=== PATIENT | female | born 1940 | race Caucasian/White ===

== ENCOUNTER 2022-10-24 06:42 | Outpatient (OUT) | payer MEDICARE, SELFPAY ==
[2022-10-24 07:12] LABS: Basophils Absolute Auto 0.1 10^3/uL (0.0-0.1); Basophils Percent Auto 0.8 % (0.2-2.0); Eosinophils Absolute Auto 0.5 10^3/uL (0.0-0.7); Eosinophils Percent Auto 7.6 % (0.9-7.0); Hematocrit 36.3 % (36.0-48.0); Hemoglobin 11.7 g/dL (12.0-16.0); Immature Granulocytes Abs Auto 0.04 10^3/uL (0.00-0.03); Immature Granulocytes Pct Auto 0.6 % (0.0-0.5); Lymphocytes Absolute Auto 1.6 10^3/uL (1.2-3.8); Lymphocytes Percent Auto 23.6 % (20.5-60.0); Mean Corpuscular HGB Conc 32.2 g/dL (29.9-35.2); Mean Corpuscular Hemoglobin 27.3 pg (26.7-34.0); Mean Corpuscular Volume 84.8 fL (81.0-99.0); Mean Platelet Volume 8.9 fL (9.5-13.5); Monocytes Absolute Auto 0.7 10^3/uL (0.3-0.8); Monocytes Percent Auto 10.1 % (1.7-12.0); Neutrophils Absolute Auto 3.8 10^3/uL (1.4-6.5); Neutrophils Percent Auto 57.3 % (43.0-75.0); Platelet Count 268 10^3/uL (150-450); Red Blood Count 4.28 10^6/uL (4.20-5.40); Red Cell Distribution Width 14.6 % (11.0-15.0); White Blood Count 6.6 10^3/uL (4.0-11.0)
[2022-10-24 07:34] LABS: Estimated Average Glucose 154 mg/dL
[2022-10-24 07:44] LABS: Alanine Aminotransferase 19 U/L (14-59); Anion Gap 10.7; BUN Creatinine Ratio 19.8; Calcium 8.9 mg/dL (8.5-10.1); Carbon Dioxide 28.4 mmol/L (21.0-32.0); Chloride 99 mmol/L (98-107); Chol HDL Ratio 2.2; Cholesterol 152 mg/dL (<=200); Estimated GFR (African America >60 (>=60); Estimated GFR (Non-African Ame >60 (>=60); Glucose 151 mg/dL (74-106); HDL Cholesterol 68 mg/dL (40-60); Potassium 4.1 mmol/L (3.5-5.1); Sodium 134 mmol/L (136-145); Triglycerides 84 mg/dL (<=150); VLDL CHOLESTEROL 16.8 mg/dL
[2022-10-24 10:21] LABS: Microalbumin Urine Random 1.8 mg/dL (<=30.0)
== END 2022-10-24 06:43 | disposition home or self-care (01) ==
PROVIDERS: PCP Internal Medicine; Visit Provider Internal Medicine
DX: E11.65 Type 2 diabetes mellitus with hyperglycemia (principal); I10 Essential (primary) hypertension; E78.00 Pure hypercholesterolemia, unspecified; Z79.899 Other long term (current) drug therapy
CPT/HCPCS: 36415; 80048; 80061; 82043; 83036; 84460; 85025

== ENCOUNTER 2023-02-11 06:57 | Outpatient (OUT) | payer MEDICARE, SELFPAY ==
[2023-02-11 08:19] LABS: Estimated Average Glucose 160 mg/dL; Glycohemoglobin A1C 7.2 % (4.5-6.2)
== END 2023-02-11 06:58 | disposition home or self-care (01) ==
LOC: LAB 06:59
PROVIDERS: PCP Internal Medicine; Visit Provider Internal Medicine
DX: E11.65 Type 2 diabetes mellitus with hyperglycemia (principal)
CPT/HCPCS: 36415; 83036

== ENCOUNTER 2023-03-09 15:40 | Outpatient (OUT) | payer MEDICARE, SELFPAY ==
--- NOTE | 2023-03-09 15:43 | XR_ITS ---
The [address] [address] Patient Name: DARLENE MCLAUGHLIN MRN: [id number] date: 1940 Sex: F Assigned Patient Location: [facility] Current Patient Location: Accession/Order Number: [id number] Exam Date: 03/09/2023 15:55 Report Date: 03/10/2023 01:48 At the request of: FIDEL PEREZ Procedure: XR cervical spine w flex/ext EXAMINATION: XR cervical spine w flex/ext HISTORY: Cervicalgia M54.0, Cervical Spondylosis M47.812 COMPARISON: CT C-spine 05/06/2018 FINDINGS: BONES: No fracture, spondylolisthesis, or bone lesion; no change in alignment during flexion and extension. Multilevel moderate degenerative facet arthropathy left greater than right. DISC SPACES: Mild narrowing C5-C6. PARASPINOUS: Negative. No paraspinous abnormality is seen. OTHER: Negative. XR/XR cervical spine w flex/ext IMPRESSION: 1. No appreciable acute abnormality. 2. Altered level moderate degenerative facet arthropathy and C5-C6 mild degenerative disc disease; grossly stable. Electronically authenticated by: AVSU FERNANDEZ Date: 03/10/2023 01:48
== END 2023-03-09 15:41 | disposition home or self-care (01) ==
PROVIDERS: PCP Internal Medicine; Visit Provider Internal Medicine
DX: M54.2 Cervicalgia (principal); M47.812 Spondylosis without myelopathy or radiculopathy, cervical region
CPT/HCPCS: 72052

== ENCOUNTER 2023-07-28 11:08 | Outpatient (OUT) | payer MEDICARE, SELFPAY ==
--- NOTE | 2023-07-28 11:19 | XR_ITS ---
The [address] [address] Patient Name: DARLENE MCLAUGHLIN MRN: [id number] date: 1940 Sex: F Assigned Patient Location: [facility] Current Patient Location: [facility] Accession/Order Number: [id number] Exam Date: 07/28/2023 11:27 Report Date: 07/28/2023 12:09 At the request of: FIDEL PEREZ Procedure: XR cervical spine 2-3V EXAMINATION: XR cervical spine 2-3V HISTORY: cervicalgia M54.2 COMPARISON: 03/09/2023 FINDINGS: BONES: Normal alignment with no acute fracture or spondylolisthesis. Mild degenerative spondylosis most significant C5-C6. Moderate to severe facet osteoarthropathy DISC SPACES: Multilevel disc space narrowing most significant C5-C6 PARASPINOUS: Negative. No paraspinous abnormality is seen. OTHER: Negative. XR/XR cervical spine 2-3V IMPRESSION: Moderate degenerative changes Electronically authenticated by: SARAH CLINTON Date: 07/28/2023 12:09
== END 2023-07-28 11:09 | disposition home or self-care (01) ==
LOC: RAD 11:13
PROVIDERS: PCP Internal Medicine; Visit Provider Internal Medicine
DX: M54.2 Cervicalgia (principal); M50.30 Other cervical disc degeneration, unspecified cervical region
CPT/HCPCS: 72040

== ENCOUNTER 2023-08-03 14:15 | Outpatient (RCR) | payer MEDICARE, SELFPAY | END 2023-09-10 16:07 | disposition home or self-care (01) | LOC: PT 14:15 | PROVIDERS: PCP Internal Medicine; Visit Provider Internal Medicine | DX: M54.2 Cervicalgia (principal) | CPT/HCPCS: 97012; 97110; 97140; 97162 ==

== ENCOUNTER 2023-09-28 13:07 | Outpatient (OUT) | payer MEDICARE, SELFPAY ==
--- NOTE | 2023-09-28 14:43 | P.CN_ITS ---
Consult Note: HPI Data of Consult Patient: new to practice Consult date: 09/28/23 Requesting Physician: Shane Hawkins MD Primary Care Provider: Glen Ya DO Consult Narrative Reason for consult: neck pain Narrative: 82yof who presents for evaluation. longstanding neck pain L>R. imaging reviewed, which is significant for multilevel moderate to severe facet arthropathy. has completed a course of provider directed home exercises and physical therapy exercises for >6 weeks. uses voltaren qday. denies adverse med side effects. cc:: CC: Shane Hawkins MD Review of Systems ROS Status of ROS 10 or more systems reviewed and unremark able except as noted in history and below Exam Narrative Exam Narrative: Psych-alert and oriented x 3.? Attentive and appropriate, constitutionally normal, displays normal mood and affect per situation.? There are no obvious deficits in memory, reasoning, or intellect.? Skin-no obvious rashes, bruising, or erythema noted to the patient's area of pain. Extremities-upper extremities are warm with minimal edema and palpable pulses. Cervical- tenderness to palpation noted in the cervical spine and paraspinal musculature.? Pain is elicited with extension, and lateral rotation of the cervical spine.? Range of motion is slightly diminished due to pain. Facet loading maneuvers are positive bilaterally.? Coordination remains intact.? Gait remains non-antalgic. Assessment and Plan Assessment and Plan (1) Cervical spondylosis: Plan 82yof who presents for evaluation. failed conservative measures, as noted. imaging reviewed, as noted. given symptoms and imaging, discussed that it would be prudent to attempt bilateral c4-5, 5-6 mbb under fluoroscopic guidance with intention of proceeding to rfa when she is ready. she is in agreement and will call when ready. meds reviewed, recommended applying voltaren gel 1% to area tid prn. follow up after procedure.
== END 2023-09-28 13:08 | disposition home or self-care (01) ==
LOC: PM 13:07
PROVIDERS: PCP Internal Medicine; Visit Provider Anesthesiology
DX: M47.812 Spondylosis without myelopathy or radiculopathy, cervical region (principal)
CPT/HCPCS: G0463

== ENCOUNTER 2024-10-20 06:51 | Outpatient (OUT) | payer MEDICARE, SELFPAY ==
--- OUTSIDE RECORDS SUMMARY | 2024-10-20 06:55 | XMS_ITS | Patient Health Record ---
Author Organization [facility] Address [address] [place] [address] Care Team Providers Care Account Manager Employee Benefits Name Role Phone Dr. Scooter Rosas Primary Care Provider Nuria Krueger Unavailable [phone] Reason For Referral No Information Encounters Encounter Location Date Provider Diagnosis [facility] [address] [place] [address] 04/11/2024 Scooter Rosas [facility] [address] [address] 04/11/2024 Scooter Rosas [facility] [place] [address] 05/09/2024 Scooter Rosas [facility] [address] [address] 03/02/2024 Nuria Krueger Encounter for dental examination and cleaning with abnormal findings Z01.21 ; Other dental procedure status Z98.818 and Dental caries on pit and fissure surface penetrating into dentin K02.52 [facility] [address] [place] [address] 06/07/2024 Scooter Rosas Other dental procedure status Z98.818 [facility] [place] [address] [place] [address] 09/07/2024 Scooter Rosas Dental caries on pit and fissure surface penetrating into dentin K02.52 [facility] [address] [place] [address] 04/11/2024 Scooter Rosas Dental caries on pit and fissure surface penetrating into dentin K02.52 Assessments Encounter Date Diagnosis (ICD Code) Assessment Notes Treatment Notes Treatment Clinical Notes Section Notes 06/07/2024 Other dental procedure status (ICD-10 - Z98.818) 03/02/2024 Encounter for dental examination and cleaning with abnormal findings (ICD-10 - Z01.21) 09/07/2024 Dental caries on pit and fissure surface penetrating into dentin (ICD-10 - K02.52) 04/11/2024 Dental caries on pit and fissure surface penetrating into dentin (ICD-10 - K02.52) 03/02/2024 Other dental procedure status (ICD-10 - Z98.818) 03/02/2024 Dental caries on pit and fissure surface penetrating into dentin (ICD-10 - K02.52) Plan Of Treatment No Information Insurance Providers Payer Name Payer Address Payer Phone Subscriber Number Group Number Insured Name Patient Relationship to Insured Coverage Start Date Coverage End Date [facility] [address] [place] [address] [id number] DARLENE MCLAUGHLIN Self - patient is the insured 5 [facility] [address] [place] [address] [id number] DARLENE MCLAUGHLIN Self - patient is the insured 2
--- OUTSIDE RECORDS SUMMARY | 2024-10-20 06:55 | XMS_ITS | Encounter Summary ---
Author Organization [facility] Address [address] [place] [address] Care Team Providers Care Rotary Operator Name Role Phone Glen Ya DO Primary Care Provider [phone] Source Comments In the event this information is protected by the Federal Confidentiality of Alcohol and Drug AbusePatient Records regulations: The Federal rules restrict any use of the information to criminally investigate or prosecute any alcohol or drug abuse patient.[facility] Encounter Details Date Type Department Care Team (Latest Contact Info) Description 12/25/2020 H&P External-NonCCF Provider, External, PA-C Do not enter address information under generic External Provider. Social History Tobacco Use Types Packs/Day Years Used Date Smoking Tobacco: Never Assessed Area Deprivation Index Answer Date Lenny rded National Score (1-100), lower number is lower ri sk Not on file 12/28/2020 State Score (1-10), lower number is lower risk N ot on file 12/28/2020 Data from: https://www.neighborhoodatlas.medicine.[facility].edu/. Last address used for calculation Not on file 12/28/2020 Comments Unknown Sex and Gender Information Value Date Recorded Sex Assigned at Not on file Legal Sex Female 10:46 AM EDT Gender Identity Not on file Sexual Orientation Not on file COVID-19 Exposure Response Date Recorded In the last month, have you been in contact with someone who was confirmed or suspected to have Coronavirus / COVID-19? No / Unsure 12/28/2020 12:32 PM EDT documented as of this encounter Plan of Treatment Not on file documented as of this encounter Visit Diagnoses Not on filedocumented in this encounter Care Teams Rotary Operator Relationship Specialty Start Date End Date Glen Ya DO [address] [place] [address] PCP - General Internal Medicine 12/24/20 documented as of this encounter
--- OUTSIDE RECORDS SUMMARY | 2024-10-20 06:55 | XMS_ITS | Encounter Summary ---
Author Organization [facility] Address [address] [place] [address] Care Team Providers Care Foundation Assistant Name Role Phone Glen Ya DO Primary Care Provider [phone] Reason for Visit * Reason Comments Med Refill Encounter Details Date Type Department Care Team ([facility] Contact Info) Description 01/01/2023 Refill [facility] [address] [facility] [address] [place] [address] Shantell Tatum MD [address] [facility] [address] [place] [address] Dermatographic urticaria Social History Tobacco Use Types Packs/Day Years Used Date Smoking Tobacco: Never Smokeless Tobacco: Never Alcohol Use Standard Drinks/Week Comments Never 0 (1 standard drink = 0.6 oz pur e alcohol) Comments Unknown Sex and Gender Information Value Date Recorded Sex Assigned at Not on file Legal Sex Female 11:10 PM EDT Gender Identity Not on file Sexual Orientation Not on file documented as of this encounter Plan of Treatment Upcoming Encounters Date Type Department Care Team ([facility] Contact Info) Description 01/04/2025 8:45 AM EDT Clinical Support [facility] [address] [place] [id number] Charlotte Cintron, [facility] [address] [place] [address] documented as of this encounter Visit Diagnoses Diagnosis Dermatographic urticaria documented in this encounter Care Teams Foundation Assistant Relationship Specialty Start Date End Date Glen Ya DO PCP - General Internal Medicine 09/01/22 documented as of this encounter
--- OUTSIDE RECORDS SUMMARY | 2024-10-20 06:55 | XMS_ITS | Patient Health Record ---
Author Organization [facility] [place] Address [address] [place] [address] Care Team Providers Care Pin Inserter Name Role Phone Glen Ya DO Primary Care Provider Unavaila ble Allergies No Known Allergies Reason For Referral No Information Medications Medication SIG (Take, Route, Frequency, Duration) Notes Start Date End Date Status Diclofenac Active metFORMIN HCl 1000 MG 1 tablet with a me al Orally BID Active Metoprolol Succinate ER 100 MG 1 tablet Orally BID Active Tylenol Extra Strength 500 MG 1 tablet as needed Orally every 6 hrs Active Valsartan 160 MG 1 tablet Orally Once a day for 30 day(s) Active predniSONE 5 MG TAKE 2 TABS DAILY FO R 2 WKS,1 & 1/2 TABS DAILY X2 WKS,1 TAB DAILY X2 WKS, 1/2 TAB DAILY X2 WKS for 90 Not-Taking Multivitamin - 1 tablet Orally Once a day for 30 day(s) Active amLODIPine Besylate 5 MG 1 tablet Orally Once a day for 30 day(s) Active Aspirin 81 MG 1 tablet Orally Once a day for 30 day(s) Active Atorvastatin Calcium 10 MG 1 tablet Orally Once a day for 30 day(s) Active Calcium 600 MG 1 tablet with meals Orally Once a day Active Immunizations Vaccine Route Administration Date Status Comme nts SARS-COV-2 (COVID 19 Pfizer 30mcg/0.3mL) Unknown 05/15/2020 Administered SARS-COV-2 (COVID 19 Pfizer Booster 0.3mL) Unknown 12/31/2020 Administered Social History Tobacco Use: Social History Observation Description Date Details (start date - stop date) Never Smoker NA - NA Tobacco Use/Smoking Question Answer Notes Patient is a nonsmoker Living Will Question Answer Notes Living Will Yes, patient has a living will, but it is not on file Section Notes: nondrinker nonsmoker (Garret, >61years; 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[employer]), 5 children (Zoe GILES prior at [employer]; 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[employer] John; 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; Johnie works for [employer]; Jose is child support agent for [employer]); Victorina ([employer]) grandchild desires to be DO 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 nondrinker nonsmoker (Garret, >61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; 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[employer]), 5 children (Zoe GILES prior at [employer]; 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[employer]; 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; Pardeep works for [employer]; Jose is child support agent for [employer]); Victorina ([facility]) grandchild desires to be DO 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 nondrinker nonsmoker (Garret, >61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; 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[employer]), 5 children (Zoe GILES prior at [employer]; 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[employer] John; 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; Johnie works for [employer]; Jose is child support agent for [employer]; ); Victorina ([facility]) grandchild desires to be DO 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 Problems Problem Type SNOMED Code ICD Code Onset Dates Problem Status W/U Status Risk Notes Problem Generalized osteoarthritis (870876027) 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) Active confirmed Problem Polymyalgia rheumatica (50538683) Polymyalgia rheumatica syndrome (M35.3) Active confirmed Problem Diabetes mellitus (37734586) Diabetes mellitus (E11.9) Active confirmed Plan Of Treatment No Information Insurance Providers Payer Name Payer Address Payer Phone Subscriber Number Group Number Insured Name Patient Relationship to Insured Coverage Start Date Coverage End Date [employer] [address] [place], [place] [id number] John Rain Self - patient is the insured 2 Medical (General) History Medical History History ICD Code cataracts hypertension anemia Surgical History Surgery Date(Month/Year) gallbladder
--- OUTSIDE RECORDS SUMMARY | 2024-10-20 06:55 | XMS_ITS | Clinical Summary ---
Author Organization [facility] Address [address] [place] [address] Care Team Providers Care Tube Fitter Name Role Phone Glen aY DO Primary Care Provider [phone] Allergies Active Allergy Reactions Criticality Noted Date Comments Sulfamethoxazole-Trimethoprim Unknown 2020 Medications amLODIPine (NORVASC) 5 mg tablet 11/09/2020 Active atorvastatin (LIPITOR) 10 mg tablet 11/09/2020 Active diclofenac, EC, (VOLTAREN) 75 mg EC tablet Take 75 mg by mouth once daily. Takes it every other day. 11/21/2020 Active metFORMIN (GLUCOPHAGE) 1,000 mg tablet 11/05/2020 Act mandi metoprolol succinate ER (TOPROL XL) 100 mg 11/09/2020 Active Valsartan-hydroC HLOROthiazide 160-25 mg per tablet 11/19/2020 Active CHRIS ASPIRIN ORAL Take 81 mg by mouth once daily. Active oxyCODONE IR (ROXICODONE) 5 mg immediate release tablet 12/27/2021 Acti ve escitalopram oxalate (LEXAPRO) 5 mg tablet Take 1 tablet by mouth once daily. 07/28/2024 Active Active Problems Problem Noted Date Diagnosed Date Type 2 diabetes mellitus wit h hyperglycemia, without long-term current use of insulin 08/03/2023 Anemia in other chronic diseases classified else where 07/16/2022 Microcytic anemia 07/16/2022 Juvenile polyarthritis Encounters Date Type Department Care Team Description 08/15/2024 Telephone Hematology/Oncology [address] [place] [address] [place] [address] Dipti Cuba, PAJeyC Results 08/12/2024 11:00 AM EDT Visit (SP) Office Hematology/Oncology [address] [place] [address] Dipti Cuba, ARIELA Anemia in other chronic diseases classified elsewhere (Primary Dx); White coat syndrome with diagnosis of hypertension 08/12/2024 Travel from Last 3 Months Immunizations Immunization Administration Dates Next Due COVID-19 original vaccine, a ge 12+ yr, monovalent (PFIZER-BIONTECH - PURPLE TOP) 12/27/2020,05/16/2020,04/23/2020 influenza (HD-IIV3) vaccine, age 65+ yr, high dose, trivalent, PF (FLUZONE HIGH-DOSE) 01/20/2017 influenza (IIV3) vaccine, tr ivalent (AFLURIA, FLULAVAL, FLUVIRIN, FLUZONE) 01/28/2013 influenza (ccIIV4) vaccine, age 6+ mo, quadrivalent (FLUCELVAX) 12/16/2017 Family History Medical History Relation Comments Heart disease Father CVA Mother Stroke Mother Relation Status Comments Father Mother Social History Tobacco Use Types Packs/Day Years Used Date Smoking Tobacco: Never Smokeless Tobacco: Never Alcohol Use Standard Drinks/Week Comments Never 0 (1 standard drink = 0.6 oz pur e alcohol) PHQ-2 Answer Date Recorded PHQ-2 score 0 08/03/2023 Area Deprivation Index Answer Date Lenny rded National Score (1-100), lower number is lower ri sk 63 02/02/2023 State Score (1-10), lower number is lower risk 4 02/02/2023 Data from: https://www.neighborhoodatlas.medicine.[facility].edu/. Last address used for calculation [address] [place] [address] 02/02/2023 Comments No Sex and Gender Information Value Date Recorded Sex Assigned at Not on file Legal Sex Female 10:46 AM EDT Gender Identity Not on file Sexual Orientation Not on file Last Filed Vital Signs Vital Sign Reading Time Taken Comments Blood Pressure 191/76 08/12/2024 11:05 AM EDT recheck Pulse 60 08/12/2024 11:01 AM EDT Temperature 36.3 C (97.4 F) 08/12/2024 11:01 AM EDT Respiratory Rate 16 08/12/2024 11:0 1 AM EDT Oxygen Saturation 99% 08/12/2024 11: 01 AM EDT Inhaled Oxygen Concentration - - Weight 57.9 kg (127 lb 10.3 oz) 025 11:01 AM EDT Height 157.5 cm (5' 2.01 ) 08/12/2024 1 1:01 AM EDT Body Mass Index 23.34 08/12/2024 11:01 AM EDT Plan of Treatment Health Maintenance Due Date Last Done Comments HbA1C 12/18/1947 Diabetic Foot Exam 1952 Dilated Retinal Exam 1952 Urine Albumin:Creatinine Ratio 1952 Anxiety Screening 1960 Depression Screening 1960 LDL Cholesterol 1960 Bone Density Screening 12/18/2007 RSV Vaccine (1 - 1-dose 75+ series) 2017 Advance Directive Discussion 03/30/2024 Medicare Advantage Annual We llness Visit 03/30/2024 Influenza Vaccine (#1) 2024 , 01/05/2023, 12/09/2021, Additional history exists DTaP,Tdap,Td Vaccine (4 - Tdap) 05/06/2028 05/06/2018, 12/22/2013, 02/03/2013 Pneumococcal Vaccine: 50+ Completed 02/14/2016, Shingrix Vaccine Completed 03/06/2024, , 02/14/2016 Procedures Procedure Name Priority Date/Time Associated Diagnosis Comments VITAMIN B12 BLOOD Routine 08/12/2024 10: 55 AM EDT Anemia in other chronic diseases classified elsewhere FOLATE SERUM Routine 08/12/2024 10:55 AM EDT Anemia in other chronic diseases classified elsewhere FERRITIN BLD Routine 08/12/2024 10:55 AM EDT Anemia in other chronic diseases classified elsewhere CBC + DIFF Routine 08/12/2024 10:55 AM EDT Anemia in other chronic diseases classified elsewhere COMPREHENSIVE METABOLIC PANEL Routine 08/12/2024 10:55 AM EDT Anemia in other chronic diseases classified elsewhere IRON + TIBC Routine 08/12/2024 10:55 AM EDT Anemia in other chronic diseases classified elsewhere from Last 3 Months Results * VITAMIN B12 (08/12/2024 10:55 AM EDT) Vitamin B12 842 232 - 1,245 pg/mL 08/12/2024 8:21 PM EDT [facility] Blood BLOOD SPECIMEN / Unknown Venipuncture / Unknown 08/12/2024 10:55 AM EDT 08/12/2024 10:55 AM EDT Dipti Cuba PA-C LABORATORY Final Result Performing Organization Address City/[facility]/ZIP Co de Phone Number [facility] [address] [place] [address], * (ABNORMAL) IRON AND TIBC (08/12/2024 10:55 AM EDT) Iron 40(L) 41 - 186 ug/dL 08/12/2024 7:50 PM EDT [facility] TIBC 261 232 - 386 ug/dL 08/12/2024 7:50 PM EDT [facility] Transferrin Saturation 15.3 15.0 - 57.0 % 08/12/2024 7:50 PM EDT [facility] Blood BLOOD SPECIMEN / Unknown Venipuncture / Unknown 08/12/2024 10:55 AM EDT 08/12/2024 10:55 AM EDT us Dipti Cuba PA-C LABORATORY Final Result [facility] [address] [place] [address], * FOLATE, SERUM (08/12/2024 10:55 AM EDT) Folate 15.2 >4.7 ng/mL 08/12/2024 8:21 PM EDT [facility] Blood BLOOD SPECIMEN / Unknown Venipuncture / Unknown 08/12/2024 10:55 AM EDT 08/12/2024 10:55 AM EDT Dipti Cuba PA-C LABORATORY Final Result Performing Organization Address [facility]/ZIP Co de Phone Number [facility] [address] [place] [address], [place] * FERRITIN (08/12/2024 10:55 AM EDT) [facility] Ferritin 30.6 14.7 - 205.1 ng/mL 08/12/2024 8:21 PM EDT [facility] Blood BLOOD SPECIMEN / Unknown Venipuncture / Unknown 08/12/2024 10:55 AM EDT 08/12/2024 10:55 AM EDT us iDpti Cuba PA-C LABORATORY Final Result Performing Organization Address [facility] Co de Phone Number [facility] [address] [place] [address], [place] * (ABNORMAL) COMPREHENSIVE METABOLIC PANEL (08/12/2024 10:55 AM EDT) [facility] Protein, Total 6.8 6.3 - 8.0 g/dL 08/12/2024 11:28 AM EDT [facility] Albumin 4.6 3.9 - 4.9 g/dL 08/12/2024 11:28 AM EDT [facility] Calcium, Total 9.5 8.5 - 10.2 mg/dL 08/12/2024 11:28 AM EDT [facility] Bilirubin, Total 0.4 0.2 - 1.3 mg/dL 08/12/2024 11:28 AM EDT [facility] Alkaline Phosphatase 109 34 - 123 U/L 08/12/2024 11:28 AM EDT [facility] AST 22 13 - 35 U/L 08/12/2024 11:28 AM EDT [facility] ALT 18 7 - 38 U/L 08/12/2024 11:28 AM [facility] Glucose 129(H) 74 - 99 mg/dL 08/12/2024 11:28 AM [facility] Comment: The [place] Diabetes Association (ADA) provides guidance for cutoff values for fasting glucose and random glucose. The ADA defines fasting as no caloric intake for at least 8 hours. Fasting plasma glucose results between 100 to 125 mg/dL indicate increased risk for diabetes (prediabetes). Fasting plasma glucose results greater than or equal to 126 mg/dL meet the criteria for diagnosis of diabetes. In the absence of unequivocal hyperglycemia, results should be confirmed by repeat testing. In a patient with classic symptoms of hyperglycemia or hyperglycemic crisis, random plasma glucose results greater than or equal to 200 mg/dL meet the criteria for diagnosis of diabetes. Reference: Standards of Medical Care in Diabetes 2016, [place] Diabetes Association. Diabetes Care. 2016.39(Suppl 1). BUN 17 7 - 21 mg/dL 08/12/2024 11:28 AM [facility] Creatinine 0.85 0.58 - 0.96 mg/dL 08/12/2024 11:28 AM [facility] Sodium 132(L) 136 - 144 mmol/L 08/12/2024 11:28 AM [facility] Potassium 5.0 3.7 - 5.1 mmol/L 08/12/2024 11:28 AM [facility] Chloride 95(L) 98 - 107 mmol/L 08/12/2024 11:28 AM [facility] CO2 25 22 - 30 mmol/L 08/12/2024 11:28 AM [facility] Anion Gap 12 8 - 15 mmol/L 08/12/2024 11:28 AM [facility] Estimated Glomerular Filtration Rate 69 >=60 mL/min/1. 73m 08/12/2024 11:28 AM [facility] Comment:Estimated Glomerular Filtration Rate (eGFR) is calculated using the 2020 CKD-EPI creatinine equation. This equation utilizes serum creatinine, sex, and age as parameters. The creatinine assay has traceable calibration to isotope dilution- mass spectrometry. Refer to KDIGO guidelines for clinical interpretation. In patients with unstable renal function, e.g. those with acute kidney injury, the eGFR may not accurately reflect actual GFR. Blood BLOOD SPECIMEN / Unknown Venipuncture / Unknown 08/12/2024 10:55 AM EDT 08/12/2024 10:55 AM EDT Dipti Cuba PA-C LABORATORY Final Result [facility] [address] [place] [address] * (ABNORMAL) COMPLETE BLOOD COUNT AND DIFFERENTIAL (08/12/2024 10:55 AM EDT) WBC 6.93 3.70 - 11.00 k/uL 08/12/2024 11:05 AM EDT [facility] RBC 3.95 3.90 - 5.20 m/uL 08/12/2024 11:05 AM EDT [facility] Hemoglobin 11.0(L) 11.5 - 15.5 g/dL 08/12/2024 11:05 AM EDT [facility] Hematocrit 33.4(L) 36.0 - 46.0 % 08/12/2024 11:05 AM EDT [facility] MCV 84.6 80.0 - 100.0 fL 08/12/2024 11:05 AM EDT [facility] MCH 27.8 26.0 - 34.0 pg 08/12/2024 11:05 AM EDT [facility] MCHC 32.9 30.5 - 36.0 g/dL 08/12/2024 11:05 AM EDT [facility] RDW-CV 14.4 11.5 - 15.0 % 08/12/2024 11:05 AM EDT [facility] Platelet Count 245 150 - 400 k/uL 08/12/2024 11:05 AM EDT [facility] MPV 8.7(L) 9.0 - 12.7 fL 08/12/2024 11:05 AM EDT [facility] Neutrophils % 63.6 % 08/[facility]24 [facility] Abs Neut 4.40 1.45 - 7.50 k/uL 08/12/2024 11:[facility] Lymphocytes % 20.2 % 08/12/2024 11:05 AM EDT [facility] Abs Lymph 1.40 1.00 - 4.00 k/uL 08/12/2024 11:05 AM [facility] Monocytes % 9.8 % 08/12/2024 11:05 AM [facility] Abs Mccormick 0.68 <0.87 k/uL 08/12/2024 11:05 AM [facility] Eosinophils % 5.3 % 08/12/2024 11:05 AM [facility] Abs Eosin 0.37 <0.46 k/uL 08/12/2024 11:05 AM [facility] Basophils % 0.7 % 08/12/2024 11:05 AM [facility] Abs Baso 0.05 <0.11 k/uL 08/12/2024 11:05 AM [facility] Immature Granulocytes % 0.4 % 08/12/2024 11:05 AM [facility] Abs Immature Gran 0.03 <0.10 k/uL 08/12/2024 11:[facility] NRBC 0.0 /100 WBC 08/12/2024 11:05 AM [facility] Absolute nRBC <0.01 <0.01 k/uL 08/12/2024 11:05 AM [facility] Diff Type Auto 08/12/2024 11:05 AM [facility] Blood BLOOD SPECIMEN / Unknown Venipuncture / Unknown 08/12/2024 10:55 AM EDT 08/12/2024 10:55 AM EDT Dipti Cuba PA-C LABORATORY Final Result [facility] [address] [place] [address] from Last 3 Months Insurance [facility] MEDICARE ADVANTAGE PPO Care Teams Tube Fitter Relationship Specialty Start Date End Date Glen Ya DO [address] [facility] [facility] [address] PCP - General Internal Medicine 12/24/20
--- OUTSIDE RECORDS SUMMARY | 2024-10-20 06:55 | XMS_ITS | Clinical Summary ---
Author Organization [facility] Address [address] [facility] [place] [address] Care Team Providers Care Human Services Instructor Name Role Phone Glen Ya DO Primary Care Provider [phone] Active Problems Problem Noted Date Diagnosed Date Right anterior shoulder pain 09/11/2022 History of right shoulder fracture 09/11/2022 Family History Medical History Relation Name Comments Heart disease Father Stroke Mother Relation Name Status Comments Father Mother Social History Tobacco [...] Sign Reading Time Taken Comments Blood Pressure - - Pulse - - Temperature - - Respiratory Rate - - Oxygen Saturation - - Inhaled Oxygen Concentration - - Weight 62.1 kg (137 lb) 06/20/2020 12:00 PM EDT Height 162.6 cm (5' 4 ) 01/13/2022 12:00 PM EDT Body Mass Index 23.52 06/20/2020 12:00 PM EDT Plan of Treatment Upcoming Encounters Date Type Department Care Team (Late st Contact Info) Description 01/04/2025 8:45 AM EDT Clinical Support [facility] [address] [place] [address] Charlotte Cintron, [facility] [address] [place] [address] Health Maintenance Due Date Last Done Comments Pneumococcal Vaccine: 65+ Ye ars (1 of 1 - PCV) 1992 Influenza Vaccine (#1) 2024 , 12/09/2021, 12/16/2017, Additional history exists Insurance [employer] MEDICARE Care Teams Human Services Instructor Relationship Specialty Start Date End Date Glen Ya DO PCP - General Internal Medicine 09/01/22
--- OUTSIDE RECORDS SUMMARY | 2024-10-20 06:55 | XMS_ITS | Encounter Summary ---
Author Organization [facility] Address [address] [facility] [place] [address] Care Team Providers Care Linter Tender Name Role Phone Glen Ya DO Primary Care Provider [phone] Encounter Details Date Type Department Care Team (Late Contact Info) Description 09/05/2022 Abstract [facility] [address] [place] [address] Oliver Morales, PT [address] [facility] [place] [address] Social History Tobacco Use Types Packs/Day Years [...] Encounters Date Type Department Care Team (Late Contact Info) Description 01/04/2025 8:45 AM EDT Clinical Support [facility] [address] [place] [address] Charlotte Cintron, [facility] [address] [facility] [address] [place] [address] documented as of this encounter Visit Diagnoses Not on filedocumented in this encounter Care Teams Linter Tender Relationship Specialty Start Date End Date Glen Ya DO PCP - General Internal Medicine 09/01/22 documented as of this encounter
--- OUTSIDE RECORDS SUMMARY | 2024-10-20 06:55 | XMS_ITS | Clinical Summary ---
Author Organization [facility] Address [address] [place] [address] Care Team Providers Care Dermatologist Name Role Phone Unavailable Primary Care Provider Unavailabl e Social History Tobacco Use Types Packs/Day Years Used Date Smoking Tobacco: Never Assessed CO Safety & Environment Answer Date Rec orded Fear of Current or Ex-Partner Not on file Emotionally Abused Not on file 05/21/2023 Physically Abused Not on file 05/21/2023 Sexually Abused Not on file 05/21/2023 Physically or Sexually Abused Not on file Comments Unknown Sex and Gender Information Value Date Recorded Sex Assigned at Not on file Legal Sex Female 12:41 AM EDT Gender Identity Not on file Sexual Orientation Not on file Plan of Treatment Not on file
--- OUTSIDE RECORDS SUMMARY | 2024-10-20 06:57 | XMS_ITS | CCD ---
Author Organization [facility] Care Team Providers Care Network Security Administrator Name Role Phone Glen Perez DO Primary Care Provider DO Glen Perez Primary Care Provider MD Jesus Brewer Admit Provider MD Jesus Brewer Attending Provider DO Lul Webster Other Provider Glen Perez DO Primary Care Provider Lul Webster Unavailable DO Lul Webster Attending Provider [phone] DO Glen Perez Primary Care Provider MD Jesus Brewer Admit Provider MD Jesus Brewer Attending Provider DO Lul Webster Other Provider DO Lul Webster Attending Provider Glen Perez Unavailable ANA, DR CARROLL Admitting Unavailable ANA, DR CARROLL Attending Unavailable ANA, DR CARROLL Primary Care Unavailable ANA, DR CARROLL Consulting Unavailable ANA, DR CARROLL Admitting Unavailable ANA, DR CARROLL Attending Unavailable BALL, DR CARROLL Primary Care Unavailable ANA, DR CARROLL Consulting Unavailable ANA, DR CARROLL Admitting Unavailable BALL, DR CARROLL Attending Unavailable BALL, DR CARROLL Primary Care Unavailable BALL, DR CARROLL Consulting Unavailable ZIEBER, DR VASU Herbert Consulting Unavailable BALL, DR CARROLL Primary Care Unavailable HAY ., DR FRAGOSO Admitting Unavailable HAY ., DR FRAGOSO Attending Unavailable HAY ., DR FRAGOSO Consulting Unavailable AHDOOT, NERISSA Consulting Unavailable BRISA, PAM Consulting Unavailable BALL, DR CARROLL Primary Care Unavailable TIKI ., GLADYS Admitting Unavailable TIKI ., GLADYS Attending Unavailable JV .SANDY Consulting Unavailmatt e TIKI ., GLADYS Consulting Unavailable SARAH RAINEY Consulting Unavailable ANA, DR CARROLL Primary Care Unavailable ISRAEL ., COLBY Admitting Unavailable ISRAEL ., COLBY Attending Unavailable WEST, DR SMITH V Consulting Unavailable ISRAEL ., COLBY Consulting Unavailable Ball, DO Carroll Primary Care Provider [phone] DO Lul Webster Attending Provider [phone] Glen Perez Primary Care Unavailable Cora, Lul A Admitting Unavailable Cora, Lul A Attending Unavailable Ball, Glen Primary Care Unavailable Cora, Lul A Admitting Unavailable Cora, Lul A Attending Unavailable Ball, Glen Primary Care Unavailable Cora, Lul A Admitting Unavailable Cora, Lul A Attending Unavailable Cora, Lul A Admitting Unavailable Cora, Lul A Attending Unavailable Ball, Glen Primary Care Unavailable Ball, Glen Primary Care Unavailable Cora, Lul A Admitting Unavailable Cora, Lul A Attending Unavailable Ball, Glen Primary Care Unavailable Cora, Lul A Attending Unavailable Cora, Lul A Admitting Unavailable Ball, Glen Primary Care Unavailable Doamekpor, Jesus E Attending Unavailab le Doamekpor, Jesus E Admitting Unavailab le Cora, Lul A Consulting Unavailable Ball, Glen Primary Care Unavailable Cora, Lul A Attending Unavailable Cora, Lul A Admitting Unavailable Ball Glen DEL RIO Primary Care Provider Glen Perez DO Primary Care Provider Ross BELLE, Shane Weston Attending Unavailable DIPTI MITCHELL Referring Unavailable BALL, GLEN E Primary Care Unavailable BALL, GLEN E Primary Care Unavailable DIPTI MITCHELL M Attending Unavailable BALL, GLEN E Primary Care Unavailable ABHYANKAR, YASH Referring Unavailable PAULA, DIPTI M Referring Unavailable BALL, GLEN E Primary Care Unavailable DIPTI MITCHELL M Attending Unavailable Ball Glen DEL RIO Primary Care Provider [phone] Glen Perez DO Attending Provider [phone] Dipti Mitchell PA-C Attending Provider [phone] Allergies Allergy Classification Reported Allergen(s) Allergy Type Date of Onset Reaction(s) Facility (20 sources) Sulfamethoxazole / Trimethoprim; Translations: [SULFAMETHOXAZOLE-T RIMETHOPRIM] Drug Allergy 12-12-19 17 Unknown [facility] (2 sources) Sulfamethoxazole / Trimethoprim Drug Allergy Unknown Albiorex Other (2 sources) patient allergy list reviewed by nurse or physicia Propensity to adverse reactions 05-17-19 Comment:Done Albiorex Other Medications Current Medications Medication Drug Class(es) Dates Sig (Normalized) Sig (Original) amLODIPine 5 mg oral tablet (20 sources) Dihydropyridine Calcium Channel Prisca Start: 07-17-2024 take 1 tablet by mouth once daily Amlodipine 5 mg tablet Active 0 .ROUTE .COMPLEX 90 July 17, 2024 12:33pm TAKE 1 TABLET BY MOUTH DAILY Complies with drug therapy Start: 09-07-2023 End: 09-21-2023 take 1 tablet by mouth once daily Amlodipine 5 mg tablet Discontinued 0 .ROUTE .COMPLEX 90 September 07, 2023 6:01pm September 21, 2023 9:24am TAKE 1 TABLET BY MOUTH DAILY Start: 11-09-2020 End: 07-17-2024 take 1 tablet by mouth once daily Amlodipine 5 mg tablet Discontinued 5 MG PO Daily September 21, 2023 9:24am July 17, 2024 12:33pm aspirin 81 mg oral tablet (20 sources) Platelet Aggregation Inhibitor, Nonsteroidal Anti-inflammatory Drug Start: 07-21-2022 take 1 capsule by mouth once daily in the morning Aspirin 81 mg capsule Active 81 MG PO Every morning July 21, 2022 4:24pm Complies with drug therapy Start: 12-27-2021 End: 07-21-2022 take 1 capsule by mouth twice daily Aspirin 81 mg Capsule Discontinued 81 MG PO Twice daily December 27, 2021 2:17pm July 21, 2022 4:24pm Start: 12-26-2021 End: 12-27-2021 take 1 capsule by mouth once daily Aspirin 81 mg Capsule Discontinued 81 MG PO Daily December 26, 2021 12:00am December 27, 2021 2:37pm take 1 tablet by barrera th every twenty-four hours Aspirin 81 MG 1 tablet Orally Once a day Active Comment on above: Take 81 mg by mouth once daily. atorvastatin 10 mg oral tablet (20 sources) HMG-CoA Reductase Inhibitor Start: take 1 tablet by mouth once daily in the evening Atorvastatin 10 mg tablet Active 0 .ROUTE .COMPLEX 90 July 17, 2024 12:33pm TAKE 1 TABLET BY MOUTH DAILY IN THE EVENING Complies with drug therapy Start: 09-07-2023 End: 09-21-2023 take 1 tablet by mouth once daily in the evening Atorvastatin 10 mg tablet Discontinued 0 .ROUTE .COMPLEX 90 September 07, 2023 6:01pm September 21, 2023 9:24am TAKE 1 TABLET BY MOUTH DAILY IN THE EVENING Start: 11-09-2020 End: 07-17-2024 take 1 tablet by mouth once daily Atorvastatin 10 mg tablet Discontinued 10 MG PO Daily September 21, 2023 9:24am July 17, 2024 12:33pm azithromycin 250 mg oral tablet (15 sources) Macrolide Antimicrobial Start: 06-09-2022 Azithromycin 250 MG as directed Orally daily for 5 days May, Active Calcium (20 sources) Phosphate Binder, Calcium Start: 07-21-2022 take 2 capsules by mouth once daily in the morning Calcium 600 mg Capsule Active 1200 MG PO Every morning July 21, 2022 12:00am Complies with drug therapy Start: 07-21-2022 take 2 capsules by m outh once daily in the morning Calcium 600 mg Capsule Active 1200 MG PO Every morning July 21, 2022 12:00am Start: 07-21-2022 take 2 capsules by m outh once daily in the morning Calcium 600 mg Capsule Active 1200 MG PO Every morning July 20, 2022 11:00pm Start: 07-21-2022 take 1200 mg by mout h once daily in the morning Calcium Active 1200 MG PO Every morning July 21, 2022 12:00am Calcium + D Acti ve cephalexin 500 mg oral tablet (5 sources) Cephalosporin Antibacterial Start: 09-17-2022 take 1 tablet by mouth three times daily Cephalexin 500 MG 1 tablet Orally three times daily for 5 days Aug, Active cetirizine hydrochloride 10 mg oral tablet (20 sources) Histamine-1 Receptor Antagonist take 1 tablet by mouth once daily ZyrTEC 10 MG 1 tablet Orally Once a day Active diclofenac sodium 75 mg delayed release oral tablet (20 sources) Nonsteroidal Anti-inflammatory Drug Start: 06-06-2024 End: 06-28-2024 take 1 tablet by mouth twice daily as needed for pain Diclofenac Sodium 75 mg tablet,delayed release (DR/EC) Active 75 MG PO Twice daily as needed for pain 60 June 06, 2024 12:00am Complies with drug therapy Start: 01-09-2024 End: 05-09-2024 take 1 tablet by mouth twice daily at mealtime Diclofenac Sodium 75 mg tablet,delayed release (DR/EC) Discontinued 0 .ROUTE .COMPLEX 60 January 09, 2024 8:32am May 09, 2024 5:14pm TAKE 1 TABLET BY MOUTH TWICE A DAY WITH FOOD Start: 09-21-2023 End: 01-09-2024 take 1 tablet by mouth twice daily Diclofenac Sodium 75 mg tablet,delayed release (DR/EC) Discontinued 75 MG PO Twice daily September 21, 2023 9:24am January 09, 2024 8:32am Start: 07-22-2023 End: 09-21-2023 take 1 tablet by mouth twice daily at mealtime Diclofenac Sodium 75 mg tablet,delayed release (DR/EC) Discontinued 0 .ROUTE .COMPLEX 60 July 22, 2023 2:35pm September 21, 2023 9:25am TAKE 1 TABLET BY MOUTH TWICE A DAY WITH FOOD Start: 07-21-2022 End: 07-22-2023 take 1 tablet by mouth twice daily as needed for pain Diclofenac Sodium 75 mg Tablet,Delayed Release (Dr/Ec) Discontinued 75 MG PO Twice daily as needed for Pain July 21, 2022 12:00am July 22, 2023 2:35pm Start: 11-21-2020 take 1 tablet by barrera th once daily, then take 1 tablet by mouth every other day diclofenac, EC, (VOLTAREN) 75 mg EC tablet Take 75 mg by mouth once daily. Takes it every other day. 11/21/2020 Active Comment on above: Take 75 mg by mouth once daily. Takes it every other day. escitalopram 5 mg oral tablet (20 sources) Serotonin Reuptake Inhibitor Start: take 1 tablet by mouth once daily Escitalopram Oxalate 5 mg tablet Active 5 MG PO Daily July 28, 2024 12:00am Complies with drug therapy Start: 01-21-2024 End: 03-25-2024 take 1 tablet by mouth once daily Escitalopram Oxalate 10 mg tablet Discontinued 10 MG PO Daily January 21, 2024 12:34pm March 25, 2024 9:50am Start: 12-24-2023 End: 01-21-2024 take 1 tablet by mouth once daily Escitalopram Oxalate (Lexapro) 5 mg tablet Discontinued 5 MG PO Daily December 24, 2023 12:00am January 21, 2024 12:35pm famotidine 20 mg oral tablet (20 sources) Histamine-2 Receptor Antagonist Start: 07-27-2024 End: 09-06-2024 take 1 tablet by mouth once daily Famotidine 20 mg tablet Active 20 MG PO Daily 90 90 September 06, 2024 8:57am Complies with drug therapy Start: 03-11-2024 End: 05-09-2024 take 1 tablet by mouth once daily Famotidine 20 mg tablet Discontinued 0 .ROUTE .COMPLEX March 11, 2024 7:47am May 09, 2024 5:14pm TAKE 1 TABLET BY MOUTH ONCE A DAY WITH DICLOFENAC FOR 30 DAYS Start: 06-05-2023 End: 03-11-2024 take 1 tablet by mouth once daily Famotidine 20 mg tablet Discontinued 20 MG PO Daily June 05, 2023 1:00am March 11, 2024 7:47am TAKE 1 TABLET BY MOUTH ONCE A DAY WITH DICLOFENAC FOR 30 DAYS Start: 01-05-2023 take 1 tablet by barrera th once daily Famotidine 20 MG 1 tablet Orally Once a day w/ diclofenac for 30 days Dec, Active fluocinonide 0.5 mg/ml topical solution (20 sources) Corticosteroid Start: 06-05-2023 End: 12-24-2023 Fluocinonide 0.05 % solution Active 1 APPLIC TOPICAL Twice daily 60 December 24, 2023 9:28am Complies with drug therapy Fluocinonide 0.0 5 % APPLY TO AFFECTED AREA TWICE DAILY NEEDED FOR ITCHING for 30 Active Fluocinonide 0.0 5 % APPLY TO AFFECTED AREA TWICE DAILY NEEDED FOR ITCHING for 30 Active hydroCHLOROthiazide 25 mg / valsartan 160 mg oral tablet (13 sources) Thiazide Diuretic, Angiotensin 2 Receptor Prisca Start: 11-19-2020 Valsartan-hydroCHLOROthiazid e 160-25 mg per tablet 11/19/2020 Active hydrocortisone 10 mg/ml / neomycin 3.5 mg/ml / polymyxin b 09502 unt/ml otic suspension (12 sources) Aminoglycoside Antibacterial, Polymyxin-class Antibacterial, Corticosteroid Start: 06-24-2022 [id number] 3.5-06598-6 4 drops Otic In ear q HS PRN itching for 30 days May, Active metFORMIN hydrochloride 1000 mg oral tablet (20 sources) Biguanide Start: 05-09-2024 End: 09-06-2024 Metformin 1,000 mg tablet Active 500 MG PO Daily 45 90 September 06, 2024 8:57am Complies with drug therapy Start: 04-22-2024 End: 05-09-2024 take 1 tablet by mouth twice daily Metformin 1,000 mg tablet Discontinued 0 .ROUTE .COMPLEX 180 April 22, 2024 8:05am May 09, 2024 5:14pm TAKE 1 TABLET BY MOUTH TWICE DAILY Start: 11-05-2020 End: 04-22-2024 take 1 tablet by mouth twice daily Metformin 1,000 mg tablet Discontinued 1000 MG PO Twice daily December 26, 2021 12:00am June 17, 2023 1:10pm take 1 tablet by barrera th every twenty-four hours metFORMIN HCl 1000 MG 1 tablet with a meal Orally Once a day Active 24 hr metoprolol succinate 100 mg extended release oral tablet (20 sources) beta-Adrenergic Prisca Start: 10-17-2024 take 1 tablet by mouth once daily Metoprolol Succinate 100 mg tablet extended release 24 hr Active 100 MG PO Daily 90 90 October 17, 2024 9:06am Complies with drug therapy Start: 07-17-2024 End: 10-17-2024 take 1 tablet by mouth twice daily Metoprolol Succinate 100 mg tablet extended release 24 hr Discontinued 0 .ROUTE .COMPLEX 180 July 17, 2024 12:33pm October 17, 2024 9:06am TAKE 1 TABLET BY MOUTH TWICE DAILY Start: 07-17-2024 take 1 tablet by barrera th twice daily Metoprolol Succinate 100 mg tablet extended release 24 hr Active 0 .ROUTE .COMPLEX 180 July 17, 2024 12:33pm TAKE 1 TABLET BY MOUTH TWICE DAILY Start: 09-07-2023 End: 09-21-2023 take 1 tablet by mouth twice daily Metoprolol Succinate 100 mg tablet extended release 24 hr Discontinued 0 .ROUTE .COMPLEX 180 September 07, 2023 6:01pm September 21, 2023 9:25am TAKE 1 TABLET BY MOUTH TWICE DAILY Start: 11-09-2020 End: 07-17-2024 take 1 tablet by mouth twice daily Metoprolol Succinate 100 mg tablet extended release 24 hr Discontinued 100 MG PO Twice daily September 21, 2023 9:25am July 17, 2024 12:33pm take 1 capsule by mo uth once daily Metoprolol Succinate 100 MG 1 capsule Orally Once a day Active valsartan 160 mg oral tablet (20 sources) Angiotensin 2 Receptor Prisca Start: 09-06-2024 take 1 tablet by mouth twice daily Valsartan 160 mg tablet Active 160 MG PO Twice daily 180 90 September 06, 2024 8:57am Complies with drug therapy Start: 12-16-2023 End: 09-06-2024 take 1 tablet by mouth twice daily Valsartan 160 mg tablet Discontinued 0 .ROUTE .COMPLEX 180 December 16, 2023 8:36am September 06, 2024 8:58am TAKE 1 TABLET BY MOUTH TWICE DAILY Start: 12-26-2021 End: 12-16-2023 take 1 tablet by mouth twice daily Valsartan 160 mg tablet Discontinued 160 MG PO Twice daily December 26, 2021 12:00am December 16, 2023 8:36am take 1 tablet by barrera th every twenty-four hours Valsartan 160 MG 1 tablet Orally Once a day Active Completed/Discontinued Medications Medication Drug Class(es) Dates Sig (Normalized) Sig (Original) acetaminophen 500 mg oral tablet (20 sources) Start: 12-27-2021 End: 06-05-2023 take 2 tablets by mouth every eight hours as needed for pain Acetaminophen 500 mg Tablet Discontinued 1000 MG PO Q8H as needed for Fever Or Pain 0 December 27, 2021 12:00am June 05, 2023 12:46pm Start: 12-27-2021 End: 06-05-2023 take 1000 mg by mouth every eight hours Acetaminophen Discontinued 1000 MG PO Q8H 0 December 27, 2021 12:00am June 05, 2023 12:46pm ALPRAZolam 0.25 mg oral tablet (20 sources) Benzodiazepine Start: 12-10-2023 End: 03-25-2024 take 1 tablet by mouth once daily as needed for anxiety Alprazolam 0.25 mg tablet Discontinued 0.25 MG PO Daily as needed for anxiety December 10, 2023 12:00am December 10, 2023 9:30am B-12 - up to 1000 mcg (20 sources) Start: 04-06-2023 B-12 - up to 1 000 mcg Mar, 1 mL Start: 03-03-2023 B-12 - up to 1 000 mcg Feb, 1 mL Start: 01-23-2023 B-12 - up to 1 000 mcg Dec, 1000 mcg Start: 12-16-2022 B-12 - up to 1 000 mcg Nov, 1000 mcg Start: 11-12-2022 B-12 - up to 1 000 mcg Oct, 1000 mcg Start: 10-06-2022 B-12 - up to 1 000 mcg Sep, 1000 mcg Start: 09-01-2022 B-12 - up to 1 000 mcg Aug, 1000 mcg Start: 07-30-2022 B-12 - up to 1 000 mcg July, 1000 mcg Start: 06-24-2022 B-12 - up to 1 000 mcg May, 1000 mcg Start: 05-20-2022 B-12 - up to 1 000 mcg Apr, 1000 mcg Start: 04-15-2022 B-12 - up to 1 000 mcg Mar, 1000 mcg calcium carbonate 1250 mg / cholecalciferol 200 unt oral tablet (1 source) Vitamin D Start: 12-27-2021 End: 07-21-2022 take 1 tablet by mouth once at mealtime Calcium Carbonate-Vitamin D3 (Oyster Shell Calcium-Vit D3) 500 mg-5 mcg (200 unit) Tablet Discontinued 1 TAB PO 3x/Day with meals December 27, 2021 12:00am July 21, 2022 4:23pm Calcium Carbonate-Vitamin D3 (Oyster Shell Calcium-Vit D3) 500 mg-5 mcg (200 unit) Tablet (20 sources) Start: 12-27-2021 End: 07-21-2022 take 1 tablet by mouth once at mealtime Calcium Carbonate-Vitamin D3 (Oyster Shell Calcium-Vit D3) 500 mg-5 mcg (200 unit) Tablet Discontinued 1 TAB PO 3x/Day with meals December 26, 2021 11:00pm July 21, 2022 3:23pm Start: 12-27-2021 End: 07-21-2022 take 1 tablet by mouth once at mealtime Calcium Carbonate-Vitamin D3 (Oyster Shell Calcium-Vit D3) 500 mg-5 mcg (200 unit) Tablet Discontinued 1 TAB PO 3x/Day with meals December 27, 2021 12:00am July 21, 2022 4:23pm Start: 12-27-2021 take 1 tablet by barrera th once at mealtime Calcium Carbonate-Vitamin D3 (Oyster Shell Calcium-Vit D3) 500 mg-5 mcg (200 unit) Tablet Active 1 TAB PO 3x/Day with meals December 26, 2021 11:00pm Start: 12-27-2021 take 1 tablet by barrera th once at mealtime Calcium Carbonate-Vitamin D3 (Oyster Shell Calcium-Vit D3) 500 mg-5 mcg (200 unit) Tablet Active 1 TAB PO 3x/Day with meals December 27, 2021 12:00am ferrous sulfate 160 mg extended release oral tablet (20 sources) Start: 07-21-2022 End: 06-05-2023 take 1 tablet by mouth once daily Ferrous Sulfate, Dried 160 mg (50 mg iron) Tablet Extended Release Discontinued 160 MG PO Daily July 21, 2022 12:00am June 05, 2023 12:46pm oseltamivir 75 mg oral capsule (6 sources) Neuraminidase Inhibitor Start: 05-11-2024 End: 06-28-2024 take 1 capsule by mouth twice daily Oseltamivir (Tamiflu) 75 mg capsule Discontinued 75 MG PO Twice daily 10 May 11, 2024 1:00am June 28, 2024 8:49am oxyCODONE hydrochloride 5 mg oral tablet (20 sources) Opioid Agonist Start: 12-27-2021 End: 07-21-2022 take 1 tablet by mouth every eight hours as needed for pain Oxycodone 5 mg Tablet Discontinued 5 MG PO Q8H as needed for severe pain (scale score 7-10) 15 December 27, 2021 July 21, 2022 4:24pm Comment on above: TAKE 1 TABLET BY BARRERA TH EVERY 8 HOURS NEEDED FOR SEVERE PAIN (SCALE SCORE 7-10) polyethylene glycol 3350 33493 mg powder for oral solution (20 sources) Osmotic Laxative Start: 12-27-2021 End: 07-21-2022 take 17 g by mouth once daily as needed for constipation Polyethylene Glycol 3350 17 gram/dose powder Discontinued 17 GM PO Daily as needed for constipation 238 December 27, 2021 2:48pm July 21, 2022 4:24pm polysaccharide iron complex 150 mg oral capsule (12 sources) Start: 12-18-2020 End: 08-12-2024 take 1 capsule by mouth every other day FERREX 150 150 mg iron capsule TAKE 1 CAPSULE BY MOUTH EVERY OTHER DAY 12/18/2020 08/12/2024 Discontinued Comment on above: TAKE 1 CAPSULE BY MO UTH EVERY OTHER DAY SITagliptin 50 mg oral tablet (16 sources) Dipeptidyl Peptidase 4 Inhibitor Start: 04-12-2024 End: 07-27-2024 take 1 tablet by mouth once daily Sitagliptin Phosphate (Januvia) 50 mg tablet Discontinued 50 MG PO Daily April 12, 2024 4:08pm July 27, 2024 2:36pm vitamin b12 0.1 mg oral tablet (12 sources) Vitamin B12 End: 08-12-2024 take 1 tablet by mouth once daily cyanocobalamin (VITAMIN B-12) 100 mcg tab Take 100 mcg by mouth once daily. 08/12/2024 Discontinued Comment on above: Take 100 mcg by mout h once daily. Problems Active Problems Problem Classification Problem Date Documented Da te Episodic/Chronic Abdominal pain (20 sources) Unspecified abdominal pain; Translations: [Epigastric pain] Onset: 3 Resolved: 1 Episodic Allergic reactions (3 sources) Allergic contact dermatitis due to plants, except food; Translations: [Allergic contact dermatitis due to plants, except food] Onset: 8 Episodic Anxiety disorders (20 sources) Generalized anxiety disorder; Translations: [Generalized anxiety disorder] Chronic Cardiac dysrhythmias (20 sources) Paroxysmal supraventricular tachycardia; Translations: [Supraventricular tachycardia] Chronic Cardiac dysrhythmias (6 sources) Palpitations; Translations: [Palpitations] Onset: 4 Episodic Conditions associated with dizziness or vertigo (2 sources) Benign paroxysmal positional vertigo; Translations: [Benign paroxysmal vertigo, bilateral] Episodic Deficiency and other anemia (14 sources) Anemia of chronic disease; Translations: [Anemia in other chronic diseases classified elsewhere] Onset: 3 Chronic Deficiency and other anemia (1 source) Anemia in other chronic diseases classified elsewhere; Translations: [Anemia in other chronic diseases classified elsewhere] Onset: 3 Chronic Deficiency and other anemia (20 sources) Pernicious anemia; Translations: [Vitamin B12 deficiency anemia due to intrinsic factor deficiency] 06-07-2023 Episodic Deficiency and other anemia (20 sources) Vitamin B12 deficiency anemia due to intrinsic factor deficiency; Translations: [Pernicious anemia] Onset: 2 Episodic Deficiency and other anemia (12 sources) Anemia; Translations: [Anemia, unspecified] Onset: 8 03-21-2024 Episodic Deficiency and other anemia (11 sources) Anemia, unspecified; Translations: [Anemia, unspecified] 03-25-2024 Episodic Diabetes mellitus with complications (20 sources) Type 2 diabetes mellitus with hyperglycemia; Translations: [Hyperglycemia due to type 2 diabetes mellitus] Onset: 4 Chronic Diabetes mellitus without complication (20 sources) Type 2 diabetes mellitus; Translations: [Type 2 diabetes mellitus without complications] Onset: 2 12-26-2021 Chronic Comment on above: Problem List clean-u p per request of Phys. EHR Cmte Disorders of lipid metabolism (20 sources) Hypercholesterolemia; Translations: [Pure hypercholesterolemia, unspecified] Onset: 4 12-26-2021 Chronic Comment on above: Problem List clean-u p per request of Phys. EHR Cmte E Codes: Adverse effects of medical drugs (16 sources) Metformin adverse reaction; Translations: [Adverse effect of insulin and oral hypoglycemic [antidiabetic] drugs, initial encounter] 03-31-2024 Episodic E Codes: Fall (2 sources) Fall on same level from slipping, tripping and stumbling with subsequent striking against unspecified object, initial encounter; Translations: [Fall on same level from slipping, tripping and stumbling without subsequent striking against object, initial encounter] Onset: 2 Episodic Esophageal disorders (12 sources) Esophageal reflux finding; Translations: [Esophageal reflux] Onset: 5 Chronic Esophageal disorders (1 source) Esophageal disorders; Translations: [Gastro-esophageal reflux disease with esophagitis, without bleeding] Essential hypertension (20 sources) Hypertensive disorder; Translations: [Essential (primary) hypertension] Onset: 4 12-26-2021 Chronic Comment on above: Problem List clean-u p per request of Phys. EHR Cmte Fluid and electrolyte disorders (1 source) Hypo-osmolality and or hyponatremia; Translations: [Hypo-osmolality and hyponatremia] Episodic Fracture of lower limb (20 sources) Fracture of femur; Translations: [Unspecified fracture of right femur, initial encounter for closed fracture] 12-26-2021 Episodic Comment on above: Problem List clean-u p per request of Phys. EHR Cmte Fracture of upper limb (20 sources) Other displaced fracture of upper end of right humerus, subsequent encounter for fracture with routine healing; Translations: [Unspecified displaced fracture of surgical neck of right humerus, initial encounter for closed fracture] Onset: 3 Episodic Headache; including migraine (10 sources) Chronic tension-type headache; Translations: [Chronic tension-type headache, not intractable] Chronic Hemorrhoids (1 source) Residual hemorrhoidal skin tags; Translations: [Residual hemorrhoidal skin tags] Episodic Immunizations and screening for infectious disease (1 source) Vaccination given; Translations: [Encounter for immunization] Episodic Menopausal disorders (1 source) Primary ovarian failure; Translations: [Other primary ovarian failure] Onset: 5 Chronic Mood disorders (20 sources) Reactive depression (situational); Translations: [Major depressive disorder, single episode, unspecified] 02-02-2023 Chronic Nutritional deficiencies (1 source) Vitamin D deficiency; Translations: [Vitamin D deficiency, unspecified] Onset: 5 Chronic Osteoarthritis (20 sources) Arthritis; Translations: [Unspecified osteoarthritis, unspecified site] Chronic Other aftercare (1 source) 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; Translations: [[facility] CURRENT USE OF ASPIRIN] Onset: 3 Episodic Other aftercare (1 source) care home (current) use of oral hypoglycemic drugs; Translations: [PROGRAM PROPOSALS COORDINATOR USE ORAL HYPOGLYCEMIC DX] Onset: 3 Episodic Other aftercare (2 sources) Other intermediate (current) drug therapy; Translations: [OTH PROGRAM PROPOSALS COORDINATOR CURRENT DRUG THERAPY] Onset: 3 Episodic Other aftercare (1 source) Long-term current use of drug therapy; Translations: [Other press tender long goods (current) drug therapy] Episodic Other connective tissue disease (1 source) Muscle pain; Translations: [MYALGIA, UNSPECIFIED SITE] Episodic Other connective tissue disease (1 source) Other shoulder lesions, left shoulder Episodic Other connective tissue disease (14 sources) Plantar fasciitis of left foot; Translations: [Plantar fascial fibromatosis] 06-09-2023 Episodic Other connective tissue disease (3 sources) Plantar fascial fibromatosis; Translations: [Plantar fascial fibromatosis] 06-09-2023 Episodic Other ear and sense organ disorders (20 sources) 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; Translations: [Other otitis externa, bilateral] Chronic Other ear and sense organ disorders (1 source) Other otitis externa, bilateral Chronic Other ear and sense organ disorders (2 sources) Impacted cerumen, bilateral Episodic Other endocrine disorders (1 source) Syndrome of inappropriate vasopressin secretion; 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] Chronic Other eye disorders (1 source) Orbital edema; Translations: [Orbital edema or congestion] Onset: 8 Chronic Other gastrointestinal disorders (1 source) Other specified symptoms and signs involving the digestive system and abdomen; Translations: [Oth symptoms and signs involving the dgstv sys and abdomen] Episodic Other gastrointestinal disorders (2 sources) Altered bowel function; Translations: [Change in bowel habit] 03-31-2024 Episodic Other gastrointestinal disorders (8 sources) Change in bowel habit; Translations: [Other symptoms involving digestive system] 03-31-2024 Episodic Other gastrointestinal disorders (6 sources) Finding of frequency of defecation; Translations: [Change in bowel habit] 05-09-2024 Episodic Other hereditary and degenerative nervous system conditions (2 sources) Impaired cognition; Translations: [Mild cognitive impairment, so stated] 10-17-2024 Chronic Other inflammatory condition of skin (1 source) Seborrheic dermatitis; Translations: [Seborrheic dermatitis, unspecified] Episodic Other injuries and conditions due to external causes (1 source) History of fall; Translations: [History of falling] Episodic Other lower respiratory disease (1 source) Cough; Translations: [Cough, unspecified] Episodic Other nervous system disorders (1 source) Difficulty in walking, not elsewhere classified; Translations: [Difficulty in walking, not elsewhere classified] Onset: 2 Chronic Other nervous system disorders (5 sources) Chronic pain; Translations: [Other chronic pain] Chronic Other nervous system disorders (1 source) Other chronic pain Chronic Other nervous system disorders (9 sources) General unsteadiness; Translations: [Unsteadiness on feet] Episodic Other nervous system disorders (1 source) Unsteadiness on feet Episodic Other non-traumatic joint disorders (1 source) Undifferentiated inflammatory polyarthritis; Translations: [Polyarthritis, unspecified] Chronic Other non-traumatic joint disorders (3 sources) Pain in right shoulder; Translations: [PAIN IN RIGHT SHOULDER] Onset: 3 Episodic Other screening for suspected conditions (not mental disorders or infectious disease) (20 sources) Encounter for screening for diseases of the blood and blood-forming organs and certain disorders involving the immune mechanism; Translations: [Patient encounter status] Onset: 5 09-21-2023 Episodic Other skin disorders (1 source) Sebaceous cyst Episodic Other upper respiratory disease (20 sources) Allergic rhinitis due to pollen; Translations: [Allergic rhinitis due to pollen] Chronic Other upper respiratory disease (1 source) Allergic rhinitis due to pollen Chronic Residual codes; unclassified (2 sources) Other specified postprocedural states Episodic Residual codes; unclassified (5 sources) Localized edema; Translations: [Localized edema] Onset: 2 Episodic Residual codes; unclassified (1 source) Asymptomatic menopausal state Episodic Residual codes; unclassified (1 source) Procedure and treatment not carried out because of patient's decision for unspecified reasons Episodic Residual codes; unclassified (1 source) Procedure not done; Translations: [Procedure and treatment not carried out because of patient's decision for unspecified reasons] Episodic Rheumatoid arthritis and related disease (15 sources) Juvenile chronic arthritis ; 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)] Chronic Spondylosis; intervertebral disc disorders; other back problems (20 sources) Lumbosacral spondylosis without myelopathy; Translations: [Spondylosis without myelopathy or radiculopathy, lumbar region] Chronic Spondylosis; intervertebral disc disorders; other back problems (20 sources) Cervicalgia; Translations: [Neck pain] Episodic Sprains and strains (20 sources) Sprain of ankle; Translations: [Sprain of other ligament of right ankle, initial encounter] Onset: 5 Resolved: 1 Episodic Unclassified (1 source) CONTACT W/AND (SUSP) EXPOS COVID-19; Translations: [CONTACT W/AND (SUSP) EXPOS COVID-19] Onset: 2 Unclassified (1 source) Unspecified displaced fracture of surgical neck of right humerus, subsequent encounter for fracture with routine healing; Translations: [Unspecified displaced fracture of surgical neck of right humerus, subsequent encounter for fracture with routine healing] Onset: 3 Unclassified (1 source) Encounter for preprocedural laboratory examination; Translations: [Encounter for preprocedural laboratory examination] Onset: 3 Unclassified (1 source) Unspecified displaced fracture of surgical neck of right humerus, initial encounter for closed fracture; Translations: [Unspecified displaced fracture of surgical neck of right humerus, initial encounter for closed fracture] Onset: 3 Unclassified (1 source) Fracture of unspecified part of neck of right femur, subsequent encounter for closed fracture with routine healing; Translations: [Fracture of unspecified part of neck of right femur, subsequent encounter for closed fracture with routine healing] Onset: 2 Unclassified (1 source) Unspecified fracture of right femur, initial encounter for closed fracture; Translations: [Unspecified fracture of right femur, initial encounter for closed fracture] Onset: 2 Unclassified (1 source) Long-term current use of drug therapy; Translations: [Long-term (current) use of other medications] Onset: 8 Viral infection (1 source) Disease caused by 2019-nCoV; Translations: [COVID-19] Past or Other Problems Problem Classification Problem Date Documented Date Episodic/Chronic Abdominal hernia (1 source) Incisional hernia; Translations: [Incisional hernia without obstruction or gangrene] Onset: 9 Episodic Acute bronchitis (2 sources) Acute bronchitis due to other specified organisms; Translations: [Acute bronchitis] Onset: 6 Episodic Bacterial infection; unspecified site (1 source) Bacterial infectious disease; Translations: [Bacterial infection, unspecified, in conditions classified elsewhere and of unspecified site] Onset: 8 Episodic Deficiency and other anemia (1 source) Anemia due to chronic blood loss; Translations: [Iron deficiency anemia secondary to blood loss (chronic)] Resolved: 1 Chronic Deficiency and other anemia (10 sources) Microcytic anemia; Translations: [Iron deficiency anemia, unspecified] Onset: 3 Episodic Deficiency and other anemia (1 source) Iron deficiency anemia; Translations: [Other iron deficiency anemias] Resolved: 1 Episodic Fracture of neck of femur (hip) (4 sources) Fracture of unspecified part of neck of right femur, subsequent encounter for closed fracture with routine healing; Translations: [Unspecified intracapsular fracture of right femur, initial encounter for closed fracture] Onset: 2 Episodic Genitourinary symptoms and ill-defined conditions (1 source) Dysuria; Translations: [Dysuria] Onset: 7 Episodic Headache; including migraine (1 source) Headache; Translations: [Headache] Onset: 8 Episodic Malaise and fatigue (2 sources) Fatigue; Translations: [Other fatigue] Onset: 5 Resolved: 1 Episodic Nonspecific chest pain (1 source) Chest pain; Translations: [Chest pain, unspecified] Onset: 4 Episodic Other bone disease and musculoskeletal deformities (1 source) Other specified disorders of bone, unspecified site; Translations: [Other specified disorders of bone, unspecified site] Resolved: 1 Episodic Other connective tissue disease (1 source) Acquired trigger finger; Translations: [Trigger finger] Onset: 6 Episodic Other ear and sense organ disorders (1 source) Impacted cerumen; Translations: [Impacted cerumen, bilateral] Resolved: 1 Episodic Other liver diseases (1 source) Elevated levels of transaminase & lactic acid dehydrogenase; Translations: [Nonspecific elevation of levels of transaminase and lactic acid dehydrogenase [LDH]] Resolved: 1 Episodic Other non-traumatic joint disorders (3 sources) Pain in right hip; Translations: [PAIN IN RIGHT HIP] Onset: 2 Episodic Other upper respiratory infections (2 sources) Acute pharyngitis; Translations: [Acute pharyngitis due to other specified organisms] Onset: 4 Episodic Otitis media and related conditions (1 source) Eustachian tube salpingitis; Translations: [Unspecified Eustachian salpingitis, left ear] Resolved: 1 Episodic Residual codes; unclassified (1 source) Requires influenza virus vaccination; Translations: [Need for prophylactic vaccination and inoculation, Influenza] Onset: 7 Episodic Skull and face fractures (1 source) Closed fracture of nasal bones; Translations: [Fracture of nasal bones, initial encounter for closed fracture] Onset: 9 Episodic Superficial injury; contusion (2 sources) Contusion of wrist; Translations: [Contusion of right wrist, initial encounter] Onset: 9 Resolved: 0 Episodic Unclassified (1 source) Arthritis of left temporomandibular joint; Translations: [Arthritis of left temporomandibular joint] Resolved: 1 Results Test Name Value Interpretation Reference Range Facility [facility] 08-15-2024 [facility] Telephone ([place]) -- RAIN LOPEZ ([id number]) 1940 F Date Time Provider Department 08/15/24 DIPTI MITCHELL During your visit today, we recorded the following information about you: Dipti Mitchell PA-C 08/15/2024 8:04 AM Signed Please call and advise patient that her iron levels are low-normal. I would recommend repeating them in 3 months. She can do this with Dr. Perez or here. ARIELA Blackwood Natalie, TISHA 08/15/2024 8:32 AM Signed No answer/no machine. Will try later TISHA Brito Natalie, TISHA 08/15/2024 9:43 AM Signed Pt notified and will have Dr Perez follow. She will return, as needed. Alejandro Candelario RN Allergies As of Date: 08/15/2024 Noted Allergy Reaction BACTRIM (SULFAMETHOXAZOLE-TRIMETH* 12/26/2020 16 - Unknown Date Reviewed: 08/15/2024 Reviewed by: Dipti Mitchell PA-C - Fully Assessed Reason for Visit: Results [95] Prescriptions as of 08/15/2024 - escitalopram oxalate (LEXAPRO) 5 mg tablet Take 1 tablet by mouth once daily. - oxyCODONE IR (ROXICODONE) 5 mg immediate release tablet - amLODIPine (NORVASC) 5 mg tablet - atorvastatin (LIPITOR) 10 mg tablet - diclofenac, EC, (VOLTAREN) 75 mg EC tablet Take 75 mg by mouth once daily. Takes it every other day. - metFORMIN (GLUCOPHAGE) 1,000 mg tablet - metoprolol succinate ER (TOPROL XL) 100 mg - Valsartan-hydroCHLOROthiaz bob 160-25 mg per tablet - CHRIS ASPIRIN ORAL Take 81 mg by mouth once daily. 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] Anemia in other chronic diseases classified els*07/16/2022 Microcytic anemia [D50.9] 07/16/2022 Type 2 diabetes mellitus with hyperglycemia, wi*08/03/2023 Encounter Status:Closed by ALEJANDRO CANDELARIO on 08/15/24 Normal [facility] Basophils Auto (Bld) [#/Vol] on 08-12-2024 Basophils (Bld) [#/Vol] Automated basophil count <0.11 [facility] Basophils (Bld) [#/Vol] 0.05 10*3/uL <0.11 [facility] Basophils/100 WBC Auto (Bld) on 08-12-2024 Basophils/100 WBC (Bld) Automated basophil % [facility] Basophils/100 WBC (Bld) 0.7 % [facility] Blood manual differential co mment interpretation narrativeon 08-12-2024 Manual differential comment Chapito (Bld) [Interp] Blood manual differential comment interpretation narrative [facility] Manual differential comment [place] (Bld) [Interp] Auto [facility] CBC W Auto Differential pane l (Bld)on 08-12-2024 Basophils (Bld) [#/Vol] 0.05 10*3/uL [facility] Basophils/100 WBC (Bld) 0.7 % [facility] Differential cell count method Nom (Bld) Auto [facility] Eosinophils (Bld) [#/Vol] 0.37 10*3/uL [facility] Eosinophils/100 WBC (Bld) 5.3 % [facility] Erythrocyte distribution width (RBC) [Ratio] 14.4 % 11.5 - 15.0 % [facility] Hematocrit (Bld) [Volume fraction] 33.4 % Low 36.0 - 46.0 % [facility] Hemoglobin (Bld) [Mass/Vol] 11 g/dL Low 11.5 - 15.5 g/dL [facility] Immature granulocytes (Bld) [#/Vol] 0.03 10*3/uL [facility] Immature granulocytes/100 WBC (Bld) 0.4 % [facility] Interpretation and review of laboratory results Abnormal [facility] Lymphocytes (Bld) [#/Vol] 1.4 10*3/uL [facility] Lymphocytes/100 WBC (Bld) 20.2 % [facility] MCH (RBC) [Entitic mass] 27.8 pg 26.0 - 34.0 pg [facility] MCHC (RBC) [Mass/Vol] 32.9 g/dL 30.5 - 36.0 g/dL [facility] MCV (RBC) [Entitic vol] 84.6 fL 80.0 - 100.0 fL [facility] Monocytes (Bld) [#/Vol] 0.68 10*3/uL [facility] Monocytes/100 WBC (Bld) 9.8 % [facility] Neutrophils (Bld) [#/Vol] 4.4 10*3/uL [facility] Neutrophils/100 WBC (Bld) 63.6 % [facility] Nucleated RBC (Bld) [#/Vol] [facility] Nucleated RBC/100 WBC (Bld) [Ratio] 0 % /100 WBC [facility] Platelet mean volume (Bld) [Entitic vol] 8.7 fL Low 9.0 - 12.7 fL [facility] Platelets (Bld) [#/Vol] 245 10*3/uL [facility] RBC (Bld) [#/Vol] 3.95 10*6/uL 3.90 - 5.20 m/uL [facility] WBC (Bld) [#/Vol] 6.93 10*3/uL [facility] Basophils (Bld) [#/Vol] 0.05 10*3/uL Normal <0.11 [facility] Comment on above: Order Comment: Speci men Type: BLOOD SPECIMEN Ordering Facility: [facility] Address: [address] [place] [address] Performed By: #### 5 7021-8 #### [facility] CLIA [id number] [address] [place] [address] Basophils/100 WBC (Bld) 0.7 % Normal [facility] Comment on above: Order Comment: Speci men Type: BLOOD SPECIMEN Ordering Facility: [facility] Address: [address] [place] [address] Performed By: #### 5 7021-8 #### [facility] CLIA [id number] [address] [place] [address] Differential cell count method Nom (Bld) Auto Normal [facility] Comment on above: Order Comment: Speci men Type: BLOOD SPECIMEN Ordering Facility: [facility] Address: [address] [place] [address] Performed By: #### 5 7021-8 #### [facility] CLIA [id number] [address] [place] [address] Eosinophils (Bld) [#/Vol] 0.37 10*3/uL Normal <0.46 [facility] Comment on above: Order Comment: Speci men Type: BLOOD SPECIMEN Ordering Facility: [facility] Address: [address] [place] [address] Performed By: #### 5 7021-8 #### [facility] CLIA [id number] [address] [place] [address] Eosinophils/100 WBC (Bld) 5.3 % Normal [facility] Comment on above: Order Comment: Speci men Type: BLOOD SPECIMEN Ordering Facility: [facility] Address: [address] [place] [address] Performed By: #### 5 7021-8 #### [facility] CLIA [id number] [address] [place] [address] Erythrocyte distribution width (RBC) [Ratio] 14.4 % Normal 11.5-15.0 [facility] Comment on above: Order Comment: Speci men Type: BLOOD SPECIMEN Ordering Facility: [facility] Address: [address] [place] [address] Performed By: #### 5 7021-8 #### [facility] CLIA [id number] [address] [place] [address] Hematocrit (Bld) [Volume fraction] 33.4 % Low 36.0-46.0 [facility] Comment on above: Order Comment: Speci men Type: BLOOD SPECIMEN Ordering Facility: [facility] Address: [address] [place] [address] Performed By: #### 5 7021-8 #### [facility] CLIA [id number] [address] [place] [address] Hemoglobin (Bld) [Mass/Vol] 11.0 g/dL Low 11.5-15.5 [facility] Comment on above: Order Comment: Speci men Type: BLOOD SPECIMEN Ordering Facility: [facility] Address: [address] [place] [address] Performed By: #### 5 7021-8 #### [facility] CLIA [id number] [address] [place] [address] Immature granulocytes (Bld) [#/Vol] 0.03 10*3/uL Normal <0.10 [facility] Comment on above: Order Comment: Speci men Type: BLOOD SPECIMEN Ordering Facility: [facility] Address: [address] [place] [address] Performed By: #### 5 7021-8 #### [facility] CLIA [id number] [address] [place] [address] Immature granulocytes/100 WBC (Bld) 0.4 % Normal [facility] Comment on above: Order Comment: Speci men Type: BLOOD SPECIMEN Ordering Facility: [facility] Address: [address] [place] [address] Performed By: #### 5 7021-8 #### [facility] CLIA [id number] [address] [place] [address] Lymphocytes (Bld) [#/Vol] 1.40 10*3/uL Normal 1.00-4.00 [facility] Comment on above: Order Comment: Speci men Type: BLOOD SPECIMEN Ordering Facility: [facility] Address: [address] [place] [address] Performed By: #### 5 7021-8 #### [facility] CLIA [id number] [address] [place] [address] Lymphocytes/100 WBC (Bld) 20.2 % Normal [facility] Comment on above: Order Comment: Speci men Type: BLOOD SPECIMEN Ordering Facility: [facility] Address: [address] [place] [address] Performed By: #### 5 7021-8 #### [facility] CLIA [id number] [address] [place] [address]98 MCH (RBC) [Entitic mass] 27.8 pg Normal 26.0-34.0 [facility] Comment on above: Order Comment: Speci men Type: BLOOD SPECIMEN Ordering Facility: [facility] Address: [address] [place] [address] Performed By: #### 5 7021-8 #### [facility] CLIA [id number] [address] [place] [address] MCHC (RBC) [Mass/Vol] 32.9 g/dL Normal 30.5-36.0 [facility] Comment on above: Order Comment: Speci men Type: BLOOD SPECIMEN Ordering Facility: [facility] Address: [address] [place] [address] Performed By: #### 5 7021-8 #### [facility] CLIA [id number] [address] [place] [address] MCV (RBC) [Entitic vol] 84.6 fL Normal 80.0-100.0 [facility] Comment on above: Order Comment: Speci men Type: BLOOD SPECIMEN Ordering Facility: [facility] Address: [address] [place] [id number] Performed By: #### 5 7021-8 #### [facility] CLIA [id number] [address] [place] [address] Monocytes (Bld) [#/Vol] 0.68 10*3/uL Normal <0.87 [facility] Comment on above: Order Comment: Speci men Type: BLOOD SPECIMEN Ordering Facility: [facility] Address: [address] [place] [address] Performed By: #### 5 7021-8 #### [facility] CLIA [id number] [address] [place] [address]66 Monocytes/100 WBC (Bld) 9.8 % Normal [facility] Comment on above: Order Comment: Speci men Type: BLOOD SPECIMEN Ordering Facility: [facility] Address: [address] [place] [address] Performed By: #### 5 7021-8 #### [facility] CLIA [id number] [address] [place] [address] Neutrophils (Bld) [#/Vol] 4.40 10*3/uL Normal 1.45-7.50 [facility] Comment on above: Order Comment: Speci men Type: BLOOD SPECIMEN Ordering Facility: [facility] Address: [address] [place] [address] Performed By: #### 5 7021-8 #### [facility] CLIA [id number] [address] [place] [address]104 Neutrophils/100 WBC (Bld) 63.6 % Normal [facility] Comment on above: Order Comment: Speci men Type: BLOOD SPECIMEN Ordering Facility: [facility] Address: [address] [place] [address] Performed By: #### 5 7021-8 #### [facility] CLIA [id number] [address] [place] [address] Nucleated RBC (Bld) [#/Vol] 10*3/uL Normal <0.01 [facility] Comment on above: Order Comment: Speci men Type: BLOOD SPECIMEN Ordering Facility: [facility] Address: [address] [place] [address] Performed By: #### 5 7021-8 #### [facility] CLIA [id number] [address] [place] [address]85 Nucleated RBC/100 WBC (Bld) [Ratio] 0.0 /100 WBC Normal [facility] Comment on above: Order Comment: Speci men Type: BLOOD SPECIMEN Ordering Facility: [facility] Address: [address] [place] [address] Performed By: #### 5 7021-8 #### [facility] CLIA [id number] [address] [place] [address]66 Platelet mean volume (Bld) [Entitic vol] 8.7 fL Low 9.0-12.7 [facility] Comment on above: Order Comment: Speci men Type: BLOOD SPECIMEN Ordering Facility: [facility] Address: [address] [place] [address] Performed By: #### 5 7021-8 #### [facility] CLIA [id number] [address] [place] [address]77 Platelets (Bld) [#/Vol] 245 10*3/uL Normal 150-400 [facility] Comment on above: Order Comment: Speci men Type: BLOOD SPECIMEN Ordering Facility: [facility] Address: [address] [place] [address] Performed By: #### 5 7021-8 #### [facility] CLIA [id number] [address] [place] [address] 25914 RBC (Bld) [#/Vol] 3.95 10*6/uL Normal 3.90-5.20 [facility] Comment on above: Order Comment: Speci men Type: BLOOD SPECIMEN Ordering Facility: [facility] Address: [address] [place], [place] [address], [place] [address] Performed By: #### 5 7021-8 #### [facility] CLIA [id number] [address] [place] [address] WBC (Bld) [#/Vol] 6.93 10*3/uL Normal 3.70-11.00 [facility] Comment on above: Order Comment: Speci men Type: BLOOD SPECIMEN Ordering Facility: [facility] Address: [address] [place] [address] Performed By: #### 5 7021-8 #### [facility] CLIA [id number] [address] [place] [address] CNOVSPon 08-12-2024 CNOVSP Visit (SP) Office ([facility]) -- RAIN LOPEZ ([id number]) 1940 F Date Time Provider Department 08/12/24 11:00 AM DIPTI [place] During your visit today, we recorded the following information about you: Temperature Pulse Respiration Blood pressure 97.4 degrees 60/minute 16/minute 191/76 Weight Height 57.9 kg 1.575 m Dipit Mitchell PA-C 08/12/2024 11:29 AM Signed NAME: Rain Lopez CLINIC NO.: [id number] DATE OF SERVICE: August 12, 2024 Some elements in this clinic note that are critical to medical decision making have been carefully reviewed and included from a prior clinic note dated: February 08, 2024 (Paula) Additional Clinicians involved in Rain Lopez's care: Glen Perez (PCP), Hira Sarah (rheum) DIAGNOSIS: Anemia of chronic inflammation ASSESSMENT: 83 year old with microcytic anemia, likely from chronic inflammation Findings remain consistent with anemia of chronic inflammation (normal ferritin, elevated CRP, history) that is secondary to some sort of inflammatory arthritis. She was not tolerating oral iron and this was discontinued in January 2024. Her hemoglobin remains stable at 11.0 today. Her iron studies are pending. If needed, we can give IV iron in the future. Her anemia has remained stable and is likely due to chronic inflammation. She can follow up with her PCP for her routine labs and if her anemia worsens, we are happy to see her back here at any time. White coat HTN - noted normal for her. Depression--she reports depression and anxiety related to the recent of her .She is undergoing counseling now with some improvement in her symptoms. B12 deficient--injection monthly at Dr. Perez's _- HPI: CASE HISTORY: Reverse Chronological Order 01/15/2022 - Hgb improved to 10.1 12/27/2021 - Tripped over a ceramic black cat and broke her right hip 09/2021 - Symptoms improved with diclofenac but hemoglobin remains low 12/28/2020 - Evaluated by Dr. Altman for anemia - labs showed hemoglobin 9, MCV 79, normal WBC and platelets, normal MPA, , low RPI, elevated haptoglobin and ESR suggesting anemia of chronic inflammation; saw rheumatology (Dr. Sarah) and is now on diclofenac 10/2020 - Hgb: 8.8 g/dL with MCV 78. Ferritin was elevated at 188, iron and TIBC were low. Stool negative for occult blood. Oral iron without any improvement. 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 Updated Visit, August 12, 2024: Rain returns with her son, Derrick today. She has been feeling well. She is now on lexapro which did cause some lightheadedness at first, but it is better now. Lexapro has helped her depression. She denies any significant fatigue, bleeding, shortness of breath, leg cramps or swelling. She overall is doing well. She did stop her oral iron 6 months ago as instructed as this was causing her GI upset. Updated Visit, February 08, 2024: Rain returns for follow up. Labs done 02/01/24 showed hgb 11.2, with normal folate, b12, and iron studies. She is now going to counseling r her mental health issues. Iron tablets upset her stomach and cause black stools. Updated Visit, August 03, 2023: Rain returns today for a follow up. She is not using any insulin. Hgb is 11.2 today. She is attending PT for arthritis, which is now affecting her neck. She has not received any mental health treatment, but her family does check up on her. Updated Visit, February 02, 2023: Rain returns for follow up. She's been doing well other than depression and anxiety since her 's . She has family support and has discussed it with her PCP with plans to talk to him about it again. Otherwise doing well. Arthritis is under control. No fatigue. No bleeding. Feels well overall. Updated Visit, July 16, 2022: in January, Had her hip fixed last year too. Also Hgb improved to 10.7 Has gained weight and is more active. Just got back from [place] - hurt her foot and had laryngitis. Now recovered although left foot still hurts However, Feels much better overall. Updated Visit, January 15, 2022: Transition of Care Rain Lopez presents to transition her care for anemia of chronic disease. recently fractured her hip while decorating for Halloween She has recovered very nicely Hgb has impr (more content not included)... Normal [facility] metabolic 2000 panelOrdered By: Balaji Newton on 08-12-2024 Albumin [Mass/Vol] 4.6 g/dL 3.9 - 4.9 g/dL [facility] ALP [Catalytic activity/Vol] 109 U/L 34 - 123 U/L [facility] ALT [Catalytic activity/Vol] 18 U/L 7 - 38 U/L [facility] Anion gap [Moles/Vol] 12 mmol/L 8 - 15 mmol/L [facility] AST [Catalytic activity/Vol] 22 U/L 13 - 35 U/L [facility] Bilirubin [Mass/Vol] 0.4 mg/dL 0.2 - 1 .3 mg/dL [facility] Calcium [Mass/Vol] 9.5 mg/dL 8.5 - 10. 2 mg/dL [facility] Chloride [Moles/Vol] 95 mmol/L Low 98 - 10 7 mmol/L [facility] CO2 [Moles/Vol] 25 mmol/L 22 - 30 mmol/L [facility] Creatinine [Mass/Vol] 0.85 mg/dL 0.58 - 0.96 mg/dL [facility] GFR/1.73 sq M.predicted among non-blacks MDRD (S/P/Bld) [Vol rate/Area] 69 mL/min/{1.73_m2} - PINF [facility] Comment on above: Estimated Glomerular Filtration Rate (eGFR) is calculated using the 2020 CKD-EPI creatinine equation. This equation utilizes serum creatinine, sex, and age as parameters. The creatinine assay has traceable calibration to isotope dilution-mass spectrometry. Refer to KDIGO guidelines for clinical interpretation. In patients with unstable renal function, e.g. those with acute kidney injury, the eGFR may not accurately reflect actual GFR. Glucose [Mass/Vol] 129 mg/dL High 74 - 99 mg/dL [facility] Comment on above: The [place] Di[employer] Association (ADA) provides guidance for cutoff values [...] Standards of Medical Care in Diabetes 2016, [place] [employer]. Diabetes Care. 2016.39(Suppl 1). Interpretation and review of laboratory results Abnormal [facility] Potassium [Moles/Vol] 5 mmol/L 3.7 - 5.1 mmol/L [facility] Protein [Mass/Vol] 6.8 g/dL 6.3 - 8.0 g/dL [facility] Sodium [Moles/Vol] 132 mmol/L Low 136 - 144 mmol/L [facility] Urea nitrogen [Mass/Vol] 17 mg/dL 7 - 21 mg/dL [facility] metabolic 2000 panelon 08-12-2024 Albumin [Mass/Vol] 4.6 g/dL Normal 3.9-4.9 [facility] Comment on above: Order Comment: Speci men Type: BLOOD SPECIMEN Ordering Facility: [facility] Address: [address] [place] [address] Performed By: #### 2 4323-8 #### [facility] CLIA [id number] [address] [place] [address] ALP [Catalytic activity/Vol] 109 U/L Normal 34-123 [facility] Comment on above: Order Comment: Speci men Type: BLOOD SPECIMEN Ordering Facility: [facility] Address: [address] [id number] Performed By: #### 2 4323-8 #### [facility] CLIA [id number] [address] [place] [address] ALT [Catalytic activity/Vol] 18 U/L Normal 7-38 [facility] Comment on above: Order Comment: Speci men Type: BLOOD SPECIMEN Ordering Facility: [facility] Address: [address] [place] [address] Performed By: #### 2 4323-8 #### [facility] CLIA [id number] [address] [place] [address] Anion gap [Moles/Vol] 12 mmol/L Normal 8-15 [facility] Comment on above: Order Comment: Speci men Type: BLOOD SPECIMEN Ordering Facility: [facility] Address: [address] [place] [address] Performed By: #### 2 4323-8 #### [facility] CLIA [id number] [address] [place] [address] AST [Catalytic activity/Vol] 22 U/L Normal 13-35 [facility] Comment on above: Order Comment: Speci men Type: BLOOD SPECIMEN Ordering Facility: [facility] Address: [address] [place] [address] Performed By: #### 2 4323-8 #### [facility] CLIA [id number] [address] [place] [address] Bilirubin [Mass/Vol] 0.4 mg/dL Normal 0.2-1.3 [facility] Comment on above: Order Comment: Speci men Type: BLOOD SPECIMEN Ordering Facility: [facility] Address: [address] [place] [address] Performed By: #### 2 4323-8 #### [facility] CLIA [id number] [address] [place] [address] Calcium [Mass/Vol] 9.5 mg/dL Normal 8.5-10.2 [facility] Comment on above: Order Comment: Speci men Type: BLOOD SPECIMEN Ordering Facility: [facility] Address: [address] [place] [address] Performed By: #### 2 4323-8 #### [facility] CLIA [id number] [address] [place] [address] Chloride [Moles/Vol] 95 mmol/L Low 98-107 [facility] Comment on above: Order Comment: Speci men Type: BLOOD SPECIMEN Ordering Facility: [facility] Address: [address] [place] [address] Performed By: #### 2 4323-8 #### [facility] CLIA [id number] [address] [place] [address] CO2 [Moles/Vol] 25 mmol/L Normal 22-30 [facility] Comment on above: Order Comment: Speci men Type: BLOOD SPECIMEN Ordering Facility: [facility] Address: [address] [place] [address] Performed By: #### 2 4323-8 #### [facility] CLIA [id number] [address] [place] [address] Creatinine [Mass/Vol] 0.85 mg/dL Normal 0.58-0.96 [facility] Comment on above: Order Comment: Srinivas sneed Type: BLOOD SPECIMEN Ordering Facility: [facility] Address: [address] [place] [address] Performed By: #### 2 4323-8 #### [facility] CLIA [id number] [address] [place] [address] Creatinine and Glomerular filtration rate.predicted panel (S/P/Bld) 69 mL/min/1.73m??? Normal >=60 [facility] Comment on above: Order Comment: Srinivas sneed Type: BLOOD SPECIMEN Ordering Facility: [facility] Address: [address] [place] [address] Result Comment: Argelia mated Glomerular Filtration Rate (eGFR) is calculated using the 2020 CKD-EPI creatinine equation. This equation utilizes serum creatinine, sex, and age as parameters. The creatinine assay has traceable calibration to isotope dilution-mass spectrometry. Refer to KDIGO guidelines for clinical interpretation. In patients with unstable renal function, e.g. those with acute kidney injury, the eGFR may not accurately reflect actual GFR. Performed By: #### 2 4323-8 #### [facility] CLIA [id number] [address] [place] [address] Glucose [Mass/Vol] 129 mg/dL High 74-99 [facility] Comment on above: Order Comment: Srinivas sneed Type: BLOOD SPECIMEN Ordering Facility: [facility] Address: [address] [id number] Result Comment: The [place] Diabetes Association (ADA) provides guidance for cutoff [...] Standards of Medical Care in Diabetes 2016, [place] [employer]. Diabetes Care. 2016.39(Suppl 1). Performed By: #### 2 4323-8 #### [facility] CLIA [id number] [address] [place] [address] Potassium [Moles/Vol] 5.0 mmol/L Normal 3.7-5.1 [facility] Comment on above: Order Comment: Speci men Type: BLOOD SPECIMEN Ordering Facility: [facility] Address: [address] [place] [address] Performed By: #### 2 432-8 #### [facility] CLIA [id number] [address] [place] [address] Protein [Mass/Vol] 6.8 g/dL Normal 6.3-8.0 [facility] Comment on above: Order Comment: Speci men Type: BLOOD SPECIMEN Ordering Facility: [facility] Address: [address] [id number] Performed By: #### 2 432-8 #### [facility] CLIA [id number] [address] [place] [address] Sodium [Moles/Vol] 132 mmol/L Low 136-144 [facility] Comment on above: Order Comment: Speci men Type: BLOOD SPECIMEN Ordering Facility: [facility] Address: [address] [place] [address] Performed By: #### 2 4323-8 #### [facility] CLIA [id number] [address] [place] [address] Urea nitrogen [Mass/Vol] 17 mg/dL Normal 7-21 [facility] Comment on above: Order Comment: Speci men Type: BLOOD SPECIMEN Ordering Facility: [facility] Address: [address] [id number] Performed By: #### 2 4323-8 #### [facility] CLIA [id number] [address] [place] [address] Eosinophils/100 WBC Auto (Bl d)on 08-12-2024 Eosinophils/100 WBC (Bld) Automated eosinophil % [facility] Eosinophils/100 WBC (Bld) 5.3 % [facility] Erythrocyte distribution wid th Auto (RBC) [Ratio]on 08-12-2024 Erythrocyte distribution width (RBC) [Ratio] Erythrocyte distribution width [Ratio] by Automated count 11.5-15.0 [facility] Erythrocyte distribution width (RBC) [Ratio] 14.4 % 11.5-15.0 [facility] Ferritin SerPl-mCncon 2024 Ferritin [Mass/Vol] 30.6 ng/mL Normal 14.7-205.1 [facility] Comment on above: Order Comment: Speci men Type: BLOOD SPECIMEN Ordering Facility: [facility] Address: [address] [place] [address] Performed By: #### 5 0190-8, 2131-9, 2275-4, 8 #### [facility] CLIA [id number] [address] [place] [address] [place] Folate SerPl-mCncon 08-13-19 25 Folate [Mass/Vol] 15.2 ng/mL Normal >4.7 [facility] Comment on above: Order Comment: Speci men Type: BLOOD SPECIMEN Ordering Facility: [facility] Address: [address] [place] [address] Performed By: #### 5 0190-8, 2131-9, 2275-4, 8 #### [facility] CLIA [id number] [address] [place] [address] [place] Hematocrit Auto (Bld) [Volum e fraction]on 08-12-2024 Hematocrit (Bld) [Volume fraction] Hematocrit [Volume Fraction] of Blood by Automated count Low 36.0-46.0 [facility] Hematocrit (Bld) [Volume fraction] 33.4 % Low 36.0-46.0 [facility] Hemoglobin [Mass/volume] in Bloodon 08-12-2024 Hemoglobin (Bld) [Mass/Vol] Hemoglobin [Mass/volume] in Blood Low 11.5-15.5 [facility] Hemoglobin (Bld) [Mass/Vol] 11.0 g/dL Low 11.5-15.5 [facility] Iron and Iron binding capaci ty panelon 08-12-2024 Iron [Mass/Vol] 40 ug/dL Low 41-186 [facility] Comment on above: Order Comment: Speci men Type: BLOOD SPECIMEN Ordering Facility: [facility] Address: [address] [place] [address] Performed By: #### 5 0190-8, 9, 2275-06, 8 #### [facility] CLIA [id number] [address] [place] [address] [place] Iron binding capacity [Mass/Vol] 261 ug/dL Normal 232-386 [facility] Comment on above: Order Comment: Speci men Type: BLOOD SPECIMEN Ordering Facility: [facility] Address: [address] [place] [address] Performed By: #### 5 0190-8, 9, 2275-06, 8 #### [facility] CLIA [id number] [address] [place] [address] [place] Iron/TIBC [Molar ratio] 15.3 % Normal 15.0-57.0 [facility] Comment on above: Order Comment: Speci men Type: BLOOD SPECIMEN Ordering Facility: [facility] Address: [address] [place] [address] Performed By: #### 5 0190-8, 9, 2275-06, 8 #### [facility] CLIA [id number] [address] [place] [address] [place] Iron binding capacity [Mass/ volume] in Serum or Plasmaon 08-12-2024 Iron binding capacity [Mass/Vol] Iron binding capacity [Mass/volume] in Serum or Plasma 232-386 [facility] Iron binding capacity [Mass/Vol] 261 ug/dL 232-386 [facility] Iron saturation [Mass Fracti on] in Serum or Plasmaon 08-12-2024 Iron saturation [Mass fraction] Iron saturation [Mass Fraction] in Serum or Plasma 15.0-57.0 [facility] Iron saturation [Mass fraction] 15.3 % 15.0-57.0 [facility] Laboratory - Chemistry and C hemistry - challengeon 08-12-2024 Albumin [Mass/Vol] 4.6 g/dL 3.9-4.9 [facility] ALP [Catalytic activity/Vol] 109 U/L 34-123 [facility] ALT [Catalytic activity/Vol] 18 U/L 7-38 [facility] AST [Catalytic activity/Vol] 22 U/L 13-35 [facility] Bilirubin [Mass/Vol] 0.4 mg/dL 0.2-1.3 [facility] Calcium [Mass/Vol] 9.5 mg/dL 8.5-10.2 [facility] Chloride [Moles/Vol] 95 mmol/L Low 98-107 [facility] CO2 [Moles/Vol] 25 mmol/L 22-30 [facility] Cobalamin (Vitamin B12) [Mass/Vol] 842 pg/mL 232-1245 [facility] Creatinine [Mass/Vol] 0.85 mg/dL 0.58-0.96 [facility] Ferritin [Mass/Vol] 30.6 ng/mL 14.7-205.1 [facility] Glucose [Mass/Vol] 129 mg/dL High 74-99 [facility] Comment on above: The [place] Diab[employer] Association (ADA) provides guidance for cutoff values for fasting glucose and random glucose. The ADA defines fasting as no caloric intake for at least 8 hours. Fasting plasma glucose results between 100 to 125 mg/dL indicate increased risk for diabetes (prediabetes).Fasting plasma glucose results greater than or equal to 126 mg/dL meet the criteria for diagnosis of diabetes. In the absence of unequivocal hyperglycemia, results should be confirmed by repeat testing. In a patient with classic symptoms of hyperglycemia or hyperglycemic crisis, random plasma glucose results greater than or equal to 200 mg/dL meet the criteria for diagnosis of diabetes.Reference: Standards of Medical Care in Diabetes 2016, [place] [employer]. Diabetes Care. 2016.39(Suppl 1). Iron [Mass/Vol] 40 ug/dL Low 41-186 [facility] Potassium [Moles/Vol] 5.0 mmol/L 3.7-5.1 [facility] Sodium [Moles/Vol] 132 mmol/L Low 136-144 [facility] Urea nitrogen [Mass/Vol] 17 mg/dL 7-21 [facility] Laboratory - Hematology and Cell countson 08-12-2024 Eosinophils (Bld) [#/Vol] 0.37 10*3/uL <0.46 [facility] Immature granulocytes (Bld) [#/Vol] 0.03 10*3/uL <0.10 [facility] Immature granulocytes/100 WBC (Bld) 0.4 % [facility] Leukocytes [#/volume] correc micaela for nucleated erythrocytes in Blood by Automated counon 08-12-2024 WBC corrected for nucl RBC Auto (Bld) [#/Vol] Leukocytes [#/volume] corrected for nucleated erythrocytes in Blood by Automated coun .70-11. [facility] WBC corrected for nucl RBC Auto (Bld) [#/Vol] 6.93 k/uL 3.70-11.00 [facility] Lymphocytes Auto (Bld) [#/Vo l]on 08-12-2024 Lymphocytes (Bld) [#/Vol] Lymphocytes [#/volume] in Blood by Automated count 1.00-4.00 [facility] Lymphocytes (Bld) [#/Vol] 1.40 10*3/uL 1.00-4.00 [facility] Lymphocytes/100 WBC Auto (Bl d)on 08-12-2024 Lymphocytes/100 WBC (Bld) Lymphocytes/100 leukocytes in Blood by Automated count [facility] Lymphocytes/100 WBC (Bld) 20.2 % [facility] MCH Auto (RBC) [Entitic mass ]on 08-12-2024 MCH (RBC) [Entitic mass] MCH [Entitic mass] by Automated count 26.0-34.0 [facility] MCH (RBC) [Entitic mass] 27.8 pg 26.0-34.0 [facility] MCHC Auto (RBC) [Mass/Vol]on 08-12-2024 MCHC (RBC) [Mass/Vol] MCHC [Mass/volume] by Automated count 30.5-36.0 [facility] MCHC (RBC) [Mass/Vol] 32.9 g/dL 30.5-36.0 [facility] MCV Auto (RBC) [Entitic vol] on 08-12-2024 MCV (RBC) [Entitic vol] MCV [Entitic volume] by Automated count 80.0-100.0 [facility] MCV (RBC) [Entitic vol] 84.6 fL 80.0-100.0 [facility] Monocytes Auto (Bld) [#/Vol] on 08-12-2024 Monocytes (Bld) [#/Vol] Automated blood monocyte count <0.87 [facility] Monocytes (Bld) [#/Vol] 0.68 10*3/uL <0.87 [facility] Monocytes/100 WBC Auto (Bld) on 08-12-2024 Monocytes/100 WBC (Bld) Automated monocyte % [facility] Monocytes/100 WBC (Bld) 9.8 % [facility] Neutrophils Auto (Bld) [#/Vo l]on 08-12-2024 Neutrophils (Bld) [#/Vol] Neutrophils [#/volume] in Blood by Automated count 1.45-7.50 [facility] Neutrophils (Bld) [#/Vol] 4.40 10*3/uL 1.45-7.50 [facility] Neutrophils/100 WBC Auto (Bl d)on 08-12-2024 Neutrophils/100 WBC (Bld) Automated neutrophil % [facility] Neutrophils/100 WBC (Bld) 63.6 % [facility] No Panel Informationon 08-12 Estimated GFR (CKD-EPI) 69 mL/min/1.73m??? >=60 [facility] Comment on above: Estimated Glomerular Filtration Rate (eGFR) is calculated using the 2020 CKD-EPI creatinine equation. This equation utilizes serum creatinine, sex, and age as parameters. The creatinine assay has traceable calibration to isotope dilution-mass spectrometry. Refer to KDIGO guidelines for clinical interpretation. In patients with unstable renal function, e.g. those with acute kidney injury, the eGFR may not accurately reflect actual GFR. Folate 15.2 ng/mL >4.7 [facility] Nucleated RBC Auto (Bld) [#/ Vol]on 08-12-2024 Nucleated RBC (Bld) [#/Vol] Nucleated erythrocytes [#/volume] in Blood by Automated count <0.01 [facility] Nucleated RBC (Bld) [#/Vol] 10*3/uL <0.01 [facility] Nucleated erythrocytes [Pres ence] in Blood by Automated counton 08-12-2024 Nucleated RBC Auto Ql (Bld) Nucleated erythrocytes [Presence] in Blood by Automated count [facility] Nucleated RBC Auto Ql (Bld) 0.0 /100{WBC} [facility] Platelet mean volume Auto (B ld) [Entitic vol]on 08-12-2024 Platelet mean volume (Bld) [Entitic vol] Platelet mean volume [Entitic volume] in Blood by Automated count Low 9.0-12.7 [facility] Platelet mean volume (Bld) [Entitic vol] 8.7 fL Low 9.0-12.7 [facility] Platelets Auto (Bld) [#/Vol] on 08-12-2024 Platelets (Bld) [#/Vol] Platelets [#/volume] in Blood by Automated count 150-400 [facility] Platelets (Bld) [#/Vol] 245 10*3/uL 150-400 [facility] Protein [Mass/volume] in Ser um or Plasmaon 08-12-2024 Protein [Mass/Vol] Protein [Mass/volume ] in Serum or Plasma 6.3-8.0 [facility] Protein [Mass/Vol] 6.8 g/dL 6.3-8.0 [facility] RBC Auto (Bld) [#/Vol]on RBC (Bld) [#/Vol] Erythrocytes [#/volu me] in Blood by Automated count 3.90-5.20 [facility] RBC (Bld) [#/Vol] 3.95 10*6/uL 3.90-5.20 [facility] Serum or plasma anion gap de terminationon 08-12-2024 Anion gap [Moles/Vol] Serum or plasma an ion gap determination 11-11 [facility] Anion gap [Moles/Vol] 12 mmol/L 11-11 [facility] Vit B12 SerPl-mCncon 08-12-2 025 Cobalamin (Vitamin B12) [Mass/Vol] 842 pg/mL Normal 232-1245 [facility] Comment on above: Order Comment: Speci men Type: BLOOD SPECIMEN Ordering Facility: [facility] Address: [address] [place] [address] Performed By: #### 5 0190-8, 2132-9, 2276-4, 2284-8 #### [facility] CLIA [id number] [address] [place] [address] [place] HbA1c HPLC (Bld) [Mass fract ion]on 06-28-2024 HbA1c (Bld) [Mass fraction] Hemoglobin A1c/Hemoglobin.total in Blood by HPLC [facility] HbA1c HPLC (Bld) [Mass fract ion]on 03-25-2024 HbA1c (Bld) [Mass fraction] Hemoglobin A1c/Hemoglobin.total in Blood by HPLC [facility] CNOVSPon 02-08-2024 CNOVSP Visit (SP) Office (H EMA) -- RAIN LOPEZ ([id number]) 1940 F Date Time Provider Department 02/08/24 11:00 AM DIPTI MITCHELL During your visit today, we recorded the following information about you: Temperature Pulse Respiration Blood pressure 97.6 degrees 77/minute 16/minute 197/110 Weight Height 61.7 kg 1.575 Dipti Mckeon PA-C 02/08/2024 11:31 AM Signed NAME: Rain Lopez CLINIC NO.: [id number] DATE OF SERVICE: February 08, 2024 (Paula) Some elements in this clinic note that are critical to medical decision making have been carefully reviewed and included from a prior clinic note dated: August 02, 2022 (Lucy) Additional Clinicians involved in Rain Lopez's care: Glen Perez (PCP), Hira Sarah (rheum) DIAGNOSIS: Anemia of chronic inflammation ASSESSMENT: 83 year old with microcytic anemia, likely from chronic inflammation Findings remain consistent with anemia of chronic inflammation (normal ferritin, elevated CRP, history) that is secondary to some sort of inflammatory arthritis. Her anemia has resolved today and we will continue to monitor her labs again in 6 months. I have advised her to stop her oral iron tablet as it is upsetting her stomach. We will recheck her labs in 6 months and if needed, can give IV iron instead. White coat HTN - noted normal for her. Depression--she reports depression and anxiety related to the recent of her .She is undergoing counseling now with some improvement in her symptoms. _- HPI: CASE HISTORY: Reverse Chronological Order 01/15/2022 - Hgb improved to 10.1 12/27/2021 - Tripped over a ceramic black cat and broke her right hip 09/2021 - Symptoms improved with diclofenac but hemoglobin remains low 12/28/2020 - Evaluated by Dr. Altman for anemia - labs showed hemoglobin 9, MCV 79, normal WBC and platelets, normal MPA, , low RPI, elevated haptoglobin and ESR suggesting anemia of chronic inflammation; saw rheumatology (Dr. Sarah) and is now on diclofenac 10/2020 - Hgb: 8.8 g/dL with MCV 78. Ferritin was elevated at 188, iron and TIBC were low. Stool negative for occult blood. Oral iron without any improvement. 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 Updated Visit, February 08, 2024: Rain returns for follow up. Labs done 02/01/24 showed hgb 11.2, with normal folate, b12, and iron studies. She is now going to counseling r her mental health issues. Iron tablets upset her stomach and cause black stools. Updated Visit, August 03, 2023: Rain returns today for a follow up. She is not using any insulin. Hgb is 11.2 today. She is attending PT for arthritis, which is now affecting her neck. She has not received any mental health treatment, but her family does check up on her. Updated Visit, February 02, 2023: Rain returns for follow up. She's been doing well other than depression and anxiety since her 's . She has family support and has discussed it with her PCP with plans to talk to him about it again. Otherwise doing well. Arthritis is under control. No fatigue. No bleeding. Feels well overall. Updated Visit, July 16, 2022: in January, Had her hip fixed last year too. Also Hgb improved to 10.7 Has gained weight and is more active. Just got back from [place] - hurt her foot and had laryngitis. Now recovered although left foot still hurts However, Feels much better overall. Updated Visit, January 15, 2022: Transition of Care Rain Lopez presents to transition her care for anemia of chronic disease. recently fractured her hip while decorating for Halloween She has recovered very nicely Hgb has improved on iron supplementation a little bit. Prior Visit with Dr. Altman: October 15, 2021: Rain comes back for follow-up. Her , Jose, is sick from COPD. She has also been dealing with recent deaths in acquaintances and is overwhelmed. Overall, her arthritis is controlled with diclofenac. She takes this every 3 days and trying to cut this down. No symptoms endorsed today. PAST MEDICAL SURGICAL FAMILY AND SOCIAL HISTORY: She has a history of -Type 2 diabetes mellitus -Hypertension -Hyperlipidemia -Gastroesophageal reflux -? Reactive arthritis versus polymyalgia rheumatica versus other autoimmune (more content not included)... Normal [facility] Basophils Auto (Bld) [#/Vol] on 02-01-2024 Basophils (Bld) [#/Vol] Automated basophil count <0.11 [facility] Basophils/100 WBC Auto (Bld) on 02-01-2024 Basophils/100 WBC (Bld) Automated basophil % [facility] Blood manual differential co mment interpretation narrativeon 02-01-2024 Manual differential comment Chapito (Bld) [Interp] Blood manual differential comment interpretation narrative [facility] CBC W Auto Differential pane l (Bld)on 02-01-2024 Basophils (Bld) [#/Vol] 0.03 10*3/uL Normal <0.11 [facility] Comment on above: Order Comment: Speci men Type: BLOOD SPECIMEN Ordering Facility: [facility] Address: [address] [place] [address] Performed By: #### 5 7021-8 #### [facility] CLIA [id number] [address] [place] [address] Basophils/100 WBC (Bld) 0.5 % Normal [facility] Comment on above: Order Comment: Speci men Type: BLOOD SPECIMEN Ordering Facility: [facility] Address: [address] [place] [address] Performed By: #### 5 7021-8 #### [facility] CLIA [id number] [address] [place] [address] Differential cell count method Nom (Bld) Auto Normal [facility] Comment on above: Order Comment: Speci men Type: BLOOD SPECIMEN Ordering Facility: [facility] Address: [address] [place] [address] Performed By: #### 5 7021-8 #### [facility] CLIA [id number] [address] [place] [address] Eosinophils (Bld) [#/Vol] 0.19 10*3/uL Normal <0.46 [facility] Comment on above: Order Comment: Speci men Type: BLOOD SPECIMEN Ordering Facility: [facility] Address: [address] [place] [address] Performed By: #### 5 7021-8 #### [facility] CLIA [id number] [address] [place] [address] Eosinophils/100 WBC (Bld) 3.1 % Normal [facility] Comment on above: Order Comment: Speci men Type: BLOOD SPECIMEN Ordering Facility: [facility] Address: [address] [place] [address] Performed By: #### 5 7021-8 #### [facility] CLIA [id number] [address] [place] [address] Erythrocyte distribution width (RBC) [Ratio] 14.6 % Normal 11.5-15.0 [facility] Comment on above: Order Comment: Speci men Type: BLOOD SPECIMEN Ordering Facility: [facility] Address: [address] [place] [address] Performed By: #### 5 7021-8 #### [facility] CLIA [id number] [address] [place] [address] Hematocrit (Bld) [Volume fraction] 33.9 % Low 36.0-46.0 [facility] Comment on above: Order Comment: Speci men Type: BLOOD SPECIMEN Ordering Facility: [facility] Address: [address] [place] [address] Performed By: #### 5 7021-8 #### [facility] CLIA [id number] [address] [place] [address] Hemoglobin (Bld) [Mass/Vol] 11.2 g/dL Low 11.5-15.5 [facility] Comment on above: Order Comment: Speci men Type: BLOOD SPECIMEN Ordering Facility: [facility] Address: [address] [place] [address] Performed By: #### 5 7021-8 #### [facility] CLIA [id number] [address] [place] [address] Immature granulocytes (Bld) [#/Vol] 0.03 10*3/uL Normal <0.10 [facility] Comment on above: Order Comment: Speci men Type: BLOOD SPECIMEN Ordering Facility: [facility] Address: [address] [place] [address] Performed By: #### 5 7021-8 #### [facility] CLIA [id number] [address] [place] [address] Immature granulocytes/100 WBC (Bld) 0.5 % Normal [facility] Comment on above: Order Comment: Speci men Type: BLOOD SPECIMEN Ordering Facility: [facility] Address: [address] [place] [address] Performed By: #### 5 7021-8 #### [facility] CLIA [id number] [address] [place] [address]47 Lymphocytes (Bld) [#/Vol] 1.44 10*3/uL Normal 1.00-4.00 [facility] Comment on above: Order Comment: Speci men Type: BLOOD SPECIMEN Ordering Facility: [facility] Address: [address] [place] [address] Performed By: #### 5 7021-8 #### [facility] CLIA [id number] [address] [place] [address] Lymphocytes/100 WBC (Bld) 23.7 % Normal [facility] Comment on above: Order Comment: Speci men Type: BLOOD SPECIMEN Ordering Facility: [facility] Address: [address] [place] [address] Performed By: #### 5 7021-8 #### [facility] CLIA [id number] [address] [place] [address] MCH (RBC) [Entitic mass] 28.6 pg Normal 26.0-34.0 [facility] Comment on above: Order Comment: Speci men Type: BLOOD SPECIMEN Ordering Facility: [facility] Address: [address] [place] [address] Performed By: #### 5 7021-8 #### [facility] CLIA [id number] [address] [place] [address] MCHC (RBC) [Mass/Vol] 33.0 g/dL Normal 30.5-36.0 [facility] Comment on above: Order Comment: Speci men Type: BLOOD SPECIMEN Ordering Facility: [facility] Address: [address] [place] [address] Performed By: #### 5 7021-8 #### [facility] CLIA [id number] [address] [place] [address]51 MCV (RBC) [Entitic vol] 86.7 fL Normal 80.0-100.0 [facility] Comment on above: Order Comment: Speci men Type: BLOOD SPECIMEN Ordering Facility: [facility] Address: [address] [place] [address] Performed By: #### 5 7021-8 #### [facility] CLIA [id number] [address] [place] [address]8548 Monocytes (Bld) [#/Vol] 0.64 10*3/uL Normal <0.87 [facility] Comment on above: Order Comment: Speci men Type: BLOOD SPECIMEN Ordering Facility: [facility] Address: [address] [place] [address] Performed By: #### 5 7021-8 #### [facility] CLIA [id number] [address] [place] [address]78 Monocytes/100 WBC (Bld) 10.5 % Normal [facility] Comment on above: Order Comment: Speci men Type: BLOOD SPECIMEN Ordering Facility: [facility] Address: [address] [place] [address] Performed By: #### 5 7021-8 #### [facility] CLIA [id number] [address] [place] [address]1634 Neutrophils (Bld) [#/Vol] 3.74 10*3/uL Normal 1.45-7.50 [facility] Comment on above: Order Comment: Speci men Type: BLOOD SPECIMEN Ordering Facility: [facility] Address: [address] [place] [address] Performed By: #### 5 7021-8 #### [facility] CLIA [id number] [address] [place] [address] Neutrophils/100 WBC (Bld) 61.7 % Normal [facility] Comment on above: Order Comment: Speci men Type: BLOOD SPECIMEN Ordering Facility: [facility] Address: [address] [place] [address] Performed By: #### 5 7021-8 #### [facility] CLIA [id number] [address] [place] [address] 24016 Nucleated RBC (Bld) [#/Vol] 10*3/uL Normal <0.01 [facility] Comment on above: Order Comment: Speci men Type: BLOOD SPECIMEN Ordering Facility: [facility] Address: [address] [place] [address] Performed By: #### 5 7021-8 #### [facility] CLIA [id number] [address] [place] [address] 26441 Nucleated RBC/100 WBC (Bld) [Ratio] 0.0 /100 WBC Normal [facility] Comment on above: Order Comment: Speci men Type: BLOOD SPECIMEN Ordering Facility: [facility] Address: [address] [place] [address] Performed By: #### 5 7021-8 #### [facility] CLIA [id number] [address] [place] [address] 64044 Platelet mean volume (Bld) [Entitic vol] 9.2 fL Normal 9.0-12.7 [facility] Comment on above: Order Comment: Speci men Type: BLOOD SPECIMEN Ordering Facility: [facility] Address: [address] [place] [address] Performed By: #### 5 7021-8 #### [facility] CLIA [id number] [address] [place] [address]153 Platelets (Bld) [#/Vol] 213 10*3/uL Normal 150-400 [facility] Comment on above: Order Comment: Speci men Type: BLOOD SPECIMEN Ordering Facility: [facility] Address: [address] [place] [address] Performed By: #### 5 7021-8 #### [facility] CLIA [id number] [address] [place] [address]4034 RBC (Bld) [#/Vol] 3.91 10*6/uL Normal 3.90-5.20 [facility] Comment on above: Order Comment: Speci men Type: BLOOD SPECIMEN Ordering Facility: [facility] Address: [address] [place] [address] Performed By: #### 5 7021-8 #### [facility] CLIA [id number] [address] [place] [address]62 WBC (Bld) [#/Vol] 6.07 10*3/uL Normal 3.70-11.00 [facility] Comment on above: Order Comment: Speci men Type: BLOOD SPECIMEN Ordering Facility: [facility] Address: [address] [place] [address] Performed By: #### 5 7021-8 #### [facility] CLIA [id number] [address] [place] [address]16 Comprehensive metabolic 2000 panelon 02-01-2024 Albumin [Mass/Vol] 4.5 g/dL Normal 3.9-4.9 [facility] Comment on above: Order Comment: Speci men Type: BLOOD SPECIMEN Ordering Facility: [facility] Address: [address] [place] [address] Performed By: #### 2 4323-8 #### [facility] CLIA [id number] [address] [place] [address]240 ALP [Catalytic activity/Vol] 96 U/L Normal 34-123 [facility] Comment on above: Order Comment: Speci men Type: BLOOD SPECIMEN Ordering Facility: [facility] Address: [address] [place] [address] Performed By: #### 2 4323-8 #### [facility] CLIA [id number] [address] [place] [address] ALT [Catalytic activity/Vol] 11 U/L Normal 7-38 [facility] Comment on above: Order Comment: Speci men Type: BLOOD SPECIMEN Ordering Facility: [facility] Address: [address] [place] [address] Performed By: #### 2 4323-8 #### [facility] CLIA [id number] [address] [place] [address] Anion gap [Moles/Vol] 14 mmol/L Normal 8-15 [facility] Comment on above: Order Comment: Speci men Type: BLOOD SPECIMEN Ordering Facility: [facility] Address: [address] [place] [address] Performed By: #### 2 4323-8 #### [facility] CLIA [id number] [address] [place] [address] 48193 AST [Catalytic activity/Vol] 15 U/L Normal 13-35 [facility] Comment on above: Order Comment: Speci men Type: BLOOD SPECIMEN Ordering Facility: [facility] Address: [address] [place] [address] Performed By: #### 2 4323-8 #### [facility] CLIA [id number] [address] [place] [address]26 Bilirubin [Mass/Vol] 0.4 mg/dL Normal 0.2-1.3 [facility] Comment on above: Order Comment: Speci men Type: BLOOD SPECIMEN Ordering Facility: [facility] Address: [address] [place] [address] Performed By: #### 2 4323-8 #### [facility] CLIA [id number] [address] [place] [address]37 Calcium [Mass/Vol] 9.1 mg/dL Normal 8.5-10.2 [facility] Comment on above: Order Comment: Speci men Type: BLOOD SPECIMEN Ordering Facility: [facility] Address: [address] [place] [address] Performed By: #### 2 4323-8 #### [facility] CLIA [id number] [address] [place] [address] Chloride [Moles/Vol] 101 mmol/L Normal 98-107 [facility] Comment on above: Order Comment: Speci men Type: BLOOD SPECIMEN Ordering Facility: [facility] Address: [address] [place] [address] Performed By: #### 2 4323-8 #### [facility] CLIA [id number] [address] [place] [address] 28847 CO2 [Moles/Vol] 23 mmol/L Normal 22-30 [facility] Comment on above: Order Comment: Speci men Type: BLOOD SPECIMEN Ordering Facility: [facility] Address: [address] [place] [address] Performed By: #### 2 4323-8 #### [facility] CLIA [id number] [address] [place] [address]684 Creatinine [Mass/Vol] 0.81 mg/dL Normal 0.58-0.96 [facility] Comment on above: Order Comment: Speci men Type: BLOOD SPECIMEN Ordering Facility: [facility] Address: [address] [place] [address] Performed By: #### 2 4323-8 #### [facility] CLIA [id number] [address] [place] [address]11 Creatinine and Glomerular filtration rate.predicted panel (S/P/Bld) 73 mL/min/1.73m??? Normal >=60 [facility] Comment on above: Order Comment: Speci men Type: BLOOD SPECIMEN Ordering Facility: [facility] Address: [address] [place], [place] [address] Result Comment: Argelia mated Glomerular Filtration Rate (eGFR) is calculated using the 2020 CKD-EPI creatinine equation. This equation utilizes serum creatinine, sex, and age as parameters. The creatinine assay has traceable calibration to isotope dilution-mass spectrometry. Refer to KDIGO guidelines for clinical interpretation. In patients with unstable renal function, e.g. those with acute kidney injury, the eGFR may not accurately reflect actual GFR. Performed By: #### 2 4323-8 #### [facility] CLIA [id number] [address] [place] [address] Glucose [Mass/Vol] 90 mg/dL Normal 74-99 [facility] Comment on above: Order Comment: Specdee men Type: BLOOD SPECIMEN Ordering Facility: [facility] Address: [address] [place] [address] Result Comment: The [place] Diabetes Association (ADA) provides guidance for cutoff [...] Standards of Medical Care in Diabetes 2016, [place] [employer]. Diabetes Care. 2016.39(Suppl 1). Performed By: #### 2 4323-8 #### [facility] CLIA [id number] [address] [place] [address]86 Potassium [Moles/Vol] 4.4 mmol/L Normal 3.7-5.1 [facility] Comment on above: Order Comment: Srinivas sneed Type: BLOOD SPECIMEN Ordering Facility: [facility] Address: [address] [place] [address] Performed By: #### 2 4323-8 #### [facility] CLIA [id number] [address] [place] [address]82 Protein [Mass/Vol] 6.9 g/dL Normal 6.3-8.0 [facility] Comment on above: Order Comment: Srinivas men Type: BLOOD SPECIMEN Ordering Facility: [facility] Address: [address] [place] [address] Performed By: #### 2 4323-8 #### [facility] CLIA [id number] [address] [place] [address] Sodium [Moles/Vol] 138 mmol/L Normal 136-144 [facility] Comment on above: Order Comment: Speci men Type: BLOOD SPECIMEN Ordering Facility: [facility] Address: [address] [place] [address] Performed By: #### 2 4323-8 #### [facility] CLIA [id number] [address] [place] [address] Urea nitrogen [Mass/Vol] 16 mg/dL Normal 7-21 [facility] Comment on above: Order Comment: Speci men Type: BLOOD SPECIMEN Ordering Facility: [facility] Address: [address] [place] [address] Performed By: #### 2 4323-8 #### [facility] CLIA [id number] [address] [place] [address]77 Eosinophils/100 WBC Auto (Bl d)on 02-01-2024 Eosinophils/100 WBC (Bld) Automated eosinophil % [facility] Erythrocyte distribution wid th Auto (RBC) [Ratio]on 02-01-2024 Erythrocyte distribution width (RBC) [Ratio] Erythrocyte distribution width [Ratio] by Automated count 11.5-15.0 [facility] Ferritin SerPl-mCncon 2023 Ferritin [Mass/Vol] 46.2 ng/mL Normal 14.7-205.1 [facility] Comment on above: Order Comment: Speci men Type: BLOOD SPECIMEN Ordering Facility: [facility] Address: [address] [place] [address] Performed By: #### 2 4323-8 #### [facility] CLIA [id number] [address] [place] [address] Folate SerPl-mCncon 02-01-20 24 Folate [Mass/Vol] ng/mL Normal >4.7 [facility] Comment on above: Order Comment: Speci men Type: BLOOD SPECIMEN Ordering Facility: [facility] Address: [address] [place] [address] Result Comment: A re sult of > 20 ng/mL is not necessarily indicative of a pathologic or treatable condition: it reflects a limitation of the test methodology. Assay reference range: 4.8 to 24.2 ng/mL. Suitable for detection of folate deficiency. Reference: Folate III (Folate III) [package insert V 1.0 Italian]. [facility], [place], [place]: January 2015. Performed By: #### 2 4323-8 #### [facility] CLIA [id number] [address] [place] [address]654 Hematocrit Auto (Bld) [Volum e fraction]on 02-01-2024 Hematocrit (Bld) [Volume fraction] Hematocrit [Volume Fraction] of Blood by Automated count Low 36.0-46.0 [facility] Hemoglobin [Mass/volume] in Bloodon 02-01-2024 Hemoglobin (Bld) [Mass/Vol] Hemoglobin [Mass/volume] in Blood Low 11.5-15.5 [facility] Iron and Iron binding capaci ty panelon 02-01-2024 Iron [Mass/Vol] 44 ug/dL Normal 41-186 [facility] Comment on above: Order Comment: Martinei nedra Type: BLOOD SPECIMEN Ordering Facility: [facility] Address: [address] [place] [address] Performed By: #### 5 0190-8, 9, 2275-06, 2283-10 #### [facility] CLIA [id number] [address] [place] [address] [place] Iron binding capacity [Mass/Vol] 251 ug/dL Normal 232-386 [facility] Comment on above: Order Comment: Speci men Type: BLOOD SPECIMEN Ordering Facility: [facility] Address: [address] [place] [address] Performed By: #### 5 0190-8, 2131-9, 2275-4, 8 #### [facility] LAB CLIA [id number] [address] [place], [place] [address] [address] [place] Iron/TIBC [Molar ratio] 17.5 % Normal 15.0-57.0 [facility] Comment on above: Order Comment: Speci men Type: BLOOD SPECIMEN Ordering Facility: [facility] Address: [address] [place] [address] Performed By: #### 5 0190-8, 2132-9, 2276-4, 2284-8 #### [facility] CLIA [id number] [address] [place], [place] [address] [place] [address] [place] Iron binding capacity [Mass/ volume] in Serum or Plasmaon 02-01-2024 Iron binding capacity [Mass/Vol] Iron binding capacity [Mass/volume] in Serum or Plasma 232-386 [facility] Iron saturation [Mass Fracti on] in Serum or Plasmaon 02-01-2024 Iron saturation [Mass fraction] Iron saturation [Mass Fraction] in Serum or Plasma 15.0-57.0 [facility] Laboratory - Chemistry and C hemistry - challengeon 02-01-2024 Albumin [Mass/Vol] 4.5 g/dL 3.9-4.9 [facility] ALP [Catalytic activity/Vol] 96 U/L 34-123 [facility] ALT [Catalytic activity/Vol] 11 U/L 7-38 [facility] AST [Catalytic activity/Vol] 15 U/L 13-35 [facility] Bilirubin [Mass/Vol] 0.4 mg/dL 0.2-1.3 [facility] Calcium [Mass/Vol] 9.1 mg/dL 8.5-10.2 [facility] Chloride [Moles/Vol] 101 mmol/L 98-107 [facility] CO2 [Moles/Vol] 23 mmol/L 22-30 [facility] Cobalamin (Vitamin B12) [Mass/Vol] 472 pg/mL 232-1245 [facility] Creatinine [Mass/Vol] 0.81 mg/dL 0.58-0.96 [facility] Ferritin [Mass/Vol] 46.2 ng/mL 14.7-205.1 [facility] Glucose [Mass/Vol] 90 mg/dL 74-99 [facility] Comment on above: The [place] Diab[employer] s Association (ADA) provides guidance for cutoff values for fasting glucose and random glucose. The ADA defines fasting as no caloric intake for at least 8 hours. Fasting plasma glucose results between 100 to 125 mg/dL indicate increased risk for diabetes (prediabetes).Fasting plasma glucose results greater than or equal to 126 mg/dL meet the criteria for diagnosis of diabetes. In the absence of unequivocal hyperglycemia, results should be confirmed by repeat testing. In a patient with classic symptoms of hyperglycemia or hyperglycemic crisis, random plasma glucose results greater than or equal to 200 mg/dL meet the criteria for diagnosis of diabetes.Reference: Standards of Medical Care in Diabetes 2016, [place] Diabetes Association. Diabetes Care. 2016.39(Suppl 1). Iron [Mass/Vol] 44 ug/dL 41-186 [facility] Potassium [Moles/Vol] 4.4 mmol/L 3.7-5.1 [facility] Sodium [Moles/Vol] 138 mmol/L 136-144 [facility] Urea nitrogen [Mass/Vol] 16 mg/dL 7-21 [facility] Laboratory - Hematology and Cell countson 02-01-2024 Eosinophils (Bld) [#/Vol] 0.19 10*3/uL <0.46 [facility] Immature granulocytes (Bld) [#/Vol] 0.03 10*3/uL <0.10 [facility] Immature granulocytes/100 WBC (Bld) 0.5 % [facility] Leukocytes [#/volume] correc micaela for nucleated erythrocytes in Blood by Automated counon 02-01-2024 WBC corrected for nucl RBC Auto (Bld) [#/Vol] Leukocytes [#/volume] corrected for nucleated erythrocytes in Blood by Automated coun 3.70-11.00 [facility] Lymphocytes Auto (Bld) [#/Vo l]on 02-01-2024 Lymphocytes (Bld) [#/Vol] Lymphocytes [#/volume] in Blood by Automated count 1.00-4.00 [facility] Lymphocytes/100 WBC Auto (Bl d)on 02-01-2024 Lymphocytes/100 WBC (Bld) Lymphocytes/100 leukocytes in Blood by Automated count [facility] MCH Auto (RBC) [Entitic mass ]on 02-01-2024 MCH (RBC) [Entitic mass] MCH [Entitic mass] by Automated count 26.0-34.0 [facility] MCHC Auto (RBC) [Mass/Vol]on 02-01-2024 MCHC (RBC) [Mass/Vol] MCHC [Mass/volume] by Automated count 30.5-36.0 [facility] MCV Auto (RBC) [Entitic vol] on 02-01-2024 MCV (RBC) [Entitic vol] MCV [Entitic volume] by Automated count 80.0-100.0 [facility] Monocytes Auto (Bld) [#/Vol] on 02-01-2024 Monocytes (Bld) [#/Vol] Automated blood monocyte count <0.87 [facility] Monocytes/100 WBC Auto (Bld) on 02-01-2024 Monocytes/100 WBC (Bld) Automated monocyte % [facility] Neutrophils Auto (Bld) [#/Vo l]on 02-01-2024 Neutrophils (Bld) [#/Vol] Neutrophils [#/volume] in Blood by Automated count 1.45-7.50 [facility] Neutrophils/100 WBC Auto (Bl d)on 02-01-2024 Neutrophils/100 WBC (Bld) Automated neutrophil % [facility] No Panel Informationon 01-31 Estimated GFR (CKD-EPI) 73 mL/min/1.73m??? >=60 [facility] Comment on above: Estimated Glomerular Filtration Rate (eGFR) is calculated using the 2020 CKD-EPI creatinine equation. This equation utilizes serum creatinine, sex, and age as parameters. The creatinine assay has traceable calibration to isotope dilution-mass spectrometry. Refer to KDIGO guidelines for clinical interpretation. In patients with unstable renal function, e.g. those with acute kidney injury, the eGFR may not accurately reflect actual GFR. Folate >20.0 ng/mL >4.7 [facility] Comment on above: A result of > 20 ng/ mL is not necessarily indicative of a pathologic or treatable condition: it reflects a limitation of the test methodology.Assay reference range: 4.8 to 24.2 ng/mL. Suitable for detection of folate deficiency.Reference:Folate III (Folate III) [package insert V 1.0 Italian]. [facility], [place], [place]: January 2015. Nucleated RBC Auto (Bld) [#/ Vol]on 02-01-2024 Nucleated RBC (Bld) [#/Vol] Nucleated erythrocytes [#/volume] in Blood by Automated count <0.01 [facility] Nucleated erythrocytes [Pres ence] in Blood by Automated counton 02-01-2024 Nucleated RBC Auto Ql (Bld) Nucleated erythrocytes [Presence] in Blood by Automated count [facility] Platelet mean volume Auto (B ld) [Entitic vol]on 02-01-2024 Platelet mean volume (Bld) [Entitic vol] Platelet mean volume [Entitic volume] in Blood by Automated count 9.0-12.7 [facility] Platelets Auto (Bld) [#/Vol] on 02-01-2024 Platelets (Bld) [#/Vol] Platelets [#/volume] in Blood by Automated count 150-400 [facility] Protein [Mass/volume] in Ser um or Plasmaon 02-01-2024 Protein [Mass/Vol] Protein [Mass/volume ] in Serum or Plasma 6.3-8.0 [facility] RBC Auto (Bld) [#/Vol]on RBC (Bld) [#/Vol] Erythrocytes [#/volu me] in Blood by Automated count 3.90-5.20 [facility] Serum or plasma anion gap de terminationon 02-01-2024 Anion gap [Moles/Vol] Serum or plasma an ion gap determination 8-15 [facility] Vit B12 SerPl-mCncon 024 Cobalamin (Vitamin B12) [Mass/Vol] 472 pg/mL Normal 232-1245 [facility] Comment on above: Order Comment: Speci men Type: BLOOD SPECIMEN Ordering Facility: [facility] Address: [id number] [facility] [place] [address] Performed By: #### 2 4323-8 #### [facility] CLIA [id number] [address] [place] [address] Absolute reticulocyte counto n 08-03-2023 Reticulocytes (Bld) [#/Vol] 0.20587 10*3/uL 0.018-0.10 0 [facility] Basophils Auto (Bld) [#/Vol] on 08-03-2023 Basophils (Bld) [#/Vol] 0.05 10*3/uL <0.11 [facility] Basophils/100 WBC Auto (Bld) on 08-03-2023 Basophils/100 WBC (Bld) 0.7 % [facility] Blood manual differential co mment interpretation narrativeon 08-03-2023 Manual differential comment Chapito (Bld) [Interp] Auto [facility] Eosinophils/100 WBC Auto (Bl d)on 08-03-2023 Eosinophils/100 WBC (Bld) 5.4 % [facility] Erythrocyte distribution wid th Auto (RBC) [Ratio]on 08-03-2023 Erythrocyte distribution width (RBC) [Ratio] 14.9 % 11.5-15.0 [facility] Hematocrit Auto (Bld) [Volum e fraction]on 08-03-2023 Hematocrit (Bld) [Volume fraction] 35.0 % Low 36.0-46.0 [facility] Hemoglobin [Mass/volume] in Bloodon 08-03-2023 Hemoglobin (Bld) [Mass/Vol] 11.2 g/dL Low 11.5-15.5 [facility] Iron binding capacity [Mass/ volume] in Serum or Plasmaon 08-03-2023 Iron binding capacity [Mass/Vol] 251 ug/dL 232-386 [facility] Iron saturation [Mass Fracti on] in Serum or Plasmaon 08-03-2023 Iron saturation [Mass fraction] 20.3 % 15.0-57.0 [facility] Laboratory - Chemistry and C hemistry - challengeon 08-03-2023 Albumin [Mass/Vol] 4.5 g/dL 3.9-4.9 [facility] ALP [Catalytic activity/Vol] 103 U/L 34-123 [facility] ALT [Catalytic activity/Vol] 10 U/L 7-38 [facility] AST [Catalytic activity/Vol] 12 U/L Low 13-35 [facility] Bilirubin [Mass/Vol] 0.3 mg/dL 0.2-1.3 [facility] Calcium [Mass/Vol] 9.3 mg/dL 8.5-10.2 [facility] Chloride [Moles/Vol] 104 mmol/L 97-105 [facility] CO2 [Moles/Vol] 24 mmol/L 22-30 [facility] Cobalamin (Vitamin B12) [Mass/Vol] 575 pg/mL 232-1245 [facility] Creatinine [Mass/Vol] 0.73 mg/dL 0.58-0.96 [facility] Glucose [Mass/Vol] 122 mg/dL High 74-99 [facility] Comment on above: The [place] Diab[employer] s Association (ADA) provides guidance for cutoff values for fasting glucose and random glucose. The ADA defines fasting as no caloric intake for at least 8 hours. Fasting plasma glucose results between 100 to 125 mg/dL indicate increased risk for diabetes (prediabetes).Fasting plasma glucose results greater than or equal to 126 mg/dL meet the criteria for diagnosis of diabetes. In the absence of unequivocal hyperglycemia, results should be confirmed by repeat testing. In a patient with classic symptoms of hyperglycemia or hyperglycemic crisis, random plasma glucose results greater than or equal to 200 mg/dL meet the criteria for diagnosis of diabetes.Reference: Standards of Medical Care in Diabetes 2016, [place] Diabetes Association. Diabetes Care. 2016.39(Suppl 1). Iron [Mass/Vol] 51 ug/dL 41-186 [facility] Potassium [Moles/Vol] 4.3 mmol/L 3.7-5.1 [facility] Sodium [Moles/Vol] 141 mmol/L 136-144 [facility] Urea nitrogen [Mass/Vol] 13 mg/dL 7-21 [facility] Laboratory - Hematology and Cell countson 08-03-2023 Eosinophils (Bld) [#/Vol] 0.40 10*3/uL <0.46 [facility] Immature granulocytes (Bld) [#/Vol] 0.05 10*3/uL <0.10 [facility] Immature granulocytes/100 WBC (Bld) 0.7 % [facility] Leukocytes [#/volume] correc micaela for nucleated erythrocytes in Blood by Automated counon 08-03-2023 WBC corrected for nucl RBC Auto (Bld) [#/Vol] 7.39 k/uL 3.70-11.00 [facility] Lymphocytes Auto (Bld) [#/Vo l]on 08-03-2023 Lymphocytes (Bld) [#/Vol] 1.28 10*3/uL 1.00-4.00 [facility] Lymphocytes/100 WBC Auto (Bl d)on 08-03-2023 Lymphocytes/100 WBC (Bld) 17.3 % [facility] MCH Auto (RBC) [Entitic mass ]on 08-03-2023 MCH (RBC) [Entitic mass] 27.7 pg 26.0-34.0 [facility] MCHC Auto (RBC) [Mass/Vol]on 08-03-2023 MCHC (RBC) [Mass/Vol] 32.0 g/dL 30.5-36.0 [facility] MCV Auto (RBC) [Entitic vol] on 08-03-2023 MCV (RBC) [Entitic vol] 86.4 fL 80.0-100.0 [facility] Monocytes Auto (Bld) [#/Vol] on 08-03-2023 Monocytes (Bld) [#/Vol] 0.72 10*3/uL <0.87 [facility] Monocytes/100 WBC Auto (Bld) on 08-03-2023 Monocytes/100 WBC (Bld) 9.7 % [facility] Neutrophils Auto (Bld) [#/Vo l]on 08-03-2023 Neutrophils (Bld) [#/Vol] 4.89 10*3/uL 1.45-7.50 [facility] Neutrophils/100 WBC Auto (Bl d)on 08-03-2023 Neutrophils/100 WBC (Bld) 66.2 % [facility] No Panel Informationon 08-02 Estimated GFR (CKD-EPI) 83 mL/min/1.73m??? >=60 [facility] Comment on above: Estimated Glomerular Filtration Rate (eGFR) is calculated using the 2020 CKD-EPI creatinine equation. This equation utilizes serum creatinine, sex, and age as parameters. The creatinine assay has traceable calibration to isotope dilution-mass spectrometry. Refer to KDIGO guidelines for clinical interpretation. In patients with unstable renal function, e.g. those with acute kidney injury, the eGFR may not accurately reflect actual GFR. Folate 12.1 ng/mL >4.7 [facility] Nucleated RBC Auto (Bld) [#/ Vol]on 08-03-2023 Nucleated RBC (Bld) [#/Vol] 10*3/uL <0.01 [facility] Nucleated erythrocytes [Pres ence] in Blood by Automated counton 08-03-2023 Nucleated RBC Auto Ql (Bld) 0.0 /100{WBC} [facility] Platelet mean volume Auto (B ld) [Entitic vol]on 08-03-2023 Platelet mean volume (Bld) [Entitic vol] 9.3 fL 9.0-12.7 [facility] Platelets Auto (Bld) [#/Vol] on 08-03-2023 Platelets (Bld) [#/Vol] 241 10*3/uL 150-400 [facility] Protein [Mass/volume] in Ser um or Plasmaon 08-03-2023 Protein [Mass/Vol] 7.0 g/dL 6.3-8.0 [facility] RBC Auto (Bld) [#/Vol]on RBC (Bld) [#/Vol] 4.05 10*6/uL 3.90-5.20 [facility] Reticulocytes/100 RBC Auto ( Bld)on 08-03-2023 Reticulocytes/100 RBC (Bld) 1.6 % 0.4-2.0 [facility] Serum or plasma anion gap de terminationon 08-03-2023 Anion gap [Moles/Vol] 13 mmol/L 9-18 [facility] XR shoulder RT min 2V*on XR shoulder RT min 2V* [facility] [address] XRay Report Signed Patient: Rain Lopez MR#: [id number] 67 : 1940 Acct:[id number] Age/Sex: 81 / F ADM Date: 09/01/22 Loc[place] [facility]: Lul Webster DO Copies to: Lul Webster DO Ordering Provider: Lul Webster DO Date of Service: 09/01/22 XR/XR shoulder RT min 2V*: Closed fracture of neck of right humerus with routine healin RIGHT SHOULDER - 3 views CLINICAL HISTORY: Follow-up fracture COMPARISON: 08/11/2022 AP, Y and Grashey views were obtained. The bony structures are osteopenic. There is redemonstration of a mildly displaced and comminuted fracture involving the proximal humerus. There is no significant change in alignment of fracture fragments. No prominent callus formation is identified. There is no new fracture or dislocation. Minor degenerative changes seen at the acromioclavicular joint. There are no significant soft tissue abnormalities. XR/XR shoulder RT min 2V* IMPRESSION: STABLE PROXIMAL HUMERUS FRACTURE. Impression dictated by: Love Velazquez M.D.09/01/2022 9:45 AM Dictation Location: [place] [address] Transcribed By: [facility] 09/01/22 0945 Dictated By: Love Velazquez MD 09/01/22 0943 Signed By: 09/01/22 0945 Normal [facility] XR shoulder RT min 2V*on XR shoulder RT min 2V* [facility] [employer] Other XR shoulder RT min 2V* [facility] [place] [facility] [employer] Other XR shoulder RT min 2V* [address] [place] [address] [employer] Other XR shoulder RT min 2V* [place] [address] [employer] Other XR shoulder RT min 2V* XRay Report [employer] Other XR shoulder RT min 2V* Signed [employer] Other XR shoulder RT min 2V* Patient: Rain Lopez MR#: [id number] [employer] Other XR shoulder RT min 2V* 67 [employer] Other XR shoulder RT min 2V* : 1940 Acct:[id number] [employer] Other XR shoulder RT min 2V* Age/Sex: 81 / F ADM Date: 08/11/22 [employer] Other XR shoulder RT min 2V* Loc: [facility] Room: Type: [facility] [employer] Other XR shoulder RT min 2V* Attending Dr: Lul Webster DO [employer] Other XR shoulder RT min 2V* Copies to: Lul Webster DO [employer] Other XR shoulder RT min 2V* Ordering Provider: Lul Webster DO [employer] Other XR shoulder RT min 2V* Date of Service: 08/11/22 [employer] Other XR shoulder RT min 2V* XR/XR shoulder RT min 2V*: Closed fracture of neck of right humerus with [employer] Other XR shoulder RT min 2V* routine healin [employer] Other XR shoulder RT min 2V* RIGHT SHOULDER - - 3 views [employer] Other XR shoulder RT min 2V* CLINICAL HISTORY: Right humeral head fracture follow-up [employer] Other XR shoulder RT min 2V* COMPARISON: Right humerus 07/19/2022 [employer] Other XR shoulder RT min 2V* FINDINGS: [employer] Other XR shoulder RT min 2V* Right humeral head/neck fracture grossly unchanged alignment with interval sclerosis suggestive of [employer] Other XR shoulder RT min 2V* healing response. Degenerative changes are noted involving the right shoulder. [employer] Other XR shoulder RT min 2V* XR/XR shoulder RT min 2V* [employer] Other XR shoulder RT min 2V* IMPRESSION: [employer] Other XR shoulder RT min 2V* HEALING RIGHT HUMERAL HEAD/NECK FRACTURE [employer] Other XR shoulder RT min 2V* Impression dictated by: Scooter Villatoro Jr., Surekha08/11/2022 9:14 AM [employer] Other XR shoulder RT min 2V* Dictation Location: [place] [address] [employer] Other XR shoulder RT min 2V* Transcribed By: P[facility] 08/11/22 [facility] [employer] Other XR shoulder RT min 2V* Dictated By: Scooter Villatoro Jr, DO 08/11/22 [facility] [employer] Other XR shoulder RT min 2V* Signed By: [employer] Other XR shoulder RT min 2V* 08/11/22 [facility] [employer] Other XR shoulder RT min 2V* [facility] [place] [address] [place] [address] XRay Report Signed Patient: Rain Lopez MR#: [id number] 67 : 1940 Acct:[id number] Age/Sex: 81 / F ADM Date: 08/11/22 Loc: [facility] Room: Type: [facility] Attending Dr: Lul Webster DO Copies to: Lul Webster DO Ordering Provider: Lul Webster DO Date of Service: 08/11/22 XR/XR shoulder RT min 2V*: Closed fracture of neck of right humerus with routine healin RIGHT SHOULDER - - 3 views CLINICAL HISTORY: Right humeral head fracture follow-up COMPARISON: Right humerus 07/19/2022 FINDINGS: Right humeral head/neck fracture grossly unchanged alignment with interval sclerosis suggestive of healing response. Degenerative changes are noted involving the right shoulder. XR/XR shoulder RT min 2V* IMPRESSION: HEALING RIGHT HUMERAL HEAD/NECK FRACTURE Impression dictated by: Scooter Villatoro Jr., D.O.08/11/2022 9:14 AM Dictation Location: [place] [address] Transcribed By: [facility] 08/11/22913 Dictated By: Scooter Villatoro Jr, DO 08/11/22912 Signed By: 08/11/22913 Normal [facility] Alanine aminotransferase [En zymatic activity/volume] in Serum or PlasmaOrdered By: Lul Webster on 07-21-2022 ALT [Catalytic activity/Vol] 10 U/L Normal 7-52 [facility] Comment on above: Performed By: #### C BC, CMP wRFX A1C, EBS A1C ####[facility] [id number] [place] [address] [facility] Albumin [Mass/volume] in Ser um or Plasma by Bromocresol green (BCG) dye binding methoOrdered By: Lul Webster on 07-21-2022 Albumin BCG dye [Mass/Vol] 4.5 g/dL 3.5-5.7 [facility] Alkaline phosphatase [Enzyma tic activity/volume] in Serum or PlasmaOrdered By: Lul Webster on 07-21-2022 ALP [Catalytic activity/Vol] 94 U/L Normal 34-104 [facility] Comment on above: Result Comment: PERF ORMED BY: [facility] [address] [place] [id number] PATHOLOGIST [employer] DR[employer] LIS CASTRO M.D. Performed By: #### C BC, CMP wRFX A1C, EBS A1C ####[place] [id number] [place] [address] [facility] Aspartate aminotransferase [ Enzymatic activity/volume] in Serum or PlasmaOrdered By: Lul Webster on 07-21-2022 AST [Catalytic activity/Vol] 13 U/L Normal 13-39 [facility] Comment on above: Performed By: #### C BC, CMP wRFX A1C, EBS A1C ####[facility] [place] [address] [place] Automated basophil %Ordered By: Lul Webster on 07-21-2022 Basophils/100 WBC (Bld) 0.6 % Normal . [facility] Comment on above: Performed By: #### C BC, CMP wRFX A1C, EBS A1C ####[address] Automated basophil countOrde red By: Lul Webster on 07-21-2022 Basophils (Bld) [#/Vol] 0.0 10*3/uL Normal 0.0-0.2 [facility] Comment on above: Result Comment: PERF ORMED BY: [facility] [address] [place] [address] PATHOLOGIST [employer] LIS CASTRO M.D. Performed By: #### C BC, CMP wRFX A1C, EBS A1C ####[address] Automated blood monocyte cou ntOrdered By: Lul Webster on 07-21-2022 Monocytes (Bld) [#/Vol] 0.8 10*3/uL Normal 0.0-0.8 [facility] Comment on above: Performed By: #### C BC, CMP wRFX A1C, EBS A1C ####[address] Automated eosinophil %Ordere d By: Lul Webster on 07-21-2022 Eosinophils/100 WBC (Bld) 3.8 % Normal . [facility] Comment on above: Performed By: #### C BC, CMP wRFX A1C, EBS A1C ####[address] Automated eosinophil countOr dered By: Lul Webster on 07-21-2022 Eosinophils (Bld) [#/Vol] 0.3 10*3/uL Normal 0.0-0.45 [facility] Comment on above: Performed By: #### C BC, CMP wRFX A1C, EBS A1C ####[address] Automated erythrocytes count in urine sediment (number/area)Ordered By: Lul Webster on 07-21-2022 RBC Auto (Urine sed) [#/Area] 0-1 [HPF] 0-4 [facility] Automated leukocytes count i n urine sediment (number/area)Ordered By: Lul Webster on 07-21-2022 WBC Auto (Urine sed) [#/Area] 3-4 [HPF] 0-4 [facility] Automated monocyte %Ordered By: Lul Webster on 07-21-2022 Monocytes/100 WBC (Bld) 10.4 % Normal . [facility] Comment on above: Performed By: #### C BC, CMP wRFX A1C, EBS A1C ####[place] [id number] [address] Automated neutrophil %Ordere d By: Lul Webster on 07-21-2022 Neutrophils/100 WBC (Bld) 66.0 % Normal . [facility] Comment on above: Performed By: #### C BC, CMP wRFX A1C, EBS A1C ####[address] Bilirubin Test strip Ql (U)O rdered By: Lul Webster on 07-21-2022 Bilirubin Ql (U) Negative Negative [facility] Bilirubin.total [Mass/volume ] in Serum or PlasmaOrdered By: Lul Webster on 07-21-2022 Bilirubin [Mass/Vol] 0.5 mg/dL Normal 0.3-1.0 [facility] Comment on above: Performed By: #### C BC, CMP wRFX A1C, EBS A1C ####[address] CMP with reflex to A1Con Albumin [Mass/Vol] 4.5 g/dL Normal 3.5-5.7 [facility] Comment on above: Performed By: #### C BC, CMP wRFX A1C, EBS A1C ####[place] [id number] [place] [id number] [facility] GFR/1.73 sq M.predicted MDRD (S/P/Bld) [Vol rate/Area] mL/min/{1.73_m2} Normal [facility] Comment on above: Performed By: #### C BC, CMP wRFX A1C, EBS A1C ####[facility] [place] [address] [facility] CT shoulder RT wo estrellitaon 06-29 CT shoulder RT wo con [facility] Main [place] [address] [place] [address] CT Scan Report Signed Patient: Rain Lopez MR#: [id number] 67 : 1940 Acct:[id number] Age/Sex: 81 / F ADM Date: 07/21/22 [facility] Room: Type: REG CLI Attending Dr: Lul Webster DO Copies to: Lul Webster DO Ordering Provider: Lul Webster DO Date of Service: 07/21/22 CT/CT shoulder RT wo con: S42.211A CLOSED FX NECK OF RT HUMERUS S42.291A FX RT HUMERUS CT right shoulder without contrast TECHNIQUE: The CT exam was performed using one or more the following dose reduction techniques: Automated exposure control, adjustment of the MA and/or Kv according to patient size, or use of the iterative reconstruction technique. COMPARISON:07/19/2022 HISTORY:Fell several benign. Presurgical planning. Impacted humeral head fracture. Mildly avulsed greater tuberosity fracture. Inferiorly subluxed humeral head in relation to the glenoid. Acromioclavicular spurring. Intact acromion. Subtle bony irregularity of the anterior inferior corner of the glenoid. Consider age-indeterminate bony Bankhart lesion. Mild subarticular cystic changes of the glenoid. No rib fracture. Adjacent soft tissue swelling and joint effusion. Comminuted fracture of the lesser tuberosity. CT/CT shoulder RT wo con IMPRESSION: Impacted humeral neck fracture. Mildly avulsed greater tuberosity fracture. Mildly comminuted lesser tuberosity fracture. Inferior subluxation of humeral head. Small Age- indeterminate bony Bankart lesion. Impression dictated by: Timothy Resendez M.D.07/21/2022 3:20 PM Dictation Location: [place] [address] Transcribed By: [facility] 07/21/22 1520 Dictated By: Timothy Resendez DO 07/21/22 1514 Signed By: 07/21/22 [address] [facility] [address] shoulder RT wo con [facility] [employer] Other CT shoulder RT wo con [facility] [employer] Other CT shoulder RT wo con [address] [facility] [employer] [place] [address] shoulder RT wo con CT Scan Report [employer] Other CT shoulder RT wo con Signed [facility] [employer] Other CT shoulder RT wo con Patient: Gian Lopez MR#: [id number] [employer] Other CT shoulder RT wo con 67 [facility] [employer] Other CT shoulder RT wo con : 1940 Acct:[id number] [employer] Other CT shoulder RT wo con Age/Sex: 81 / F AD M Date: 07/21/[address] shoulder RT wo con Loc: ICCT Room: pe: [facility] [employer] Other CT shoulder RT wo con Attending Dr: Tristan Webster DO [employer] Other CT shoulder RT wo con Copies to: Lul Webster DO [employer] Other CT shoulder RT wo con Ordering Provider: Lul Webster DO [employer] Other CT shoulder RT wo con Date of Service: 07/21/[address] shoulder RT wo con [id number] CT/CT shoulder RT wo con: S42.211A CLOSED FX NECK OF RT HUMERUS S42.291A [employer] Other CT shoulder RT wo con FX RT HUMERUS [employer] Other CT shoulder RT wo con CT right shoulder without contrast [employer] Other CT shoulder RT wo con TECHNIQUE: The CT exam was performed using one or more the following dose reduction techniques: [employer] Other CT shoulder RT wo con Automated exposure control, adjustment of the MA and/or Kv according to patient size, or use of the [employer] Other CT shoulder RT wo con iterative reconstr uction technique. [employer] Other CT shoulder RT wo con COMPARISON:07/19/[address] shoulder RT wo con HISTORY:Fell sever al benign. Presurgical planning. [employer] Other CT shoulder RT wo con Impacted humeral h ead fracture. Mildly avulsed greater tuberosity fracture. Inferiorly subluxed [employer] Other CT shoulder RT wo con humeral head in re lation to the glenoid. Acromioclavicular spurring. Intact acromion. Subtle bony [employer] Other CT shoulder RT wo con irregularity of th e anterior inferior corner of the glenoid. Consider age-indeterminate bony [employer] Other CT shoulder RT wo con Bankhart lesion. M ild subarticular cystic changes of the glenoid. No rib fracture. Adjacent soft [employer] Other CT shoulder RT wo con tissue swelling an d joint effusion. Comminuted fracture of the lesser tuberosity. [employer] Other CT shoulder RT wo con CT/CT shoulder RT wo con [employer] Other CT shoulder RT wo con IMPRESSION: Impact ed humeral neck fracture. Mildly avulsed greater tuberosity fracture. Mildly [employer] Other CT shoulder RT wo con comminuted lesser tuberosity fracture. Inferior subluxation of humeral head. Small Age- [employer] Other CT shoulder RT wo con indeterminate bony Bankart lesion. [employer] Other CT shoulder RT wo con Impression dictate d by: Timothy Resendez M.D.07/21/2022 3:[address] shoulder RT wo con Dictation Location : [place] [address] [facility] [employer] Other CT shoulder RT wo con Transcribed By: LUCÍA Mallory 07/21/22 1520 [facility] [employer] Other CT shoulder RT wo con Dictated By: Timothy Resendez DO 07/21/22 1514 [facility] [employer] Other CT shoulder RT wo con Signed By: [facility] [employer] Other CT shoulder RT wo con 07/21/22 1522 [facility] [employer] Other Calcium [Mass/volume] in Ser um or PlasmaOrdered By: Lul Webster on 07-21-2022 Calcium [Mass/Vol] 9.0 mg/dL Normal 8.6-10.3 [facility] Comment on above: Performed By: #### C BC, CMP wRFX A1C, EBS A1C ####[place] [id number] [place] [address] [facility] Carbon dioxide, total [Moles /volume] in Serum or PlasmaOrdered By: Lul Webster on 07-21-2022 CO2 [Moles/Vol] 29.8 mmol/L Normal 21.0-31.0 [facility] Comment on above: Performed By: #### C BC, CMP wRFX A1C, EBS A1C ####[place] [id number] [place] [id number] [place] Chloride [Moles/volume] in S michael or PlasmaOrdered By: Lul Webster on 07-21-2022 Chloride [Moles/Vol] 96 mmol/L Low 98-107 [facility] Comment on above: Performed By: #### C BC, CMP wRFX A1C, EBS A1C ####[facility] [place] [address] [place] Color Auto (U)Ordered By: Melissa Webster on 07-21-2022 Color (U) Yellow Yellow [facility] Complete Blood Count Auto Di ffon 07-21-2022 Mean Corpuscular HGB Conc 32.6 g/dL Normal 32.0-35.0 [facility] Comment on above: Performed By: #### C BC, CMP wRFX A1C, EBS A1C ####[facility] [id number] [place] [id number] [facility] NRBC% 0.1 /100{WBC} Normal 0-0.5 [facility] Comment on above: Performed By: #### C BC, CMP wRFX A1C, EBS A1C ####[facility] [id number] Creatinine [Mass/volume] in Serum or PlasmaOrdered By: Lul Webster on 07-21-2022 Creatinine [Mass/Vol] 0.75 mg/dL Normal 0.60-1.20 [facility] Comment on above: Performed By: #### C BC, CMP wRFX A1C, EBS A1C ####[facility] [id number] [place] [id number] [place] Dipstick and Microscopicon 0 07-21-2022 Appearance (U) Clear Normal Clear [facility] Comment on above: Order Comment: Name Collection Type:: Clean-Voided Midstream Performed By: #### A DDONUAPLUS #### [facility] [address] [place] [address] [place] Bacteria,Urine None Seen Normal None Seen [facility] Comment on above: Order Comment: Name Collection Type:: Clean-Voided Midstream Performed By: #### A DDONUAPLUS #### [facility] [address] [place] [address] [place] Bilirubin,Urine Negative Normal Negative [facility] Comment on above: Order Comment: Name Collection Type:: Clean-Voided Midstream Performed By: #### A DDONUAPLUS #### [facility] [address] [place] [address] [place] Color (U) Yellow Normal Yellow [facility] Comment on above: Order Comment: Name Collection Type:: Clean-Voided Midstream Performed By: #### A DDONUAPLUS #### [facility] [address] [place] [address] [place] Glucose Ql (U) Normal Normal Normal [facility] Comment on above: Order Comment: Name Collection Type:: Clean-Voided Midstream Performed By: #### A DDONUAPLUS #### [address] Hyaline Casts,Urine None Seen Normal 0-8 [facility] Comment on above: Order Comment: Name Collection Type:: Clean-Voided Midstream Result Comment: PERF ORMED BY: [place] [address] PATHOLOGIST [employer]I TRUCK DRIVER LIS CASTRO M.D. Performed By: #### A DDONUAPLUS #### [address] Ketones Ql (U) Negative Normal Negative [facility] Comment on above: Order Comment: Name Collection Type:: Clean-Voided Midstream Performed By: #### A DDONUAPLUS #### [address] Leukocyte esterase Test strip Ql (U) 2+ High Negative [facility] Comment on above: Order Comment: Name Collection Type:: Clean-Voided Midstream Performed By: #### A DDONUAPLUS #### [address] Nitrite,Urine Negative Normal Negative [facility] Comment on above: Order Comment: Name Collection Type:: Clean-Voided Midstream Performed By: #### A DDONUAPLUS #### [place] [address] [place] Occult Blood,Urine Negative Normal Negative [facility] Comment on above: Order Comment: Name Collection Type:: Clean-Voided Midstream Result Comment: PERF ORMED BY: [place] [address] PATHOLOGIST [employer] TRUCK DRIVER LIS CASTRO M.D. Performed By: #### A DDONUAPLUS #### [facility] [address] [place] [address] [place] pH (U) 7.0 [pH] Normal 5.0-9.0 [facility] Comment on above: Order Comment: Name Collection Type:: Clean-Voided Midstream Performed By: #### A DDONUAPLUS #### [facility] [address] [place] [address] Protein,Urine Negative Normal Negative [facility] Comment on above: Order Comment: Name Collection Type:: Clean-Voided Midstream Performed By: #### A DDONUAPLUS #### [facility] [address] [place] [address] RBC LM.HPF (Urine sed) [#/Area] 0 /[HPF] Normal 0-4 [facility] Comment on above: Order Comment: Name Collection Type:: Clean-Voided Midstream Performed By: #### A DDONUAPLUS #### [address] Specificy [place],Urine 1.008 Normal 1.001-1.03 0 [facility] Comment on above: Order Comment: Name Collection Type:: Clean-Voided Midstream Performed By: #### A DDONUAPLUS #### [address] Squamous Epithelial Cell,Urine None Seen Normal 0-2 [facility] Comment on above: Order Comment: Name Collection Type:: Clean-Voided Midstream Performed By: #### A DDONUAPLUS #### [place] [address] [place] Urobilinogen,Urine Normal Normal Normal [facility] Comment on above: Order Comment: Name Collection Type:: Clean-Voided Midstream Performed By: #### A DDONUAPLUS #### [facility] [address] [place] [address] [place] WBC,Urine 3-4 Normal 0-4 [facility] Comment on above: Order Comment: Name Collection Type:: Clean-Voided Midstream Performed By: #### A DDONUAPLUS #### [address] EBS A1C with Estimated Ave G nkechi 07-21-2022 Glucose [Mass/Vol] 157 mg/dL Normal [facility] Comment on above: Result Comment: PERF ORMED BY: [place] [address] PATHOLOGIST [employer] TR[employer] DRIVER LIS CASTRO M.D. Performed By: #### C BC, CMP wRFX A1C, EBS A1C ####[place] [address] [place] [address] [facility] EBS A1C with Estimated Ave G luOrdered By: Lul Webster on 07-21-2022 HbA1c (Bld) [Mass fraction] 7.1 % High 4.3-5.6 [facility] Comment on above: Increased risk for d iabetes: 5.7 - 6.4diabetes: >6.4glycemic control for adults with diabetes: <7.0 Result Comment: Incr eased risk for diabetes: 5.7 - 6.4 diabetes: >6.4 glycemic control for adults with diabetes: <7.0 Performed By: #### C BC, CMP wRFX A1C, EBS A1C ####[address] [address] [facility] ECG 12 lead ECGon 07-21-2022 ECG 12 lead ECG [facility] [place] [address] Electrocardiograph Report Signed Patient: Rain Lopez MR#: [id number] 67 : 1940 Acct:[id number] Age/Sex: 81 / F ADM Date: 07/21/22 Loc: Room: Type: [facility] Attending Dr: Lul Webster DO Ordering Provider: Lul Webster DO Date of Service: 07/21/22 ECG/ECG 12 lead ECG: REVERSE TOTAL SHOULDER ARTHROPLASTY Copies to: Test Reason : Blood Pressure : / mmHG Vent. Rate : 072 BPM Atrial Rate : 072 BPM P-R Int : 150 ms QRS Dur : 074 ms QT Int : 374 ms P-R-T Axes : 074 050 063 degrees QTc Int : 409 ms Normal sinus rhythm Normal ECG When compared with ECG of 27-DEC-2021 06:35, No significant change was found Confirmed by MOON SALAAZR DO ([id number]) on 07/22/2022 12:33:54 PM Referred By: CORA Electronically Signed By:MOON SALAZAR DO Transcribed By: TRACI Signed By Moon Salazar DO 07/22 1233 Normal [facility] Erythrocyte distribution wid th [Ratio] by Automated countOrdered By: Lul Webster on 07-21-2022 Erythrocyte distribution width (RBC) [Ratio] 17.1 % High 11.9-15.3 [facility] Comment on above: Performed By: #### C BC, CMP wRFX A1C, EBS A1C ####[facility] [id number] [place] [address] [place] Erythrocytes [#/volume] in B lood by Automated countOrdered By: Lul Webster on 07-21-2022 RBC (Bld) [#/Vol] 3.95 10*6/uL Normal 3.60-5.00 [facility] Comment on above: Performed By: #### C BC, CMP wRFX A1C, EBS A1C ####[facility] [id number] [place] [address] [facility] Glucose [Mass/volume] in Ser um or PlasmaOrdered By: Lul Webster on 07-21-2022 Glucose [Mass/Vol] 130 mg/dL High 70-100 [facility] Comment on above: ADA recommended refe rence range Result Comment: ADA recommended reference range Performed By: #### C BC, CMP wRFX A1C, EBS A1C ####[facility] [id number] [place] [address] [facility] Glucose mean value [Mass/vol ume] in Blood Estimated from glycated hemoglobinOrdered By: Lul Webster on 07-21-2022 Average glucose Estimated from glycated hemoglobin (Bld) [Mass/Vol] 157 mg/dL [facility] Hematocrit [Volume Fraction] of Blood by Automated countOrdered By: Lul Webster on 07-21-2022 Hematocrit (Bld) [Volume fraction] 32.4 % Low 34.0-46.4 [facility] Comment on above: Performed By: #### C BC, CMP wRFX A1C, EBS A1C ####[facility] [address] [place] [address] [facility] Hemoglobin [Mass/volume] in BloodOrdered By: Lul Webster on 07-21-2022 Hemoglobin (Bld) [Mass/Vol] 10.6 g/dL Low 11.8-15.4 [facility] Comment on above: Performed By: #### C BC, CMP wRFX A1C, EBS A1C ####[facility] [id number] [place] [id number] [facility] Ketones Auto test strip (U) [Mass/Vol]Ordered By: Lul Webster on 07-21-2022 Ketones (U) [Mass/Vol] Negative Negative [facility] Laboratory - UrinalysisOrder ed By: Lul Webster on 07-21-2022 Hyaline casts LM Ql (Urine sed) None seen [LPF] 0-8 [facility] Leukocytes [#/volume] correc micaela for nucleated erythrocytes in Blood by Automated counOrdered By: Lul Webster on 07-21-2022 WBC corrected for nucl RBC Auto (Bld) [#/Vol] 7.7 10*3/uL 3.8-11.6 [facility] Leukocytes [#/volume] in Blo od by Automated countOrdered By: Lul Webster on 07-21-2022 WBC (Bld) [#/Vol] 7.7 10*3/uL Normal 3.8-11.6 [facility] Comment on above: Performed By: #### C BC, CMP wRFX A1C, EBS A1C ####[facility] [id number] [place] [id number] [place] Lymphocytes [#/volume] in Bl ood by Automated countOrdered By: Lul Webster on 07-21-2022 Lymphocytes (Bld) [#/Vol] 1.5 10*3/uL Normal 1.00-4.8 [facility] Comment on above: Performed By: #### C BC, CMP wRFX A1C, EBS A1C ####[facility] [id number] [place] [address] [place] Lymphocytes/100 leukocytes i n Blood by Automated countOrdered By: Lul Webster on 07-21-2022 Lymphocytes/100 WBC (Bld) 19.2 % Normal . [facility] Comment on above: Performed By: #### C BC, CMP wRFX A1C, EBS A1C ####[facility] [id number] MCH [Entitic mass] by Automa micaela countOrdered By: Lul Webster on 07-21-2022 MCH (RBC) [Entitic mass] 26.8 pg Normal 24.7-34.3 [facility] Comment on above: Performed By: #### C BC, CMP wRFX A1C, EBS A1C ####[place] [id number] MCHC Auto (RBC) [Mass/Vol]Or dered By: Lul Webster on 07-21-2022 MCHC (RBC) [Mass/Vol] 32.6 g/dL 32.0-35.0 [facility] MCV [Entitic volume] by Auto mated countOrdered By: Lul Webster on 07-21-2022 MCV (RBC) [Entitic vol] 82.0 fL Normal 80-100 [facility] Comment on above: Performed By: #### C BC, CMP wRFX A1C, EBS A1C ####[place] [id number] Neutrophils [#/volume] in Bl ood by Automated countOrdered By: Lul Webster on 07-21-2022 Neutrophils (Bld) [#/Vol] 5.1 10*3/uL Normal 1.8-7.7 [facility] Comment on above: Performed By: #### C BC, CMP wRFX A1C, EBS A1C ####[place] [id number] Nitrite Test strip Ql (U)Ord ered By: Lul Webster on 07-21-2022 Nitrite Ql (U) Negative Negative [facility] No Panel InformationOrdered By: Lul Webster on 07-21-2022 Estimated GFR (CKD-EPI) > 60.0 mL/Min [facility] Creatinine Clearance (Chem N/A [facility] Nucleated erythrocytes [Pres ence] in Blood by Automated countOrdered By: Lul Webster on 07-21-2022 Nucleated RBC Auto Ql (Bld) 0.1 /100{WBC} 0-0.5 [facility] Platelet mean volume [Entiti c volume] in Blood by Automated countOrdered By: Lul Webster on 07-21-2022 Platelet mean volume (Bld) [Entitic vol] 7.3 fL Normal 6.3-10.7 [facility] Comment on above: Performed By: #### C BC, CMP wRFX A1C, EBS A1C ####[place] [place] [address] [facility] Platelets [#/volume] in Bloo d by Automated countOrdered By: Lul Webster on 07-21-2022 Platelets (Bld) [#/Vol] 236 10*3/uL Normal 150-450 [facility] Comment on above: Performed By: #### C BC, CMP wRFX A1C, EBS A1C ####[place] [id number] [facility] Potassium [Moles/volume] in Serum or PlasmaOrdered By: Lul Webster on 07-21-2022 Potassium [Moles/Vol] 4.2 mmol/L Normal 3.5-5.1 [facility] Comment on above: Performed By: #### C BC, CMP wRFX A1C, EBS A1C ####[address] [address] [facility] Protein Auto test strip (U) [Mass/Vol]Ordered By: Lul Webster on 07-21-2022 Protein (U) [Mass/Vol] Negative Negative [facility] Protein [Mass/volume] in Ser um or PlasmaOrdered By: Lul Webster on 07-21-2022 Protein [Mass/Vol] 7.3 g/dL Normal 6.4-8.9 [facility] Comment on above: Performed By: #### C BC, CMP wRFX A1C, EBS A1C ####[address] [address] [facility] Serum globulin measurement b y calculation (mass/volume)Ordered By: Lul Webster on 07-21-2022 Globulin (S) [Mass/Vol] 2.8 g/dL [facility] Comment on above: Performed By: #### C BC, CMP wRFX A1C, EBS A1C ####[facility] [id number] Serum or plasma albumin/glob ulin mass ratioOrdered By: Lul Webster on 07-21-2022 Albumin/Globulin [Mass ratio] 1.6 {ratio} [facility] Comment on above: Performed By: #### C BC, CMP wRFX A1C, EBS A1C ####[place] [id number] Serum or plasma anion gap de terminationOrdered By: Lul Webster on 07-21-2022 Anion gap [Moles/Vol] 12.4 mmol/L Normal 6.0-15.0 [facility] Comment on above: Performed By: #### C BC, CMP wRFX A1C, EBS A1C ####[place] [id number] Sodium [Moles/volume] in Ser um or PlasmaOrdered By: Lul Webster on 07-21-2022 Sodium [Moles/Vol] 134 mmol/L Low 136-145 [facility] Comment on above: Performed By: #### C BC, CMP wRFX A1C, EBS A1C ####[place] [id number] Specific gravity Auto test s trip (U) [Rel density]Ordered By: Lul Webster on 07-21-2022 Specific gravity (U) [Rel density] 1.008 1.001-1.03 0 [facility] Squamous epithelial cells de tection in urine sediment by light microscopyOrdered By: Lul Webster on 07-21-2022 Epithelial cells.squamous LM Ql (Urine sed) None seen [HPF] 0-2 [facility] Urea nitrogen [Mass/volume] in Serum or PlasmaOrdered By: Lul Webster on 07-21-2022 Urea nitrogen [Mass/Vol] 14 mg/dL Normal 7-25 [facility] Comment on above: Performed By: #### C BC, CMP wRFX A1C, EBS A1C ####[facility] [id number] Urine bacteria detection by automated methodOrdered By: Lul Webster on 07-21-2022 Bacteria Auto Ql (U) None seen None Seen [facility] Urine clarity by refractomet ry automatedOrdered By: Lul Webster on 07-21-2022 Clarity Refractometry automated (U) Clear Clear [facility] Urine glucose measurement by automated test strip (mass/volume)Ordered By: Lul Webster on 07-21-2022 Glucose Auto test strip (U) [Mass/Vol] Normal mg/dL Normal [facility] Urine hemoglobin detection b y automated test stripOrdered By: Lul Webster on 07-21-2022 Hemoglobin Auto test strip Ql (U) Negative Negative [facility] Urine leukocyte esterase det ection by automated test stripOrdered By: Lul Webster on 07-21-2022 Leukocyte esterase Auto test strip Ql (U) 2+ Negative [facility] Urobilinogen Auto test strip (U) [Mass/Vol]Ordered By: Lul Webster on 07-21-2022 Urobilinogen (U) [Mass/Vol] Normal mg/dL Normal [facility] pH Auto test strip (U)Ordere d By: Lul Webster on 07-21-2022 pH (U) 7.0 [pH] 5.0-9.0 [facility] CBC AUTO DIFFon 06-17-2022 BASO # 0.1 103/ul Normal 0.0-0.1 [facility] Comment on above: Performed By: #### U MICRO, ERUR #### [facility] [address] [place] [address] [address] Arley Avalos Basophils/100 WBC (Bld) 0.9 % Normal 0.2-2.0 [facility] Comment on above: Performed By: #### U MICRO, ERUR #### [facility] [address] [place] [address] [address] Arley Avalos EO # 0.5 103/ul Normal 0.0-0.7 [facility] Comment on above: Performed By: #### U MICRO, ERUR #### [facility] [address] [place] [address] [address] Arley Avalos Eosinophils/100 WBC (Bld) 7.2 % Critically high 0.9-7.0 [facility] Comment on above: Performed By: #### U MICRO, ERUR #### [facility] [address] [place] [address] Dr. Arley Avalos Erythrocyte distribution width (RBC) [Ratio] 15.3 % Critically high 11.0-15.0 [facility] Comment on above: Performed By: #### U MICRO, ERUR #### [facility] [address] [place] [address] Dr. Arley Avalos Hematocrit (Bld) [Volume fraction] 34.5 % Critically low 36.0-48.0 [facility] Comment on above: Performed By: #### U MICRO, ERUR #### [facility] [address] [place] [address] Dr. Arley Avalos Hemoglobin (Bld) [Mass/Vol] 11.0 g/dL Critically low 12.0-16.0 [facility] Comment on above: Performed By: #### U MICRO, ERUR #### [facility] [address] [place] [address] Dr. Arley Avalos IG # 0.04 10e3/ul Critically high 0.00-0.03 [facility] Comment on above: Performed By: #### U MICRO, ERUR #### [facility] [address] [place] [address] Dr. Arley Avalos IG % 0.6 % Critically high 0.0-0.5 [facility] Comment on above: Performed By: #### U MICRO, ERUR #### [facility] [address] [place] [address] Dr. Arley Avalos LYMPH # 1.6 103/ul Normal 1.2-3.8 [facility] Comment on above: Performed By: #### U MICRO, ERUR #### [facility] [address] [place] [address] Dr. Arley Avalos Lymphocytes/100 WBC (Bld) 25.6 % Normal 20.5-60.0 [facility] Comment on above: Performed By: #### U MICRO, ERUR #### [facility] [address] [place] [address] Dr. Arley Avalos MANUAL DIFF REQ NO Normal The [facility] Comment on above: Performed By: #### U MICRO, ERUR #### [facility] [address] [place] [address] Dr. Arley Avalos MCH (RBC) [Entitic mass] 26.2 pg Critically low 26.7-34.0 [facility] Comment on above: Performed By: #### U MICRO, ERUR #### [facility] [address] [place] [address] Dr. Arley Avalos MCHC (RBC) [Mass/Vol] 31.9 g/dL Normal 29.9-35.2 [facility] Comment on above: Performed By: #### U MICRO, ERUR #### [facility] [address] [place] [address] Dr. Arley Avalos MCV (RBC) [Entitic vol] 82.1 fL Normal 81.0-99.0 [facility] Comment on above: Performed By: #### U MICRO, ERUR #### [facility] [address] [place] [address] Dr. Arley Avalos MONO # 0.6 103/ul Normal 0.3-0.8 [facility] Comment on above: Performed By: #### U MICRO, ERUR #### [facility] [address] [place] [address] Dr. Arley Avalos Monocytes/100 WBC (Bld) 8.6 % Normal 1.7-12.0 [facility] Comment on above: Performed By: #### U MICRO, ERUR #### [facility] [address] [place] [address] Dr. Arley Avalos NEUT # 3.7 103/ul Normal 1.4-6.5 [facility] Comment on above: Performed By: #### U MICRO, ERUR #### [facility] [address] [place] [address] Dr. Arley Avalos Neutrophils/100 WBC (Bld) 57.1 % Normal 43.0-75.0 [facility] Comment on above: Performed By: #### U MICRO, ERUR #### [facility] [address] [place] [address] Dr. Arley Avalos Platelet mean volume (Bld) [Entitic vol] 9.3 fL Critically low 9.5-13.5 [facility] Comment on above: Performed By: #### U MICRO, ERUR #### [facility] [address] [place] [address] Dr. Arley Avalos PLT 247 103/ul Normal 150-450 [facility] Comment on above: Performed By: #### U MICRO, ERUR #### [facility] [address] [place] [address] Dr. Arley Avalos RBC 4.20 106/ul Normal 4.20-5.40 [facility] Comment on above: Performed By: #### U MICRO, ERUR #### [facility] [address] [place] [address] Dr. Arley Avalos WBC 6.4 103/ul Normal 4.0-11.0 [facility] Comment on above: Performed By: #### U MICRO, ERUR #### [facility] [address] [place] [address] Dr. Arley Avalos ER URINE PROFILEon 3 Bilirubin Ql (U) Negative Normal NEGATIVE The [facility] Comment on above: Performed By: #### U MICRO, ERUR #### [facility] [address] [place] [address] Dr. Arley Avalos Clarity (U) CLEAR Normal CLEAR [facility] Comment on above: Performed By: #### U MICRO, ERUR #### [facility] [address] [place] [address] Dr. Arley Avalos Color (U) LT. YELLOW Normal YELLOW [facility] Comment on above: Performed By: #### U MICRO, ERUR #### [facility] [address] [place] [address] Dr. Arley BRUCE A micrscopic examina tion will be performed if indicated. Normal [facility] Comment on above: Performed By: #### U MICRO, ERUR #### [facility] [address] [address] [address] Arley Avalos Glucose Ql (U) Negative Normal NEGATIVE [facility] Comment on above: Performed By: #### U MICRO, ERUR #### [facility] [address] [address] [address] Arley Avalos Hemoglobin Ql (U) Negative Normal NEGATIVE [facility] Comment on above: Performed By: #### U MICRO, ERUR #### [facility] [address] [address] [address] Arley Avalos Ketones Ql (U) TRACE Abnormal NEGATIVE [facility] Comment on above: Performed By: #### U MICRO, ERUR #### [facility] [address] [place] [address] Dr. Arley Avalos LEUKOCYTES TRACE Abnormal NEGATIVE [facility] Comment on above: Performed By: #### U MICRO, ERUR #### [facility] [address] [address] [address] Arley Avalos Nitrite Ql (U) Negative Normal NEGATIVE [facility] Comment on above: Performed By: #### U MICRO, ERUR #### [facility] [address] [place] [address] Dr. Arley Avalos pH (U) 5.5 [pH] Normal 5-9 [facility] Comment on above: Performed By: #### U MICRO, ERUR #### [facility] [address] [place] [address] Dr. Arley Avalos SPEC GRAVITY 1.020 Normal 1.005-<=1. 025 [facility] Comment on above: Performed By: #### U MICRO, ERUR #### [facility] [address] [place] [address] Dr. Arley Avalos UA PROTEIN Negative Normal NEGATIVE/ TRACE [facility] Comment on above: Performed By: #### U MICRO, ERUR #### [facility] [address] [address] [address] Arley Avalos UR MICRO IND INDICATED Normal [facility] Comment on above: Performed By: #### U MICRO, ERUR #### [facility] [address] [place] [address] Dr. Arley Avalos Urobilinogen Qn (U) 0.2 {Yaz'U}/dL Normal 0.2 - 1. 0 [facility] Comment on above: Performed By: #### U MICRO, ERUR #### [facility] [address] [place] [address] Dr. Arley Avalos LACTATE/LACTIC ACIDon 2022 Lactate [Moles/Vol] 1.2 mmol/L Normal 0.4-2.0 [facility] Comment on above: Performed By: #### L ACT #### [facility] [address] [place] [address] Dr. Arley Avalos LIPASEon 06-17-2022 Lipase [Catalytic activity/Vol] 96.0 U/L Normal 73.0-393.0 [facility] Comment on above: Performed By: #### H STROPN, LIPA, CMP #### [facility] [address] [place] [address] Dr. Arley Avalos POINT OF CARE GLUCOSEon 05-29 Glucose [Mass/Vol] 114 mg/dL Critically high 74-106 [facility] Comment on above: Performed By: #### P OCGLUC #### [facility] [address] [place] [address] Dr. Arley Avalos PROF 14(COMP METB)on 023 Albumin [Mass/Vol] 3.9 g/dL Normal 3.4-5.0 [facility] Comment on above: Performed By: #### H STROPN, LIPA, CMP #### [facility] [address] [place] [address] Dr. Arley Avalos Albumin/Globulin [Mass ratio] 1.2 {ratio} Normal [facility] Comment on above: Performed By: #### H STROPN, LIPA, CMP #### [facility] [address] [place] [address] Dr. Arley Avalos ALP [Catalytic activity/Vol] 128 U/L Critically high 46-116 [facility] Comment on above: Performed By: #### H STROPN, LIPA, CMP #### [facility] [address] [address] [address] Arley Avalos ALT [Catalytic activity/Vol] 19 U/L Normal 14-59 [facility] Comment on above: Performed By: #### H STROPN, LIPA, CMP #### [facility] [address] [address] [address] Arley Avalos Anion gap [Moles/Vol] 12.9 mmol/L Normal [facility] Comment on above: Performed By: #### H STROPN, LIPA, CMP #### [facility] [address] [place] [address] Dr. Arley Avalos AST [Catalytic activity/Vol] 15 U/L Normal 15-37 [facility] Comment on above: Performed By: #### H STROPN, LIPA, CMP #### [facility] [address] [place] [address] Dr. Arley Avalos Bilirubin [Mass/Vol] 0.3 mg/dL Normal 0.2-1.0 [facility] Comment on above: Performed By: #### H STROPN, LIPA, CMP #### [facility] [address] [place] [address] Dr. Arley Avalos Calcium [Mass/Vol] 9.0 mg/dL Normal 8.5-10.1 [facility] Comment on above: Performed By: #### H STROPN, LIPA, CMP #### [facility] [address] [place] [address] Dr. Arley Avalos Chloride [Moles/Vol] 98 mmol/L Normal 98-107 [facility] Comment on above: Performed By: #### H STROPN, LIPA, CMP #### [facility] [address] [address] [address] Arley Avalos CO2 [Moles/Vol] 26.5 mmol/L Normal 21.0-32.0 [facility] Comment on above: Performed By: #### H STROPN, LIPA, CMP #### [facility] [address] [address] [address] Arley Avalos Creatinine [Mass/Vol] 0.69 mg/dL Normal 0.55-1.02 [facility] Comment on above: Performed By: #### H STROPN, LIPA, CMP #### [facility] [address] [address] [address] Arley Avalos EGFR-AF BELGIAN >60 Normal >=60 [facility] Comment on above: Performed By: #### H STROPN, LIPA, CMP #### [facility] [address] [address] [address] Arley Avalos EGFR-NON AF BELGIAN >60 Normal >=60 [facility] Comment on above: Performed By: #### H STROPN, LIPA, CMP #### [facility] [address] [address] [address] Arley Avalos Globulin (S) [Mass/Vol] 3.2 g/dL Normal [facility] Comment on above: Performed By: #### H STROPN, LIPA, CMP #### [facility] [address] [address] [address] Arley Avalos Glucose [Mass/Vol] 111 mg/dL Critically high 74-106 [facility] Comment on above: Performed By: #### H STROPN, LIPA, CMP #### [facility] [address] [address] [address] Arley Avalos Potassium [Moles/Vol] 4.4 mmol/L Normal 3.5-5.1 [facility] Comment on above: Performed By: #### H STROPN, LIPA, CMP #### [facility] [address] [address] [address] Arley Avalos Protein [Mass/Vol] 7.1 g/dL Normal 6.4-8.2 [facility] Comment on above: Performed By: #### H STROPN, LIPA, CMP #### [facility] [address] [address] [address] Arley Avalos Sodium [Moles/Vol] 133 mmol/L Critically low 136-145 Th e [facility] Comment on above: Performed By: #### H MADELIN RAMÍREZ, CMP #### [facility] [address] [place] [address] Dr. Arley Avalos Urea nitrogen [Mass/Vol] 12.0 mg/dL Normal 7.0-18.0 [facility] Comment on above: Performed By: #### H MADELIN RAMÍREZ, CMP #### [facility] [address] [place] [address] Dr. Arley Avalos Urea nitrogen/Creatinine [Mass ratio] 17.4 mg/mg Normal [facility] Comment on above: Performed By: #### H MADELIN RAMÍREZ, CMP #### [facility] [address] [place] [address] Dr. Arley Avalos TROPONIN, HIGH SENSITIVITYon 06-17-2022 HSTROP 5.5 pg/mL Normal 4.0-51.3 [facility] Comment on above: Result Comment: CUT- OFF POINTS HAVE BEEN ESTABLISHED BASED ON THE FOURTH UNIVERSAL DEFINITIONS OF MYOCARDIAL INFARCTION. THE UPPER REFERENCE LIMIT (URL) OF TROPONIN, DEFINED THE 99TH PERCENTILE OF cTnI DISTRIBUTION IN A REFERENCE POPULATION, HAS BEEN CONFIRMED THE DECISION THRESHOLD FOR MD DIAGNOSIS. Performed By: #### H MADELIN RAMÍREZ, CMP #### [facility] [address] [place] [address] Dr. Arley Avalos URINE MICROSCOPIC ONLYon BACTERIA NONE SEEN Normal NONE SEEN [facility] Comment on above: Performed By: #### U MICRO, ERUR #### [facility] [address] [place] [address] Dr. Arley Avalos Bacteria identified Cx Nom (U) NOT INDICATED Normal [facility] Comment on above: Performed By: #### U MICRO, ERUR #### [facility] [address] [place] [address] Dr. Arley Avalos CAST NONE SEEN Normal NONE SEEN [facility] Comment on above: Performed By: #### U MICRO, ERUR #### [facility] [address] [place] [address] Dr. Arley Avalos Crystals LM Nom (Urine sed) NONE SEEN Normal NONE SEEN [facility] Comment on above: Performed By: #### U MICRO, ERUR #### [facility] [address] [address] [address] Arley Avalos Epithelial cells LM Ql (Urine sed) RARE Normal NONE SEEN /RARE [facility] Comment on above: Performed By: #### U MICRO, ERUR #### [facility] [address] [address] [address] Arley Avalos MUCOUS NONE SEEN Normal NONE SEEN [facility] Comment on above: Performed By: #### U MICRO, ERUR #### [facility] [address] [address] [address] Arley Avalos RBC 0-2 Normal 0-2 [facility] Comment on above: Performed By: #### U MICRO, ERUR #### [facility] [address] [place] [address] Dr. Arley Avalos WBC 2-5 Abnormal NONE SEEN [facility] Comment on above: Performed By: #### U MICRO, ERUR #### [facility] [address] [address] [address] Arley Avalos XR ABD FLAT UP_PA Jacky 06-17 XR ABD FLAT UP_PA CH EXAM: XR ABD FLAT U P_PA CH HISTORY: Abdominal pain COMPARISON: Chest x-rays 12/05/2020 TECHNIQUE: PA chest and 3 views of the abdomen FINDINGS: IMPRESSION: The bowel gas pattern is nonobstructed. Stool throughout the colon and rectum. No free intraperitoneal air or intra-abdominal calcification. Surgical clips within the right upper quadrant. The lung parenchyma is free of consolidation or infiltrate. No pneumothorax or pleural effusion. The cardiac, mediastinal and hilar contours are unremarkable. Patient is status post percutaneous pinning of the right femoral neck. The osseous structures exhibit no acute abnormality. Electronically authenticated by: SARAH RAINEY Date: 2022-06-17 19:44 Normal [facility] XR hip RT min 2V(w/wo pelvis )*on 03-07-2022 XR hip RT min 2V(w/wo pelvis)* [facility] Main [place] [address] [place], [place] [id number] XRay Report Signed Patient: Rain Lopez MR#: [id number] 67 : 1940 Acct:[id number] Age/Sex: 81 / F ADM Date: 03/07/22 Loc: [facility] Room: Type: [facility] Attending Dr: Lul Webster DO Copies to: Lul Webster DO Ordering Provider: Lul Webster DO Date of Service: 03/07/22 XR/XR hip RT min 2V(w/wo pelvis)*: Closed fracture of neck of right femur with routine healing, RIGHT HIP - 2 views: CLINICAL HISTORY: ORIF right femoral neck. COMPARISON: Right hip 01/24/2022 FINDINGS: No evidence of hardware complication. No change in fracture alignment with interval sclerosis suggestive of healing response. XR/XR hip RT min 2V(w/wo pelvis)* IMPRESSION: NO EVIDENCE OF HARDWARE COMPLICATION.. Impression dictated by: Scooter Villatoro Jr., D.OSara03/07/2022 1:01 PM Dictation Location: [facility] Transcribed By: [facility] 03/07/22 1301 Dictated By: Scooter Villatoro Jr, DO 03/07/22 1256 Signed By: 03/07/22 1301 Normal [facility] XR hip RT min 2V(w/wo pelvis)* [facility] [employer] Other XR hip RT min 2V(w/wo pelvis)* [facility] Main [facility] [employer] Other XR hip RT min 2V(w/wo pelvis)* [address] [place] [address] [employer] Other XR hip RT min 2V(w/wo pelvis)* [place] [address] [facility] [employer] Other XR hip RT min 2V(w/wo pelvis)* XRay Report [facility] [employer] Other XR hip RT min 2V(w/wo pelvis)* Signed [employer] Other XR hip RT min 2V(w/wo pelvis)* Patient: Rain Lopez MR#: [id number] [employer] Other XR hip RT min 2V(w/wo pelvis)* 67 [employer] Other XR hip RT min 2V(w/wo pelvis)* : 1940 Acct:[id number] [employer] Other XR hip RT min 2V(w/wo pelvis)* Age/Sex: 81 / F ADM Date: 03/07/22 [employer] Other XR hip RT min 2V(w/wo pelvis)* Loc: [facility] Room: Type: [facility] [employer] Other XR hip RT min 2V(w/wo pelvis)* Attending Dr: Lul Webster DO [employer] Other XR hip RT min 2V(w/wo pelvis)* Copies to: Lul Webster DO [employer] Other XR hip RT min 2V(w/wo pelvis)* Ordering Provider: Lul Webster DO [employer] Other XR hip RT min 2V(w/wo pelvis)* Date of Service: 03/07/22 [employer] Other XR hip RT min 2V(w/wo pelvis)* XR/XR hip RT min 2V(w/wo pelvis)*: Closed fracture of neck of right femur [employer] Other XR hip RT min 2V(w/wo pelvis)* with routine healing, [employer] Other XR hip RT min 2V(w/wo pelvis)* RIGHT HIP - 2 views: [employer] Other XR hip RT min 2V(w/wo pelvis)* CLINICAL HISTORY: ORIF right femoral neck. [employer] Other XR hip RT min 2V(w/wo pelvis)* COMPARISON: Right hip 01/24/2022 [employer] Other XR hip RT min 2V(w/wo pelvis)* FINDINGS: No evidence of hardware complication. No change in fracture alignment with interval [employer] Other XR hip RT min 2V(w/wo pelvis)* sclerosis suggestive of healing response. [employer] Other XR hip RT min 2V(w/wo pelvis)* XR/XR hip RT min 2V(w/wo pelvis)* [employer] Other XR hip RT min 2V(w/wo pelvis)* IMPRESSION: [employer] Other XR hip RT min 2V(w/wo pelvis)* NO EVIDENCE OF HARDWARE COMPLICATION.. [employer] Other XR hip RT min 2V(w/wo pelvis)* Impression dictated by: Scooter Villatoro Jr., D.O.03/07/2022 1:01 PM [employer] Other XR hip RT min 2V(w/wo pelvis)* Dictation Location: [place] [address] [employer] Other XR hip RT min 2V(w/wo pelvis)* Transcribed By: NESTOR 03/07/22 1301 [employer] Other XR hip RT min 2V(w/wo pelvis)* Dictated By: Scooter Villatoro Jr DO 03/07/22 1256 [employer] Other XR hip RT min 2V(w/wo pelvis)* Signed By: [employer] Other XR hip RT min 2V(w/wo pelvis)* 03/07/22 1301 [employer] Other US DELIA DOP LEG LTon 02-12-20 US DELIA DOP LEG LT EXAMINATION: US DELIA DOP LEG LT HISTORY: Localized edema COMPARISON: No relevant comparison available. FINDINGS: REGION: Left lower extremity THROMBI: None. COMPRESSIBILITY: Normal compressibility. FLOW: Normal waveform and antegrade flow between 5 and 20 cm/s. OTHER: None. IMPRESSION: 1. No deep vein thrombus within the left lower extremity. Electronically authenticated by: VASU FERNANDEZ Date: 2022-02-11 13:28 Normal [facility] XR hip RT min 2V(w/wo pelvis )*on 01-24-2022 XR hip RT min 2V(w/wo pelvis)* [address] [address] XRay Report Signed Patient: Rain Lopez MR#: [id number] 67 : 1940 Acct:[id number] Age/Sex: 81 / F ADM Date: 01/24/22 Loc: [facility] Room: Type: [facility] Attending Dr: Lul Webster DO Copies to: Lul Webster DO Ordering Provider: Lul Webster DO Date of Service: 01/24/22 XR/XR hip RT min 2V(w/wo pelvis)*: Closed fracture of neck of right femur with routine healing, RIGHT HIP - 2 views: 1 view pelvis CLINICAL HISTORY: Follow-up right hip pinning COMPARISON: Pelvis 12/27/2021 FINDINGS: Screw fixation is seen involving the right hip without radiographic complication. No change in alignment. Vascular calcifications. Left hip demonstrates no acute process. XR/XR hip RT min 2V(w/wo pelvis)* IMPRESSION: NO EVIDENCE OF HARDWARE COMPLICATION.. Impression dictated by: Scooter Villatoro Jr., D.OSara01/24/2022 1:24 PM Dictation Location: [place] [address] Transcribed By: [facility] 01/24/22 1324 Dictated By: Scooter Villatoro Jr, DO 01/24/22 1323 Signed By: 01/24/22 1324 Normal [facility] XR hip RT min 2V(w/wo pelvis)* [facility] [employer] Other XR hip RT min 2V(w/wo pelvis)* [facility] [employer] Other XR hip RT min 2V(w/wo pelvis)* [address] [employer] Other XR hip RT min 2V(w/wo pelvis)* [place] [address] [employer] Other XR hip RT min 2V(w/wo pelvis)* XRay Report [employer] Other XR hip RT min 2V(w/wo pelvis)* Signed [employer] Other XR hip RT min 2V(w/wo pelvis)* Patient: Rain Lopez MR#: [id number] [employer] Other XR hip RT min 2V(w/wo pelvis)* 67 [employer] Other XR hip RT min 2V(w/wo pelvis)* : 1940 Acct:[id number] [employer] Other XR hip RT min 2V(w/wo pelvis)* Age/Sex: 81 / F ADM Date: 01/24/22 [employer] Other XR hip RT min 2V(w/wo pelvis)* Loc: [facility] Room: Type: [facility] [employer] Other XR hip RT min 2V(w/wo pelvis)* Attending Dr: Lul Webster DO [employer] Other XR hip RT min 2V(w/wo pelvis)* Copies to: Lul Webster DO [employer] Other XR hip RT min 2V(w/wo pelvis)* Ordering Provider: Lul Webster DO [employer] Other XR hip RT min 2V(w/wo pelvis)* Date of Service: 01/24/22 [employer] Other XR hip RT min 2V(w/wo pelvis)* XR/XR hip RT min 2V(w/wo pelvis)*: Closed fracture of neck of right femur [employer] Other XR hip RT min 2V(w/wo pelvis)* with routine healing, [employer] Other XR hip RT min 2V(w/wo pelvis)* RIGHT HIP - 2 views: 1 view pelvis [employer] Other XR hip RT min 2V(w/wo pelvis)* CLINICAL HISTORY: Follow-up right hip pinning [employer] Other XR hip RT min 2V(w/wo pelvis)* COMPARISON: Pelvis 12/27/2021 [employer] Other XR hip RT min 2V(w/wo pelvis)* FINDINGS: Screw fixation is seen involving the right hip without radiographic complication. No [employer] Other XR hip RT min 2V(w/wo pelvis)* change in alignment. Vascular calcifications. Left hip demonstrates no acute process. [employer] Other XR hip RT min 2V(w/wo pelvis)* XR/XR hip RT min 2V(w/wo pelvis)* [employer] Other XR hip RT min 2V(w/wo pelvis)* IMPRESSION: [employer] Other XR hip RT min 2V(w/wo pelvis)* NO EVIDENCE OF HARDWARE COMPLICATION.. [employer] Other XR hip RT min 2V(w/wo pelvis)* Impression dictated by: Scooter Villatoro Jr., D.OSara01/24/2022 1:24 PM [employer] Other XR hip RT min 2V(w/wo pelvis)* Dictation Location: [place] [address] [employer] Other XR hip RT min 2V(w/wo pelvis)* Transcribed By: NESTOR 01/24/22 1324 [employer] Other XR hip RT min 2V(w/wo pelvis)* Dictated By: Scooter Villatoro Jr, DO 01/24/22 1323 [employer] Other XR hip RT min 2V(w/wo pelvis)* Signed By: [employer] Other XR hip RT min 2V(w/wo pelvis)* 01/24/22 1324 [employer] Other ABO/Rh Retypeon 12-27-2021 ABO/RH Recheck Result Positive Normal [facility] Comment on above: Result Comment: PERF ORMED BY: [place], [place] [address] PATHOLOGIST TAXI TRUCK DRIVER LIS CASTRO M.D. Activated partial thrombopla stin time (aPTT) in platelet poor plasma by coagulation aOrdered By: Jesus Brewer on 12-27-2021 aPTT Coag (PPP) [Time] 30.0 s 25.1-36.5 [facility] Basic Metabolic Panelon 11-30 Anion gap [Moles/Vol] 11.4 mmol/L Normal 6.0-15.0 [facility] Comment on above: Performed By: #### B MP #### [facility] [address] Calcium [Mass/Vol] 9.2 mg/dL Normal 8.2-10.2 [facility] Comment on above: Performed By: #### B MP #### [facility] [address] [place] [address] [place] Chloride [Moles/Vol] 97 mmol/L Normal 95-114 [facility] Comment on above: Performed By: #### B MP #### [facility] [address] [place] [id number] [place] CO2 [Moles/Vol] 27.0 mmol/L Normal 22.0-30.0 [facility] Comment on above: Performed By: #### B MP #### [facility] [address] [place] [address] [place] Creatinine [Mass/Vol] 0.72 mg/dL Normal 0.44-1.03 [facility] Comment on above: Performed By: #### B MP #### [address] Creatinine Clr Calc Pharmacy 45.10 [facility] Comment on above: Result Comment: PERF ORMED BY: [place] [address] PATHOLOGIST TAXI TRUCK DRIVER LIS CASTRO M.D. Performed By: #### B MP #### [address] Estimated GFR ( Tomer > 60 [facility] Comment on above: Result Comment: GFR estimated reference range: According to KDOQI guidelines, <60 ml/min/1.73m2 is sufficient to diagnose a patient with chronic kidney disease. Performed By: #### B MP #### [address] Estimated GFR (Non- Am > 60 [facility] Comment on above: Performed By: #### B MP #### [address] Glucose [Mass/Vol] 124 mg/dL High 70-100 [facility] Comment on above: Result Comment: Bruno Glucose Reference Range is dependent on time and content of last meal. Glucose of more than 200 mg/dL in a nonstressed, ambulatory subject supports the diagnosis of Diabetes Mellitus. ADA recommended reference range Performed By: #### B MP #### [address] Potassium [Moles/Vol] 4.4 mmol/L Normal 3.5-5.1 [facility] Comment on above: Performed By: #### B MP #### [place] [address] [place] Sodium [Moles/Vol] 131 mmol/L Low 136-146 [facility] Comment on above: Performed By: #### B MP #### [address] Urea nitrogen [Mass/Vol] 14 mg/dL Normal 9-23 [facility] Comment on above: Performed By: #### B MP #### [facility] [address] [place] [address] [place] Basophils Auto (Bld) [#/Vol] Ordered By: Jesus Brewer on 12-27-2021 Basophils (Bld) [#/Vol] 0.0 10*3/uL 0.0-0.2 [facility] Basophils/100 WBC Auto (Bld) Ordered By: Jesus Brewer on 12-27-2021 Basophils/100 WBC (Bld) 0.7 % . [facility] Blood hemoglobin measurement (mass/volume)Ordered By: Jesus [facility] on 12-27-2021 Hemoglobin (Bld) [Mass/Vol] 10.1 g/dL 11.8-15.4 [facility] Blood leukocytes automated c ount (number/volume)Ordered By: Jesusdarian Reyesco on 12-27-2021 WBC (Bld) [#/Vol] 6.6 10*3/uL 4.5-11.0 [facility] Complete Blood Count Auto Di ffon 12-27-2021 Basophils (Bld) [#/Vol] 0.0 10*3/uL Normal 0.0-0.2 [facility] Comment on above: Result Comment: PERF ORMED BY: [place] [address] PATHOLOGIST TAXI TRUCK DRIVER LIS CASTRO M.D. Performed By: #### P T, CBC, PTT #### [facility] [address] [place] [address] [place] Basophils/100 WBC (Bld) 0.7 % Normal . [facility] Comment on above: Performed By: #### P T, CBC, PTT #### [facility] [address] [place] [address] [place] Eosinophils (Bld) [#/Vol] 0.4 10*3/uL Normal 0.0-0.45 [facility] Comment on above: Performed By: #### P T, CBC, PTT #### [facility] [address] [place] [address] [place] Eosinophils/100 WBC (Bld) 6.2 % Normal . [facility] Comment on above: Performed By: #### P T, CBC, PTT #### [address] Erythrocyte distribution width (RBC) [Ratio] 17.2 % High 11.9-15.3 [facility] Comment on above: Performed By: #### P T, CBC, PTT #### [address] Hematocrit (Bld) [Volume fraction] 30.3 % Low 34.0-46.4 [facility] Comment on above: Performed By: #### P T, CBC, PTT #### [address] Hemoglobin (Bld) [Mass/Vol] 10.1 g/dL Low 11.8-15.4 [facility] Comment on above: Performed By: #### P T, CBC, PTT #### [address] Lymphocytes (Bld) [#/Vol] 1.1 10*3/uL Normal 1.00-4.8 [facility] Comment on above: Performed By: #### P T, CBC, PTT #### [address] Lymphocytes/100 WBC (Bld) 16.7 % Normal . [facility] Comment on above: Performed By: #### P T, CBC, PTT #### [address] MCH (RBC) [Entitic mass] 26.7 pg Normal 24.7-34.3 [facility] Comment on above: Performed By: #### P T, CBC, PTT #### [address] MCV (RBC) [Entitic vol] 80.3 fL Normal 80-100 [facility] Comment on above: Performed By: #### P T, CBC, PTT #### [address] Mean Corpuscular HGB Conc 33.3 g/dL Normal 32.0-35.0 [facility] Comment on above: Performed By: #### P T, CBC, PTT #### [facility] [address] [place] [address] [place] Monocytes (Bld) [#/Vol] 0.6 10*3/uL Normal 0.0-0.8 [facility] Comment on above: Performed By: #### P T, CBC, PTT #### [facility] [address] [place] [address] [place] Monocytes/100 WBC (Bld) 9.5 % Normal . [facility] Comment on above: Performed By: #### P T, CBC, PTT #### [facility] [address] [place] [address] [place] Neutrophils (Bld) [#/Vol] 4.4 10*3/uL Normal 1.8-7.7 [facility] Comment on above: Performed By: #### P T, CBC, PTT #### [facility] [address] [place] [address] [place] Neutrophils/100 WBC (Bld) 66.9 % Normal . [facility] Comment on above: Performed By: #### P T, CBC, PTT #### [facility] [address] [place] [address] [place] Nucleated RBC/100 WBC (Bld) [Ratio] 0.1 % Normal 0-0.5 [facility] Comment on above: Performed By: #### P T, CBC, PTT #### [facility] [address] [place] [address] [place] Platelet mean volume (Bld) [Entitic vol] 7.5 fL Normal 6.3-10.7 [facility] Comment on above: Performed By: #### P T, CBC, PTT #### [facility] [address] [place] [address] [place] Platelets (Bld) [#/Vol] 220 10*3/uL Normal 150-450 [facility] Comment on above: Performed By: #### P T, CBC, PTT #### [facility] [address] [place] [address] [place] RBC (Bld) [#/Vol] 3.77 10*6/uL Normal 3.60-5.00 [facility] Comment on above: Performed By: #### P T, CBC, PTT #### [facility] [address] [place] [address] [place] WBC (Bld) [#/Vol] 6.6 10*3/uL Normal 4.5-11.0 [facility] Comment on above: Performed By: #### P T, CBC, PTT #### [facility] [address] [place] [address] [facility] Creatinine and Glomerular fi ltration rate.predicted panel (S/P/Bld)Ordered By: Jesus Brewer on 12-27-2021 Creatinine [Mass/Vol] 0.72 mg/dL 0.44-1.03 [facility] ECG 12 lead ECGon 12-27-2021 ECG 12 lead ECG [facility] Main [place] [address] [place] [address] Electrocardiograph Report Signed Patient: Rain Lopez MR#: [id number] 67 : 1940 Acct:[id number] Age/Sex: 81 / F ADM Date: 12/26/21 Loc: Room: [address] [place] [address] Type: DIS INOo Attending Dr: Jesus Brewer MD Ordering Provider: Marty Lyle MD Date of Service: 12/27/21 ECG/ECG 12 lead ECG: pre op Copies to: Test Reason : Blood Pressure : / mmHG Vent. Rate : 061 BPM Atrial Rate : 061 BPM P-R Int : 156 ms QRS Dur : 082 ms QT Int : 400 ms P-R-T Axes : 074 045 055 degrees QTc Int : 402 ms Normal sinus rhythm Normal ECG No previous ECGs available Confirmed by LEFTY BELLE FACELIZABETH ([id number]) on 12/27/2021 4:10:00 PM Referred By: Electronically Signed By:ELIZABETH DANIELS MD FAC Transcribed By: MUS Signed By Venkat Daniels MD 12/27/21 1610 [facility] Eosinophils Auto (Bld) [#/Vo l]Ordered By: Jesus Brewer on 12-27-2021 Eosinophils (Bld) [#/Vol] 0.4 10*3/uL 0.0-0.45 [facility] Eosinophils/100 WBC Auto (Bl d)Ordered By: Jesus Brewer on 12-27-2021 Eosinophils/100 WBC (Bld) 6.2 % . [facility] Erythrocyte distribution wid th Auto (RBC) [Ratio]Ordered By: Jesus Brewer on 12-27-2021 Erythrocyte distribution width (RBC) [Ratio] 17.2 % 11.9-15.3 [facility] Estimated glomerular filtrat ion rate (GFR) non- AmericanOrdered By: Jesus Brewer on 12-27-2021 GFR/1.73 sq M.predicted among non-blacks MDRD (S/P/Bld) [Vol rate/Area] > 60 mL/Min [facility] Glucose Glucometer (BldC) [M ass/Vol]Ordered By: Jesus Brewer on 12-27-2021 Glucose [Mass/Vol] 178 mg/dL [facility] Comment on above: Random Glucose Refer ence Range is dependent on time and content of last meal. Glucose of more than 200 mg/dL in a nonstressed, ambulatory subject supports the diagnosis of Diabetes Mellitus. Glucose Poct Glucometerson 0 12-27-2021 Commemt1 Glu2: Cleaned Meter Normal [facility] Comment on above: Result Comment: PERF ORMED BY: [facility] [address] [address] PATHOLOGIST TAXI TRUCK DRIVER LIS CASTRO M.D. Performed By: #### G LULS ####Point of Care testing, Glucose [Mass/Vol] 178 mg/dL Normal [facility] Comment on above: Result Comment: Bruno Glucose Reference Range is dependent on time and content of last meal. Glucose of more than 200 mg/dL in a nonstressed, ambulatory subject supports the diagnosis of Diabetes Mellitus. Performed By: #### G LULS ####Point of Care testing, Commemt1 Glu2: Cleaned Meter Normal [facility] Comment on above: Result Comment: PERF ORMED BY: [facility] [address] [place] [address] PATHOLOGIST TAXI TRUCK DRIVER LIS CASTRO M.D. Performed By: #### G LULS #### Point of Care testing , Glucose [Mass/Vol] 187 mg/dL Normal [facility] Comment on above: Result Comment: Bruno om Glucose Reference Range is dependent on time and content of last meal. Glucose of more than 200 mg/dL in a nonstressed, ambulatory subject supports the diagnosis of Diabetes Mellitus. Performed By: #### G LULS #### Point of Care testing , Glucose [Mass/Vol] 159 mg/dL Normal [facility] Comment on above: Result Comment: Bruno om Glucose Reference Range is dependent on time and content of last meal. Glucose of more than 200 mg/dL in a nonstressed, ambulatory subject supports the diagnosis of Diabetes Mellitus. PERFORMED BY: [facility] [address] [place] [address] PATHOLOGIST TAXI TRUCK DRIVER LIS CASTRO M.D. Performed By: #### G LULS ####Point of Care testing, Hematocrit Auto (Bld) [Volum e fraction]Ordered By: Jesus Brewer on 12-27-2021 Hematocrit (Bld) [Volume fraction] 30.3 % 34.0-46.4 [facility] Laboratory - CoagulationOrde red By: Jesus Brewer on 12-27-2021 PT Coag (PPP) [Time] 12.1 s 9.0-12.9 [facility] - Hematology and Cell countsOrdered By: Jesus Brewer on 12-27-2021 Nucleated RBC/100 WBC (Bld) [Ratio] 0.1 % 0-0.5 [facility] Lymphocytes Auto (Bld) [#/Vo l]Ordered By: Jesus Brewer on 12-27-2021 Lymphocytes (Bld) [#/Vol] 1.1 10*3/uL 1.00-4.8 [facility] Lymphocytes/100 WBC Auto (Bl d)Ordered By: Jesus B[place] on 12-27-2021 Lymphocytes/100 WBC (Bld) 16.7 % . [facility] MCH Auto (RBC) [Entitic mass ]Ordered By: Jesus Brewer on 12-27-2021 MCH (RBC) [Entitic mass] 26.7 pg 24.7-34.3 [facility] MCHC Auto (RBC) [Mass/Vol]Or dered By: Jesus Brewer on 12-27-2021 MCHC (RBC) [Mass/Vol] 33.3 g/dL 32.0-35.[address] [facility] MCV Auto (RBC) [Entitic vol] Ordered By: Jesus Brewer on 12-27-2021 MCV (RBC) [Entitic vol] 80.3 fL 80-100 [facility] Monocytes Auto (Bld) [#/Vol] Ordered By: Jesus Brewer on 12-27-2021 Monocytes (Bld) [#/Vol] 0.6 10*3/uL 0.0-0.8 [facility] Monocytes/100 WBC Auto (Bld) Ordered By: Jesus Brewer on 12-27-2021 Monocytes/100 WBC (Bld) 9.5 % . [facility] Neutrophils Auto (Bld) [#/Vo l]Ordered By: Jesus Brewer on 12-27-2021 Neutrophils (Bld) [#/Vol] 4.4 10*3/uL 1.8-7.7 [facility] Neutrophils/100 WBC Auto (Bl d)Ordered By: Jesus Brewer on 12-27-2021 Neutrophils/100 WBC (Bld) 66.9 % . [facility] No Panel InformationOrdered By: Jesus Brewer on 12-27-2021 Bedside Glucose Comment Glu2: cleaned meter [facility] Estimated GFR () > 60 mL/Min [facility] Comment on above: GFR estimated refere nce range: According to KDOQI guidelines, <60 ml/min/1.73m2 is sufficient to diagnose a patient with chronic kidney disease. Pharmacy Creatinine Clearance (Chem 45.10 [facility] Partial Thromboplastin Timeo n 12-27-2021 aPTT Coag (Bld) [Time] 30.0 s Normal 25.1-36.5 [facility] Comment on above: Result Comment: PERF ORMED BY: [place] [address] PATHOLOGIST TAXI TRUCK DRIVER LIS CASTRO M.D. Performed By: #### P T, CBC, PTT #### [address] Platelet mean volume Auto (B ld) [Entitic vol]Ordered By: Jesus Brewer on 12-27-2021 Platelet mean volume (Bld) [Entitic vol] 7.5 fL 6.3-10.7 [facility] Platelet poor plasma interna tional normalized ratio (INR) by coagulation assay (relatOrdered By: Jesus Brewer on 12-27-2021 INR Coag (PPP) [Relative time] 1.1 {INR} [facility] Comment on above: INR Therapeutic Rang e A) Pre- and Peroperative OAT started two weeks before surgery. NOT HIP SURGERY: 1.5 - 2.5 HIP SURGERY: 2 - 3B) Primary and secondary prevention of venous THROMBOSIS: 2 - 3C) Active venous thrombosis, pulmonary embolismand prevention of recurrent venous thrombosis: 2 - 3D) Prevention of arterial thromboembolismincluding patients with mechanical heart valves: 3 - 4.5 Platelets Auto (Bld) [#/Vol] Ordered By: Jesus Brewer on 12-27-2021 Platelets (Bld) [#/Vol] 220 10*3/uL 150-450 [facility] Prothrombin Time INRon 12-27 INR Coag (PPP) [Relative time] 1.1 {INR} Normal [facility] Comment on above: Result Comment: INR Therapeutic Range A) Pre- and Peroperative OAT started two weeks before surgery. NOT HIP SURGERY: 1.5 - 2.5 HIP SURGERY: 2 - 3 B) Primary and secondary prevention of venous THROMBOSIS: 2 - 3 C) Active venous thrombosis, pulmonary embolism and prevention of recurrent venous thrombosis: 2 - 3 D) Prevention of arterial thromboembolism including patients with mechanical heart valves: 3 - 4.5 Performed By: #### P T, CBC, PTT #### [facility] [address] PT Coag (PPP) [Time] 12.1 s Normal 9.0-12.9 [facility] Comment on above: Performed By: #### P T, CBC, PTT #### [facility] [address] RBC Auto (Bld) [#/Vol]Ordere d By: Jesus Brewer on 12-27-2021 RBC (Bld) [#/Vol] 3.77 10*6/uL 3.60-5.00 [facility] Serum or plasma anion gap de terminationOrdered By: Jesus Brewer on 12-27-2021 Anion gap [Moles/Vol] 11.4 mmol/L 6.0-15.0 [facility] Serum or plasma calcium jaelyn urement (mass/volume)Ordered By: Jesus Brewer on 12-27-2021 Calcium [Mass/Vol] 9.2 mg/dL 8.2-10.2 [facility] Serum or plasma chloride gretchen surement (moles/volume)Ordered By: Jesus Brewer on 12-27-2021 Chloride [Moles/Vol] 97 mmol/L 95-114 [facility] Serum or plasma glucose jaelyn urement (mass/volume)Ordered By: Jesus Brewer on 12-27-2021 Glucose [Mass/Vol] 124 mg/dL 70-100 [facility] Comment on above: ADA recommended refe rence rangeRandom Glucose Reference Range is dependent on time and content of last meal. Glucose of more than 200 mg/dL in a nonstressed, ambulatory subject supports the diagnosis of Diabetes Mellitus. Serum or plasma potassium me asurement (moles/volume)Ordered By: Jesus Brewer on 12-27-2021 Potassium [Moles/Vol] 4.4 mmol/L 3.5-5.1 [facility] Serum or plasma sodium measu rement (moles/volume)Ordered By: Jesus Brewer on 12-27-2021 Sodium [Moles/Vol] 131 mmol/L 136-146 [facility] Serum or plasma total carbon dioxide measurement (moles/volume)Ordered By: Jesus Brewer on 12-27-2021 CO2 [Moles/Vol] 27.0 mmol/L 22.0-30.0 [facility] Serum or plasma urea nitroge n measurement (mass/volume)Ordered By: Jesus Brewer on 12-27-2021 Urea nitrogen [Mass/Vol] 14 mg/dL 12-20 [facility] Type and Screenon 12-27-2021 ABO and Rh group Nom (Bld) Blood group O Rh(D) positive Normal [facility] XR femur RT 2V*on 12-27-2021 XR femur RT 2V* [facility] [place] [address] XRay Report Signed Patient: Rain Lopez MR#: [id number] 67 : 1940 Acct:[id number] Age/Sex: 81 / F ADM Date: 12/26/21 Loc: Room: [address] [place] [address] Type: ADM IN Attending Dr: Jesus Brewer MD Copies to: MD Lul Granado DO Ordering Provider: Lul Webster DO Date of Service: 12/26/21 XR/XR femur RT 2V*: fracture ([id number]) XR/XR pelvis 1-2V: r/o fracture ([id number]) XR/XR chest 1V portable: pre op Single view of the pelvis plain film HISTORY:Fell. The right hip injury COMPARISON:None SI joints are maintained. Impacted subcapital right hip fracture identified. No dislocation. No acute bony findings identified. No focal soft tissue abnormality seen. XR/XR pelvis 1-2V IMPRESSION:Impacted right subcapital hip fracture. 2 views of the right femur No additional fracture or dislocation identified. Moderate to degeneration. Atherosclerosis. IMPRESSION: No additional fracture. Single view chest No acute chest findings. Heart is not enlarged. The bony structures intact. IMPRESSION: No acute findings. Impression dictated by: Timothy Resendez M.D.12/27/2021 8:02 AM Dictation Location: [place] [address] Transcribed By: [facility] 12/27/21801 Dictated By: Timothy Resendez DO 12/27/21799 Signed By: 12/27/21 08 [facility] XR hip RT min 2V(w/wo pelvis )*on 12-27-2021 XR hip RT min 2V(w/wo pelvis)* [place] [id number] XRay Report Signed Patient: Rain Lopez MR#: [id number] 67 : 1940 Acct:[id number] Age/Sex: 81 / F ADM Date: 12/26/21 Loc: Room: [address] [place] [address] Type: ADM IN Attending Dr: Jesus Brewer MD Copies to: MD Lul Granado DO Ordering Provider: Lul Webster DO Date of Service: 12/27/21 XR/XR hip RT min 2V(w/wo pelvis)*: RIGHT HIP PINNING XR hip RT min 2V(w/wo pelvis)* 12/27/2021 1:21 PM SIGNS AND SYMPTOMS: RIGHT HIP PINNING PROTOCOL: Intraoperative views of the right hip COMPARISON: None FINDINGS: Intraoperative views demonstrate screw fixation of the right femoral neck. Number of images: 12 Fluoroscopic time: 0.6 minutes XR/XR hip RT min 2V(w/wo pelvis)* IMPRESSION: Intraoperative views demonstrate screw fixation of the right femoral neck. Impression dictated by: Ashkan Gambino M.D.12/27/2021 3:42 PM Dictation Location: [place] [address] Transcribed By: [facility] 12/27/211541 Dictated By: Ashkan Gambino II, MD 12/27/21 154 Signed By: 12/27/21 154 [facility] XR pelvis 1-2Von 12-27-2021 XR pelvis 1-2V [address] [address] XRay Report Signed Patient: Rain Lopez MR#: [id number] 67 : 1940 Acct:[id number] Age/Sex: 81 / F ADM Date: 12/26/21 Loc: 4N Room: 7G0436-0 Type: ADM IN Attending Dr: Jesus Brewer MD Copies to: MD Lul Granado DO Ordering Provider: Lul Webster DO Date of Service: 12/27/21 XR/XR pelvis 1-2V: Hip Fracture Post op AP PELVIS: CLINICAL HISTORY: Postop screw fixation right hip fracture COMPARISON: Intraoperative study performed earlier today. Screw fixation is seen involving the patient's right hip fracture without hardware complication. Soft tissues demonstrate postoperative change. XR/XR pelvis 1-2V IMPRESSION: NO HARDWARE COMPLICATION. Impression dictated by: Scooter Villatoro Jr., D.OSara12/27/2021 1:25 PM Dictation Location: [place] [address] Transcribed By: [facility] 12/27/21 1325 Dictated By: Scooter Villatoro Jr, DO 12/27/21 1324 Signed By: 12/27/21 [address] [facility] [address] HEAD WO CONon 12-26-2021 CT HEAD WO CON EXAMINATION: CT HEAD WO CON, , 12/26/2021 4:49 PM EDT INDICATION: UNSPECIFIED INJURY OF HEAD, INITIAL ENCOUNTER HISTORY: Ordering Provider Reason for Exam: Technologist Note: Additional: COMPARISON: Head CT dated 05/06/2018. TECHNIQUE: CT scan of the head was performed without IV contrast. CT dose reduction technique was used, including Automated Exposure Control. FINDINGS: Ventricles and sulci are normal in size and configuration. No extra-axial collection. No intracranial hemorrhage. No mass effect or edema. No CT evidence of large territorial infarction. Visualized paranasal sinuses are well aerated. Mastoids are clear. Calvarium is unremarkable. IMPRESSION: No intracranial hemorrhage or mass effect. Electronically authenticated by: NERISSA WANG Date: 2021-12-26 18:52 Normal [facility] Covid-19 PCR (CVDTBH)on 11-29 SARS-CoV-2 (COVID-19) RNA CHRISTIANE+probe Ql (Unsp spec) Not detected Normal NOT DETECTED [facility] Comment on above: Result Comment: When diagnostic testing is negative, the possibility of a false negative should be considered in the context of a patient's recent exposures and the presence of clinical signs and symptoms consistent with SARS-CoV-2. This test is not yet approved or cleared by the [place] FDA. When there are no FDA-approved or cleared tests available, and other criteria are met, FDA can make tests available under an emergency access mechanism called an Emergency Use Authorization (EUA). The EUA for this test is supported by the [place] of Health and Human Service's declaration that circumstances exist to justify the emergency use of in vitro diagnostics for the detection and/or diagnosis of the virus that causes COVID-19. This EUA will remain in effect for the duration of the COVID-19 declaration justifying emergency of IVDs, unless it is terminated or revoked by the FDA (after which the test may no longer be used). Performed By: #### U MICRO, ERUR #### [facility] [address] [place] [address] [address] Arley Avalos XR HIP RT 2 3V W PELVISon XR HIP RT 2 3V W PELVIS EXAM: XR HIP RT 2 3V W PELVIS HISTORY: History of fall COMPARISON: None. TECHNIQUE: AP view the pelvis with AP and frog-leg lateral right hip. FINDINGS: Nondisplaced minimally impacted right subcapital femoral fracture. Mild osteoarthritis of bilateral hip joints. Diffuse demineralization. IMPRESSION: 1. Nondisplaced minimally impacted subcapital femoral fracture. 2. Mild osteoarthritis of bilateral hip joints. Diffuse demineralization. Electronically authenticated by: PAM LEDEZMA Date: 2021-12-26 17:46 Normal [facility] MICROALBUMIN URINEon 022 Albumin, Urine 4.6 ug/mL Normal Not Estab. [facility] Comment on above: Performed By: #### M ALBLC #### [facility] [address] [place] [address] [address] Arley Avalos CBC AUTO DIFFon 11-27-2021 BASO # 0.1 103/ul Normal 0.0-0.1 [facility] Comment on above: Performed By: #### U MICRO, ERUR #### [facility] [address] [place] [address] Dr. Arley Avalos Basophils/100 WBC (Bld) 0.8 % Normal 0.2-2.0 [facility] Comment on above: Performed By: #### U MICRO, ERUR #### [facility] [address] [place] [address] Dr. Arley Avalos EO # 0.4 103/ul Normal 0.0-0.7 [facility] Comment on above: Performed By: #### U MICRO, ERUR #### [facility] [address] [place] [address] Dr. Arley Avalos Eosinophils/100 WBC (Bld) 6.8 % Normal 0.9-7.0 [facility] Comment on above: Performed By: #### U MICRO, ERUR #### [facility] [address] [place] [address] Dr. Arley Avalos Erythrocyte distribution width (RBC) [Ratio] 15.9 % Critically high 11.0-15.0 [facility] Comment on above: Performed By: #### U MICRO, ERUR #### [facility] [address] [place] [address] Dr. Arley Avalos Hematocrit (Bld) [Volume fraction] 33.3 % Critically low 36.0-48.0 [facility] Comment on above: Performed By: #### U MICRO, ERUR #### [facility] [address] [place] [address] Dr. Arley Avalos Hemoglobin (Bld) [Mass/Vol] 10.4 g/dL Critically low 12.0-16.0 [facility] Comment on above: Performed By: #### U MICRO, ERUR #### [facility] [address] [place] [address] Dr. Arley Avalos IG # 0.02 10e3/ul Normal 0.00-0.03 [facility] Comment on above: Performed By: #### U MICRO, ERUR #### [facility] [address] [place] [address] Dr. Arley Avalos IG % 0.3 % Normal 0.0-0.5 [facility] Comment on above: Performed By: #### U MICRO, ERUR #### [facility] [address] [place] [address] Dr. Arley Avalos LYMPH # 1.6 103/ul Normal 1.2-3.8 [facility] Comment on above: Performed By: #### U MICRO, ERUR #### [facility] [address] [place] [address] Dr. Arley Avalos Lymphocytes/100 WBC (Bld) 26.6 % Normal 20.5-60.0 [facility] Comment on above: Performed By: #### U MICRO, ERUR #### [facility] [address] [place] [address] Dr. Arley Avalos MANUAL DIFF REQ NO Normal [facility] Comment on above: Performed By: #### U MICRO, ERUR #### [facility] [address] [place] [address] Dr. Arley Avalos MCH (RBC) [Entitic mass] 26.1 pg Critically low 26.7-34.0 [facility] Comment on above: Performed By: #### U MICRO, ERUR #### [facility] [address] [place] [address] Dr. Arley Avalos MCHC (RBC) [Mass/Vol] 31.2 g/dL Normal 29.9-35.2 [facility] Comment on above: Performed By: #### U MICRO, ERUR #### [facility] [address] [place] [address] Dr. Arley Avalos MCV (RBC) [Entitic vol] 83.5 fL Normal 81.0-99.0 [facility] Comment on above: Performed By: #### U MICRO, ERUR #### [facility] [address] [place] [address] Dr. Arley Avalos MONO # 0.6 103/ul Normal 0.3-0.8 [facility] Comment on above: Performed By: #### U MICRO, ERUR #### [facility] [address] [address] [address] Arley Avalos Monocytes/100 WBC (Bld) 9.7 % Normal 1.7-12.0 [facility] Comment on above: Performed By: #### U MICRO, ERUR #### [facility] [address] [address] [address] Arley Avalos NEUT # 3.4 103/ul Normal 1.4-6.5 [facility] Comment on above: Performed By: #### U MICRO, ERUR #### [facility] [address] [place] [address] Dr. Arley Avalos Neutrophils/100 WBC (Bld) 55.8 % Normal 43.0-75.0 [facility] Comment on above: Performed By: #### U MICRO, ERUR #### [facility] [address] [place] [address] Dr. Arley Avalos Platelet mean volume (Bld) [Entitic vol] 8.9 fL Critically low 9.5-13.5 [facility] Comment on above: Performed By: #### U MICRO, ERUR #### [facility] [address] [place] [address] Dr. Arley Avalos PLT 235 103/ul Normal 150-450 [facility] Comment on above: Performed By: #### U MICRO, ERUR #### [facility] [address] [place] [address] Dr. Arley Avalos RBC 3.99 106/ul Critically low 4.20-5.40 [facility] Comment on above: Performed By: #### U MICRO, ERUR #### [facility] [address] [place] [address] Dr. Arley Avalos WBC 6.0 103/ul Normal 4.0-11.0 [facility] Comment on above: Performed By: #### U MICRO, ERUR #### [facility] [address] [place] [address] Dr. Arley Avalos GLYCOHEMOGLOBIN A1Con 2021 ADA RECOMMENDATION SEE BELOW Normal [facility] Comment on above: Result Comment: ADA RECOMMENDED LIMIT 4.0 - 6.0 ADA THERAPEUTIC TARGET < 7.0 ACTION SUGGESTED > 7.0 Performed By: #### U MICRO, ERUR #### [facility] [address] [address] [address] Arley Avalos Glucose [Mass/Vol] 140 mg/dL Normal [facility] Comment on above: Performed By: #### U MICRO, ERUR #### [facility] [address] [address] [address] Arley Avalos HbA1c (Bld) [Mass fraction] 6.5 % Critically high 4.5-6.2 [facility] Comment on above: Performed By: #### U MICRO, ERUR #### [facility] [address] [address] [address] Arley Avalos LIPID PROFILEon 11-27-2021 CHOL-HDL RATIO NORM SEE BELOW Normal [facility] Comment on above: Result Comment: 3.3 - 4.4 LOW RISK 4.4 - 7.1 AVERAGE RISK 7.1 - 11.0 MODERATE RISK >11.0 HIGH RISK Performed By: #### U MICRO, ERUR #### [facility] [address] [address] [address] Arley Avalos Cholesterol [Mass/Vol] 137 mg/dL Normal <=200 [facility] Comment on above: Performed By: #### U MICRO, ERUR #### [facility] [address] [address] [address] Arley Avalos Cholesterol in HDL [Mass/Vol] 68 mg/dL Critically high 40-60 [facility] Comment on above: Performed By: #### U MICRO, ERUR #### [facility] [address] [address] [address] Arley Avalos Cholesterol in LDL [Mass/Vol] 58.2 mg/dL Normal [facility] Comment on above: Performed By: #### U MICRO, ERUR #### [facility] [address] [address] [address] Arley Avalos Cholesterol.total/Cho lesterol in HDL [Mass ratio] 2.0 {ratio} Normal [facility] Comment on above: Performed By: #### U MICRO, ERUR #### [facility] [address] [address] [address] Arley Avalos HDL NORMAL > or = 60 mg/dl - LO W CARDIOVASCULAR RISK <40 mg/dl - HIGH CARDIOVASCULAR RISK Normal [facility] Comment on above: Performed By: #### U MICRO, ERUR #### [facility] [address] [address] [address] Arley Avalos LDL CALC NORMAL SEE BELOW Normal [facility] Comment on above: Result Comment: <100 mg/dl OPTIMAL 100 - 129 mg/dl NEAR OR ABOVE OPTIMAL 130 - 159 mg/dl BORDERLINE HIGH 160 - 189 mg/dl HIGH >190 mg/dl VERY HIGH Performed By: #### U MICRO, ERUR #### [facility] [address] [address] [address] Arley Avalos Triglyceride [Mass/Vol] 54 mg/dL Normal <=150 [facility] Comment on above: Performed By: #### U MICRO, ERUR #### [facility] [address] [address] [address] Arley Avalos VLDL CALC 10.8 mg/dL Normal [facility] Comment on above: Performed By: #### U MICRO, ERUR #### [facility] [address] [address] [address] Arley Avalos PROF CHEM 8 (BAS METB)on Anion gap [Moles/Vol] 13.3 mmol/L Normal [facility] Comment on above: Performed By: #### U MICRO, ERUR #### [facility] [address] [address] [address] Arley Avalos Calcium [Mass/Vol] 9.0 mg/dL Normal 8.5-10.1 [facility] Comment on above: Performed By: #### U MICRO, ERUR #### [facility] [address] [address] [address] Arley Avalos Chloride [Moles/Vol] 102 mmol/L Normal 98-107 [facility] Comment on above: Performed By: #### U MICRO, ERUR #### [facility] [address] [address] [address] Arley Avalos CO2 [Moles/Vol] 28.3 mmol/L Normal 21.0-32.0 [facility] Comment on above: Performed By: #### U MICRO, ERUR #### [facility] [address] [address] [address] Arley Avalos Creatinine [Mass/Vol] 0.65 mg/dL Normal 0.55-1.02 [facility] Comment on above: Performed By: #### U MICRO, ERUR #### [facility] [address] [address] [address] Arley Avalos EGFR-AF BELGIAN >60 Normal >=60 [facility] Comment on above: Performed By: #### U MICRO, ERUR #### [facility] [address] [address] [address] Arley Avalos EGFR-NON AF BELGIAN >60 Normal >=60 [facility] Comment on above: Performed By: #### U MICRO, ERUR #### [facility] [address] [address] [address] Arley Avalos Glucose [Mass/Vol] 123 mg/dL Critically high 74-106 T [facility] Comment on above: Performed By: #### U MICRO, ERUR #### [facility] [address] [address] [address] Arley Avalos Potassium [Moles/Vol] 4.6 mmol/L Normal 3.5-5.1 [facility] Comment on above: Performed By: #### U MICRO, ERUR #### [facility] [address] [address] [address] Arley Avalos Sodium [Moles/Vol] 139 mmol/L Normal 136-145 [facility] Comment on above: Performed By: #### U MICRO, ERUR #### [facility] [address] [address] [address] Arley Avalos Urea nitrogen [Mass/Vol] 16.0 mg/dL Normal 7.0-18.0 [facility] Comment on above: Performed By: #### U MICRO, ERUR #### [facility] [address] [address] [address] Arley Avalos Urea nitrogen/Creatinine [Mass ratio] 24.6 mg/mg Normal [facility] Comment on above: Performed By: #### U MICRO, ERUR #### [facility] [address] [place] [address] Dr. Arley Avalos TSHon 11-27-2021 TSH 2.050 uIU/mL Normal 0.358-3.74 0 [facility] Comment on above: Performed By: #### U MICRO, ERUR #### [facility] [address] [place] [address] Dr. Arley Avalos GLYCOHEMOGLOBIN A1Con 2021 ADA RECOMMENDATION SEE BELOW Normal [facility] Comment on above: Result Comment: ADA RECOMMENDED LIMIT 4.0 - 6.0 ADA THERAPEUTIC TARGET < 7.0 ACTION SUGGESTED > 7.0 Performed By: #### A 1C #### [facility] [address] [place] [address] Dr. Arley Avalos Glucose [Mass/Vol] 137 mg/dL Normal [facility] Comment on above: Performed By: #### A 1C #### [facility] [address] [place] [address] Dr. Arley Avalos HbA1c (Bld) [Mass fraction] 6.4 % Critically high 4.5-6.2 [facility] Comment on above: Performed By: #### A 1C #### [facility] [address] [place] [address] Dr. Arley Avalos PROF CHEM 8 (BAS METB)on Anion gap [Moles/Vol] 12.1 mmol/L Normal [facility] Comment on above: Performed By: #### U MICRO, ERUR #### [facility] [address] [place] [address] Dr. Arley Avalos Calcium [Mass/Vol] 8.9 mg/dL Normal 8.5-10.1 [facility] Comment on above: Performed By: #### U MICRO, ERUR #### [facility] [address] [address] [address] Arley Avalos Chloride [Moles/Vol] 99 mmol/L Normal 98-107 [facility] Comment on above: Performed By: #### U MICRO, ERUR #### [facility] [address] [address] [address] Arley Avalos CO2 [Moles/Vol] 29.0 mmol/L Normal 21.0-32.0 [facility] Comment on above: Performed By: #### U MICRO, ERUR #### [facility] [address] [address] [address] Arley Avalos Creatinine [Mass/Vol] 0.67 mg/dL Normal 0.55-1.02 [facility] Comment on above: Performed By: #### U MICRO, ERUR #### [facility] [address] [address] [address] Arley Avalos EGFR-AF BELGIAN >60 Normal >=60 [facility] Comment on above: Performed By: #### U MICRO, ERUR #### [facility] [address] [address] [address] Arley Avalos EGFR-NON AF BELGIAN >60 Normal >=60 [facility] Comment on above: Performed By: #### U MICRO, ERUR #### [facility] [address] [address] [address] Arley Avalos Glucose [Mass/Vol] 159 mg/dL Critically high 74-106 T [facility] Comment on above: Performed By: #### U MICRO, ERUR #### [facility] [address] [address] [address] Arley Avalos Potassium [Moles/Vol] 4.1 mmol/L Normal 3.5-5.1 [facility] Comment on above: Performed By: #### U MICRO, ERUR #### [facility] [address] [address] [address] Arley Avalos Sodium [Moles/Vol] 136 mmol/L Normal 136-145 [facility] Comment on above: Performed By: #### U MICRO, ERUR #### [facility] [address] [address] [address] Arley Avalos Urea nitrogen [Mass/Vol] 12.0 mg/dL Normal 7.0-18.0 [facility] Comment on above: Performed By: #### U MICRO, ERUR #### [facility] [address] [address] [address] Arley Avalos Urea nitrogen/Creatinine [Mass ratio] 17.9 mg/mg Normal [facility] Comment on above: Performed By: #### U MICRO, ERUR #### [facility] [address] [address] [address] Arley Avalos CBC, ALB, ALT, AST, ALK AND CREAon 07-22-2021 Albumin [Mass/Vol] 4.6 g/dL Normal (3.5 - 5.0) [facility] Comment on above: Performed By: #### R HF, HIV-4, CCP, URCA, HBSAG, HCV, VD25, TSHFX, ESRCRP, C3-C4, ENA6, ANAFXT, CBC/2A #### [facility] [address] [facility], [id number] ALK PHOS 94 U/L Normal (38 - 126) [facility] Comment on above: Performed By: #### R HF, HIV-4, CCP, URCA, HBSAG, HCV, VD25, TSHFX, ESRCRP, C3-C4, ENA6, ANAFXT, CBC/2A #### [facility] [address] [facility], [id number] ALT [Catalytic activity/Vol] 12 U/L Normal (1 - 35) [facility] Comment on above: Performed By: #### R HF, HIV-4, CCP, URCA, HBSAG, HCV, VD25, TSHFX, ESRCRP, C3-C4, ENA6, ANAFXT, CBC/2A #### [facility] [address] [facility], [address] AST [Catalytic activity/Vol] 21 U/L Normal (15 - 46) [facility] Comment on above: Performed By: #### R HF, HIV-4, CCP, URCA, HBSAG, HCV, VD25, TSHFX, ESRCRP, C3-C4, ENA6, ANAFXT, CBC/2A #### [facility] [address] [facility], [id number] Creatinine [Mass/Vol] 0.60 mg/dL Normal (0.52 - 1.04) [facility] Comment on above: Performed By: #### R HF, HIV-4, CCP, URCA, HBSAG, HCV, VD25, TSHFX, ESRCRP, C3-C4, ENA6, ANAFXT, CBC/2A #### [facility] [address] [facility], [id number] GFR- AMER 117.0 ML/M1.7 Normal (60.0 - 140.1) [facility] Comment on above: Performed By: #### R HF, HIV-4, CCP, URCA, HBSAG, HCV, VD25, TSHFX, ESRCRP, C3-C4, ENA6, ANAFXT, CBC/2A #### [facility] [facility], [id number] GFR-NON AFRIC-AMER 96.7 ML/M1.7 Normal (60.0 - 115.8) [facility] Comment on above: Performed By: #### R HF, HIV-4, CCP, URCA, HBSAG, HCV, VD25, TSHFX, ESRCRP, C3-C4, ENA6, ANAFXT, CBC/2A #### [facility] [address] [facility], [id number] Hematocrit (Bld) [Volume fraction] 31.8 % Low (37.0 - 47.0) [facility] Comment on above: Performed By: #### R HF, HIV-4, CCP, URCA, HBSAG, HCV, VD25, TSHFX, ESRCRP, C3-C4, ENA6, ANAFXT, CBC/2A #### [facility] [address] [facility], [id number] Hemoglobin (Bld) [Mass/Vol] 9.7 g/dL Low (12.0 - 16.0) [facility] Comment on above: Performed By: #### R HF, HIV-4, CCP, URCA, HBSAG, HCV, VD25, TSHFX, ESRCRP, C3-C4, ENA6, ANAFXT, CBC/2A #### [facility] [address] [facility], [id number] MCH (RBC) [Entitic mass] 24.3 pg Low (27.0 - 33.0) [facility] Comment on above: Performed By: #### R HF, HIV-4, CCP, URCA, HBSAG, HCV, VD25, TSHFX, ESRCRP, C3-C4, ENA6, ANAFXT, CBC/2A #### [facility] [address] [facility], [id number] MCHC (RBC) [Mass/Vol] 30.5 g/dL Normal (30.0 - 37.0) [facility] Comment on above: Performed By: #### R HF, HIV-4, CCP, URCA, HBSAG, HCV, VD25, TSHFX, ESRCRP, C3-C4, ENA6, ANAFXT, CBC/2A #### [facility] [address] [facility], [id number] MCV (RBC) [Entitic vol] 79.7 fL Low (81.0 - 99.0) [facility] Comment on above: Performed By: #### R HF, HIV-4, CCP, URCA, HBSAG, HCV, VD25, TSHFX, ESRCRP, C3-C4, ENA6, ANAFXT, CBC/2A #### [facility] [address] [facility], [id number] PLT 259 x10^3ul Normal (130 - 400) [facility] Comment on above: Performed By: #### R HF, HIV-4, CCP, URCA, HBSAG, HCV, VD25, TSHFX, ESRCRP, C3-C4, ENA6, ANAFXT, CBC/2A #### [facility] [address] [facility], [id number] RBC 3.99 x10^6ul Low (4.20 - 5.40) [facility] Comment on above: Performed By: #### R HF, HIV-4, CCP, URCA, HBSAG, HCV, VD25, TSHFX, ESRCRP, C3-C4, ENA6, ANAFXT, CBC/2A #### [facility] [address] [facility], [address] WBC 7.34 x10^3ul Normal (3.80 - 10.60) [facility] Comment on above: Performed By: #### R HF, HIV-4, CCP, URCA, HBSAG, HCV, VD25, TSHFX, ESRCRP, C3-C4, ENA6, ANAFXT, CBC/2A #### [facility] [address] [facility], [id number] MISC (TEST)on 07-22-2021 MISC (TEST) [facility] Normal (REF - LAB) [facility] Comment on above: Performed By: #### R HF, HIV-4, CCP, URCA, HBSAG, HCV, VD25, TSHFX, ESRCRP, C3-C4, ENA6, ANAFXT, CBC/2A #### [facility] [address] [facility], [id number] PROTEIN AND CREATININE (RAND OM)on 07-22-2021 Creatinine [Mass/Vol] 115.4 mg/dL Normal (20 - 320) [facility] Comment on above: Performed By: #### R HF, HIV-4, CCP, URCA, HBSAG, HCV, VD25, TSHFX, ESRCRP, C3-C4, ENA6, ANAFXT, CBC/2A #### [facility] [address] [facility], [id number] Protein (U) [Mass/Vol] 14.0 mg/dL High (0.0 - 12.0) [facility] Comment on above: Performed By: #### R HF, HIV-4, CCP, URCA, HBSAG, HCV, VD25, TSHFX, ESRCRP, C3-C4, ENA6, ANAFXT, CBC/2A #### [facility] [address] [facility], [address] URINE PROTEIN/CREAT RATIO 121 MG/G CR Normal (21 - 161) [facility] Comment on above: Performed By: #### R HF, HIV-4, CCP, URCA, HBSAG, HCV, VD25, TSHFX, ESRCRP, C3-C4, ENA6, ANAFXT, CBC/2A #### [facility] [address] [facility], [id number] SED RATE - CRPon 07-22-2021 CRP EXTENDED RANGE 3.18 MG/L Normal (0.00 - 3.20) [facility] Comment on above: Performed By: #### R HF, HIV-4, CCP, URCA, HBSAG, HCV, VD25, TSHFX, ESRCRP, C3-C4, ENA6, ANAFXT, CBC/2A #### [facility] [address] [facility], [id number] SED RATE WEST. 12 MM/HR Normal (0 - 25) [facility] Comment on above: Performed By: #### R HF, HIV-4, CCP, URCA, HBSAG, HCV, VD25, TSHFX, ESRCRP, C3-C4, ENA6, ANAFXT, CBC/2A #### [facility] [address] [facility], [id number] URINALYSIS, COMPLETEon 07-22 ALBUMIN Negative Normal (NONE - NEG) [facility] Comment on above: Order Comment: MISC DS DNA [facility]: [facility] - [id number] Performed By: #### R HF, HIV-4, CCP, URCA, HBSAG, HCV, VD25, TSHFX, ESRCRP, C3-C4, ENA6, ANAFXT, CBC/2A #### [facility] [address] [facility], [address] BACTERIA NONE Normal (NONE - OCC) [facility] Comment on above: Order Comment: MISC DS DNA [facility]: [facility] - [id number] Performed By: #### R HF, HIV-4, CCP, URCA, HBSAG, HCV, VD25, TSHFX, ESRCRP, C3-C4, ENA6, ANAFXT, CBC/2A #### [facility] [address] [facility], [address] Bilirubin Ql (U) Negative Normal (NEG) [facility] Comment on above: Order Comment: MISC DS DNA [facility]: [facility] - [id number] Performed By: #### R HF, HIV-4, CCP, URCA, HBSAG, HCV, VD25, TSHFX, ESRCRP, C3-C4, ENA6, ANAFXT, CBC/2A #### [facility] [address] [facility], [id number] CHARACTER CLEAR Normal (CLEAR - HAZY) [facility] Comment on above: Order Comment: MISC DS DNA [facility]: [facility] - [id number] Performed By: #### R HF, HIV-4, CCP, URCA, HBSAG, HCV, VD25, TSHFX, ESRCRP, C3-C4, ENA6, ANAFXT, CBC/2A #### [facility] [address] [facility], [id number] Color (U) YEL Normal (P YEL - L AMB) [facility] Comment on above: Order Comment: MISC DS DNA [facility]: [facility] - [id number] Performed By: #### R HF, HIV-4, CCP, URCA, HBSAG, HCV, VD25, TSHFX, ESRCRP, C3-C4, ENA6, ANAFXT, CBC/2A #### [facility] [address] [facility], [address] Glucose Ql (U) Negative Normal (NEG) [facility] Comment on above: Order Comment: MISC DS DNA [facility]: [facility] - [id number] Performed By: #### R HF, HIV-4, CCP, URCA, HBSAG, HCV, VD25, TSHFX, ESRCRP, C3-C4, ENA6, ANAFXT, CBC/2A #### [facility] [address] [facility], [address] Ketones Ql (U) Negative Normal (NEG) [facility] Comment on above: Order Comment: MISC DS DNA [facility]: [facility] - [id number] Performed By: #### R HF, HIV-4, CCP, URCA, HBSAG, HCV, VD25, TSHFX, ESRCRP, C3-C4, ENA6, ANAFXT, CBC/2A #### [facility] [address] [facility], [address] LEUK. ESTERASE Negative Normal (NEG) [facility] Comment on above: Order Comment: MISC DS DNA CRITHIDIAFACILITY: [facility] - [id number] Performed By: #### R HF, HIV-4, CCP, URCA, HBSAG, HCV, VD25, TSHFX, ESRCRP, C3-C4, ENA6, ANAFXT, CBC/2A #### [facility] [address] [facility], [address] Mucus Ql (Urine sed) NONE Normal (NONE - OCC) [facility] Comment on above: Order Comment: MISC DS DNA CRITHIDIAFACILITY: [facility] - [id number] Performed By: #### R HF, HIV-4, CCP, URCA, HBSAG, HCV, VD25, TSHFX, ESRCRP, C3-C4, ENA6, ANAFXT, CBC/2A #### [facility] [address] [facility], [id number] Nitrite Ql (U) Negative Normal (NEG) [facility] Comment on above: Order Comment: MISC DS DNA CRITHIDIAFACILITY: [facility] - [id number] Performed By: #### R HF, HIV-4, CCP, URCA, HBSAG, HCV, VD25, TSHFX, ESRCRP, C3-C4, ENA6, ANAFXT, CBC/2A #### [facility] [address] [facility], [id number] OCCULT BLD. Negative Normal (NEG) [facility] Comment on above: Order Comment: MISC DS DNA CRITHIDIAFACILITY: [facility] - [id number] Performed By: #### R HF, HIV-4, CCP, URCA, HBSAG, HCV, VD25, TSHFX, ESRCRP, C3-C4, ENA6, ANAFXT, CBC/2A #### [facility] [address] [facility], [id number] pH (U) 7.0 [pH] Normal (5.0 - 9.0) [facility] Comment on above: Order Comment: MISC DS DNA CRITHIDIAFACILITY: [facility] - [id number] Performed By: #### R HF, HIV-4, CCP, URCA, HBSAG, HCV, VD25, TSHFX, ESRCRP, C3-C4, ENA6, ANAFXT, CBC/2A #### [facility] [address] [facility], [address] SP. GRAVITY 1.018 Normal (1.001 - 1.035) [facility] Comment on above: Order Comment: MISC DS DNA CRITHIDIAFACILITY: [facility] - [id number] Performed By: #### R HF, HIV-4, CCP, URCA, HBSAG, HCV, VD25, TSHFX, ESRCRP, C3-C4, ENA6, ANAFXT, CBC/2A #### [facility] [address] [facility], [id number] SQUAMOUS EPI NONE Normal (NONE - OCC) [facility] Comment on above: Order Comment: MISC DS DNA CRITHIDIAFACILITY: [facility] - [id number] Performed By: #### R HF, HIV-4, CCP, URCA, HBSAG, HCV, VD25, TSHFX, ESRCRP, C3-C4, ENA6, ANAFXT, CBC/2A #### [facility] [address] [facility], [id number] UR. RBC 0-2 Normal (0 - 2) [facility] Comment on above: Order Comment: MISC DS DNA CRITHIDIAFACILITY: [facility] - [id number] Performed By: #### R HF, HIV-4, CCP, URCA, HBSAG, HCV, VD25, TSHFX, ESRCRP, C3-C4, ENA6, ANAFXT, CBC/2A #### [facility] [address] [facility], [id number] UR. WBC 0-4 Normal (0 - 4) [facility] Comment on above: Order Comment: MISC DS DNA CRITHIDIAFACILITY: [facility] - [id number] Performed By: #### R HF, HIV-4, CCP, URCA, HBSAG, HCV, VD25, TSHFX, ESRCRP, C3-C4, ENA6, ANAFXT, CBC/2A #### [facility] [address] [facility], [id number] Urobilinogen (U) [Mass/Vol] mg/dL Normal (0.2 - <2.0) [facility] Comment on above: Order Comment: MISC DS DNA CRITHIDIAFACILITY: [facility] - [id number] Performed By: #### R HF, HIV-4, CCP, URCA, HBSAG, HCV, VD25, TSHFX, ESRCRP, C3-C4, ENA6, ANAFXT, CBC/2A #### [facility] [address] [facility], [id number] SMILEY SUBTYPE (6)on 03-12-2021 ANTI ds DNA 44.2 IU/ML High (0.0 - 35.0) [facility] Comment on above: Performed By: #### R HF, HIV-4, CCP, URCA, HBSAG, HCV, VD25, TSHFX, ESRCRP, C3-C4, ENA6, ANAFXT, CBC/2A #### [facility] [address] [facility], [id number] ANTI BUSINESS PARTNER/SM <3.5 Normal (0.0 - 19.9) [facility] Comment on above: Performed By: #### R HF, HIV-4, CCP, URCA, HBSAG, HCV, VD25, TSHFX, ESRCRP, C3-C4, ENA6, ANAFXT, CBC/2A #### [facility] [address] [facility], [id number] ANTI-SCL 70 <1.2 Normal (0.0 - 19.9) [facility] Comment on above: Result Comment: REFERENCE RANGE ds DNA < 27.0 IU/ML = NEGATIVE 27.1 - 35.0 IU/ML = BORDERLINE > 35.0 IU/ML = POSITIVE PERFORMED BY [facility] EFFECTIVE 08-21-2017 REFERENCE RANGE FOR: ANTI SSA (RO52 & RO60), ANTI SSB (LA), ANTI GLASS (SM), ANTI BUSINESS PARTNER/SM, & SCL-70: < 20.0 CU = NEGATIVE =/> 20.0 CU = POSITIVE PERFORMED BY [employer] EFFECTIVE 08-21-2017 Performed By: #### R HF, HIV-4, CCP, URCA, HBSAG, HCV, VD25, TSHFX, ESRCRP, C3-C4, ENA6, ANAFXT, CBC/2A #### [facility] [address] [facility], [address] ANTI-GLASS <3.3 Normal (0.0 - 19.9) [facility] Comment on above: Performed By: #### R HF, HIV-4, CCP, URCA, HBSAG, HCV, VD25, TSHFX, ESRCRP, C3-C4, ENA6, ANAFXT, CBC/2A #### [facility] [facility], [address] SSA/RO52 <2.3 Normal (0.0 - 19.9) [facility] Comment on above: Performed By: #### R HF, HIV-4, CCP, URCA, HBSAG, HCV, VD25, TSHFX, ESRCRP, C3-C4, ENA6, ANAFXT, CBC/2A #### [facility] [address] [place] [address] Rd. [facility], [address] SSA/RO60 <4.9 Normal (0.0 - 19.9) [facility] Comment on above: Performed By: #### R HF, HIV-4, CCP, URCA, HBSAG, HCV, VD25, TSHFX, ESRCRP, C3-C4, ENA6, ANAFXT, CBC/2A #### [facility] [address] [place], [place] [address]or Rd. [facility], [address] SSB/LA <3.3 Normal (0.0 - 19.9) [facility] Comment on above: Performed By: #### R HF, HIV-4, CCP, URCA, HBSAG, HCV, VD25, TSHFX, ESRCRP, C3-C4, ENA6, ANAFXT, CBC/2A #### [facility] [facility], [address] SMILEY(+) REFLEX AMELIE TESTSon SMILEY by HEp-2 CELLS Positive High (NEG - NEG) [facility] Comment on above: Performed By: #### R HF, HIV-4, CCP, URCA, HBSAG, HCV, VD25, TSHFX, ESRCRP, C3-C4, ENA6, ANAFXT, CBC/2A #### [facility] [address] [facility], [id number] SMILEY TITER 1:160 High (<1:40 - 1:40) [facility] Comment on above: Result Comment: SMILEY PATTERN = HOMOGENOUS Performed By: #### R HF, HIV-4, CCP, URCA, HBSAG, HCV, VD25, TSHFX, ESRCRP, C3-C4, ENA6, ANAFXT, CBC/2A #### [facility] [address] [facility], [address] AMELIE-6 REFLEXED YES Normal () [facility] katty Comment on above: Performed By: #### R HF, HIV-4, CCP, URCA, HBSAG, HCV, VD25, TSHFX, ESRCRP, C3-C4, ENA6, ANAFXT, CBC/2A #### [facility] [address] [facility], [address] C3 AND C4on 03-12-2021 C 3 139 MG/DL Normal (88 - 165) [facility] Comment on above: Performed By: #### R HF, HIV-4, CCP, URCA, HBSAG, HCV, VD25, TSHFX, ESRCRP, C3-C4, ENA6, ANAFXT, CBC/2A #### [facility] [address] [facility], [address] C 4 50 MG/DL High (14 - 44) [facility] Comment on above: Performed By: #### R HF, HIV-4, CCP, URCA, HBSAG, HCV, VD25, TSHFX, ESRCRP, C3-C4, ENA6, ANAFXT, CBC/2A #### [facility] [address] [facility], [id number] CBC, ALB, ALT, AST, ALK AND CREAon 03-12-2021 Albumin [Mass/Vol] 4.8 g/dL Normal (3.5 - 5.0) [facility] Comment on above: Order Comment: FACIL ITY: [facility] [id number] Performed By: #### R HF, HIV-4, CCP, URCA, HBSAG, HCV, VD25, TSHFX, ESRCRP, C3-C4, ENA6, ANAFXT, CBC/2A #### [facility] [address] [place], [address] ALK PHOS 118 U/L Normal (38 - 126) [facility] Comment on above: Order Comment: FACIL ITY: [facility] [id number] Performed By: #### R HF, HIV-4, CCP, URCA, HBSAG, HCV, VD25, TSHFX, ESRCRP, C3-C4, ENA6, ANAFXT, CBC/2A #### [facility] [address] [place], [id number] ALT [Catalytic activity/Vol] 13 U/L Normal (1 - 35) [facility] Comment on above: Order Comment: FACIL ITY: [facility] [id number] Performed By: #### R HF, HIV-4, CCP, URCA, HBSAG, HCV, VD25, TSHFX, ESRCRP, C3-C4, ENA6, ANAFXT, CBC/2A #### [facility] [address] [place], [address] AST [Catalytic activity/Vol] 19 U/L Normal (15 - 46) [facility] Comment on above: Order Comment: FACIL ITY: [facility] [id number] Performed By: #### R HF, HIV-4, CCP, URCA, HBSAG, HCV, VD25, TSHFX, ESRCRP, C3-C4, ENA6, ANAFXT, CBC/2A #### [facility] [address] [place], [address] Creatinine [Mass/Vol] 0.60 mg/dL Normal (0.52 - 1.04) [facility] Comment on above: Order Comment: FACIL ITY: [facility] [id number] Performed By: #### R HF, HIV-4, CCP, URCA, HBSAG, HCV, VD25, TSHFX, ESRCRP, C3-C4, ENA6, ANAFXT, CBC/2A #### [facility] [address] [facility], [id number] GFR- AMER 117.0 ML/M1.7 Normal (60.0 - 140.1) [facility] Comment on above: Order Comment: FACIL ITY: [facility] [id number] Performed By: #### R HF, HIV-4, CCP, URCA, HBSAG, HCV, VD25, TSHFX, ESRCRP, C3-C4, ENA6, ANAFXT, CBC/2A #### [facility] [address] [facility], [address] GFR-NON AFRIC-AMER 96.7 ML/M1.7 Normal (60.0 - 115.8) [facility] Comment on above: Order Comment: FACIL ITY: [facility] [id number] Performed By: #### R HF, HIV-4, CCP, URCA, HBSAG, HCV, VD25, TSHFX, ESRCRP, C3-C4, ENA6, ANAFXT, CBC/2A #### [facility] [address] [facility], [address] Hematocrit (Bld) [Volume fraction] 32.4 % Low (37.0 - 47.0) [facility] Comment on above: Order Comment: FACIL ITY: [facility] [id number] Performed By: #### R HF, HIV-4, CCP, URCA, HBSAG, HCV, VD25, TSHFX, ESRCRP, C3-C4, ENA6, ANAFXT, CBC/2A #### [facility] [address] [facility], [address] Hemoglobin (Bld) [Mass/Vol] 10.3 g/dL Low (12.0 - 16.0) [facility] Comment on above: Order Comment: FACIL ITY: [facility] [id number] Performed By: #### R HF, HIV-4, CCP, URCA, HBSAG, HCV, VD25, TSHFX, ESRCRP, C3-C4, ENA6, ANAFXT, CBC/2A #### [facility] [address] [facility], [address] MCH (RBC) [Entitic mass] 24.5 pg Low (27.0 - 33.0) [facility] Comment on above: Order Comment: FACIL ITY: [facility] [id number] Performed By: #### R HF, HIV-4, CCP, URCA, HBSAG, HCV, VD25, TSHFX, ESRCRP, C3-C4, ENA6, ANAFXT, CBC/2A #### [facility] [address] [facility], [address] MCHC (RBC) [Mass/Vol] 31.8 g/dL Normal (30.0 - 37.0) [facility] Comment on above: Order Comment: FACIL ITY: [facility] [id number] Performed By: #### R HF, HIV-4, CCP, URCA, HBSAG, HCV, VD25, TSHFX, ESRCRP, C3-C4, ENA6, ANAFXT, CBC/2A #### [facility] [address] [facility], [address] MCV (RBC) [Entitic vol] 77.1 fL Low (81.0 - 99.0) [facility] Comment on above: Order Comment: FACIL ITY: [facility] [id number] Performed By: #### R HF, HIV-4, CCP, URCA, HBSAG, HCV, VD25, TSHFX, ESRCRP, C3-C4, ENA6, ANAFXT, CBC/2A #### [facility] [address] [facility], [address] PLT 324 x10^3ul Normal (130 - 400) [facility] Comment on above: Order Comment: FACIL ITY: [facility] [id number] Performed By: #### R HF, HIV-4, CCP, URCA, HBSAG, HCV, VD25, TSHFX, ESRCRP, C3-C4, ENA6, ANAFXT, CBC/2A #### [facility] [address] [facility], [id number] RBC 4.20 x10^6ul Normal (4.20 - 5.40) [facility] Comment on above: Order Comment: FACIL ITY: [facility] [id number] Performed By: #### R HF, HIV-4, CCP, URCA, HBSAG, HCV, VD25, TSHFX, ESRCRP, C3-C4, ENA6, ANAFXT, CBC/2A #### [facility] [address] [facility], [id number] WBC 7.73 x10^3ul Normal (3.80 - 10.60) [facility] Comment on above: Order Comment: FACIL ITY: [facility] [id number] Performed By: #### R HF, HIV-4, CCP, URCA, HBSAG, HCV, VD25, TSHFX, ESRCRP, C3-C4, ENA6, ANAFXT, CBC/2A #### [facility] [address] [facility], [address] HEP B LYDIA AGon 03-12-2021 HEP B LYDIA AG Negative Normal (NEG - NEG) [facility] Comment on above: Performed By: #### R HF, HIV-4, CCP, URCA, HBSAG, HCV, VD25, TSHFX, ESRCRP, C3-C4, ENA6, ANAFXT, CBC/2A #### [facility] [address] [facility], [id number] HEP C ANTIBODYon 03-12-2021 HEPATITIS C ANTIBODY Negative Normal (NEG - NEG) [facility] Comment on above: Performed By: #### R HF, HIV-4, CCP, URCA, HBSAG, HCV, VD25, TSHFX, ESRCRP, C3-C4, ENA6, ANAFXT, CBC/2A #### [facility] [address] [facility], [address] HIV-1/2 AG AND ABon 03-12-20 HIV-1/2 AG AND AG Negative Normal (NEG - -) [facility] Comment on above: Performed By: #### R HF, HIV-4, CCP, URCA, HBSAG, HCV, VD25, TSHFX, ESRCRP, C3-C4, ENA6, ANAFXT, CBC/2A #### [facility] [address] [facility], [address] RF FACTORon 03-12-2021 RF FACTOR <9 Normal (0 - 12) [facility] Comment on above: Result Comment: RF F ACTOR = LESS THAN 9 IU/ML RF FACTOR MIN. DETECTION = 9 IU/ML. Performed By: #### R HF, HIV-4, CCP, URCA, HBSAG, HCV, VD25, TSHFX, ESRCRP, C3-C4, ENA6, ANAFXT, CBC/2A #### [facility] [address] [facility], [address] SED RATE - CRPon 03-12-2021 CRP EXTENDED RANGE 8.21 MG/L High (0.00 - 3.20) [facility] Comment on above: Performed By: #### R HF, HIV-4, CCP, URCA, HBSAG, HCV, VD25, TSHFX, ESRCRP, C3-C4, ENA6, ANAFXT, CBC/2A #### [facility] [address] [facility], [address] SED RATE WEST. 27 MM/HR High (0 - 25) [place] [facility] katty Comment on above: Performed By: #### R HF, HIV-4, CCP, URCA, HBSAG, HCV, VD25, TSHFX, ESRCRP, C3-C4, ENA6, ANAFXT, CBC/2A #### [facility] [address] [facility], [id number] TSH WITH REFLEXon 03-12-2021 REFLEX T4, FREE NO Normal () [facility] in Comment on above: Performed By: #### R HF, HIV-4, CCP, URCA, HBSAG, HCV, VD25, TSHFX, ESRCRP, C3-C4, ENA6, ANAFXT, CBC/2A #### [facility] [address] [facility], [id number] TSH Qn 1.90 m[IU]/L Normal (0.470 - 4.680) [facility] Comment on above: Performed By: #### R HF, HIV-4, CCP, URCA, HBSAG, HCV, VD25, TSHFX, ESRCRP, C3-C4, ENA6, ANAFXT, CBC/2A #### [facility] [address] [facility], [phone] URIC ACIDon 03-12-2021 Urate [Mass/Vol] 5.5 mg/dL Normal (2.5 - 6.2) [facility] Comment on above: Performed By: #### R HF, HIV-4, CCP, URCA, HBSAG, HCV, VD25, TSHFX, ESRCRP, C3-C4, ENA6, ANAFXT, CBC/2A #### [facility] [address] [place], [address] VITAMIN D, 25 HYDROXYon 02-27 VITAMIN D, 25 40.4 NG/ML Normal (30.0 - 100.0) [facility] Comment on above: Result Comment: * * * VITAMIN D, 25 HYDROXY GENERAL GUIDELINE * * * DEFICIENCY = < OR = 20.0 NG/ML INSUFFICIENCY = 20.1 - 29.9 NG/ML SUFFICIENCY = 30.0 - 100.0 NG/ML TOXICITY = > 100.1 NG/ML Performed By: #### R HF, HIV-4, CCP, URCA, HBSAG, HCV, VD25, TSHFX, ESRCRP, C3-C4, ENA6, ANAFXT, CBC/2A #### [facility] [address] [place], [address] Coding Summary.on 06-28-2020 Coding Summary. CODING DATE: 021 FINAL [facility] STATUS: Home (Routine DC) PAYOR: Medicare ADMIT DX: REASON FOR VISIT DX: D64.9 Anemia, unspecified FINAL DX: PRINCIPAL: D64.9 Anemia, unspecified SECONDARY: PYMT PROC APC STAT DESCRIPTION DOCTOR NAME DATE NOTE: The code number assigned matches the documented diagnosis and / or procedure in the patient's chart. However, the narrative phrase printed from the coding software may appear abbreviated, or result in slightly different terminology. Coded By: Urszula Limon CphT Date Saved: 06/28/2020 09:[address] [facility] Auto Diffon 06-19-2020 Basophils/100 WBC (Bld) 0.6 % Normal 0.0-2.0 [facility] Comment on above: Order Comment: Order Added by Discern Expert. Performed By: #### 2 320379, 5446063, 9480757, 8790679 ####[facility] [address] [place] [address] Basophils/Leukocytes Auto (Bld) [Pure # fraction] 0.0 E9/L Normal 0.0-0.2 [facility] Comment on above: Order Comment: Order Added by Discern Expert. Performed By: #### 2 143853, 1546591, 6526946, 2606184 ####[facility] [address] [place] [address] Eosinophils/100 WBC (Bld) 3.3 % Normal 0.0-8.0 [facility] Comment on above: Order Comment: Order Added by Discern Expert. Performed By: #### 2 159767, 8499854, 8734340, 5187723 ####[facility] [address] [place] [address] Eosinophils/Leukocyte s Auto (Bld) [Pure # fraction] 0.3 E9/L Normal 0.0-0.5 [facility] Comment on above: Order Comment: Order Added by Discern Expert. Performed By: #### 2 135879, 1329981, 2163127, 2806035 ####[address] [place] [address] Lymphocytes/100 WBC (Bld) 13.1 % Low 14.0-50.0 [facility] Comment on above: Order Comment: Order Added by Discern Expert. Performed By: #### 2 697252, 4482209, 2350017, 4388991 ####[address] [place] [address] Lymphocytes/Leukocyte s Auto (Bld) [Pure # fraction] 1.1 E9/L Normal 1.0-4.0 [facility] Comment on above: Order Comment: Order Added by Discern Expert. Performed By: #### 2 831407, 5323621, 7476050, 4940236 ####[address] [address] Monocytes/100 WBC (Bld) 11.9 % Normal 4.0-14.0 [facility] Comment on above: Order Comment: Order Added by Discern Expert. Performed By: #### 2 204811, 4364793, 9567334, 5315076 ####[address] [address] Monocytes/Leukocytes Auto (Bld) [Pure # fraction] 1.0 E9/L Normal 0.2-1.0 [facility] Comment on above: Order Comment: Order Added by Discern Expert. Performed By: #### 2 876405, 5726940, 6671075, 2486872 ####[address] [address] Neutrophils/100 WBC (Bld) 71.1 % Normal 36.0-75.0 [facility] Comment on above: Order Comment: Order Added by Discern Expert. Performed By: #### 2 597812, 2881180, 1292259, 3162058 ####[address] [place] [address] Neutrophils/Leukocyte s Auto (Bld) [Pure # fraction] 6.0 E9/L Normal 2.0-7.5 [facility] Comment on above: Order Comment: Order Added by Discern Expert. Performed By: #### 2 516873, 7657670, 5446686, 0511665 ####[address] [address] CBC w/ Auto Diffon Erythrocyte distribution width (RBC) [Ratio] 15.2 % High 10.9-14.2 [facility] Comment on above: Performed By: #### 2 262085, 9981005, 6508791, 9521358 ####[address] [address] Hematocrit (Bld) [Volume fraction] 29.4 % Low 34.0-46.0 [facility] Comment on above: Performed By: #### 2 135510, 1610177, 8917005, 5506602 ####[address] [address] Hemoglobin (Bld) [Mass/Vol] 9.8 g/dL Low 12.0-16.0 [facility] Comment on above: Performed By: #### 2 864520, 7551126, 3723918, 7410903 ####[address] [address] MCH (RBC) [Entitic mass] 27.0 pg Normal 27.0-34.0 [facility] Comment on above: Performed By: #### 2 709352, 3889446, 6386916, 8842451 ####[address] [address] MCHC (RBC) [Mass/Vol] 33.3 g/dL Normal 31.4-36.0 [facility] Comment on above: Performed By: #### 2 364868, 1957855, 2069791, 3749031 ####[address] [address] MCV (RBC) [Entitic vol] 81.2 fL Normal 80.0-100.0 [facility] Comment on above: Performed By: #### 2 006105, 6057459, 8633337, 8844850 ####[facility] [address] [place] [address] Platelet mean volume (Bld) [Entitic vol] 6.7 fL Normal 6.4-10.8 [facility] Comment on above: Performed By: #### 2 893043, 8215215, 8316790, 4640016 ####[facility] [address] [place] [address] Platelets (Bld) [#/Vol] 279.0 E9/L Normal 150.0-500. 0 [facility] Comment on above: Performed By: #### 2 477103, 1796345, 4479448, 9778375 ####[facility] [address] [place] [address] RBC (Bld) [#/Vol] 3.6 E12/L Low 4.3-5.9 [facility] Comment on above: Performed By: #### 2 799892, 7375844, 1331522, 7887113 ####[facility] [address] [place] [address] WBC corrected for nucl RBC Auto (Bld) [#/Vol] 8.4 E9/L Normal 4.0-11.0 [facility] Comment on above: Performed By: #### 2 786295, 5481776, 0091252, 1229723 ####[facility] [address] [place] [address] Consent for Treatmenton 05-29 Consent for Treatment [id number] [facility] Ferritinon 06-19-2020 Ferritin [Mass/Vol] 214 ng/mL Normal 11-307 [facility] Comment on above: Result Comment: NORM ALS MEN <30 YRS 16-132 ng/mL MEN >30 YRS 8-338 ng/mL WOMEN (PREMEN) 6-104 ng/mL WOMEN (POSTMEN) 12-210 ng/mL Performed By: #### 2 280634, 6376375, 5184591, 3400811 ####[facility] [address] [place] [address] Ironon 06-19-2020 Iron [Mass/Vol] 16 microgram/dL Low 35-153 [facility] Comment on above: Performed By: #### 2 170558, 8362102, 7335262, 3061343 ####[facility] [address] [place] [address] Ambulatory Clinical Summaryo n 01-04-2020 Ambulatory Clinical Summary {[id number]}CD: [id number] Normal [facility] Coding Summary.on 01-04-2020 Coding Summary. CODING DATE: 020 FINAL [facility] STATUS: Home (Routine DC) PAYOR: Medicare ADMIT DX: REASON FOR VISIT DX: D50.9 Iron deficiency anemia, unspecified FINAL DX: PRINCIPAL: D50.9 Iron deficiency anemia, unspecified SECONDARY: PYMT PROC APC STAT DESCRIPTION DOCTOR NAME DATE NOTE: The code number assigned matches the documented diagnosis and / or procedure in the patient's chart. However, the narrative phrase printed from the coding software may appear abbreviated, or result in slightly different terminology. Coded By: Sergio August Date Saved: 01/04/2020 06:[address] [facility] Gastroenterology Office/Clin ic Noteon 01-04-2020 Gastroenterology Office/Clinic Note Chief Complaint f/u EGD colon HPI Staff This is a 79 year old female who presents today for a follow up to EGD and colonoscopy. History of Present Illness 77 years old white female with history of hypertension, diabetes and irregular heartbeats, referred to me to be evaluated for mild anemia, her current hemoglobin is 11.5, she has anemia for the last 2 to 3 years, she has been on iron for the last year once daily, iron panel showed normal iron and ferritin level, normal reticulocyte level, slightly decreased TIBC, EGD showed moderate gastric erosions with negative H. pylori, colonoscopy was normal except for small nonbleeding internal hemorrhoids, she reports no melena, occasional rectal bleeding, she was started on omeprazole given her gastric erosions and she reported improvement in her heartburn Review of Systems PHQ Score Initial Depression Screen Score: 0 Constitutional: no fever, no chills, no sweats, no weakness Skin: no Jaundice, no rash, no lesions, no petechiae ENMT: no ear pain, no sore throat, no congestion, no hoarseness Respiratory: no shortness of breath, no cough, no orthopnea, no wheezing Cardiovascular: no chest pain, no palpitations, no edema Gastrointestinal: no nausea, no vomiting, no diarrhea, no Constipation noGI bleeding no abd pain no dysphagia no bloating no heartburn Genitourinary: no dysuria, no hematuria, no discharge, no pain Musculoskeletal: no back pain, no trauma Neurologic: no numbness, no sleeping problems Additional ROS info: Except as noted in the above Review of Systems and in the History of Present Illness all other systems have been reviewed and are negative or noncontributory. Physical Exam Vitals & Measurements T: 36.2 ?C (Temporal Artery) HR: 58(Peripheral) RR: 16 BP: 150/79 HT: 160 cm HT: 160.0 cm WT: 62.8 kg WT: 62.8 kg BMI: 24.53 Constitutional: Appearance: well developed Skin: Inspection: no rashes, ulcers, icterus , or telangiectasias. Eyes: Conjunctivae/lids: normal conjunctivae and lids. ENMT: Hearing: within normal limits. Lips/Teeth/Gums: normal oral mucosa Neck: Neck: normal motion, central trachea. Respiratory: Percussion: thorax normoresonant. Auscultation: normal breath sounds; no rubs, wheezes, rale or ronchi. Cardiovascular: Auscultation: normal rhythm, S1 and S2; no rubs, murmurs or gallop. Peripheral: no edema Gastrointestinal/Abdomen: Abdomen: normal consistency and bowel sounds; no tenderness or masses. Liver/Spleen: normal size and consistency, not palpable. Rectal: deferred Musculoskeletal: Gait/station: normal gait Procedure Impression: Small nonbleeding internal hemorrhoids, otherwise normal colonoscopy. [1] Final Diagnosis ( Auth (Verified) ) A: GASTRIC BODY, BIOPSY: ? GASTRIC MUCOSA WITH MILD CHRONIC NONSPECIFIC GASTRITIS. ? PROTON PUMP INHIBITOR INDUCED CHANGES SUGGESTED. ? NO INTESTINAL METAPLASIA. B: ANTRUM, BIOPSY: ? MILD CHRONIC ANTRITIS WITH REGENERATIVE CHANGES AND FOVEOLAR HYPERPLASIA. ? NO INTESTINAL METAPLASIA. [2] Findings 1. Normal esophagus, Z line at 40 cm 2. Mild gastric erosions, random biopsies obtained to rule out H. pylori 3. Normal duodenum [3] Assessment/Plan 1. Anemia (D64.9: Anemia, unspecified) Her iron panel is not consistent with anemia, her anemia is mild with hemoglobin 11.5 but she has been on iron for the last year, EGD showed gastric erosions with negative H. pylori, colonoscopy was normal except for small nonbleeding internal hemorrhoids, advised to stop iron supplements and repeat CBC with iron panel in 6 months Ordered: CBC w/ Auto Diff Ferritin Iron Level 2. Gastric erosion (K25.9: Gastric ulcer, unspecified as acute or chronic, without hemorrhage or perforation) Started on omeprazole 40 mg p.o. daily for 3 months 3. Internal hemorrhoid (K64.8: Other hemorrhoids) Small nonbleeding internal hemorrhoids, normal colonoscopy otherwise Follow-up With When Contact Information Reynaldo SANCHEZ MD Within 6 months [facility] [address] [place] [address]- Additional Instructions: Patient Education Iron Tests Problem List/Past Medical History Ongoing No qualifying data Historical No qualifying data Procedure/Surgical History Colonoscopy (12/20/2019), Esophagogastroduodenoscopy (12/20/2019). Medications amlodipine, 5 mg, Oral, Daily aspirin 81 mg oral tablet, 81 mg= 1 tab(s), Oral, Daily atorvastatin, 10 mg, Oral, Daily Calcium 600 D Tab, 1 tab(s), Oral, Daily hydrochlorothiazide-valsar charles 12.5 mg-160 mg oral tablet, 1 tab(s), Oral, Daily Iron 100 Plus, 1 tab(s), Oral, Daily MetFORMIN (Eqv-Fortamet), 1000 mg, Oral, BID metoprolol 100 mg ER Tab, 100 mg= 1 tab(s), Oral, Daily omeprazole 40 mg Cap-DR, 40 mg= 1 cap(s), Oral, Daily, 2 refills Allergies No Known Allergies Social History Tobacco Never (less than 100 in lifetime) Tobacco Use:., 01/04/2020 Family History Family history i (more content not included)... Normal [facility] Comment on above: Result Comment: Elec tronically Signed By: DANIEL BELLE, Reynaldo\.br\Date and Time Signed: 01/04/20 09:13 EDT Patient Educationon 01-04-20 Patient Education Family Medicine Iron Tests Iron is needed to form normal red blood cells (RBC's). RBC's carry oxygen throughout the body. Iron is a critical part of hemoglobin, the protein in red blood cells that binds oxygen in the lungs and releases it as blood travels to other parts of the body. Iron is also needed by other cells, especially muscle (which contains another oxygen binding protein called myoglobin). Low iron levels can lead to anemia, in which the body does not have enough red blood cells. Other conditions can cause you to have too much iron in your blood. SOME OF THE MOST COMMON TESTS FOR IRON IN THE BLOODSTREAM ARE: ? Serum iron level - measures the level of iron in the liquid part of your blood. ? Ferritin level - measures the amount of stored iron in your body. Ferritin is the main protein that stores iron for areas that need it, especially the liver and bone marrow. Bone marrow is the inside cavity in bones, where blood cells are made. ? Total Iron Binding Capacity (TIBC) - measures the amount of transferrin, a blood protein that transports iron from the gut to the cells that use it. Your body makes transferrin in relationship to your need for iron; when iron stores are low, transferrin levels increase, while transferrin is low when there is too much iron. Usually about one third of the transferrin is being used to transport iron. Because of this, your blood serum has considerable extra iron-binding capacity, which is the Unsaturated Iron Biding Capacity (UIBC). The TIBC equals UIBC plus the serum iron measurement. Some laboratories measure UIBC, some measure TIBC, and some measure transferrin. ? These tests are often ordered together, and the relative changes in each can help your doctor determine the cause of an abnormal result in one or more of these tests. OTHER TESTS WHICH CAN BE USED TO HELP RECOGNIZE PROBLEMS WITH IRON IN THE BODY ARE: ? Hemoglobin and Hematocrit - While not really tests of iron status alone, they are widely used parts of the Complete Blood Count (CBC) that can detect anemia; iron deficiency is a common cause of anemia. Another part of the CBC is the Mean (average) Cell Volume (MCV), which measures how big the red blood cells are. In iron deficiency (and in some other diseases as well), not enough hemoglobin is made, causing the red blood cells to be smaller than normal (microcytic) and paler than normal (hypochromic). ? HFE gene test ? The most common genetic disease in people whose ancestors came from [place] is hemochromatosis, a disease that causes your body to absorb too much iron. It is due to an inherited abnormality in a specific gene, called the HFE gene, that regulates the amount of iron absorbed from the gut. In people who have two copies of an abnormal form of the gene, the protein made by the gene cannot tell the cells in the gut when the body is full of iron, so the gut keeps on absorbing iron and excess iron damages many different organs. The HFE gene test uses a sample of blood drawn from you arm to see if you have the mutations that cause the disease (the most common is called C282Y). ? Zinc Protoporphyrin is the part of hemoglobin that needs iron to help it carry oxygen. If there is not enough iron, another metal (such as zinc) will attach to the protoporphyrin instead. This test, which is simple to do using only a small amount of blood, is sometimes used as a screening test for iron deficiency, especially in children. Because lead prevents iron (but not zinc) from attaching to protoporphyrin, zinc protoporphyrin will also be high in severe cases of lead poisoning. IRON TESTS ARE OFTEN USED TO EVALUATE THE FOLLOWING CONDITIONS: Anemia This term refers to the presence of too few red blood cells, which are needed to carry oxygen to the body. Many conditions can cause anemia, but iron deficiency is one of the most common. Normal iron levels are maintained by a balance between the amount of iron taken into the body and the amount of iron lost. Normally, we lose a small amount of iron each day, so if we take in too little iron, deficiency could develop. Unless a person follows a very poor diet, however, there is usually enough iron to prevent iron deficiency in healthy people. In certain situation, there is an increased need for iron. Persons with chronic bleeding from the gut (usually from ulcers or tumors), or women with heavy menstrual periods will lose more iron than normal and often develop iron deficiency. Women who are or lose iron to their baby, and can develop iron deficiency if not enough extra iron is taken. Children, especially during times of rapid growth, need extra iron and can develop iron deficiency. Anemia can also occur in states where the body cannot use iron properly. In many chronic diseases, especially in cancers, autoimmune diseases, and with chronic infections (including AIDS), the body cannot properly use iron to make more red cells. As a result, production of transferrin decre (more content not included)... Normal [facility] Reminderson 01-04-2020 Reminders - From: Reynaldo SANCHEZ MD To: [facility] - Clinical; Sent: 01/04/2020 09:02:03 EDT Show up: 01/04/2020 09:02:00 EDT Subject: Ambulatory Reminder Reminder/Recall no need for further screening colonoscopy Normal [facility] Coding Summary.on 12-26-2019 Coding Summary. CODING DATE: 020 FINAL [facility] STATUS: Home (Routine DC) PAYOR: Medicare APC DESCRIPTION 5301 Level 1 Upper GI Procedures 5311 Level 1 Lower GI Procedures ADMIT DX: REASON FOR VISIT DX: D50.9 Iron deficiency anemia, unspecified FINAL DX: PRINCIPAL: D50.9 Iron deficiency anemia, unspecified SECONDARY: K29.50 Unspecified chronic gastritis without bleeding K29.60 Other gastritis without bleeding K64.8 Other hemorrhoids I10 Essential (primary) hypertension E11.9 Type 2 diabetes mellitus without complications K21.9 Gastro-esophageal reflux disease without esophagitis I49.9 Cardiac arrhythmia, unspecified Z79.84 care home (current) use of oral hypoglycemic drugs Z79.82 care home (current) use of aspirin PYMT PROC APC STAT DESCRIPTION DOCTOR NAME DATE 63094 5301 T Reynaldo SANCHEZ MD 12/20/2019 phagogastroduodenoscopy, flexible, transoral; with biopsy, single or multiple 92117 5311 T Colonoscopy, flexible; Reynaldo SANCHEZ MD 12/20/2019 diagnostic, including collection of specimen(s) by brushing or washing, when performed (separate procedure) 59224 Anesthesia for combined Derik Fortune MD 12/20/2019 upper and lower gastrointestinal endoscopic procedures, endoscope introduced both proximal to and distal to the duodenum NOTE: The code number assigned matches the documented diagnosis and / or procedure in the patient's chart. However, the narrative phrase printed from the coding software may appear abbreviated, or result in slightly different terminology. Revised Coded By: Ambreen Roberts Revised Date Saved: 12/26/2019 01:29 pm [facility] IntraOperative Documentson 0 12-26-2019 IntraOperative Documents [id number]#1.00CD:127 [facility] Postoperative Documentson Postoperative Documents [id number]#1.00CD:127 [facility] Progress Note-Physicianon Progress Note-Physician Patient: RAIN LOPEZ Age: 79 years Sex: Female : 1940 Associated Diagnoses: None Author: Derik Fortune MD Postoperative Information Post Operative Note: Post Anesthesia Care Unit. Anesthetic utilized: General. Health Status Allergies: Allergic Reactions (All) No Known Allergies Problem list: No problem items selected or recorded. Physical Examination Intake and Output Adequate hydration Measurements from flowsheet : Measurements 12/20/2019 6:53 EDT Height/Length Measured 160 cm Height/Length Dosing 160.0 cm Weight Dosing 62.0 kg Body Mass Index Measured 24.22 kg/m2 Weight Measured 62 kg Pain assessment: Self-reports no pain. General: Alert and oriented, No acute distress. Eye: Vision unchanged. HENT: Oral mucosa is moist, dentition unchanged. Respiratory: Respirations are non-labored. Cardiovascular: Normal rate, Regular rhythm. Neurologic: Alert, Oriented. Assessment Anesthetic outcome No anesthetic complications noted. No Complaint of nausea and vomiting. Plan Transfer/ Discharge: Patient can be discharged from PACU when criteria met. Condition good. [facility] Comment on above: Result Comment: Elec tronically Signed By: Tong BELLE, Derik\.br\Date and Time Signed: 12/23/19 13:09 EDT Main OR Intraoperative Recor don 12-22-2019 Main OR Intraoperative Record IntraOp Document Type FT Summary Primary Physician: Reynaldo SANCHEZ MD Finalized Date/Time: 12/22/19 12:38:01 Pt. Name: RAIN LOPEZ /Sex: 1940 Female Med Rec #: [id number] Physician: Reynaldo SANCHEZ MD Financial #: [id number] Pt. 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 Case Attendance FT Entry 1 Entry 2 Entry 3 Case Attendee Tong BELLE, Derik Braun RN, Shyanne Whelan CST Role Performed Anesthesiologist of Livestock Feeder - Primary Scrub - Primary Record Time In 12/20/19 08:48:00 12/20/19 08:48:00 12/20/19 08:48:00 Time Out 12/20/19 09:11:00 12/20/19 09:11:00 12/20/19 09:11:00 Procedure EGD AND COLONOSCOPY(.) EGD AND COLONOSCOPY(.) EGD AND COLONOSCOPY(.) Comments EGD Last Modified By: Kade RN, Shruti Braun RN, Shruti Braun RN, Shruti Myers 12/20/19 09:12:09 12/20/19 09:12:09 12/20/19 09:12:09 Entry 4 Entry 5 Case Attendee Caryn Hendricks MD, Maher Role Performed Scrub - Primary Surgeon - Primary Time In 12/20/19 08:53:00 12/20/19 08:48:00 Time Out 12/20/19 09:11:00 12/20/19 09:11:00 Procedure EGD AND COLONOSCOPY(.) EGD AND COLONOSCOPY(.) Comments Colonoscopy Last Modified By: Shruti Braun RN, RN, Kara N 12/20/19 09:12:09 12/20/19 09:12:09 Perioperative Protocols FT Pre-Care Text: Implements protective measures prior to operative or invasive procedure, confirms identity before the operative or invasive procedure, verifies operative procedure, surgical site, and laterality Entry 1 Procedure(s) EGD AND COLONOSCOPY(.) Patient Identity Birthday, ID Band Verified (select at Check, Patient least 2): Participation Consents / H and P Anesthesia Consent, Operative Site N/A Verified HandP, Surgery/Procedure Marking Verified Consent Surgical Site No Laterality Verified n/a Verified Procedure Verified Yes Correct Patient Yes Position Verified Availability Equipment, Medication Prep Dry n/a Verified (If Applicable) PreOp Antibiotic No Time Out Tong BELLE, Derik, Given Participants Shruti Braun RN, Shyanne Thao CST, SALAM MD, Reynaldo Time Out Complete 12/20/19 08:49:00 Outcomes Met? Yes Last Modified By: Shruti Braun RN 12/20/19 08:50:18 Post-Care Text: The patient is free from signs and symptoms of injury caused by extraneous objects Allergy Information FT Pre-Care Text: Verifies allergies Entry 1 Allergies Reviewed? Yes Allergies Reviewed Self/Patient With Outcomes Met? Yes Last Modified By: Shruti Braun RN 12/20/19 08:50:30 Post-Care Text: The patient received appropriate medication(s) safely administered during the perioperative period Surgical Procedures FT Entry 1 Procedure Description Procedure EGD AND COLONOSCOPY Modifiers . Surgeon Description EGD with antrum biopsy and gastric body biopsy. Colonoscopy. Primary Procedure Yes Primary Surgeon Reynaldo SANCHEZ MD Start 12/20/19 08:51:00 Stop 12/20/19 09:08:00 Anesthesia Type General Surgical Service Gastroenterology Wound Class 2 - Clean-Contaminated Last Modified By: Shruti Braun RN 12/20/19 09:11:50 General Case Data FT Pre-Care Text: Classifies surgical wound, implements aseptic technique, initiates traffic control Entry 1 Case Information OR ENDO 1 FT Case Level Level 2 Wound Class 2 - Clean-Contaminated Specialty Gastroenterology ASA Class 3 Preop Diagnosis ACID REFLUX and IRON Postop Same As Preop No DEFICIENCY ANEMIA Postop Diagnosis EGD- gastric erosions. Outcomes Met? Yes Colonoscopy- internal hemorrhoids Last Modified By: Shruti Braun RN 12/20/19 09:12:02 Post-Care Text: The patient is free from signs and symptoms of infection Skin Assessment (Pre Procedure) FT Pre-Care Text: Implements protective measures to prevent skin/ tissue injury due to thermal or mechanical sources Evaluates for signs and symptoms of physical injury to skin and tissue Entry 1 Skin Integrity Intact, [place], Warm, and Skin Abnormality No Dry Outcomes Met? Yes Last Modified By: Shruti Braun RN 12/20/19 08:50:57 Post-Care Text: The patient is free from signs and symptoms of injury caused by extraneous objects Patient Positioning FT Pre-Care Text: Identifies physical alterations that require additional precautions for procedure-specific positioning, verifies presence of prosthetics or corrective devices, positions the patient, evaluates the patient for signs and symptoms of injury as (more content not included)... Normal [facility] Consenton 12-20-2019 Consent [id number]:127 [facility] Consent for Treatmenton 11-29 Consent for Treatment [id number]#[id number]:127 [facility] Discharge Instructionson Discharge Instructions [id number]#[id number]:127 [facility] Endoscopic Procedure Report - Otheron 12-20-2019 Endoscopic Procedure Report - Other Patient: RAIN LOPEZ Age: 79 years Sex: Female : 1940 Associated Diagnoses: None Author: Reynaldo SANCHEZ MD Pre-Procedure Procedure Date 12/20/2019 09:09:00 . Procedure Type: Colonoscopy. Procedure provider Performed by Reynaldo Sanchez MD. Current history and physical Documented on chart. Colorectal neoplasm risk assessment Average risk. Informed Consent After discussing the rationale, risks and benefits, and alternatives to this procedure, the patient provided signed consent for the procedure. Pre-procedure diagnosis: Iron deficiency anemia, unexplained. Medications Anticoagulant/antiplatelet None. ASA Classification: Class II. . Monitoring: See anesthesia record. . Procedure The procedure was performed in the hospital. See anesthesia record for sedation given during procedure. Rectal exam was performed and was normal with no masses palpated, with no gross blood, with no fissure(s). The patient was positioned starting in the left lateral decubitus position and with safety measures. Endoscope type used was an adult-size. The endoscope was lubricated then introduced through the anus. The scope was advanced to the cecum verified by photographing the appendiceal orifice, verified by photographing the ileocecal valve, The time to the cecum was 2 minutes, The withdrawal time was 9 minutes. No difficulties encountered during the procedure. The bowel preparation quality was adequate (see polyps greater than or equal to 6 millimeters). The patient tolerated the procedure well. Findings Small nonbleeding internal hemorrhoids, otherwise normal colonoscopy Images Procedure images: Appendiceal orifice Ileocecal valve Rectal retroflex . Post-Procedure Complications: none. Estimated blood loss: none. Specimens: none. Devices/ implants: none left in place. Impression and Plan Impression: Small nonbleeding internal hemorrhoids, otherwise normal colonoscopy. Recommendations: Repeat colonoscopy:: None. Follow-up:: Follow-up with PCP as previously scheduled. Diet:: Resume previous diet. Medication resumption:: Continue current medications. Return to activities:: After [address] [facility] Comment on above: Result Comment: Elec tronically Signed By: DANIEL BELLE, Reynaldo\.br\Date and Time Signed: 12/20/19 09:13 EDT Other Comment: Daniela acosta Attachment - attachment storage system not supported [id number] Can be viewed in source systemMissing Attachment - attachment storage system not supported [id number] Can be viewed in source systemMissing Attachment - attachment storage system not supported [id number] Can be viewed in source system Endoscopic Procedure Report - Other Patient: RAIN LOPEZ Age: 79 years Sex: Female : 1940 Associated Diagnoses: None Author: Reynaldo SANCHEZ MD Pre-Procedure Procedure Date 12/20/2019 08:55:00 . Procedure Type: Esophagogastroduodenoscopy . Procedure provider Performed by Reynaldo Sanchez MD. Current history and physical Documented on chart. Informed Consent After discussing the rationale, risks and benefits, and alternatives to this procedure, the patient provided signed consent for the procedure. Pre-procedure diagnosis: Diagnostic: Iron deficiency anemia. Medications Anticoagulant/antiplatelet No anticoagulation or antiplatelet. ASA Classification: Class II. . Monitoring: See anesthesia record. . Procedure The procedure was performed in the hospital. See anesthesia record for sedation given during procedure. The patient was positioned starting in the left lateral decubitus position and with safety measures. Endoscope type used was an adult-size, introduced orally, advanced to the 2nd portion of the duodenum. No difficulty was encountered during the procedure. Views were good. Gastric biopsies were taken of the fundus and of the antrum. The patient tolerated the procedure well. Findings 1. Normal esophagus, Z line at 40 cm 2. Mild gastric erosions, random biopsies obtained to rule out H. pylori 3. Normal duodenum Images Procedure images: Fundus Z line Duodenal bulb Duodenum . Post-Procedure Complications: none. Estimated blood loss: none. Specimens: sent to pathology. Devices/ implants: none left in place. Impression and Plan Mild gastric erosions, random gastric biopsies obtained to rule out H. pylori Recommendations: 1. Awaiting pathology report. 2. GI clinic follow-up in 2 weeks 3. Omeprazole [address] [facility] Comment on above: Result Comment: Elec tronically Signed By: Reynaldo SANCHEZ MD\.br\Date and Time Signed: 12/20/19 08:56 EDT Other Comment: Daniela acosta Attachment - attachment storage system not supported [id number] Can be viewed in source systemMissing Attachment - attachment storage system not supported [id number] Can be viewed in source systemMissing Attachment - attachment storage system not supported [id number] Can be viewed in source systemMissing Attachment - attachment storage system not supported [id number] Can be viewed in source system Ferritinon 12-20-2019 Ferritin [Mass/Vol] 83 ng/mL Normal 11-307 [facility] Comment on above: Result Comment: NORM ALS MEN <30 YRS 16-132 ng/mL MEN >30 YRS 8-338 ng/mL WOMEN (PREMEN) 6-104 ng/mL WOMEN (POSTMEN) 12-210 ng/mL Performed By: #### 1 [id number] ####[facility] [id number] [place] [address] Folateon 12-20-2019 Folate [Mass/Vol] 16.2 ng/mL Normal >=6.7 [facility] Comment on above: Performed By: #### 1 [id number] ####[facility] [address] [place] [address] Inpatient Patient Summaryon 12-20-2019 Inpatient Patient Summary [address] [address] [facility] Clinical Discharge Instructions PERSON INFORMATION Name: RAIN LOPEZ PHYSICIANS Admitting Physician: Reynaldo SANCHEZ MD Attending Physician: Reynaldo SANCHEZ MD PCP: GLEN PEREZ DO Discharge Diagnosis: Gastric erosion Comment: PATIENT EDUCATION INFORMATION Instructions: Upper Endoscopy, Adult, Care After; Colonoscopy, Care After Surgery Daniel (CUSTOM); Gastroesophageal Reflux Disease, Adult Medication Leaflets: Follow up: With: Address: When: [facility] [address] [place], [place] [address] [address] Within 2 weeks Type Location Start [facility] Follow Up [facility] [place] 01/04/2020 8:30 AM 01/04/2020 8:45 AM Confirmed MEDICATION LIST New Medications [id number], [address], [place] [id number], [phone] omeprazole (omeprazole 40 mg Cap-DR) 1 Capsules By Mouth every day. Refills: 2. Medications to Continue Taking That Have Changed Other Medications START: aspirin (aspirin 81 mg oral tablet) 1 Tablets By Mouth every day. START: calcium-vitamin D (Calcium 600 D Tab) 1 Tablets By Mouth every day. START: metformin (MetFORMIN (Eqv-Fortamet)) 1,000 Milligram By Mouth 2 times a day. Medications to Continue with No Changes Other Medications amlodipine 5 Milligram By Mouth every day. atorvastatin 10 Milligram By Mouth every day. hydrochlorothiazide-valsar charles (hydrochlorothiazide-valsa rtan 12.5 mg-160 mg oral tablet) 1 Tablets By Mouth every day. metoprolol (metoprolol 100 mg ER Tab) 1 Tablets By Mouth every day. multivitamin with iron (Iron 100 Plus) 1 Tablets By Mouth every day. Comment: Normal [facility] IntraOperative Documentson 0 12-20-2019 IntraOperative Documents [id number]:[address] [facility] IntraOperative Documents [id number]:[address] [facility] Ironon 12-20-2019 Iron [Mass/Vol] 36 microgram/dL Normal 35-153 [facility] Comment on above: Performed By: #### 1 [id number], [id number], [id number], [id number], [id number], [id number] ####[facility] [address] [place] [address] Main OR PACU I Recordon 11-29 Main OR PACU I Record PACU Phase I Docum ent Type FT Summary Primary Physician: Reynaldo SANCHEZ MD Finalized Date/Time: 12/20/19 10:14:00 Pt. Name: RAIN LOPEZ/Sex: 1940 Female Med Rec #: [id number] Physician: Reynaldo SANCHEZ MD Financial #: [id number] Pt. Type: O Room/Bed: / Admit/Disch: 12/20/19 07:32:09 - Institution: Case Times PACU I FT Pre-Care Text: Identifies barriers to communication and implements measures to provide psychological support Develops individualized plan of care, and ensures continuity of care Maintains patient's dignity and privacy, and maintains patient confidentiality Identifies and reports philosophical, cultural, and spiritual beliefs and values Identifies individual values and wishes concerning care Implements aseptic technique, and administers prescribed antibiotic therapy and immunizing agents as ordered Evaluates postoperative tissue perfusion Implements thermoregulation measures, and monitors body temperature Evaluates postoperative respiratory status Evaluates postoperative cardiac status Evaluates postoperative neurological status Assesses pain control, collaborated in initiating patient-controlled analgesia and implements alternative methods of pain control Verifies allergies, administers prescribed medications and solutions, evaluates response to medications Entry 1 In PACU I 12/20/19 09:12:00 Discharge from PACU 12/20/19 09:42:00 I Outcomes Met? Yes Last Modified By: Marzena Adams RN 12/20/19 10:13:44 Post-Care Text: The patient demonstrates knowledge of the expected response to the operative or invasive procedure The patient's care is consistent with the individualized perioperative plan of care The patient's right to privacy is maintained The patient's value system, lifestyle, ethnicity, and culture are considered, respected, and incorporated into the perioperative plan of care The patient participates in decisions affecting his or her perioperative plan of care The patient is free from signs and symptoms of infection The patient has wound/tissue perfusion consistent with or improved from baseline levels established preoperatively The patient is at or returning to normothermia at the conclusion of the immediate postoperative period The patient's respiratory function is consistent with or improved from baseline levels established preoperatively The patient's cardiovascular status is consistent with or improved from baseline levels established preoperatively The patient's cardiovascular status is consistent with or improved from baseline levels established preoperatively The patient demonstrates and/or reports adequate pain control throughout the perioperative period The patient received appropriate medication(s), safely administered during the perioperative period Acuity Level PACU I FT Entry 1 Start Time 12/20/19 09:12:00 Stop Time 12/20/19 09:42:00 Acuity Level Acuity Level I Last Modified By: Marzena Adams RN 12/20/19 10:13:58 Finalized By: Marzena Adams RN Document Signatures Signed By: Marzena Adams RN 12/20/19 10:14 [facility] Main OR Preoperative Recordo n 12-20-2019 Main OR Preoperative Record Holding Area Document Type FT Summary Primary Physician: Reynaldo SANCHEZ MD Finalized Date/Time: 12/20/19 10:14:45 Pt. Name: RAIN LOPEZ/Sex: 1940 Female Med Rec #: [id number] Physician: Reynaldo SANCHEZ MD Financial #: [id number] Pt. Type: O Room/Bed: / Admit/Disch: 12/20/19 07:32:09 - Institution: Case Times Holding FT Pre-Care Text: Verifies consent for planned procedure, identifies individual values and wishes concerning care, includes family members in perioperative teaching Secures patient's records' belongings, and valuables, maintains patient's dignity and privacy, and maintains patient confidentiality Entry 1 In Holding 12/20/19 07:52:00 Outcomes Met? Yes Last Modified By: Alla Bennett RN 12/20/19 07:57:36 Post-Care Text: The patient participates in decisions affecting his or her perioperative plan of care The patient's right to privacy is maintained Surgery Checklist FT Entry 1 Patient Birthday, ID Band Procedure History and Physical, Identification: Check, Patient Verification: Surgical Consent, With Participation Patient NPO after Midnight: No Date/Time: 12/20/19 03:30:00 Personal Items: Cataract Lens Implant Personal Items left eye cataract Comment: Limitations: none Complaints of Pain: No Pain Comment: denies Operative Site n/a Marking: Availability Equipment Verified: Does Patient Smoke No Patient states Yes Comment - Adult Son -Derrick postop adult Supervision supervision available Case Cancelled in No Holding Area see comments below for reason Last Modified By: Alla Bennett RN 12/20/19 07:58:49 General Comments: Pt. NPO since bowel prep finished [id number] RN Finalized By: Marzena Adams RN Document Signatures Signed By: Alla Bennett RN 12/20/19 07:58 Marzena Adams RN 12/20/19 10:[address] [facility] Monitor Recordon 12-20-2019 Monitor Record [id number]:[address] [facility] Outpatient Surgery Discharge Instructionon 12-20-2019 Outpatient Surgery Discharge Instruction [place] [id number] Patient Discharge Instructions PERSON INFORMATION Name: RAIN LOPEZ Date of : 1940 Current Date: 12/20/2019 09:23:22 PHYSICIANS Admitting Physician: DANIEL BELLE [facility] Discharge Diagnosis: Gastric erosion RAIN LOPEZ has been given the following list of follow-up instructions, prescriptions, and patient education materials: PATIENT FOLLOW-UP INFORMATION Diet: Regular Discharge Activity: Resume normal activities in 24 hours Discharge Restrictions: No driving for 24 hrs, Do not operate machinery or tools, Do not make important decisions for 24 hours Additional Instructions: Omeprazole 40 mg p.o. daily IF UNABLE TO CONTACT YOUR PHYSICIAN AND YOU FEEL IT IS AN EMERGENCY, GO TO THE NEAREST EMERGENCY ROOM OR CALL 911 I, RAIN LOPEZ, have received the attached patient education materials/instructions and have verbalized understanding: May we do a follow up call? Yes No I was present when discharge instructions were given ____ Patient Signature _ Date Clinican/Nurse Signature Date Follow up: With: Address: When: [facility] [address] [place] [address] Within 2 weeks Type Location Start [facility] Follow Up [facility] 01/04/2020 8:30 AM 01/04/2020 8:45 AM Confirmed Pharmacy Information: Thank you for choosing [facility] HERE ARE THE MEDICATION CHANGES THAT OCCURRED DURING YOUR HOSPITAL STAY New Medications [id number], [address], [place] [id number], [phone] omeprazole (omeprazole 40 mg Cap-DR) 1 Capsules By Mouth every day. Refills: 2. Medications to Continue Taking That Have Changed Other Medications START: aspirin (aspirin 81 mg oral tablet) 1 Tablets By Mouth every day. START: calcium-vitamin D (Calcium 600 D Tab) 1 Tablets By Mouth every day. START: metformin (MetFORMIN (Eqv-Fortamet)) 1,000 Milligram By Mouth 2 times a day. Medications to Continue with No Changes Other Medications amlodipine 5 Milligram By Mouth every day. atorvastatin 10 Milligram By Mouth every day. hydrochlorothiazide-valsar charles (hydrochlorothiazide-valsa rtan 12.5 mg-160 mg oral tablet) 1 Tablets By Mouth every day. metoprolol (metoprolol 100 mg ER Tab) 1 Tablets By Mouth every day. multivitamin with iron (Iron 100 Plus) 1 Tablets By Mouth every day. PATIENT EDUCATION INFORMATION Instructions: Upper Endoscopy, Adult, Care After This sheet gives you information about how to care for yourself after your procedure. Your health care provider may also give you more specific instructions. If you have problems or questions, contact your health care provider. What can I expect after the procedure? After the procedure, it is common to have: ? A sore throat. ? Mild stomach pain or discomfort. ? Bloating. ? Nausea. Follow these instructions at home: ? Follow instructions from your health care provider about what to eat or drink after your procedure. ? Return to your normal activities as told by your health care provider. Ask your health care provider what activities are safe for you. ? Take cicu-bfc-xfdrqrt and prescription medicines only as told by your health care provider. ? Do not drive for 24 hours if you were given a sedative during your procedure. ? Keep all follow-up visits as told by your health care provider. This is important. Contact a health care provider if you have: ? A sore throat that lasts longer than one day. ? Trouble swallowing. Get help right away if: ? You vomit blood or your vomit looks like coffee grounds. ? You have: ? A fever. ? Bloody, black, or tarry stools. ? A severe sore throat or you cannot swallow. ? Difficulty breathing. ? Severe pain in your chest or abdomen. Summary ? After the procedure, it is common to have a sore throat, mild stomach discomfort, bloating, and nausea. ? Do not drive for 24 hours if you were given a sedative during the procedure. ? Follow instructions from your health care provider about what to eat or drink after your procedure. ? Return to your normal activities as told by your health care provider. This information is not intended to replace advice given to you by your health care provider. Make sure you discuss any questions you have with your health care provider. Document Released: 09/14/2012 Document Revised: 09/07/2018 Document Reviewed: 08/16/2018 [employer] Patient Education ? 2020 [employer]. Colonoscopy Care After Surgery Please read the instructions outlined belo (more content not included)... Normal [facility] Patient Education - Texton 0 12-20-2019 Patient Education - Text Colonoscopy Care After Surgery Please read the instructions outlined below and refer to this sheet in the next few weeks. These discharge instructions provide you with general information on caring for yourself after you leave the hospital. Your doctor may also give you specific instructions. While your treatment has been planned according to the most current medical practices available, unavoidable complications occasionally occur. If you have any problems or questions after discharge, please call your doctor. ACTIVITY You may resume your regular activity, but move at a slower pace for the next 24 hours. Take frequent rest periods for the next 24 hours. Walking will help get rid of the air and reduce the bloated feeling in your abdomen (belly). No driving for 24 hours (because of the anesthesia (medicine) used during the test). You may shower. Do not sign any important legal documents or operate any machinery for 24 hours (because of the anesthesia used during the test). NUTRITION Drink plenty of fluids. You may resume your normal diet as instructed by your doctor. Begin with a light meal and progress to your normal diet. Heavy or fried foods are harder to digest and may make you feel nauseated (sick to your stomach). Avoid alcoholic beverages for 24 hours or as instructed. MEDICATIONS You may resume your normal medications unless your doctor tells you otherwise. WHAT YOU CAN EXPECT TODAY Some feelings of bloating in the abdomen. Passage of more gas than usual. Spotting of blood in your stool or on the toilet paper. FOLLOW-UP Your doctor will discuss the results of your test with you. SEEK IMMEDIATE MEDICAL ATTENTION IF: There is more than a spotting of blood in your stool. There is abdominal distention (your abdomen is swollen). There is vomiting. You have a temperature over 101.5 F. There is abdominal pain or discomfort that is severe or gets worse throughout the day. Gastroenterology Upper Endoscopy, Adult, Care After This sheet gives you information about how to care for yourself after your procedure. Your health care provider may also give you more specific instructions. If you have problems or questions, contact your health care provider. What can I expect after the procedure? After the procedure, it is common to have: ? A sore throat. ? Mild stomach pain or discomfort. ? Bloating. ? Nausea. Follow these instructions at home: ? Follow instructions from your health care provider about what to eat or drink after your procedure. ? Return to your normal activities as told by your health care provider. Ask your health care provider what activities are safe for you. ? Take sekk-xnn-guylvyq and prescription medicines only as told by your health care provider. ? Do not drive for 24 hours if you were given a sedative during your procedure. ? Keep all follow-up visits as told by your health care provider. This is important. Contact a health care provider if you have: ? A sore throat that lasts longer than one day. ? Trouble swallowing. Get help right away if: ? You vomit blood or your vomit looks like coffee grounds. ? You have: ? A fever. ? Bloody, black, or tarry stools. ? A severe sore throat or you cannot swallow. ? Difficulty breathing. ? Severe pain in your chest or abdomen. Summary ? After the procedure, it is common to have a sore throat, mild stomach discomfort, bloating, and nausea. ? Do not drive for 24 hours if you were given a sedative during the procedure. ? Follow instructions from your health care provider about what to eat or drink after your procedure. ? Return to your normal activities as told by your health care provider. This information is not intended to replace advice given to you by your health care provider. Make sure you discuss any questions you have with your health care provider. Document Released: 09/14/2012 Document Revised: 09/07/2018 Document Reviewed: 08/16/2018 [employer] Patient Education ? 2019 [employer]. Gastroesophageal Reflux Disease, Adult Gastroesophageal reflux (MARKO) happens when acid from the stomach flows up into the tube that connects the mouth and the stomach (esophagus). Normally, food travels down the esophagus and stays in the stomach to be digested. However, when a person has MARKO, food and stomach acid sometimes move back up into the esophagus. If this becomes a more serious problem, the person may be diagnosed with a disease called gastroesophageal reflux disease (GERD). GERD occurs when the reflux: ? Happens often. ? Causes frequent or severe symptoms. ? Causes problems such as damage to the esophagus. When stomach acid comes in contact with the esophagus, the acid may cause soreness (inflammation) in the esophagus. Over time, GERD may create small holes (ulcers) in the lining of the esophagus. What are the causes? This condition is caused by a p (more content not included)... Normal [facility] Progress Note-Physicianon Progress Note-Physician Patient: RAIN LOPEZ Age: 79 years Sex: Female : 1940 Associated Diagnoses: None Author: Maverick Alejandra JR, DO Preoperative Information Anesthesia history: Patient History: Pt./ family denies any personal or family hx of problems/difficulties with anesthesia.. Re-eval prior to induction: Inital eval reviewed: No significant interval change, NPO 10 hours, except for GI. prep which ( when administered ), was completed at least 4 hours prior to the procedure.. Anesthesia results Review of Systems Constitutional: See nursing assessment.. Cardiovascular: Cardiac risk assessment performed. Pt. denies any significant change in their cv hx.. Respiratory: Pt. denies any signicant change in their respiratory status.. Neurologic: Pt. denies any acute neurological changes.. Health Status Allergies: Allergic Reactions (Selected) No Known Allergies, Allergies (1) Active Reaction No Known Allergies None Documented Current medications: (Selected) Prescriptions Prescribed NuLYTELY [place] oral powder for reconstitution: See Instructions, 1 EA, Refill(s) 0, instructions in office.anil [id number], 160, cm, 12/07/19 8:37:00 EDT, Height/Length Dosing, 62, kg, 12/07/19 8:37:00 EDT, Weight Dosing Documented Medications Documented Chris Aspirin: 325 mg, Oral, q4hr, Refills(s) 0, Prophylaxis Calcium 600 D Tab: 1 tab(s), Oral, BID, Refill(s) 0, Prophylaxis Iron 100 Plus: 1 tab(s), Oral, Daily, Refill(s) 0, Prophylaxis MetFORMIN (Eqv-Fortamet): 1,000 mg, Oral, Daily, Refills(s) 0, Blood glucose amlodipine: 5 mg, Oral, Daily, Refills(s) 0, High blood pressure atorvastatin: 10 mg, Oral, Daily, Refills(s) 0, High cholesterol hydrochlorothiazide-valsar charles 12.5 mg-160 mg oral tablet: 1 tab(s), Oral, Daily, 30 tab(s), Refill(s) 0, High blood pressure metoprolol 100 mg ER Tab: 100 mg = 1 tab(s), Oral, Daily, Refills(s) 0, High blood pressure, No qualifying data available Problem list: No problem items selected or recorded., No qualifying data available Histories Past Medical History: No active or resolved past medical history items have been selected or recorded. Family History: Entire family history is negative. Procedure history: No active procedure history items have been selected or recorded. Social History Social & Psychosocial Habits Tobacco 12/07/2019 Tobacco Use: Never (less than 100 in l . Physical Examination No qualifying data available Airway: Normal oral/pharyngeal anatomy.. Respiratory: Adequate air exchange.. Cardiovascular: Adequate perfusion and function. Review / Management Results review: No qualifying data available . Plan [place] [employer]esthesi[employer] (ASA) physical status classification: Class III. Anesthetic Preoperative Plan Anesthesia: Monitored anesthesia care and general anesthesia if required.. Anesthetic plan, risks, benefits, and alternatives discussed with the patient and/or family. Pt. and/or family present and agree to proceed as planned.. Discussed the importance of abstaining from tobacco products, and offered counseling if desired.. Normal [facility] Comment on above: Result Comment: Elec tronically Signed By: Justyn EASTMAN DO, Maverick Bhatia.br\Date and Time Signed: 12/20/19 01:05 EDT Retic Counton 12-20-2019 Reticulocytes/100 RBC (Bld) 1.0 % Normal 0.5-1.5 [facility] Comment on above: Performed By: #### 1 [id number], [id number], [id number], 3485064, [id number], [id number] ####[facility] [address] [place] [address] TIBC Calculatedon 12-20-2019 Iron binding capacity [Mass/Vol] 199 microgram/dL Low 250-400 [facility] Comment on above: Performed By: #### 1 [id number], [id number], [id number], 5777038, 9610987, [id number] ####[facility] [address] [place] [address] Transferrin [Mass/Vol] 142 mg/dL Low 200-370 [facility] Comment on above: Performed By: #### 1 [id number], 4138438, 1253372, 4326131, 2989847, 6450474 ####[facility] [address] [place] [address] Vit B12on 12-20-2019 Cobalamin (Vitamin B12) [Mass/Vol] pg/mL Normal 50-1500 [facility] Comment on above: Performed By: #### 1 [id number], 1243213, 2135962, 3426914, 7374831, 5590086 ####[facility] [address] [place] [address] Priority Order-Hiral 2019 Priority Order-STAT Comment Invalid Interpretation Code [facility] Comment on above: Result Comment: Rece ived Performed at: [facility] [address] [place], [place] [id number] MD Maurisio Mascorro Performed By: #### S ARS-CoV-2, CHRISTIANE, [id number] ####[facility] [address] [place] [address] SARS-CoV-2, NAAon 12-14-2019 SARS-CoV-2 (COVID-19) RNA CHRISTIANE+probe Ql (Resp) Not detected Invalid Interpretation Code Not Detected [facility] Comment on above: Result Comment: This nucleic acid amplification test was developed and its performance characteristics determined by [employer]. Nucleic acid amplification tests include PCR and TMA. This test has not been FDA cleared or approved. This test has been authorized by FDA under an Emergency Use Authorization (EUA). This test is only authorized for the duration of time the declaration that circumstances exist justifying the authorization of the emergency use of in vitro diagnostic tests for detection of SARS-CoV-2 virus and/or diagnosis of COVID-19 infection under section 564(b)(1) of the Act, 21 U.S.C. 360bbb-3(b) (1), unless the authorization is terminated or revoked sooner. When diagnostic testing is negative, the possibility of a false negative result should be considered in the context of a patient's recent exposures and the presence of clinical signs and symptoms consistent with COVID-19. An individual without symptoms of COVID-19 and who is not shedding SARS-CoV-2 virus would expect to have a negative (not detected) result in this assay. Performed at: [facility] [address] [place] [id number] MD Maurisio Mascorro Performed By: #### S ARS-CoV-2, CHRISTIANE, [id number] ####[facility] [place] [address] Consent for Treatmenton 11-28 Consent for Treatment [id number]:[address] [facility] Ferritinon 12-13-2019 Ferritin [Mass/Vol] 57 ng/mL Normal 11-307 [facility] Comment on above: Result Comment: NORM ALS MEN <30 YRS 16-132 ng/mL MEN >30 YRS 8-338 ng/mL WOMEN (PREMEN) 6-104 ng/mL WOMEN (POSTMEN) 12-210 ng/mL Performed By: #### 2 [id number], [id number], [id number] ####[facility] [address] [place] [address] Ironon 12-13-2019 Iron [Mass/Vol] 51 microgram/dL Normal 35-153 Fish [facility] Comment on above: Performed By: #### 2 [id number], [id number], [id number] ####[facility] [address] [place] [address] TIBC Calculatedon 12-13-2019 Iron binding capacity [Mass/Vol] 271 microgram/dL Normal 250-400 [facility] Comment on above: Performed By: #### 2 [id number], [id number], [id number] ####[place] [place] [address] Transferrin [Mass/Vol] 193 mg/dL Low 200-370 [facility] Comment on above: Performed By: #### 2 [id number], [id number], [id number] ####[place] [place] [address] Consenton 12-08-2019 Consent [id number]:[address] [facility] Ambulatory Clinical Summaryo n 12-07-2019 Ambulatory Clinical Summary {[id number]}CD: [id number] Normal [facility] Gastroenterology Office/Clin ic Noteon 12-07-2019 Gastroenterology Office/Clinic Note Chief Complaint anemia, acid reflux HPI Staff This is a 78 year old female who presents today for a referral from Dr Perez for anemia. History of Present Illness 78 years old white female with history of hypertension, diabetes and irregular heartbeats, referred to me to be evaluated for mild anemia, patient reported that she has anemia for at least 2 to 3 years, her current hemoglobin is 11.5, normal MCV, she has been taking iron supplements for more than a year, she denied any nausea or vomiting, no abdominal pain, no melena, occasional rectal bleeding, no weight loss, no prior history of peptic ulcer disease or colonic polyps Review of Systems PHQ Score Initial Depression Screen Score: 1 Constitutional: no fever, no chills, no sweats, no weakness Skin: no Jaundice, no rash, no lesions, no petechiae ENMT: no ear pain, no sore throat, no congestion, no hoarseness Respiratory: no shortness of breath, no cough, no orthopnea, no wheezing Cardiovascular: no chest pain, no palpitations, no edema Gastrointestinal: no nausea, no vomiting, no diarrhea, no Constipation noGI bleeding no abd pain no dysphagia no bloating yes heartburn Genitourinary: no dysuria, no hematuria, no discharge, no pain Musculoskeletal: no back pain, no trauma Neurologic: no numbness, no sleeping problems Additional ROS info: Except as noted in the above Review of Systems and in the History of Present Illness all other systems have been reviewed and are negative or noncontributory. Physical Exam Vitals & Measurements T: 36.6 ?C (Temporal Artery) HR: 63(Peripheral) RR: 16 BP: 162/83 HT: 160.0 cm HT: 160.02 cm WT: 62.0 kg WT: 62 kg BMI: 24.21 Constitutional: Appearance: well developed Skin: Inspection: no rashes, ulcers, icterus , or telangiectasias. Eyes: Conjunctivae/lids: normal conjunctivae and lids. ENMT: Hearing: within normal limits. Lips/Teeth/Gums: normal oral mucosa Neck: Neck: normal motion, central trachea. Respiratory: Percussion: thorax normoresonant. Auscultation: normal breath sounds; no rubs, wheezes, rale or ronchi. Cardiovascular: Auscultation: normal rhythm, S1 and S2; no rubs, murmurs or gallop. Peripheral: no edema Gastrointestinal/Abdomen: Abdomen: normal consistency and bowel sounds; no tenderness or masses. Liver/Spleen: normal size and consistency, not palpable. Rectal: deferred Musculoskeletal: Gait/station: normal gait Assessment/Plan 1. Iron deficiency anemia (D50.9: Iron deficiency anemia, unspecified) No evidence of overt GI bleeding, will proceed with EGD and colonoscopy and iron studies Ordered: Colonoscopy (Hospital Procedure) EGD Endoscopy (Hospital Procedure) Ferritin Iron Level TIBC Calculated 2. Acid reflux (K21.9: Gastro-esophageal reflux disease without esophagitis) Ordered: EGD Endoscopy (Hospital Procedure) 3. Irregular heartbeat (I49.9: Cardiac arrhythmia, unspecified) 4. Diabetes (E11.9: Type 2 diabetes mellitus without complications) Follow-up With When Contact Information Reynaldo SANCHEZ MD Within 2 weeks [facility] [address] [place] [address]- Additional Instructions: Patient Education Iron Tests Problem List/Past Medical History Ongoing No qualifying data Historical No qualifying data Medications amlodipine, Oral, Daily atorvastatin, Oral, Daily Chris Aspirin, Oral, q4hr Calcium 600 D Tab, Oral, BID Iron 100 Plus, Oral, Daily MetFORMIN (Eqv-Fortamet), Oral, Daily metoprolol 100 mg ER Tab, Oral, Daily valsartan, Oral Allergies No Known Allergies Social History Tobacco Never (less than 100 in lifetime) Tobacco Use:., 12/07/2019 Family History Family history is negative Normal [facility] Comment on above: Result Comment: Elec tronically Signed By: Reynaldo SANCHEZ MD\.br\Date and Time Signed: 12/07/19 09:11 EDT Patient Educationon 12-07-19 Patient Education Family Medicine Iron Tests Iron is needed to form normal red blood cells (RBC's). RBC's carry oxygen throughout the body. Iron is a critical part of hemoglobin, the protein in red blood cells that binds oxygen in the lungs and releases it as blood travels to other parts of the body. Iron is also needed by other cells, especially muscle (which contains another oxygen binding protein called myoglobin). Low iron levels can lead to anemia, in which the body does not have enough red blood cells. Other conditions can cause you to have too much iron in your blood. SOME OF THE MOST COMMON TESTS FOR IRON IN THE BLOODSTREAM ARE: ? Serum iron level - measures the level of iron in the liquid part of your blood. ? Ferritin level - measures the amount of stored iron in your body. Ferritin is the main protein that stores iron for areas that need it, especially the liver and bone marrow. Bone marrow is the inside cavity in bones, where blood cells are made. ? Total Iron Binding Capacity (TIBC) - measures the amount of transferrin, a blood protein that transports iron from the gut to the cells that use it. Your body makes transferrin in relationship to your need for iron; when iron stores are low, transferrin levels increase, while transferrin is low when there is too much iron. Usually about one third of the transferrin is being used to transport iron. Because of this, your blood serum has considerable extra iron-binding capacity, which is the Unsaturated Iron Biding Capacity (UIBC). The TIBC equals UIBC plus the serum iron measurement. Some laboratories measure UIBC, some measure TIBC, and some measure transferrin. ? These tests are often ordered together, and the relative changes in each can help your doctor determine the cause of an abnormal result in one or more of these tests. OTHER TESTS WHICH CAN BE USED TO HELP RECOGNIZE PROBLEMS WITH IRON IN THE BODY ARE: ? Hemoglobin and Hematocrit - While not really tests of iron status alone, they are widely used parts of the Complete Blood Count (CBC) that can detect anemia; iron deficiency is a common cause of anemia. Another part of the CBC is the Mean (average) Cell Volume (MCV), which measures how big the red blood cells are. In iron deficiency (and in some other diseases as well), not enough hemoglobin is made, causing the red blood cells to be smaller than normal (microcytic) and paler than normal (hypochromic). ? HFE gene test ? The most common genetic disease in people whose ancestors came from [place] is hemochromatosis, a disease that causes your body to absorb too much iron. It is due to an inherited abnormality in a specific gene, called the HFE gene, that regulates the amount of iron absorbed from the gut. In people who have two copies of an abnormal form of the gene, the protein made by the gene cannot tell the cells in the gut when the body is full of iron, so the gut keeps on absorbing iron and excess iron damages many different organs. The HFE gene test uses a sample of blood drawn from you arm to see if you have the mutations that cause the disease (the most common is called C282Y). ? Zinc Protoporphyrin is the part of hemoglobin that needs iron to help it carry oxygen. If there is not enough iron, another metal (such as zinc) will attach to the protoporphyrin instead. This test, which is simple to do using only a small amount of blood, is sometimes used as a screening test for iron deficiency, especially in children. Because lead prevents iron (but not zinc) from attaching to protoporphyrin, zinc protoporphyrin will also be high in severe cases of lead poisoning. IRON TESTS ARE OFTEN USED TO EVALUATE THE FOLLOWING CONDITIONS: Anemia This term refers to the presence of too few red blood cells, which are needed to carry oxygen to the body. Many conditions can cause anemia, but iron deficiency is one of the most common. Normal iron levels are maintained by a balance between the amount of iron taken into the body and the amount of iron lost. Normally, we lose a small amount of iron each day, so if we take in too little iron, deficiency could develop. Unless a person follows a very poor diet, however, there is usually enough iron to prevent iron deficiency in healthy people. In certain situation, there is an increased need for iron. Persons with chronic bleeding from the gut (usually from ulcers or tumors), or women with heavy menstrual periods will lose more iron than normal and often develop iron deficiency. Women who are or lose iron to their baby, and can develop iron deficiency if not enough extra iron is taken. Children, especially during times of rapid growth, need extra iron and can develop iron deficiency. Anemia can also occur in states where the body cannot use iron properly. In many chronic diseases, especially in cancers, autoimmune diseases, and with chronic infections (including AIDS), the body cannot properly use iron to make more red cells. As a result, production of transferrin decre (more content not included)... Normal [facility] Physician Orderon 12-07-2019 Physician Order [id number]:[address] [facility] Physician Referralon 020 Physician Referral [id number]:[address] [facility] Patient Letter FTon 2019 Patient Letter [facility] (Inserted Image. Andree ble to display) November 28, 2019 RAIN LOPEZ [address] [place] [id number] RAIN LOPEZ 1940 Dear, Rain Perez referred you to [facility] to be seen for anemia,egd and colonoscopy . We have attempted to contact you twice by phone with no success. If you are still interested in scheduling an appointment, please call our office at [phone] Thank you [facility] Vital Signs Date Time Vital Sign Value Performing Clinician Facility 10-17-2024 08:35-0400 Body height 157.48 cm Glen Ball DO Work Phone: [facility] 10-17-2024 08:35-0400 Body mass index (BMI) [Ratio] 23.5 kg/m2 Glen Ball DO Work Phone: [facility] 10-17-2024 08:35-0400 Body weight 58.28 kg Glen Ball DO Work Phone: [facility] 10-17-2024 08:35-0400 Diastolic blood pressure 77 mm[Hg] Glen Ball DO Work Phone: [facility] 10-17-2024 08:35-0400 Heart rate 60 /min Glen Ball DO Work Phone: [facility] 10-17-2024 08:35-0400 Respiratory rate 12 /min Glen Ball DO Work Phone: [facility] 10-17-2024 08:35-0400 Systolic blood pressure 193 mm[Hg] Glen Ball DO Work Phone: [facility] 08-12-2024 11:05-0400 Diastolic blood pressure 76 mm[Hg] Dipti Paula PA-C Work Phone: [facility] Comment on above: recheck 08-12-2024 11:05-0400 Systolic blood pressure 191 mm[Hg] Dipti Paula PA-C Work Phone: [facility] Comment on above: recheck 08-12-2024 11:01-0400 Body height 157.5 cm Dipti Paula PA-C Work Phone: [facility] 08-12-2024 11:01-0400 Body mass index (BMI) [Ratio] 23.34 kg/m2 Dipti Paula PA-C Work Phone: [facility] 08-12-2024 11:01-0400 Body temperature 97.39 [degF] Dipti Friedmaner PA-C Work Phone: [facility] 08-12-2024 11:01-0400 Body weight 57.9 kg Dipti Friedmaner PA-C Work Phone: [facility] 08-12-2024 11:01-0400 Heart rate 60 /min Dipti Friedmaner PA-C Work Phone: [facility] 08-12-2024 11:01-0400 Respiratory rate 16 /min Dipti Friedmaner PA-C Work Phone: [facility] 08-12-2024 11:01-0400 SaO2% (BldA) [Mass fraction] 99 % Dipti Friedmaner PA-C Work Phone: [facility] 07-27-2024 14:14-0400 Body height 157.48 cm [facility] 07-27-2024 14:14-0400 Body mass index (BMI) [Ratio] 23.3 kg/m2 [facility] 07-27-2024 14:14-0400 Body weight 57.77 kg [facility] 07-27-2024 14:14-0400 Diastolic blood pressure 82 mm[Hg] [facility] 07-27-2024 14:14-0400 Heart rate 66 /min [facility] 07-27-2024 14:14-0400 Respiratory rate 12 /min [facility] 07-27-2024 14:14-0400 Systolic blood pressure 128 mm[Hg] [facility] 06-28-2024 08:40-0400 Body height 157.48 cm [facility] 06-28-2024 08:40-0400 Body mass index (BMI) [Ratio] 23.8 kg/m2 [facility] 06-28-2024 08:40-0400 Body weight 59.19 kg [facility] 06-28-2024 08:40-0400 Diastolic blood pressure 61 mm[Hg] [facility] 06-28-2024 08:40-0400 Heart rate 72 /min [facility] 06-28-2024 08:40-0400 Respiratory rate 12 /min [facility] 06-28-2024 08:40-0400 Systolic blood pressure 139 mm[Hg] [facility] 05-09-2024 15:59-0500 Body height 157.48 cm [facility] 05-09-2024 15:59-0500 Body mass index (BMI) [Ratio] 24 kg/m2 [facility] 05-09-2024 15:59-0500 Body weight 59.47 kg [facility] 05-09-2024 15:59-0500 Diastolic blood pressure 64 mm[Hg] [facility] 05-09-2024 15:59-0500 Diastolic blood pressure 89 mm[Hg] [facility] 05-09-2024 15:59-0500 Heart rate 76 /min [facility] 05-09-2024 15:59-0500 Respiratory rate 76 /min [facility] 05-09-2024 15:59-0500 Respiratory rate 14 /min [facility] 05-09-2024 15:59-0500 Systolic blood pressure 146 mm[Hg] [facility] 05-09-2024 15:59-0500 Systolic blood pressure 139 mm[Hg] [facility] 03-31-2024 10:07-0500 Body height 157.48 cm [facility] 03-31-2024 10:07-0500 Body mass index (BMI) [Ratio] 24.3 kg/m2 [facility] 03-31-2024 10:07-0500 Body temperature 96.2 [degF] [facility] 03-31-2024 10:07-0500 Body weight 60.49 kg [facility] 03-31-2024 10:07-0500 Diastolic blood pressure 78 mm[Hg] [facility] 03-31-2024 10:07-0500 Heart rate 78 /min [facility] 03-31-2024 10:07-0500 SaO2% (BldA) [Mass fraction] 98 % [facility] 03-31-2024 10:07-0500 Systolic blood pressure 179 mm[Hg] [facility] 03-25-2024 08:33-0500 Body height 157.48 cm [facility] 03-25-2024 08:33-0500 Body mass index (BMI) [Ratio] 25 kg/m2 [facility] 03-25-2024 08:33-0500 Body weight 62.14 kg [facility] 03-25-2024 08:33-0500 Diastolic blood pressure 89 mm[Hg] [facility] 03-25-2024 08:33-0500 Heart rate 65 /min [facility] 03-25-2024 08:33-0500 Respiratory rate 12 /min [facility] 03-25-2024 08:33-0500 Systolic blood pressure 139 mm[Hg] [facility] 02-08-2024 10:48-0500 Body height 157.5 cm Dipti Paula PA-C Work Phone: [facility] 02-08-2024 10:48-0500 Body mass index (BMI) [Ratio] 24.87 kg/m2 Dipti Paula PA-C Work Phone: [facility] 02-08-2024 10:48-0500 Body temperature 97.59 [degF] Dipti Paula PA-C Work Phone: [facility] 02-08-2024 10:48-0500 Body weight 61.7 kg Dipti Paula PA-C Work Phone: [facility] 02-08-2024 10:48-0500 Diastolic blood pressure 110 mm[Hg] Dipti Paula PA-C Work Phone: [facility] 02-08-2024 10:48-0500 Heart rate 77 /min Dipti Paula PA-C Work Phone: [facility] 02-08-2024 10:48-0500 Respiratory rate 16 /min Dipti Paula PA-C Work Phone: [facility] 02-08-2024 10:48-0500 SaO2% (BldA) [Mass fraction] 97 % Dipti Paula PA-C Work Phone: [facility] 02-08-2024 10:48-0500 Systolic blood pressure 197 mm[Hg] Dipti Paula PA-C Work Phone: [facility] 12-24-2023 09:18-0400 Body mass index (BMI) [Ratio] 24.7 kg/m2 [facility] 12-24-2023 09:18-0400 Diastolic blood pressure 84 mm[Hg] [facility] 12-24-2023 09:18-0400 Systolic blood pressure 130 mm[Hg] [facility] 12-24-2023 08:46-0400 Body height 157.48 cm [facility] 12-24-2023 08:46-0400 Body weight 61.23 kg [facility] 12-24-2023 08:46-0400 Heart rate 68 /min [facility] 12-24-2023 08:46-0400 SaO2% (BldA) [Mass fraction] 98 % [facility] 12-10-2023 08:29-0400 Body height 157.48 cm [facility] 12-10-2023 08:29-0400 Body mass index (BMI) [Ratio] 24.9 kg/m2 [facility] 12-10-2023 08:29-0400 Body weight 61.8 kg [facility] 12-10-2023 08:29-0400 Diastolic blood pressure 81 mm[Hg] [facility] 12-10-2023 08:29-0400 Heart rate 69 /min [facility] 12-10-2023 08:29-0400 Respiratory rate 20 /min [facility] 12-10-2023 08:29-0400 Systolic blood pressure 195 mm[Hg] [facility] 09-21-2023 09:31-0400 Body height 157.48 cm [facility] 09-21-2023 09:31-0400 Body mass index (BMI) [Ratio] 25 kg/m2 [facility] 09-21-2023 09:31-0400 Body weight 62.19 kg [facility] 09-21-2023 09:31-0400 Diastolic blood pressure 61 mm[Hg] [facility] 09-21-2023 09:31-0400 Heart rate 76 /min [facility] 09-21-2023 09:31-0400 Respiratory rate 12 /min [facility] 09-21-2023 09:31-0400 Systolic blood pressure 176 mm[Hg] [facility] 08-03-2023 10:12-0400 Body mass index (BMI) [Ratio] 25.44 kg/m2 Yash Ayala MD Work Phone: [facility] 08-03-2023 10:12-0400 Body temperature 97.59 [degF] Yash Ayala MD Work Phone: [facility] 08-03-2023 10:12-0400 Body weight 63.1 kg Yash Ayala MD Work Phone: [facility] 08-03-2023 10:12-0400 Diastolic blood pressure 81 mm[Hg] Yash Ayala MD Work Phone: [facility] 08-03-2023 10:12-0400 Heart rate 68 /min Yash Ayala MD Work Phone: [facility] 08-03-2023 10:12-0400 Respiratory rate 16 /min Yash Ayala MD Work Phone: [facility] 08-03-2023 10:12-0400 SaO2% (BldA) [Mass fraction] 98 % Yash Ayala MD Work Phone: [facility] 08-03-2023 10:12-0400 Systolic blood pressure 183 mm[Hg] Yash Ayala MD Work Phone: [facility] 07-28-2023 10:16-0400 Body height 157.48 cm [facility] 07-28-2023 10:16-0400 Body mass index (BMI) [Ratio] 25 kg/m2 [facility] 07-28-2023 10:16-0400 Body weight 62.19 kg [facility] 07-28-2023 10:16-0400 Diastolic blood pressure 81 mm[Hg] [facility] 07-28-2023 10:16-0400 Heart rate 72 /min [facility] 07-28-2023 10:16-0400 Respiratory rate 12 /min [facility] 07-28-2023 10:16-0400 Systolic blood pressure 125 mm[Hg] [facility] 06-09-2023 10:09-0400 Body height 157.48 cm [facility] 06-09-2023 10:09-0400 Body mass index (BMI) [Ratio] 25.4 kg/m2 [facility] 06-09-2023 10:09-0400 Body weight 63.1 kg [facility] 06-09-2023 10:09-0400 Diastolic blood pressure 85 mm[Hg] [facility] 06-09-2023 10:09-0400 Heart rate 69 /min [facility] 06-09-2023 10:09-0400 Systolic blood pressure 135 mm[Hg] [facility] 04-13-2023 14:30-0500 Body height 157.48 cm Glen Ball Other [facility] [employer] Other 04-13-2023 14:30-0500 Body mass index (BMI) [Ratio] 26.41 kg/m2 Glen Ball Other [facility] [employer] Other 04-13-2023 14:30-0500 Body weight 65.5 kg Glen Ball Other [facility] [employer] Other 04-13-2023 14:30-0500 Diastolic blood pressure 88 mm[Hg] Glen Ball Other [facility] [employer] Other 04-13-2023 14:30-0500 Respiratory rate 12 /min Glen Ball Other [facility] [employer] Other 04-13-2023 14:30-0500 Systolic blood pressure 138 mm[Hg] Glen Ball Other [employer] Other 03-16-2023 11:15-0500 Body height 157.48 cm Glen Ball Other [employer] Other 03-16-2023 11:15-0500 Body mass index (BMI) [Ratio] 26.15 kg/m2 Glen Ball Other [employer] Other 03-16-2023 11:15-0500 Body weight 64.86 kg Glen Ball Other [employer] Other 03-16-2023 11:15-0500 Diastolic blood pressure 71 mm[Hg] Glen Ball Other [employer] Other 03-16-2023 11:15-0500 Respiratory rate 12 /min Glen Ball Other [employer] Other 03-16-2023 11:15-0500 Systolic blood pressure 136 mm[Hg] Glen Ball Other [employer] Other 03-09-2023 13:45-0500 Body height 157.48 cm Glen Ball Other [employer] Other 03-09-2023 13:45-0500 Body mass index (BMI) [Ratio] 26.15 kg/m2 Glen Ball Other [employer] Other 03-09-2023 13:45-0500 Body weight 64.86 kg Glen Ball Other [employer] Other 03-09-2023 13:45-0500 Diastolic blood pressure 71 mm[Hg] Glen Ball Other [employer] Other 03-09-2023 13:45-0500 Respiratory rate 12 /min Glen Ball Other [employer] Other 03-09-2023 13:45-0500 Systolic blood pressure 180 mm[Hg] Glen Ball Other [employer] Other 02-09-2023 10:00-0500 Body height 157.48 cm Glen Ball Other [employer] Other 02-09-2023 10:00-0500 Body mass index (BMI) [Ratio] 26.48 kg/m2 Glen Ball Other [employer] Other 02-09-2023 10:00-0500 Body weight 65.68 kg Glen Ball Other [employer] Other 02-09-2023 10:00-0500 Diastolic blood pressure 79 mm[Hg] Glen Ball Other [employer] Other 02-09-2023 10:00-0500 Respiratory rate 12 /min Glen Ball Other [employer] Other 02-09-2023 10:00-0500 Systolic blood pressure 171 mm[Hg] Glen Ball Other [employer] Other 02-02-2023 10:20-0500 Diastolic blood pressure 82 mm[Hg] Dipti Paula PA-C Work Phone: [facility] 02-02-2023 10:20-0500 Systolic blood pressure 168 mm[Hg] Dipti Paula PA-C Work Phone: [facility] 02-02-2023 10:13-0500 Body height 157.5 cm Dipti Paula PA-C Work Phone: [facility] 02-02-2023 10:13-0500 Body temperature 97.59 [degF] Dipti Paula PA-C Work Phone: [facility] 02-02-2023 10:13-0500 Body weight 65.5 kg Dipti Paula PA-C Work Phone: [facility] 02-02-2023 10:13-0500 Heart rate 65 /min Dipti Paula PA-C Work Phone: [facility] 02-02-2023 10:13-0500 Respiratory rate 16 /min Dipti Paula PA-C Work Phone: [facility] 02-02-2023 10:13-0500 SaO2% (BldA) [Mass fraction] 99 % Dipti Paula PA-C Work Phone: [facility] 09-17-2022 09:30-0400 Body height 157.48 cm [employer] Other [employer] Other 09-17-2022 09:30-0400 Body mass index (BMI) [Ratio] 25.82 kg/m2 Glen Ball Other [employer] Other 09-17-2022 09:30-0400 Body weight 64.05 kg Glen Ball Other [employer] Other 09-17-2022 09:30-0400 Diastolic blood pressure 63 mm[Hg] Glen Ball Other [employer] Other 09-17-2022 09:30-0400 Respiratory rate 12 /min Glen Ball Other [employer] Other 09-17-2022 09:30-0400 Systolic blood pressure 173 mm[Hg] Glen Ball Other [employer] Other 08-11-2022 10:00-0400 Body height 157.48 cm Lul Webster Other [employer] Other 08-11-2022 10:00-0400 Body mass index (BMI) [Ratio] 25.42 kg/m2 Lul Webster Other [employer] Other 08-11-2022 10:00-0400 Body weight 63.05 kg Lul Webster Other [employer] Other 07-30-2022 11:00-0400 Body height 157.48 cm Glen Ball Other [employer] Other 07-30-2022 11:00-0400 Body mass index (BMI) [Ratio] 25.42 kg/m2 Glen Ball Other [employer] Other 07-30-2022 11:00-0400 Body weight 63.05 kg Glen Ball Other [employer] Other 07-30-2022 11:00-0400 Diastolic blood pressure 60 mm[Hg] Glen Ball Other [employer] Other 07-30-2022 11:00-0400 Systolic blood pressure 167 mm[Hg] Glen Ball Other [employer] Other 07-21-2022 15:47-0400 Body height 160.02 cm DO Glen Ball Work Phone: [facility] 07-21-2022 15:47-0400 Body temperature 97.9 [degF] DO Glen Ball Work Phone: [facility] 07-21-2022 15:47-0400 Body weight 64 kg DO Glen Ball Work Phone: [facility] 07-21-2022 15:47-0400 Diastolic blood pressure 65 mm[Hg] DO Glen Ball Work Phone: [facility] 07-21-2022 15:47-0400 Heart rate 72 /min DO Glen Ball Work Phone: [facility] 07-21-2022 15:47-0400 Respiratory rate 16 /min DO Glen Ball Work Phone: [facility] 07-21-2022 15:47-0400 SaO2% (BldA) [Mass fraction] 98 % DO Glen Ball Work Phone: [facility] 07-21-2022 15:47-0400 Systolic blood pressure 169 mm[Hg] DO Glen Ball Work Phone: [facility] 07-21-2022 12:30-0400 Body height 157.48 cm Lul Cora Other [facility] [employer] Other 07-21-2022 12:30-0400 Body mass index (BMI) [Ratio] 25.42 kg/m2 Lul Cora Other [facility] [employer] Other 07-21-2022 12:30-0400 Body weight 63.05 kg Lul Cora Other [employer] Other 06-24-2022 11:00-0400 Body height 157.48 cm Glen Ball Other [employer] Other 06-24-2022 11:00-0400 Body mass index (BMI) [Ratio] 25.53 kg/m2 Glen Ball Other [employer] Other 06-24-2022 11:00-0400 Body weight 63.32 kg Glen Ball Other [employer] Other 06-24-2022 11:00-0400 Diastolic blood pressure 78 mm[Hg] Glen Ball Other [employer] Other 06-24-2022 11:00-0400 Respiratory rate 12 /min Glen Ball Other [employer] Other 06-24-2022 11:00-0400 Systolic blood pressure 164 mm[Hg] Glen Ball Other [employer] Other 04-15-2022 10:30-0500 Body height 157.48 cm Glen Ball Other [employer] Other 04-15-2022 10:30-0500 Body mass index (BMI) [Ratio] 24.32 kg/m2 Glen Ball Other [employer] Other 04-15-2022 10:30-0500 Body weight 60.33 kg Glen Ball Other [employer] Other 04-15-2022 10:30-0500 Diastolic blood pressure 70 mm[Hg] Glen Ball Other [employer] Other 04-15-2022 10:30-0500 Respiratory rate 12 /min Glen Ball Other [employer] Other 04-15-2022 10:30-0500 Systolic blood pressure 132 mm[Hg] Glen Ball Other [employer] Other 03-07-2022 10:15-0500 Body height 157.48 cm Lul Cora Other [employer] Other 03-07-2022 10:15-0500 Body mass index (BMI) [Ratio] 24.32 kg/m2 Lul Cora Other [employer] Other 03-07-2022 10:15-0500 Body weight 60.33 kg Lul Cora Other [employer] Other 01-15-2022 10:03-0400 Body height 157.5 cm Yash Ayala MD Work Phone: [facility] 01-15-2022 10:03-0400 Body temperature 98.01 [degF] Yash Ayala MD Work Phone: [facility] 01-15-2022 10:03-0400 Body weight 60.51 kg Yash Ayala MD Work Phone: [facility] 01-15-2022 10:03-0400 Diastolic blood pressure 82 mm[Hg] Yash Ayala MD Work Phone: [facility] 01-15-2022 10:03-0400 Heart rate 68 /min Yash Ayala MD Work Phone: [facility] 01-15-2022 10:03-0400 Respiratory rate 16 /min Yash Ayala MD Work Phone: [facility] 01-15-2022 10:03-0400 SaO2% (BldA) [Mass fraction] 98 % Yash Ayala MD Work Phone: [facility] 01-15-2022 10:03-0400 Systolic blood pressure 168 mm[Hg] Yash Ayala MD Work Phone: [facility] 12-27-2021 17:20-0400 Diastolic blood pressure 70 mm[Hg] DO Glen Ball Work Phone: [facility] 12-27-2021 17:20-0400 Heart rate 70 /min DO Glen Ball Work Phone: [facility] 12-27-2021 17:20-0400 Respiratory rate 18 /min DO Glen Ball Work Phone: [facility] 12-27-2021 17:20-0400 SaO2% (BldA) [Mass fraction] 97 % DO Glen Ball Work Phone: [facility] 12-27-2021 17:20-0400 Systolic blood pressure 124 mm[Hg] DO Glen Ball Work Phone: [facility] 12-27-2021 13:03-0400 Body temperature 98.4 [degF] DO Glen Ball Work Phone: [facility] 12-27-2021 12:28-0400 Inhaled oxygen flow rate 8 L/min DO Glen Ball Work Phone: [facility] 12-27-2021 11:39-0400 Body height 157.48 cm DO Glen Ball Work Phone: [facility] 12-27-2021 11:39-0400 Body mass index (BMI) [Ratio] 23.4 kg/m2 DO Glen Ball Work Phone: [facility] 12-27-2021 11:39-0400 Body weight 58.1 kg DO Glen Ball Work Phone: [facility] 10-15-2021 13:42-0400 Body height 157.5 cm Sridhar Altman MD Work Phone: [facility] 10-15-2021 13:42-0400 Body temperature 97 [degF] Sridhar Altman MD Work Phone: [facility] 10-15-2021 13:42-0400 Body weight 59.97 kg Sridhar Altman MD Work Phone: [facility] 10-15-2021 13:42-0400 Diastolic blood pressure 72 mm[Hg] Sridhar Altman MD Work Phone: [facility] 10-15-2021 13:42-0400 Heart rate 68 /min Sridhar Altman MD Work Phone: [facility] 10-15-2021 13:42-0400 Respiratory rate 16 /min Sridhar Altman MD Work Phone: [facility] 10-15-2021 13:42-0400 SaO2% (BldA) [Mass fraction] 98 % Sridhar Altman MD Work Phone: [facility] 10-15-2021 13:42-0400 Systolic blood pressure 150 mm[Hg] Sridhar Altman MD Work Phone: [facility] 07-16-2021 13:39-0400 Body height 157.5 cm Sridhar Altman MD Work Phone: [facility] 07-16-2021 13:39-0400 Body temperature 97.59 [degF] Sridhar Altman MD Work Phone: [facility] 07-16-2021 13:39-0400 Body weight 56.43 kg Sridhar Altman MD Work Phone: [facility] 07-16-2021 13:39-0400 Diastolic blood pressure 90 mm[Hg] Sridhar Altman MD Work Phone: [facility] 07-16-2021 13:39-0400 Heart rate 76 /min Sridhar Altman MD Work Phone: [facility] 07-16-2021 13:39-0400 Respiratory rate 16 /min Sridhar Altman MD Work Phone: [facility] 07-16-2021 13:39-0400 SaO2% (BldA) [Mass fraction] 98 % Sridhar Altman MD Work Phone: [facility] 07-16-2021 13:39-0400 Systolic blood pressure 160 mm[Hg] Sridhar Altman MD Work Phone: [facility] Encounters Encounter Date Encounter Type Care Provider Facility Start: 10-17-2024 End: 10-17-2024 ambulatory Glen Perez DO Work Phone: [facility] Work Phone: Start: 10-17-2024 End: 10-17-2024 Patient encounter procedure Glen Perez DO -[facility] Work Phone: Start: 09-06-2024 End: 09-06-2024 ambulatory [facility] Work Phone: Start: 09-06-2024 End: 09-06-2024 Patient encounter procedure [facility] Work Phone: Start: 08-15-2024 End: 08-15-2024 Telephone encounter Dipti West Paula TITUS Work Phone: Hematology/Oncology Comment on above: Results Start: 08-12-2024 End: 08-12-2024 Office outpatient visit 15 minutes Dipti M Paula TITUS Work Phone: Hematology/Oncology Comment on above: 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); White coat syndrome with diagnosis of hypertension Start: 08-12-2024 Non-patient / Non-visit [facility] Work Phone: Start: 08-12-2024 End: 08-12-2024 ambulatory DIPTI MITCHELL Facility:[facility] Start: 07-29-2024 End: 07-29-2024 ambulatory [facility] Work Phone: Start: 07-29-2024 End: 07-29-2024 Patient encounter procedure [facility] Work Phone: Start: 07-27-2024 End: 07-27-2024 ambulatory [facility] Work Phone: Start: 07-27-2024 End: 07-27-2024 Patient encounter procedure [facility] Work Phone: Start: 06-28-2024 End: 06-28-2024 ambulatory [facility] Work Phone: Start: 06-28-2024 End: 06-28-2024 Patient encounter procedure [facility] Work Phone: Start: 05-27-2024 End: 05-27-2024 ambulatory [facility] Work Phone: Start: 05-27-2024 End: 05-27-2024 Patient encounter procedure [facility] Work Phone: Start: 05-09-2024 End: 05-09-2024 ambulatory [facility] Work Phone: Start: 05-09-2024 End: 05-09-2024 Patient encounter procedure [facility] Work Phone: Start: 04-22-2024 End: 04-22-2024 ambulatory [facility] Work Phone: Start: 04-22-2024 End: 04-22-2024 Patient encounter procedure [facility] Work Phone: Start: 04-05-2024 Non-patient / Non-visit [facility] Work Phone: Start: 03-31-2024 End: 03-31-2024 ambulatory [facility] Work Phone: Start: 03-31-2024 End: 03-31-2024 Patient encounter procedure [facility] Work Phone: Start: 03-25-2024 End: 03-25-2024 Patient encounter procedure [facility] Work Phone: Start: 03-21-2024 End: 03-21-2024 Patient encounter procedure [facility] Work Phone: Start: 02-15-2024 End: 02-15-2024 ambulatory [facility] Work Phone: Start: 02-15-2024 End: 02-15-2024 Patient encounter procedure [facility] Work Phone: Start: 02-08-2024 End: 02-08-2024 ambulatory DIPTI MITCHELL Facility:[facility] Start: 02-08-2024 End: 02-08-2024 Office outpatient visit 15 minutes Dipti Mitchell PA-C Work Phone: Hematology/Oncology Comment on above: 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); White coat syndrome with diagnosis of hypertension Start: 02-01-2024 End: 02-01-2024 ambulatory GLEN Herbert MONTEVIDEO Facility:[facility] Start: 02-01-2024 Non-patient / Non-visit [facility] Work Phone: Start: 01-12-2024 End: 01-12-2024 ambulatory [facility] Work Phone: Start: 01-12-2024 End: 01-12-2024 Patient encounter procedure [facility] Work Phone: Start: 12-24-2023 End: 12-24-2023 ambulatory [facility] Work Phone: Start: 12-24-2023 End: 12-24-2023 Patient encounter procedure [facility] Work Phone: Start: 12-10-2023 End: 12-10-2023 ambulatory [facility] Work Phone: Start: 12-10-2023 End: 12-10-2023 Patient encounter procedure [facility] Work Phone: Start: 12-07-2023 End: 12-07-2023 ambulatory [facility] Work Phone: Start: 12-07-2023 End: 12-07-2023 Patient encounter procedure [facility] Work Phone: Start: 11-06-2023 End: 11-06-2023 ambulatory [facility] Work Phone: Start: 11-06-2023 End: 11-06-2023 Patient encounter procedure [facility] Work Phone: Start: 09-30-2023 End: 09-30-2023 ambulatory [facility] Work Phone: Start: 09-30-2023 End: 09-30-2023 Patient encounter procedure [facility] Work Phone: Start: 09-28-2023 End: 09-28-2023 ambulatory Shane Hawkins MD Facility:[facility] Start: 09-21-2023 End: 09-21-2023 ambulatory [facility] Work Phone: Start: 09-21-2023 End: 09-21-2023 Patient encounter procedure [facility] Work Phone: Start: 08-25-2023 End: 08-25-2023 ambulatory [facility] Work Phone: Start: 08-25-2023 End: 08-25-2023 Patient encounter procedure 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); Type 2 diabetes mellitus with hyperglycemia, without long-term current use of insulin (HCC); Inflammatory arthritis; Reactive depression Start: 08-03-2023 Non-patient / Non-visit [facility] Work Phone: Start: 07-28-2023 End: 07-28-2023 ambulatory [facility] Work Phone: Start: 07-28-2023 End: 07-28-2023 Patient encounter procedure [facility] Work Phone: Start: 07-13-2023 End: 07-13-2023 ambulatory [facility] Work Phone: Start: 07-13-2023 End: 07-13-2023 Patient encounter procedure [facility] Work Phone: Start: 06-09-2023 End: 06-09-2023 Patient encounter procedure [facility] Work Phone: Start: 04-13-2023 End: 04-13-2023 ambulatory Glen Ball Other [employer] Other Start: 04-13-2023 Office outpatient vi sit 15 minutes Glen Ball [facility] Start: 04-01-2023 End: 04-01-2023 ambulatory Glen Ball Other [employer] Other Start: 04-01-2023 Telephone encounter Glen Ball [facility] Start: 03-16-2023 End: 03-16-2023 ambulatory Glen Ball Other [employer] Other Start: 03-16-2023 Office outpatient vi sit 15 minutes Glen Ball [facility] Start: 03-10-2023 End: 03-10-2023 ambulatory Glen Ball Other [employer] Other Start: 03-10-2023 Telephone encounter Glen Ball FP [facility] Start: 03-09-2023 End: 03-09-2023 ambulatory Glen Ball Other [employer] Other Start: 03-09-2023 Office outpatient vi sit 15 minutes Glen Ball [facility] Start: 03-03-2023 End: 03-03-2023 ambulatory Glen Ball Other [employer] Other Start: 03-03-2023 Nursing evaluation o f patient and report Glen Ball [facility] Start: 02-12-2023 End: 02-12-2023 ambulatory Glen Ball Other [employer] Other Start: 02-12-2023 Telephone encounter Glen Ball FP [facility] Start: 02-10-2023 End: 02-10-2023 ambulatory Glen Perez Other [employer] Other Start: 02-10-2023 Telephone encounter Glen LEE [facility] Start: 02-09-2023 End: 02-09-2023 ambulatory Glen Perez Other [employer] Other Start: 02-09-2023 Office outpatient vi sit 25 minutes Glen Perez [facility] Start: 02-03-2023 Telephone encounter Dipti West Milse bull PA-C Work Phone: Hematology/Oncology Comment on above: Results Start: 02-02-2023 End: 02-02-2023 ambulatory Dipti West Paula PA-C Work Phone: Hematology/Oncology Comment on above: 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); White coat syndrome with diagnosis of hypertension; Inflammatory arthritis; Reactive depression Start: 02-02-2023 End: 02-02-2023 Patient encounter procedure Dipti West Paula PA-C Work Phone: [facility] Start: 01-23-2023 End: 01-23-2023 ambulatory Glen Perez Other [employer] Other Start: 01-23-2023 Nursing evaluation o f patient and report Glen Perez [facility] Start: 01-05-2023 End: 01-05-2023 ambulatory Glen Perez Other [employer] Other Start: 01-05-2023 Telephone encounter Glen LEE [facility] Start: 12-16-2022 End: 12-16-2022 ambulatory Glen Perez Other [employer] Other Start: 12-16-2022 Nursing evaluation o f patient and report Glen Perez [facility] Start: 11-12-2022 End: 11-12-2022 ambulatory Glen Perez Other [employer] Other Start: 11-12-2022 Nursing evaluation o f patient and report Glen Perez [facility] Start: 10-24-2022 End: 10-24-2022 ambulatory Glen Perez Other [employer] Other Start: 10-24-2022 Telephone encounter Glen Perez FP [facility] Start: 09-17-2022 End: 09-17-2022 ambulatory Glen Perez Other [employer] Other Start: 09-17-2022 Patient encounter procedure Glen Perez [facility] Start: 09-01-2022 Nursing evaluation o f patient and report Glen Perez [facility] Start: 09-01-2022 Postop follow up vis it related to original px Lul Webster [facility] Start: 09-01-2022 End: 09-01-2022 ambulatory DO Glen Ball Work Phone: [employer] Other Start: 09-01-2022 End: 09-01-2022 Patient encounter procedure DO Glen Ball Work Phone: [facility] Start: 08-11-2022 (Post-Op) Post-Op Lul Webster [facility] Start: 08-11-2022 End: 08-11-2022 ambulatory DO Glen Ball Work Phone: [employer] Other Start: 08-11-2022 End: 08-11-2022 Patient encounter procedure DO Glen Ball Work Phone: [facility] Start: 07-30-2022 End: 07-30-2022 ambulatory Glen Ball Other [employer] Other Start: 07-30-2022 Office outpatient vi sit 15 minutes Glen Perez [facility] Start: 07-22-2022 End: 07-22-2022 ambulatory DO Glen Ball Work Phone: [facility] Work Phone: Start: 07-22-2022 End: 07-22-2022 Departed Referred DO Glen Ball Work Phone: [facility] [place] Start: 07-21-2022 End: 07-21-2022 Patient encounter procedure DO Glen Ball Work Phone: [facility] Work Phone: Start: 07-21-2022 End: 07-21-2022 ambulatory DO Glen Ball Work Phone: [employer] Other Start: 07-21-2022 Office outpatient vi sit 25 minutes Lul [facility] Start: 07-20-2022 End: 07-20-2022 ambulatory Glen Perez Other [employer] Other Start: 07-20-2022 Telephone encounter Glen LEE [facility] Start: 07-19-2022 End: 07-19-[address] GLEN PEREZ Facility: Start: 06-24-2022 End: 06-24-2022 ambulatory Glen Perez Other [employer] Other Start: 06-24-2022 Office outpatient vi sit 15 minutes Glen Perez [facility] Start: 06-17-2022 End: 06-17-[address] GLEN PEREZ [employer] Other Start: 06-17-2022 Telephone encounter Glen Perez FP [facility] Start: 06-09-2022 End: 06-09-2022 ambulatory Glen Perez Other [employer] Other Start: 06-09-2022 Office outpatient vi sit 15 minutes Glen Perez [facility] Start: 05-20-2022 End: 05-20-2022 ambulatory Glen Perez Other [employer] Other Start: 05-20-2022 Nursing evaluation o f patient and report Glen Perez [facility] Start: 04-15-2022 End: 04-15-2022 ambulatory Glen Perez Other [employer] Other Start: 04-15-2022 Office outpatient vi sit 25 minutes Glen Perez [facility] Start: 04-15-2022 Telephone encounter Glen Perez FP [facility] Start: 04-09-2022 End: 04-09-2022 ambulatory Glen Perez Other [employer] Other Start: 04-09-2022 Telephone encounter Glen Perez FP [facility] Start: 03-07-2022 Postop follow up vis it related to original px Lul Cora [facility] Start: 03-07-2022 End: 03-07-2022 ambulatory DO Glen Perez Work Phone: [employer] Other Start: 03-07-2022 End: 03-07-2022 Patient encounter procedure DO Glen Perez Work Phone: [facility] Start: 02-11-2022 End: 02-12-[address] GLEN PEREZ Facility:[facility] Start: 01-24-2022 Postop follow up vis it related to original px Lul Webster [facility] Start: 01-24-2022 End: 01-24-2022 ambulatory DO Glen Perez Work Phone: [facility] Work Phone: Start: 01-24-2022 End: 01-24-2022 Patient encounter procedure DO Glen Perez Work Phone: [facility] Start: 01-15-2022 End: 01-15-2022 ambulatory Yash Ayala MD Work Phone: Hematology/Oncology Comment on above: 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); Microcytic anemia Start: 01-15-2022 End: 01-15-2022 Patient encounter procedure Yash Ayala MD Work Phone: [facility] Start: 01-07-2022 End: 01-07-2022 ambulatory Lul Webster Other [employer] Other Start: 01-07-2022 Telephone encounter Lul [facility] Start: 01-06-2022 Telephone encounter Yash bazan MD Work Phone: Hematology/Oncology Comment on above: Lab Orders Start: 12-30-2021 End: 12-30-2021 ambulatory Lul Webster Other [employer] Other Start: 12-30-2021 Telephone encounter [facility] Start: 12-26-2021 End: 12-27-2021 ambulatory Glen Perez Facility:[facility] Start: 12-26-2021 End: 12-27-2021 Evaluation and management of inpatient DO Glen Perez Work Phone: [facility] Start: 12-26-2021 End: 12-26-[address] GLEN PEREZ Facility:[facility] Start: 11-27-2021 End: 11-28-[address] GLEN PEREZ Facility:[facility] Start: 11-25-2021 Adult health examination Glen Perez Other [employer] Other Start: 10-16-2021 Telephone encounter Sridhar Altman MD Work Phone: Hematology/Oncology Comment on above: Results Start: 10-15-2021 End: 10-15-2021 ambulatory Sridhar Altman MD Work Phone: Hematology/Oncology Comment on above: 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) Start: 10-15-2021 End: 10-15-2021 Patient encounter procedure Sridhar Altman MD Work Phone: [facility] Start: 10-09-2021 Telephone encounter Sridhar Altman MD Work Phone: Hematology/Oncology Comment on above: Lab Orders Start: 08-12-2021 End: 08-13-[address] GLEN PEREZ Facility:[facility] Start: 07-16-2021 End: 07-16-2021 ambulatory Sridhar Altman MD Work Phone: Hematology/Oncology Comment on above: Microcytic anemia (P rimary Dx); Inflammatory arthritis Start: 07-16-2021 End: 07-16-2021 Patient encounter procedure Sridhar Altman MD Work Phone: [facility] Start: 12-26-2020 End: 12-26-2020 Chart abstracting Sridhar Altman MD Work Phone: Hematology/Oncology Procedures Date Procedure Procedure Detail Performing Clinician Start: 09-01-2022 Plain X-ray of right shoulder DO Glen Ball Work Phone: Start: 08-11-2022 Plain X-ray of right shoulder DO Glen Ball Work Phone: Start: 07-21-2022 CT of right shoulder DO Glen Ball Work Phone: Start: 03-07-2022 Plain X-ray of right hip DO Glen Ball Work Phone: Start: 01-24-2022 Plain X-ray of right hip DO Glen Ball Work Phone: Start: 12-27-2021 Plain X-ray of right hip DO Glen Ball Work Phone: Start: 12-27-2021 Pelvis X-ray DO Benjami n Ball Work Phone: Start: 12-27-2021 Open reduction of fr acture of femur with internal fixation DO Glen Ball Work Phone: Start: 12-27-2021 Antibody screen Benjami n [facility] Comment on above: Result Comment: PERF ORMED BY: [facility] [address] [place] [address] PATHOLOGIST [employer] LIS CASTRO M.D. Start: 12-26-2021 End: 12-26-2021 Pelvis X-ray DO Glen Ball Work Phone: Start: 12-26-2021 Plain X-ray of right femur DO Glen Perez Work Phone: Start: 04-23-2021 Adult depression scr eening assessment Sridhar Altman MD Work Phone: Start: 03-12-2021 Cyclic citrullinated peptide antibody Comment on above: Performed By: #### R HF, HIV-4, CCP, URCA, HBSAG, HCV, VD25, TSHFX, ESRCRP, C3-C4, ENA6, ANAFXT, CBC/2A #### [facility] [address] [facility], [address] Start: 05-15-2016 Screening for malign ant neoplasm of colon Glen Perez Other Start: 12-22-2013 Screening mammography B enaric Perez Other Depression screening Tiffany Perez Other Screening for malign ant neoplasm of breast Glen Perez Other Plan of Treatment Date Care Activity Detail Author Start: 07-08-2029 End: 10-07-2029 CBC W Auto Differential panel - Blood COMPLETE BLOOD COUNT AND DIFFERENTIAL Lab Routine Anemia in other chronic diseases classified elsewhere White coat syndrome with diagnosis of hypertension Expected: 07/08/2029 (Approximate), Expires: 10/07/2029 [facility] Comment on above: Expected: 07/08/2029 (Approximate), Expires: 10/07/2029 Start: 07-08-2029 End: 10-07-2029 [place] (Vitamin B12) [Mass/volume] in Serum or Plasma VITAMIN B12 Lab Routine Anemia in other chronic diseases classified elsewhere White coat syndrome with diagnosis of hypertension Expected: 07/08/2029 (Approximate), Expires: 10/07/2029 [facility] Comment on above: Expected: 07/08/2029 (Approximate), Expires: 10/07/2029 Start: 07-08-2029 End: 10-07-2029 Comprehensive metabolic 2000 panel - Serum or Plasma COMPREHENSIVE METABOLIC PANEL Lab Routine Anemia in other chronic diseases classified elsewhere White coat syndrome with diagnosis of hypertension Expected: 07/08/2029 (Approximate), Expires: 10/07/2029 [facility] Work Phone: Comment on above: Expected: 07/08/2029 (Approximate), Expires: 10/07/2029 Start: 07-08-2029 End: 10-07-2029 Ferritin [Mass/volume] in Serum or Plasma FERRITIN Lab Routine Anemia in other chronic diseases classified elsewhere White coat syndrome with diagnosis of hypertension Expected: 07/08/2029 (Approximate), Expires: 10/07/2029 [facility] Comment on above: Expected: 07/08/2029 (Approximate), Expires: 10/07/2029 Start: 07-08-2029 End: 10-07-2029 Folate [Mass/volume] in Serum or Plasma FOLATE, SERUM Lab Routine Anemia in other chronic diseases classified elsewhere White coat syndrome with diagnosis of hypertension Expected: 07/08/2029 (Approximate), Expires: 10/07/2029 [facility] Comment on above: Expected: 07/08/2029 (Approximate), Expires: 10/07/2029 Start: 07-08-2029 End: 10-07-2029 Iron and Iron binding capacity panel - Serum or Plasma IRON AND TIBC Lab Routine Anemia in other chronic diseases classified elsewhere White coat syndrome with diagnosis of hypertension Expected: 07/08/2029 (Approximate), Expires: 10/07/2029 [facility] Comment on above: Expected: 07/08/2029 (Approximate), Expires: 10/07/2029 Start: 05-06-2028 Urine microalbumin profile DTaP,Tdap,Td Vaccine (4 - Tdap) [facility] Start: 02-02-2026 Diabetes Screening Diabetes Screenin g [facility] Start: 02-12-2025 End: 05-14-2025 CBC W Auto Differential panel - Blood COMPLETE BLOOD COUNT AND DIFFERENTIAL Lab Routine Anemia in other chronic diseases classified elsewhere Expected: 02/12/2025 (Approximate), Expires: 05/14/2025 [facility] Comment on above: Expected: 02/12/2025 (Approximate), Expires: 05/14/2025 Start: 02-12-2025 End: 05-14-2025 Cobalamin (Vitamin B12) [Mass/volume] in Serum or Plasma VITAMIN B12 Lab Routine Anemia in other chronic diseases classified elsewhere Expected: 02/12/2025 (Approximate), Expires: 05/14/2025 [facility] Comment on above: Expected: 02/12/2025 (Approximate), Expires: 05/14/2025 Start: 02-12-2025 End: 05-14-2025 Comprehensive metabolic 2000 panel - Serum or Plasma COMPREHENSIVE METABOLIC PANEL Lab Routine Anemia in other chronic diseases classified elsewhere Expected: 02/12/2025 (Approximate), Expires: 05/14/2025 [facility] Comment on above: Expected: 02/12/2025 (Approximate), Expires: 05/14/2025 Start: 02-12-2025 End: 05-14-2025 Ferritin [Mass/volume] in Serum or Plasma FERRITIN Lab Routine Anemia in other chronic diseases classified elsewhere Expected: 02/12/2025 (Approximate), Expires: 05/14/2025 [facility] Comment on above: Expected: 02/12/2025 (Approximate), Expires: 05/14/2025 Start: 02-12-2025 End: 05-14-2025 Folate [Mass/volume] in Serum or Plasma FOLATE, SERUM Lab Routine Anemia in other chronic diseases classified elsewhere Expected: 02/12/2025 (Approximate), Expires: 05/14/2025 [facility] Comment on above: Expected: 02/12/2025 (Approximate), Expires: 05/14/2025 Start: 02-12-2025 End: 05-14-2025 Iron and Iron binding capacity panel - Serum or Plasma IRON AND TIBC Lab Routine Anemia in other chronic diseases classified elsewhere Expected: 02/12/2025 (Approximate), Expires: 05/14/2025 [facility] Comment on above: Expected: 02/12/2025 (Approximate), Expires: 05/14/2025 Start: 01-15-2025 DIABETES SCREEN DIABETES SCREEN [facility] Start: 10-15-2024 DIABETES SCREEN DIABETES SCREEN [facility] Start: 08-12-2024 End: 11-11-2024 Cobalamin (Vitamin B12) [Mass/volume] in Serum or Plasma [facility] Comment on above: Expected: 08/12/2024 , Expires: 11/11/2024 Start: 08-12-2024 End: 11-11-2024 Ferritin [Mass/volume] in Serum or Plasma [facility] Comment on above: Expected: 08/12/2024 , Expires: 11/11/2024 Start: 08-12-2024 End: 11-11-2024 Folate [Mass/volume] in Serum or Plasma [facility] Comment on above: Expected: 08/12/2024 , Expires: 11/11/2024 Start: 08-12-2024 End: 11-11-2024 Iron and Iron binding capacity panel - Serum or Plasma [facility] Work Phone: Comment on above: Expected: 08/12/2024 , Expires: 11/11/2024 Start: 08-08-2024 End: 08-08-2024 Follow-up encounter 08/08/2024 10:30 AM EDT Visit (SP) Office Hematology/Oncology [address] [place] [address] Dipti Mitchell PA-C [address] [address] 6 month follow up Hematology/Oncology Comment on above: 6 month follow up Start: 08-01-2024 End: 08-01-2024 Patient encounter procedure 08/01/2024 10:15 AM EDT Office Visit [facility] [address] [place] [address] 6 month lab [facility] Comment on above: 6 month lab Start: 07-16-2024 DIABETES SCREEN DIABETES SCREEN [facility] Start: 06-12-2024 Covid-19 Vaccine () Covid-19 Vaccine () [facility] Start: 03-30-2024 Advance Directive Discussion Advance Directive Discussion [facility] Start: 02-08-2024 End: 02-08-2024 Follow-up encounter 02/08/2024 10:15 AM EST Visit (SP) Office Hematology/Oncology [address] [address] Yash Ayala MD [address] [address] 6 month follow up / Lab done a week prior Hematology/Oncology Comment on above: 6 month follow up / Lab done a week prior Start: 02-03-2024 End: 08-02-2024 CBC W Auto Differential panel - Blood COMPLETE BLOOD COUNT AND DIFFERENTIAL Lab Routine Type 2 diabetes mellitus with hyperglycemia, without long-term current use of insulin (HCC) Anemia in other chronic diseases classified elsewhere Inflammatory arthritis Reactive depression Expected: 02/03/2024 (Approximate), Expires: 08/02/2024 [facility] Work Phone: Comment on above: Expected: 02/03/2024 (Approximate), Expires: 08/02/2024 Start: 02-03-2024 End: 08-02-2024 Cobalamin (Vitamin B12) [Mass/volume] in Serum or Plasma VITAMIN B12 Lab Routine Type 2 diabetes mellitus with hyperglycemia, without long-term current use of insulin (HCC) Anemia in other chronic diseases classified elsewhere Inflammatory arthritis Reactive depression Expected: 02/03/2024 (Approximate), Expires: 08/02/2024 [facility] Comment on above: Expected: 02/03/2024 (Approximate), Expires: 08/02/2024 Start: 02-03-2024 End: 08-02-2024 Comprehensive metabolic 2000 panel - Serum or Plasma COMPREHENSIVE METABOLIC PANEL Lab Routine Type 2 diabetes mellitus with hyperglycemia, without long-term current use of insulin (HCC) Anemia in other chronic diseases classified elsewhere Inflammatory arthritis Reactive depression Expected: 02/03/2024 (Approximate), Expires: 08/02/2024 [facility] Comment on above: Expected: 02/03/2024 (Approximate), Expires: 08/02/2024 Start: 02-03-2024 End: 08-02-2024 Ferritin [Mass/volume] in Serum or Plasma FERRITIN Lab Routine Type 2 diabetes mellitus with hyperglycemia, without long-term current use of insulin (HCC) Anemia in other chronic diseases classified elsewhere Inflammatory arthritis Reactive depression Expected: 02/03/2024 (Approximate), Expires: 08/02/2024 [facility] Comment on above: Expected: 02/03/2024 (Approximate), Expires: 08/02/2024 Start: 02-03-2024 End: 08-02-2024 Folate [Mass/volume] in Serum or Plasma FOLATE, SERUM Lab Routine Type 2 diabetes mellitus with hyperglycemia, without long-term current use of insulin (HCC) Anemia in other chronic diseases classified elsewhere Inflammatory arthritis Reactive depression Expected: 02/03/2024 (Approximate), Expires: 08/02/2024 [facility] Comment on above: Expected: 02/03/2024 (Approximate), Expires: 08/02/2024 Start: 02-03-2024 End: 08-02-2024 Iron and Iron binding capacity panel - Serum or Plasma IRON AND TIBC Lab Routine Type 2 diabetes mellitus with hyperglycemia, without long-term current use of insulin (HCC) Anemia in other chronic diseases classified elsewhere Inflammatory arthritis Reactive depression Expected: 02/03/2024 (Approximate), Expires: 08/02/2024 [facility] Comment on above: Expected: 02/03/2024 (Approximate), Expires: 08/02/2024 Start: 02-01-2024 End: 02-01-2024 Patient encounter procedure 02/01/2024 10:15 AM EST Office Visit [facility] [address] [place] [address] [place] [address] 6 month lab prior to follow up [facility] Comment on above: 6 month lab prior to follow up Start: 01-19-2024 Shingrix Vaccine (3 of 3) Shingrix Vaccine (3 of 3) [facility] Start: 08-03-2023 End: 11-02-2023 CBC W Auto Differential panel - Blood CBC + DIFF Lab Routine Anemia in other chronic diseases classified elsewhere White coat syndrome with diagnosis of hypertension Inflammatory arthritis Expected: 08/03/2023 (Approximate), Expires: 11/02/2023 [facility] Work Phone: Comment on above: Expected: 08/03/2023 (Approximate), Expires: 11/02/2023 Start: 08-03-2023 End: 11-02-2023 Cobalamin (Vitamin B12) [Mass/volume] in Serum or Plasma VITAMIN B12 BLOOD Lab Routine Anemia in other chronic diseases classified elsewhere White coat syndrome with diagnosis of hypertension Inflammatory arthritis Expected: 08/03/2023 (Approximate), Expires: 11/02/2023 [facility] Work Phone: Comment on above: Expected: 08/03/2023 (Approximate), Expires: 11/02/2023 Start: 08-03-2023 End: 11-02-2023 Comprehensive metabolic 2000 panel - Serum or Plasma COMP METABOLIC PANEL Lab Routine Anemia in other chronic diseases classified elsewhere White coat syndrome with diagnosis of hypertension Inflammatory arthritis Expected: 08/03/2023 (Approximate), Expires: 11/02/2023 [facility] Work Phone: Comment on above: Expected: 08/03/2023 (Approximate), Expires: 11/02/2023 Start: 08-03-2023 End: 11-02-2023 Folate [Mass/volume] in Serum or Plasma FOLATE SERUM Lab Routine Anemia in other chronic diseases classified elsewhere White coat syndrome with diagnosis of hypertension Inflammatory arthritis Expected: 08/03/2023 (Approximate), Expires: 11/02/2023 [facility] Work Phone: Comment on above: Expected: 08/03/2023 (Approximate), Expires: 11/02/2023 Start: 08-03-2023 End: 11-02-2023 Iron and Iron binding capacity panel - Serum or Plasma IRON + TIBC Lab Routine Anemia in other chronic diseases classified elsewhere White coat syndrome with diagnosis of hypertension Inflammatory arthritis Expected: 08/03/2023 (Approximate), Expires: 11/02/2023 [facility] Work Phone: Comment on above: Expected: 08/03/2023 (Approximate), Expires: 11/02/2023 Start: 08-03-2023 End: 11-02-2023 RETIC COUNT RETIC COUNT Lab Routine Anemia in other chronic diseases classified elsewhere White coat syndrome with diagnosis of hypertension Inflammatory arthritis Expected: 08/03/2023 (Approximate), Expires: 11/02/2023 [facility] Work Phone: Comment on above: Expected: 08/03/2023 (Approximate), Expires: 11/02/2023 Start: 05-04-2023 Covid-19 Vaccine () Covid-19 Vaccine () [facility] Start: 03-30-2023 Advance Directive Discussion Advance Directive Discussion [facility] Start: 03-30-2023 Behavioral Health Screening Behavioral Health Screening [facility] Start: 07-22-2022 Prosthetic total arthroplasty of right shoulder OR Shoulder Arthroplasty-Total (Right) [facility] Start: 07-21-2022 [facility] Start: 07-16-2022 End: 01-15-2023 CBC W Auto Differential panel - Blood CBC + DIFF Lab Routine Anemia in other chronic diseases classified elsewhere Microcytic anemia Expected: 07/16/2022 (Approximate), Expires: 01/15/2023 [facility] Work Phone: Comment on above: Expected: 07/16/2022 (Approximate), Expires: 01/15/2023 Start: 07-16-2022 End: 01-15-2023 Cobalamin (Vitamin B12) [Mass/volume] in Serum or Plasma VITAMIN B12 BLOOD Lab Routine Anemia in other chronic diseases classified elsewhere Microcytic anemia Expected: 07/16/2022 (Approximate), Expires: 01/15/2023 [facility] Work Phone: Comment on above: Expected: 07/16/2022 (Approximate), Expires: 01/15/2023 Start: 07-16-2022 End: 01-15-2023 Comprehensive metabolic 2000 panel - Serum or Plasma COMP METABOLIC PANEL Lab Routine Anemia in other chronic diseases classified elsewhere Microcytic anemia Expected: 07/16/2022 (Approximate), Expires: 01/15/2023 [facility] Work Phone: Comment on above: Expected: 07/16/2022 (Approximate), Expires: 01/15/2023 Start: 07-16-2022 End: 01-15-2023 Ferritin [Mass/volume] in Serum or Plasma FERRITIN BLD Lab Routine Anemia in other chronic diseases classified elsewhere Microcytic anemia Expected: 07/16/2022 (Approximate), Expires: 01/15/2023 [facility] Work Phone: Comment on above: Expected: 07/16/2022 (Approximate), Expires: 01/15/2023 Start: 07-16-2022 End: 01-15-2023 Folate [Mass/volume] in Serum or Plasma FOLATE SERUM Lab Routine Anemia in other chronic diseases classified elsewhere Microcytic anemia Expected: 07/16/2022 (Approximate), Expires: 01/15/2023 [facility] Work Phone: Comment on above: Expected: 07/16/2022 (Approximate), Expires: 01/15/2023 Start: 07-16-2022 End: 01-15-2023 Iron and Iron binding capacity panel - Serum or Plasma IRON + TIBC Lab Routine Anemia in other chronic diseases classified elsewhere Microcytic anemia Expected: 07/16/2022 (Approximate), Expires: 01/15/2023 [facility] Work Phone: Comment on above: Expected: 07/16/2022 (Approximate), Expires: 01/15/2023 Start: 04-23-2022 Adult depression screening assessment DEPRESSION SCREENING [facility] Start: 03-30-2022 Advance Directive Discussion Advance Directive Discussion [facility] Start: 03-30-2022 Depression Assessment Depression Ass essment [facility] Start: 01-15-2022 End: 03-17-2022 C reactive protein [Mass/volume] in Serum or Plasma C-REACTIVE PROTEIN (CRP) Lab Routine Anemia in other chronic diseases classified elsewhere Expected: 01/15/2022, Expires: 03/17/2022 [facility] Work Phone: Comment on above: Expected: 01/15/2022 , Expires: 03/17/2022 Start: 01-15-2022 End: 03-17-2022 CBC W Auto Differential panel - Blood CBC + DIFF Lab Routine Anemia in other chronic diseases classified elsewhere Expected: 01/15/2022, Expires: 03/17/2022 [facility] Work Phone: Comment on above: Expected: 01/15/2022 , Expires: 03/17/2022 Start: 01-15-2022 End: 03-17-2022 Comprehensive metabolic 2000 panel - Serum or Plasma COMP METABOLIC PANEL Lab Routine Anemia in other chronic diseases classified elsewhere Expected: 01/15/2022, Expires: 03/17/2022 [facility] Work Phone: Comment on above: Expected: 01/15/2022 , Expires: 03/17/2022 Start: 01-15-2022 End: 03-17-2022 Ferritin [Mass/volume] in Serum or Plasma FERRITIN BLD Lab Routine Anemia in other chronic diseases classified elsewhere Expected: 01/15/2022, Expires: 03/17/2022 [facility] Work Phone: Comment on above: Expected: 01/15/2022 , Expires: 03/17/2022 Start: 01-15-2022 End: 03-17-2022 Haptoglobin [Mass/volume] in Serum or Plasma HAPTOGLOBIN BLD Lab Routine Anemia in other chronic diseases classified elsewhere Expected: 01/15/2022, Expires: 03/17/2022 [facility] Work Phone: Comment on above: Expected: 01/15/2022 , Expires: 03/17/2022 Start: 12-27-2021 [facility] Start: 12-26-2021 Hospital admission [facility] Start: 12-26-2021 Consultation [facility] Start: 12-26-2021 Reposition Right Upp er Femur with Internal Fixation Device, Percutaneous Approach Reposition Right Upper Femur with Internal Fixation Device, Percutaneous Approach [facility] Start: 11-28-2021 Influenza vaccination [facility] Start: 10-09-2021 End: 12-09-2021 C reactive protein [Mass/volume] in Serum or Plasma C-REACTIVE PROTEIN (CRP) Lab Routine Microcytic anemia Expected: 10/09/2021, Expires: 12/09/2021 [facility] Work Phone: Comment on above: Expected: 10/09/2021 , Expires: 12/09/2021 Start: 10-09-2021 End: 12-09-2021 CBC W Auto Differential panel - Blood CBC + DIFF Lab Routine Microcytic anemia Expected: 10/09/2021, Expires: 12/09/2021 [facility] Work Phone: Comment on above: Expected: 10/09/2021 , Expires: 12/09/2021 Start: 10-09-2021 End: 12-09-2021 Comprehensive metabolic 2000 panel - Serum or Plasma COMP METABOLIC PANEL Lab Routine Microcytic anemia Expected: 10/09/2021, Expires: 12/09/2021 [facility] Work Phone: Comment on above: Expected: 10/09/2021 , Expires: 12/09/2021 Start: 10-09-2021 End: 12-09-2021 Ferritin [Mass/volume] in Serum or Plasma FERRITIN BLD Lab Routine Microcytic anemia Expected: 10/09/2021, Expires: 12/09/2021 [facility] Work Phone: Comment on above: Expected: 10/09/2021 , Expires: 12/09/2021 Start: 10-09-2021 End: 12-09-2021 Haptoglobin [Mass/volume] in Serum or Plasma HAPTOGLOBIN BLD Lab Routine Microcytic anemia Expected: 10/09/2021, Expires: 12/09/2021 [facility] Work Phone: Comment on above: Expected: 10/09/2021 , Expires: 12/09/2021 Start: 10-09-2021 End: 12-09-2021 RETIC COUNT RETIC COUNT Lab Routine Microcytic anemia Expected: 10/09/2021, Expires: 12/09/2021 [facility] Work Phone: Comment on above: Expected: 10/09/2021 , Expires: 12/09/2021 Start: 08-28-2021 COVID-19 VACCINE (5 - Booster for Pfizer series) COVID-19 VACCINE (5 - Booster for Pfizer series) [facility] Start: 07-16-2021 End: 09-15-2021 C reactive protein [Mass/volume] in Serum or Plasma C-REACTIVE PROTEIN (CRP) Lab Routine Microcytic anemia Expected: 07/16/2021, Expires: 09/15/2021 [facility] Work Phone: Comment on above: Expected: 07/16/2021 , Expires: 09/15/2021 Start: 07-16-2021 End: 09-15-2021 CBC W Auto Differential panel - Blood CBC + DIFF Lab Routine Microcytic anemia Expected: 07/16/2021, Expires: 09/15/2021 [facility] Work Phone: Comment on above: Expected: 07/16/2021 , Expires: 09/15/2021 Start: 07-16-2021 End: 09-15-2021 Comprehensive metabolic 2000 panel - Serum or Plasma COMP METABOLIC PANEL Lab Routine Microcytic anemia Expected: 07/16/2021, Expires: 09/15/2021 [facility] Work Phone: Comment on above: Expected: 07/16/2021 , Expires: 09/15/2021 Start: 07-16-2021 End: 09-15-2021 HEMOGLOBIN EVALUATION CASCADE HEMOGLOBIN EVALUATION CASCADE Lab Routine Microcytic anemia Expected: 07/16/2021, Expires: 09/15/2021 [facility] Work Phone: Comment on above: Expected: 07/16/2021 , Expires: 09/15/2021 Start: 03-30-2021 ADVANCE DIRECTIVE DISCUSSION ADVANCE DIRECTIVE DISCUSSION [facility] Start: 03-30-2021 DEPRESSION ASSESSMENT DEPRESSION ASS ESSMENT [facility] Start: 11-28-2020 Influenza vaccination INFLUENZA (#1) [facility] Start: 2017 RSV Vaccine (1 - 1-d ose 75+ series) RSV Vaccine (1 - 1-dose 75+ series) [facility] Start: 04-10-2016 Shingrix Vaccine (2 of 3) Shingrix Vaccine (2 of 3) [facility] Start: 12-18-2007 ADVANCE DIRECTIVE DISCUSSION ADVANCE DIRECTIVE DISCUSSION [facility] Start: 12-18-2007 BONE DENSITY BONE DENSITY [facility] Start: 12-18-2007 Bone Density Screening Bone Density Screening [facility] Start: 12-18-2007 PNEUMOCOCCAL: 65+ (1 - PCV) PNEUMOCOCCAL: 65+ (1 - PCV) [facility] Start: 12-18-2007 PNEUMOVAX AGE 65 AND OVER WITH 5YR LOOKBACK (#1) PNEUMOVAX AGE 65 AND OVER WITH 5YR LOOKBACK (#1) [facility] Start: 12-18-2007 Screening for osteoporosis Bone Density Screening [facility] Start: 2002 RSV Vaccine (1 - 1-d ose 60+ series) RSV Vaccine (1 - 1-dose 60+ series) [facility] Start: 1992 SHINGRIX VACCINE (1 of 2) SHINGRIX VACCINE (1 of 2) [facility] Start: 12-18-1987 [facility] Start: 1961 Urine microalbumin profile DTAP,TDAP,TD (1 - Tdap) [facility] Start: 1960 Annual PCP Team Track Repairer Helper katty Disease Visit Annual PCP Team Chronic Disease Visit [facility] Start: 1960 Anxiety Screening Anxiety Screening [facility] Start: 1960 Depression Screening Depression Scre ening [facility] Start: 1960 Hepatitis B surface antibody level LDL Cholesterol [facility] Start: 1960 HEPATITIS C SCREENING HEPATITIS C SC REENING [facility] Start: 1954 Adult depression screening assessment DEPRESSION SCREENING [facility] Start: 1952 Diabetic foot examination Diabetic Foot Exam [facility] Start: 1952 Glaucoma screening Dilated Retinal E xam [facility] Start: 1952 Hepatitis B screening Urine Albumin:Creatinine Ratio [facility] Start: 12-18-1947 Hemoglobin A1c measurement HbA1C [facility] MG Breast - bilatera l Screening [facility] MR Brain WO contrast [facility] Patient Education Femur Fracture (DC) [facility] Work Phone: Patient referral [facility] Work Phone: XR Cervical spine 3 Views [facility] Immunizations Immunization Date Immunization Notes Care Provider Beni jenkins 01-05-2023 influenza, high dose seasonal, preservative-free Glen Perez Other [employer] Other 01-05-2023 influenza virus vaccine, unspecified formulation [facility] 12-09-2021 COVID-19 Pfizer (bivalent) Glen Perez Other [facility] 12-09-2021 influenza virus vaccine, unspecified formulation [facility] 12-09-2021 influenza, high dose seasonal, preservative-free Glen Perez Other [facility] [employer] Other 07-03-2021 COVID-19 Pfizer Glen diaz Other [facility] 07-03-2021 COVID-19 Vaccine Pfi zer - Documentation Purposes Only Glen Perez Other [facility] 12-27-2020 COVID-19 vaccine, ag e 12+ yr (PFIZER-BIONTECH - PURPLE TOP) Sridhar Altman MD Work Phone: [facility] 12-11-2020 influenza virus vaccine, split virus (incl. purified surface antigen) Glen Perez Other [facility] [employer] Other 12-11-2020 influenza virus vaccine, unspecified formulation [facility] 05-16-2020 COVID-19 vaccine, ag e 12+ yr (PFIZER-BIONTECH - PURPLE TOP) Sridhar Altman MD Work Phone: [facility] 04-23-2020 COVID-19 vaccine, ag e 12+ yr (PFIZER-BIONTECH - PURPLE TOP) Sridhar Altman MD Work Phone: [facility] 12-20-2019 influenza virus vaccine, split virus (incl. purified surface antigen) Glen Perez Other [facility] [employer] Other 12-20-2019 influenza virus vaccine, unspecified formulation [facility] 12-28-2018 influenza virus vaccine, split virus (incl. purified surface antigen) Glen Perez Other [facility] [employer] Other 12-28-2018 influenza virus vaccine, unspecified formulation [facility] 05-06-2018 diphtheria, tetanus toxoids and acellular pertussis vaccine, unspecified formulation Glen Perez Other [facility] 12-16-2017 influenza virus vaccine, split virus (incl. purified surface antigen) Glen Perez Other [facility] [employer] Other 12-16-2017 influenza virus vaccine, unspecified formulation [facility] 12-16-2017 Influenza, injectabl e, Madin Natalie Canine Kidney, quadrivalent with preservative Sridhar Altman MD Work Phone: [facility] 01-20-2017 influenza virus vaccine, split virus (incl. purified surface antigen) Glen Perez Other [facility] [employer] Other 01-20-2017 influenza virus vaccine, unspecified formulation [facility] 01-20-2017 influenza, high dose seasonal, preservative-free Sridhar Altman MD Work Phone: [facility] 02-14-2016 influenza virus vaccine, split virus (incl. purified surface antigen) Glen Perez Other [facility] [employer] Other 02-14-2016 influenza virus vaccine, unspecified formulation [facility] 02-14-2016 zoster vaccine, live Benjami yodit Perez Other [facility] 02-14-2016 pneumococcal conjuga te vaccine, 13 valent Glen Perez Other [facility] 01-02-2015 influenza virus vaccine, split virus (incl. purified surface antigen) Glen Perez Other [employer] Other 01-02-2015 influenza virus vaccine, unspecified formulation [facility] 12-22-2013 tetanus and diphther ia toxoids, adsorbed, preservative free, for adult use (5 Lf of tetanus toxoid and 2 Lf of diphtheria toxoid) Glen Perez Other [facility] 02-03-2013 diphtheria, tetanus toxoids and acellular pertussis vaccine, unspecified formulation Glen Perez Other [facility] 01-28-2013 influenza, seasonal, injectable Sridhar Altman MD Work Phone: [facility] 02-12-2011 pneumococcal polysaccharide vaccine, 23 valent Glen Perze Other [facility] Payers Date Payer Category Payer Medicare (Managed Care) [facility] MEDI CARE ADVANTAGE PPO [id number] 2021 Self-pay 2020 Medicare AETNA MEDICARE A ETNA MEDICARE PPO [id number] 2020-Present PPO [id number] 2020 Medicare AETNA MEDICARE A ETNA MEDICARE PPO [id number] 2020-Present [phone] [address] [place] [address] PPO [id number] 2020 Medicare [id number] 1959 Medicare [id number] 1959 Medicare [id number] 1959 Private Health Insurance [id number] 1942 Unknown [id number] 2.16.840.1.127600.3.579.2. 593 1942 Unknown [id number] 2.16.840.1.534680.3.579.2. 593 1942 Unknown [id number] 2.16.840.1.477818.3.579.2. 593 1942 Unknown [id number] 2.16.840.1.747797.3.579.2. 593 1942 Unknown [id number] 2.16.840.1.402793.3.579.2. 593 1942 Unknown [id number] 2.16.840.1.663748.3.579.2. 593 1942 Unknown [id number] 2.16.840.1.832657.3.579.2. 196 Private Health Insurance [id number] [id number] Unknown [id number] 2.16.840.1.829408.3.579.2. 531 Unknown [id number] 2.16.840.1.782439.3.579.2. 531 Unknown [id number] 2.16.840.1.086152.3.579.2. 531 Unknown [id number] 2.16.840.1.485442.3.579.2. 531 Unknown [id number] 2.16.840.1.797898.3.579.2. 531 Unknown [id number] 2.16.840.1.031320.3.579.2. 531 Unknown [id number] 2.16.840.1.025172.3.579.2. 531 Unknown [id number] 2.16.840.1.455017.3.579.2. 531 Social History Date Type Detail Facility Start: 12-26-2020 End: 07-21-2022 Tobacco smoking status NHIS Never smoker [facility] Start: 12-26-2020 Tobacco use and exposure Never used [facility] Start: 1940 Sex Assigned At Not on file [facility] Start: 07-06-2021 End: 01-15-2022 Exposure to SARS-CoV-2 (event) Not sure [facility] Start: 1940 Sex Assigned At Female F [facility] Start: 01-15-2022 End: 02-02-2023 Alcohol intake Lifetime non-drinker (finding) [facility] Start: 02-02-2023 End: 08-03-2023 Sex Assigned At [facility] Start: 02-02-2023 End: 08-03-2023 History of Social function [facility] Adult Depression Screening Assessment 0 [facility] Start: 02-15-2024 End: 09-06-2024 Sex Female (finding) [facility] Medical Equipment Procedure Code Equipment Code Equipment Origin al Text Equipment Identifier Dates Orthopaedic bone screw, non-bioabsorbable, non-sterile [id number] FDA Start: 12-27-2021 Orthopaedic bone screw, non-bioabsorbable, non-sterile ()[id number] FDA Start: 12-27-2021 Goals Date Patient Goal Desired Activity /State Functional Status Date Assessment Result Facility 12-27-2021 Functional status Patient is Pro gressing [facility]ard [facility] Work Phone: Mental Status Date Assessment Result Facility 12-27-2021 Cognitive function Cognitive Sta tus Patient at [facility] Work Phone: Clinical Notes 12-20-2019 to 08-15-2024 Telephone Encounter - Alejandro Candelario RN - 08/15/2024 9:42 AM EDTTelephone Encounter - Alejandro Candelario RN - 08/15/2024 9:42 AM EDTTelephone Encounter - Alejandro Candelario RN - 08/15/2024 8:31 AM EDT Note Date & Type Note Facility 08-15-2024 Telephone encounter Note Pt notified and will have Dr Perez follow. She will return, as needed. Alejandro Candelario RN [facility] 08-15-2024 Miscellaneous Notes Pt notified and will have Dr Perez follow. She will return, as needed. Alejandro Candelario RN No answer/no machine. Will try later Alejandro Candelario RN Please call and advise patient that her iron levels are low-normal. I would recommend repeating them in 3 months. She can do this with Dr. Perez or here. Dipti Mitchell PA-C documented in this encounter [facility] 08-15-2024 Telephone encounter Note No answer/no machine. Will try later Alejandro Candelario RN [facility] 08-15-2024 Telephone encounter Note Please call and advise patient that her iron levels are low-normal. I would recommend repeating them in 3 months. She can do this with Dr. Perez or here. Dipti Mitchell PA-C [facility] Work Phone: 08-12-2024 Note HNO ID: [id number] Author: DIPTI MITCHELL PA-C Service: ? Author Type: Physician [employer] Type: Progress Notes Filed: 08/12/2024 11:29 Note Text: NAME: Rain Lopez CLINIC NO.: [id number] DATE OF SERVICE: August 12, 2024 Some elements in this clinic note that are critical to medical decision making have been carefully reviewed and included from a prior clinic note dated: February 08, 2024 (Paula) Additional Clinicians involved in Rain Lopez's care: Glen Perez (PCP), Hira Sarah (rheum) DIAGNOSIS: Anemia of chronic inflammation ASSESSMENT: 83 year old with microcytic anemia, likely from chronic inflammation Findings remain consistent with anemia of chronic inflammation (normal ferritin, elevated CRP, history) that is secondary to some sort of inflammatory arthritis. She was not tolerating oral iron and this was discontinued in January 2024. Her hemoglobin remains stable at 11.0 today. Her iron studies are pending. If needed, we can give IV iron in the future. Her anemia has remained stable and is likely due to chronic inflammation. She can follow up with her PCP for her routine labs and if her anemia worsens, we are happy to see her back here at any time. White coat HTN - noted normal for her. Depression--she reports depression and anxiety related to the recent of her .She is undergoing counseling now with some improvement in her symptoms. B12 deficient--injection monthly at Dr. Perez's HPI: CASE HISTORY: Reverse Chronological Order 01/15/2022 - Hgb improved to 10.1 12/27/2021 - Tripped over a ceramic black cat and broke her right hip 09/2021 - Symptoms improved with diclofenac but hemoglobin remains low 12/28/2020 - Evaluated by Dr. Altman for anemia - labs showed hemoglobin 9, MCV 79, normal WBC and platelets, normal MPA, , low RPI, elevated haptoglobin and ESR suggesting anemia of chronic inflammation; saw rheumatology (Dr. Sarah) and is now on diclofenac 10/2020 - Hgb: 8.8 g/dL with MCV 78. Ferritin was elevated at 188, iron and TIBC were low. Stool negative for occult blood. Oral iron without any improvement. 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 Updated Visit, August 12, 2024: Rain returns with her son, Derrick today. She has been feeling well. She is now on lexapro which did cause some lightheadedness at first, but it is better now. Lexapro has helped her depression. She denies any significant fatigue, bleeding, shortness of breath, leg cramps or swelling. She overall is doing well. She did stop her oral iron 6 months ago as instructed as this was causing her GI upset. Updated Visit, February 08, 2024: Rain returns for follow up. Labs done 02/01/24 showed hgb 11.2, with normal folate, b12, and iron studies. She is now going to counseling r her mental health issues. Iron tablets upset her stomach and cause black stools. Updated Visit, August 03, 2023: Rain returns today for a follow up. She is not using any insulin. Hgb is 11.2 today. She is attending PT for arthritis, which is now affecting her neck. She has not received any mental health treatment, but her family does check up on her. Updated Visit, February 02, 2023: Rain returns for follow up. She's been doing well other than depression and anxiety since her 's . She has family support and has discussed it with her PCP with plans to talk to him about it again. Otherwise doing well. Arthritis is under control. No fatigue. No bleeding. Feels well overall. Updated Visit, July 16, 2022: in January, Had her hip fixed last year too. Also Hgb improved to 10.7 Has gained weight and is more active. Just got back from [place] - hurt her foot and had laryngitis. Now recovered although left foot still hurts However, Feels much better overall. Updated Visit, January 15, 2022: Transition of Care Rain Lopez presents to transition her care for anemia of chronic disease. recently fractured her hip while decorating for Halloween She has recovered very nicely Hgb has improved on iron supplementation a little bit. Prior Visit with Dr. Altman: October 15, 2021: Rain comes back for follow-up. Her , Jose, is sick from COPD. She has also been dealing with recent deaths in acquaintances and is overwhelmed. Overall, her arthritis is controlled with diclofenac. She takes th (more content not included)... [facility] 08-12-2024 History of Presen t illness Narrative NAME: Rain Lopez [facility] NO.: [id number] DATE OF SERVICE: August 12, 2024 Some elements in this clinic note that are critical to medical decision making have been carefully reviewed and included from a prior clinic note dated: February 08, 2024 (Paula) Additional Clinicians involved in Rain Lopez's care: Glen Perez (PCP), Hira Sarah (rheum) DIAGNOSIS: Anemia of chronic inflammation ASSESSMENT: 83 year old with microcytic anemia, likely from chronic inflammation Findings remain consistent with anemia of chronic inflammation (normal ferritin, elevated CRP, history) that is secondary to some sort of inflammatory arthritis. She was not tolerating oral iron and this was discontinued in January 2024. Her hemoglobin remains stable at 11.0 today. Her iron studies are pending. If needed, we can give IV iron in the future. Her anemia has remained stable and is likely due to chronic inflammation. She can follow up with her PCP for her routine labs and if her anemia worsens, we are happy to see her back here at any time. White coat HTN - noted normal for her. Depression--she reports depression and anxiety related to the recent of her .She is undergoing counseling now with some improvement in her symptoms. B12 deficient--injection monthly at Dr. Perez's HPI: CASE HISTORY: Reverse Chronological Order 01/15/2022 - Hgb improved to 10.1 12/27/2021 - Tripped over a ceramic black cat and broke her right hip 09/2021 - Symptoms improved with diclofenac but hemoglobin remains low 12/28/2020 - Evaluated by Dr. Altman for anemia - labs showed hemoglobin 9, MCV 79, normal WBC and platelets, normal MPA, , low RPI, elevated haptoglobin and ESR suggesting anemia of chronic inflammation; saw rheumatology (Dr. Pumerantz) and is now on diclofenac 10/2020 - Hgb: 8.8 g/dL with MCV 78. Ferritin was elevated at 188, iron and TIBC were low. Stool negative for occult blood. Oral iron without any improvement. 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 Updated Visit, August 12, 2024: Rain returns with her son, Derrick today. She has been feeling well. She is now on lexapro which did cause some lightheadedness at first, but it is better now. Lexapro has helped her depression. She denies any significant fatigue, bleeding, shortness of breath, leg cramps or swelling. She overall is doing well. She did stop her oral iron 6 months ago as instructed as this was causing her GI upset. Updated Visit, February 08, 2024: Rain returns for follow up. Labs done 02/01/24 showed hgb 11.2, with normal folate, b12, and iron studies. She is now going to counseling r her mental health issues. Iron tablets upset her stomach and cause black stools. Updated Visit, August 03, 2023: Rain returns today for a follow up. She is not using any insulin. Hgb is 11.2 today. She is attending PT for arthritis, which is now affecting her neck. She has not received any mental health treatment, but her family does check up on her. Updated Visit, February 02, 2023: Rain returns for follow up. She's been doing well other than depression and anxiety since her 's . She has family support and has discussed it with her PCP with plans to talk to him about it again. Otherwise doing well. Arthritis is under control. No fatigue. No bleeding. Feels well overall. Updated Visit, July 16, 2022: in January, Had her hip fixed last year too. Also Hgb improved to 10.7 Has gained weight and is more active. Just got back from [place] - hurt her foot and had laryngitis. Now recovered although left foot still hurts However, Feels much better overall. Updated Visit, January 15, 2022: Transition of Care Rain Lopez presents to transition her care for anemia of chronic disease. recently fractured her hip while decorating for Halloween She has recovered very nicely Hgb has improved on iron supplementation a little bit. Prior Visit with Dr. Altman: October 15, 2021: Rain comes back for follow-up. Her , Jose, is sick from COPD. She has also been dealing with recent deaths in acquaintances and is overwhelmed. Overall, her arthritis is controlled with diclofenac. She takes this every 3 days and trying to cut this down. No symptoms endorsed today. PAST MEDICAL SURGICAL FAMILY AND SOCIAL HISTORY: She has a history of -Type 2 diabetes mellitus -Hypertension -Hyperlipidemia -Gastroesophageal reflux -? Reactive arthritis versus polymyalgia rheumatica versus other autoimmune disease -Anemia of chronic inflammation Prior surgeries include cholecystectomy and screening colonoscopy. Family history significant for hip dysplasia in her daughter and bilateral hip arthritis in her son, who needed replacements in his 40s. No other autoimmune or hematological condition in the family. She denies any toxic habits. She lives with her , Jose in [place], [place]. REVIEW OF SYSTEMS Per HPI and otherwise negative by full review of organ systems. ECOG PERFORMANCE STATUS: 0 PHYSICAL EXAMINATION: Vitals: BP 191/76[recheck[ Pulse 60 Temp (Src) 97.4 (Temporal) Resp 16 Ht 5' 2.008 (1.58m) Wt 127 lb 10.3 oz (57.9kg) SpO2 99% BMI 23.34 kg/(m^2). Body surface area is 1.59 meters squared. General: Alert and oriented, no distress, pleasant and cooperative. Heart: Regular, normal S1 and S2, no murmurs, rubs, or gallops Lungs: Clear to auscultation bilaterally Abdomen: Benign Extremities: Feet/ankles without edema, posterior tibial pulses full and symmetrical ALLERGIES: ALLERGIES Allergen Reactions Bactrim [Sulfametho* Unknown MEDICATIONS: escitalopram oxalate (LEXAPRO) 5 mg tablet Take 1 tablet by mouth once daily. oxyCODONE IR (ROXICODONE) 5 mg immediate release tablet amLODIPine (NORVASC) 5 mg tablet atorvastatin (LIPITOR) 10 mg tablet diclofenac, EC, (VOLTAREN) 75 mg EC tablet Take 75 mg by mouth once daily. Takes it every other day. metFORMIN (GLUCOPHAGE) 1,000 mg tablet (Patient taking differently: Take 500 mg by mouth once daily.) metoprolol succinate ER (TOPROL XL) 100 mg Valsartan-hydroCHLOROthiazide 160-25 mg per tablet CHRIS ASPIRIN ORAL Take 81 mg by mouth once daily. LABORATORY VALUES: WBC (k/uL) Date Value 08/12/2024 6.93 RBC (m/uL) Date Value 08/12/2024 3.95 Hemoglobin (g/dL) Date Value 08/12/2024 11.0 (L) Hematocrit (%) Date Value 08/12/2024 33.4 (L) MCV (fL) Date Value 08/12/2024 84.6 MCH (pg) Date Value 08/12/2024 27.8 MCHC (g/dL) Date Value 08/12/2024 32.9 RDW-CV (%) Date Value 08/12/2024 14.4 Platelet Count (k/uL) Date Value 08/12/2024 245 MPV (fL) Date Value 08/12/2024 8.7 (L) Glucose (mg/dL) Date Value 02/01/2024 90 BUN (mg/dL) Date Value 02/01/2024 16 Creatinine (mg/dL) Date Value 02/01/2024 0.81 Sodium (mmol/L) Date Value 02/01/2024 138 Potassium (mmol/L) Date Value 02/01/2024 4.4 Chloride (mmol/L) Date Value 02/01/2024 101 CO2 (mmol/L) Date Value 02/01/2024 23 Protein, Total (g/dL) Date Value 02/01/2024 6.9 Albumin (g/dL) Date Value 02/01/2024 4.5 Calcium, Total (mg/dL) Date Value 02/01/2024 9.1 Alkaline Phosphatase (U/L) Date Value 02/01/2024 96 Bilirubin, Total (mg/dL) Date Value 02/01/2024 0.4 AST (U/L) Date Value 02/01/2024 15 ALT (U/L) Date Value 02/01/2024 11 DIAGNOSIS: (D63.8) Anemia in other chronic diseases classified elsewhere (primary encounter diagnosis) Plan: IRON AND TIBC, COMPREHENSIVE METABOLIC PANEL, COMPLETE BLOOD COUNT AND DIFFERENTIAL, FERRITIN, FOLATE, SERUM, VITAMIN B12 PAST MEDICAL HISTORY Diagnosis Date ALT (SGPT) level raised Bilateral impacted cerumen Essential hypertension SHREE (generalized anxiety disorder) GERD (gastroesophageal reflux disease) 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) Hyponatremia Iron deficiency anemia Lumbar spondylolysis Myalgia Type 2 diabetes mellitus (HCC) PAST SURGICAL HISTORY Procedure Laterality Date COLONOSCOPY EGD PAST SURGICAL HISTORY OF Right Hip fracture REMOVAL GALLBLADDER Social History Tobacco Use Smoking status: Never Smokeless tobacco: Never Vaping Use Vaping status: Never Used Substance Use Topics Alcohol use: Never Drug use: Never FAMILY HISTORY Problem Relation Age of Onset Stroke Mother other (CVA) Mother Heart disease Father I spent a total of 25 minutes on the date of the service which included preparing to see the patient, [id number] patient care, completing clinical documentation, performing a medically appropriate examination, counseling and educating the patient/family/caregiver, ordering medications, tests, or procedures, independently interpreting results (not separately reported), communicating results to the patient/family/caregiver, and care coordination (not separately reported). Dipti Mitchell PA-C Hematology and Oncology Services Provided at: [place], [place] CC: Glen Perez, [address] [facility] [address] [facility] documented in this encounter [facility] 07-27-2024 Evaluation note Diagnosis Onset Date Resolution Anemia acute July 27 2:02pm SHREE (generalized anxiety disorder) acute July 27, 2024 2:02pm Hypertension acute July 27, 2024 2:02pm Major depression acute July 272024 2:02pm Pernicious anemia acute June 302024 2:02pm Type 2 diabetes mellitus with hyperglycemia acute July 27, 2 025 2:02pm Anemia acute October 17 8:20am Cervical spondylosis acute October 17, 2024 8:20am SHREE (generalized anxiety disorder) acute October 17, 2024 8:20am Hypercholesterolemia acute October 17, 2024 8:20am Hypertension acute October 17, 2 025 8:20am Major depression acute September 8:20am MCI (mild cognitive impairment) acute October 17, 2024 8:20am Pernicious anemia acute October 172024 8:20am Screening mammogram for breast cancer acute October 17, 2024 8:20am Type 2 diabetes mellitus with hyperglycemia acute October 17 8:20am Medicare annual wellness visit, subsequent noneactive October 17 8:20am [facility] Work Phone: 1(188) 893-478704-01-2025 Evaluation note* Diagnosis Onset Date Resolution Status Admit Date Anemia acute June 28 8:20am Cervical spondylosis acute 2024 8:20am Hypercholesterolemia acute 2024 8:20am Hypertension acute June 28, 2 025 8:20am Major depression acute June 8:20am Pernicious anemia acute June 282024 8:20am Type 2 diabetes mellitus wit h hyperglycemia acute June 28, 2024 8:20am Anemia acute July 27 2:02pm SHREE (generalized anxiety disorder) a cute July 27, 2024 2:02pm Hypertension acute July 27, 2024 2:02pm Major depression acute July 272024 2:02pm Pernicious anemia acute June 302024 2:02pm Type 2 diabetes mellitus wit h hyperglycemia acute July 27, 2024 2:02pm [facility] Work Phone: 1(931) 865-125802-10-2025 Evaluation note* Diagnosis Onset Date Resolution Status Admit Date Adverse effect of metformin acute May 09, 2024 3:33pm SHREE (generalized anxiety disorder) a cute May 09, 2024 3:33pm Hypertension acute April 3:33pm Major depression acute May 09, 2024 3:33pm Recent change in frequency o f bowel movements acute May 09, 2 025 3:33pm Type 2 diabetes mellitus wit h hyperglycemia acute May 09, 2 025 3:33pm Anemia acute June 28 8:20am Cervical spondylosis acute 2024 8:20am Hypercholesterolemia acute 2024 8:20am Hypertension acute June 28, 2 025 8:20am Major depression acute June 8:20am Pernicious anemia acute June 282024 8:20am Type 2 diabetes mellitus wit h hyperglycemia acute June 28, 2024 8:20am Anemia acute July 27 2:02pm Hypertension acute July 27, 2024 2:02pm Major depression acute July 272024 2:02pm Pernicious anemia acute June 302024 2:02pm Type 2 diabetes mellitus wit h hyperglycemia acute July 27, 2024 2:02pm [facility] Work Phone: 1(174) 741-698902-10-2025 Evaluation note* Diagnosis Onset Date Resolution Status Admit Date Adverse effect of metformin acute May 09, 2024 3:33pm SHREE (generalized anxiety disorder) a cute May 09, 2024 3:33pm Hypertension acute April 3:33pm Major depression acute May 09, 2024 3:33pm Recent change in frequency o f bowel movements acute May 09 3:33pm Type 2 diabetes mellitus wit h hyperglycemia acute May 09 3:33pm Anemia acute June 28 8:20am Cervical spondylosis acute 2024 8:20am Hypercholesterolemia acute 2024 8:20am Hypertension acute June 28, 8:20am Major depression acute June 8:20am Pernicious anemia acute June 282024 8:20am Type 2 diabetes mellitus wit h hyperglycemia acute June 28, 2024 8:20am Anemia acute July 27 2:02pm SHREE (generalized anxiety disorder) a cute July 27, 2024 2:02pm Hypertension acute July 27, 2024 2:02pm Major depression acute July 272024 2:02pm Pernicious anemia acute June 302024 2:02pm Type 2 diabetes mellitus wit h hyperglycemia acute July 27, 2024 2:02pm [facility] Work Phone: 1(346) 395-398301-02-2025 Evaluation note* Diagnosis Onset Date Resolution Status Admit Date Adverse effect of metformin acute March 31, 2024 9:57am Abdominal pain deleted March 9:57am Change in bowel habits deleted Ja nu2024 9:57am Adverse effect of metformin acute May 09, 2024 3:33pm SHREE (generalized anxiety disorder) a cute May 09, 2024 3:33pm Hypertension acute April 3:33pm Major depression acute May 09, 2024 3:33pm Recent change in frequency o f bowel movements acute February 10th, 2 025 3:33pm Type 2 diabetes mellitus wit h hyperglycemia acute May 09 2 025 3:33pm Anemia acute June 28 8:20am Cervical spondylosis acute Apr2024 8:20am Hypercholesterolemia acute 2024 8:20am Hypertension acute June 28, 2 025 8:20am Major depression acute June 8:20am Pernicious anemia acute June 282024 8:20am Type 2 diabetes mellitus wit h hyperglycemia acute June 28, 2024 8:20am [facility] Work Phone: 1(395) 871-614212-27-2024 Evaluation note* Diagnosis Onset Date Resolution Status Admit Date Anemia acute March 25, 2024 8:19am Cervical spondylosis acute Dece 2023 8:19am Hypercholesterolemia acute Dece 2023 8:19am Hypertension acute February 8:19am Major depression acute March 25, 2024 8:19am Pernicious anemia acute Decee 2023 8:19am Type 2 diabetes mellitus wit h hyperglycemia acute March 25, 2 024 8:19am [facility] Work Phone: 1(855) 332-569212-27-2024 Evaluation note* Diagnosis Onset Date Resolution Status Admit Date Anemia acute March 25, 2024 8:19am Cervical spondylosis acute Dece 2023 8:19am Hypercholesterolemia acute Dece 2023 8:19am Hypertension acute February 8:19am Major depression acute March 25, 2024 8:19am Pernicious anemia acute Decee r 2023 8:19am Type 2 diabetes mellitus wit h hyperglycemia acute March 25, 2 024 8:19am Abdominal pain acute March 9:57am Adverse effect of metformin acute March 31, 2024 9:57am Change in bowel habits acute 2024 9:57am [facility] Work Phone: 1(900) 802-722912-27-2024 Evaluation note* Diagnosis Onset Date Resolution Status Admit Date Anemia acute March 25, 2024 8:19am Cervical spondylosis acute Dece 2023 8:19am Hypercholesterolemia acute Dece mber 2023 8:19am Hypertension acute February 8:19am Major depression acute March 25, 2024 8:19am Pernicious anemia acute Decembe r 2023 8:19am Type 2 diabetes mellitus wit h hyperglycemia acute March 25, 2 024 8:19am Adverse effect of metformin acute March 31, 2024 9:57am Abdominal pain deleted March 9:57am Change in bowel habits deleted Ja nuary 2024 9:57am Adverse effect of metformin acute May 09, 2024 3:33pm SHREE (generalized anxiety disorder) a cute May 09, 2024 3:33pm Hypertension acute April 3:33pm Major depression acute May 09, 2024 3:33pm Recent change in frequency o f bowel movements acute May 09, 025 3:33pm Type 2 diabetes mellitus wit h hyperglycemia acute May 09 025 3:33pm [facility] Work Phone: 1(994) 248-856911-11-2024 History of Present illness Narrative* Dipti Mitchell PA-C - 02/08/2024 11:00 AM EST Images from the original note were not included. NAME: Rain Lopez CLINIC NO.: [id number] DATE OF SERVICE: February 08, 2024 (Paula) Some elements in this clinic note that are critical to medical decision making have been carefully reviewed and included from a prior clinic note dated: August 02, 2022 (Lucy) Additional Clinicians involved in Rain Lopez's care: Glen Perez (PCP), Hira Sarah (rheum) DIAGNOSIS: Anemia of chronic inflammation ASSESSMENT: 83 year old with microcytic anemia, likely from chronic inflammation Findings remain consistent with anemia of chronic inflammation (normal ferritin, elevated CRP, history) that is secondary to some sort of inflammatory arthritis. Her anemia has resolved today and we will continue to monitor her labs again in 6 months. I have advised her to stop her oral iron tablet as it is upsetting her stomach. We will recheck her labs in 6months and if needed, can give IV iron instead. White coat HTN - noted normal for her. Depression--she reports depression and anxiety related to the recent of her .She is undergoing counseling now with some improvement in her symptoms. HPI: CASE HISTORY: Reverse Chronological Order 01/15/2022 - Hgb improved to 10.1 12/27/2021 - Tripped over a ceramic black cat and broke her right hip 09/2021 - Symptoms improved with diclofenac but hemoglobin remains low 12/28/2020 - Evaluated by Dr. Altman for anemia - labs showed hemoglobin 9, MCV 79, normal WBC and platelets, normal MPA, , low RPI, elevated haptoglobin and ESR suggesting anemia of chronic inflammation; saw rheumatology (Dr. Sarah) and is now on diclofenac 10/2020 - Hgb: 8.8 g/dL with MCV 78. Ferritin was elevated at 188, iron and TIBC were low. Stool negative for occult blood. Oral iron without any improvement. CRP elevated and anti-SMILEY antibodies arepositive (homogeneous; 1:80) 03/2020 - Experienced flulike symptoms; this was followed 4 to 6 weeks later with severe joint painand swelling in hands, ankles, knees and lower back, and associated difficulty elevating left shoulder; resolution of symptoms with diclofenac with reemergence of symptoms without diclofenac 12/20/2019 - EGD and Colonoscopy: Normal 2016 - Patient developed mild anemia approximately 11 g/dL without a change in appetite or weight loss. Updated Visit, February 08, 2024: Rain returns for follow up. Labs done 02/01/24 showed hgb 11.2, with normal folate, b12, and ironstudies. She is now going to counseling r her mental health issues. Iron tablets upset her stomach and cause black stools. Updated Visit, August 03, 2023: Rain returns today for a follow up. She is not using any insulin. Hgb is 11.2 today. She is attending PT for arthritis, which is now affecting her neck. She has not received any mental health treatment, but her family does check up on her. Updated Visit, February 02, 2023: Rain returns for follow up. She's been doing well other than depression and anxiety since her 's . She has family support and has discussed it with her PCP with plans to talk to him about it again. Otherwise doing well. Arthritis is under control. No fatigue. No bleeding. Feels well overall. Updated Visit, July 16, 2022: in January, Had her hip fixed last year too. Also Hgb improved to 10.7 Has gained weight and is more active. Just got back from [place] - hurt her foot and had laryngitis. Now recovered although left foot still hurts However, Feels much better overall. Updated Visit, January 15, 2022: Transition of Care Rain Lopez presents to transition her care for anemia of chronic disease. recently fractured her hip while decorating for Halloween She has recovered very nicely Hgb has improved on iron supplementation a little bit. Prior Visit with Dr. Altman: October 15, 2021: Rain comes back for follow-up. Her , Jose, is sick from COPD. She has also been dealing with recent deaths in acquaintances and is overwhelmed. Overall, her arthritis is controlled with diclofenac. She takes this every 3 days and trying to cut this down. No symptoms endorsed today. PAST MEDICAL SURGICAL FAMILY AND SOCIAL HISTORY: She has a history of -Type 2 diabetes mellitus -Hypertension -Hyperlipidemia -Gastroesophageal reflux -? Reactive arthritis versus polymyalgia rheumatica versus other autoimmune disease -Anemia of chronic inflammation Prior surgeries include cholecystectomy and screening colonoscopy. Family history significant for hip dysplasia in her daughter and bilateral hip arthritis in her son, who needed replacements in his 40s. No other autoimmune or hematological condition in the family. She denies any toxic habits. She lives with her , Jose in [place], [place]. REVIEW OF SYSTEMS Per HPI and otherwise negative by full review of organ systems. ECOG PERFORMANCE STATUS: 0 PHYSICAL EXAMINATION: Vitals: BP 197/110 Pulse 77 Temp (Src) 97.6 (Temporal) Resp 16 Ht 5' 2.008 (1.58m) Wt 136 lb 0.4 oz (61.7kg) SpO2 97% BMI 24.87 kg/(m^2). Body surface area is 1.64 meters squared. General: Alert and oriented, no distress, pleasant and cooperative. Heart: Regular, normal S1 and S2, no murmurs, rubs, or gallops Lungs: Clear to auscultation bilaterally Abdomen: Benign Extremities: Feet/ankles without edema, posterior tibial pulses full and symmetrical ALLERGIES: ALLERGIES Allergen Reactions Bactrim [Sulfametho* Unknown MEDICATIONS: oxyCODONE IR (ROXICODONE) 5 mg immediate release tablet amLODIPine (NORVASC) 5 mg tablet atorvastatin (LIPITOR) 10 mg tablet diclofenac, EC, (VOLTAREN) 75 mg EC tablet Take 75 mg by mouth once daily. Takes it every other day. metFORMIN (GLUCOPHAGE) 1,000 mg tablet FERREX 150 150 mg iron capsule TAKE 1 CAPSULE BY MOUTH EVERY OTHER DAY metoprolol succinate ER (TOPROL XL) 100 mg Valsartan-hydroCHLOROthiazide 160-25 mg per tablet cyanocobalamin (VITAMIN B-12) 100 mcg tab Take 100 mcg by mouth once daily. CHRIS ASPIRIN ORAL Take 81 mg by mouth once daily. LABORATORY VALUES: WBC (k/uL) Date Value 02/01/2024 6.07 RBC (m/uL) Date Value 02/01/2024 3.91 Hemoglobin (g/dL) Date Value 02/01/2024 11.2 (L) Hematocrit (%) Date Value 02/01/2024 33.9 (L) MCV (fL) Date Value 02/01/2024 86.7 MCH (pg) Date Value 02/01/2024 28.6 MCHC (g/dL) Date Value 02/01/2024 33.0 RDW-CV (%) Date Value 02/01/2024 14.6 Platelet Count (k/uL) Date Value 02/01/2024 213 MPV (fL) Date Value 02/01/2024 9.2 Glucose (mg/dL) Date Value 02/01/2024 90 BUN (mg/dL) Date Value 02/01/2024 16 Creatinine (mg/dL) Date Value 02/01/2024 0.81 Sodium (mmol/L) Date Value 02/01/2024 138 Potassium (mmol/L) Date Value 02/01/2024 4.4 Chloride (mmol/L) Date Value 02/01/2024 101 CO2 (mmol/L) Date Value 02/01/2024 23 Protein, Total (g/dL) Date Value 02/01/2024 6.9 Albumin (g/dL) Date Value 02/01/2024 4.5 Calcium, Total (mg/dL) Date Value 02/01/2024 9.1 Alkaline Phosphatase (U/L) Date Value 02/01/2024 96 Bilirubin, Total (mg/dL) Date Value 02/01/2024 0.4 AST (U/L) Date Value 02/01/2024 15 ALT (U/L) Date Value 02/01/2024 11 DIAGNOSIS: (D63.8) Anemia in other chronic diseases classified elsewhere (primary encounter diagnosis) Plan: COMPREHENSIVE METABOLIC PANEL, COMPLETE BLOOD COUNT AND DIFFERENTIAL, FERRITIN, VITAMIN B12, FOLATE, SERUM, IRON AND TIBC (I10) White coat syndrome with diagnosis of hypertension Plan: COMPREHENSIVE METABOLIC PANEL, COMPLETE BLOOD COUNT AND DIFFERENTIAL, FERRITIN, VITAMIN B12, FOLATE, SERUM, IRON AND TIBC PAST MEDICAL HISTORY Diagnosis Date ALT (SGPT) level raised Bilateral impacted cerumen Essential hypertension SHREE (generalized anxiety disorder) GERD (gastroesophageal reflux disease) 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) Hyponatremia Iron deficiency anemia Lumbar spondylolysis Myalgia Type 2 diabetes mellitus (HCC) PAST SURGICAL HISTORY Procedure Laterality Date COLONOSCOPY EGD PAST SURGICAL HISTORY OF Right Hip fracture REMOVAL GALLBLADDER Social History Tobacco Use Smoking status: Never Smokeless tobacco: Never Vaping Use Vaping status: Never Used Substance Use Topics Alcohol use: Never Drug use: Never FAMILY HISTORY Problem Relation Age of Onset Stroke Mother other (CVA) Mother Heart disease Father I spent a total of 20 minutes on the date of the service which included preparing to see the patient, [id number] patient care, completing clinical documentation, performing a medically appropriate examination, counseling and educating the patient/family/caregiver, ordering medications, tests, or p rocedures, independently interpreting results (not separately reported), communicating results to the patient/family/caregiver, and care coordination (not separately reported). Dipti Mitchell PA-C Hematology and Oncology Services Provided at: [place], [place] CC: Glen Perez, DO [address] [facility] [address] [facility] documented in this encounterF[facility]11-[facility]24 NoteHNO ID: [id number] Author: DIPTI MITCHELL PA-C Service: ? Author Type: Physician Industrial Maintenance Tech Type: Progress Notes Filed: 02/08/2024 11:31 Note Text: NAME: Rain Lopez CLINIC NO.: [id number] DATE OF SERVICE: February 08, 2024 (Paula) Some elements in this clinic note that are critical to medical decision making have been carefully reviewed and included from a prior clinic note dated: August 02, 2022 (Lucy) Additional Clinicians involved in Rain Lopez's care: Glen Perez (PCP), Hira Sarah (rheum) DIAGNOSIS: Anemia of chronic inflammation ASSESSMENT: 83 year old with microcytic anemia, likely from chronic inflammation Findings remain consistent with anemia of chronic inflammation (normal ferritin, elevated CRP, history) that is secondary to some sort of inflammatory arthritis. Her anemia has resolved today and we will continue to monitor her labs again in 6 months. I have advised her to stop her oral iron tablet as it is upsetting her stomach. We will recheck her labs in 6 months and if needed, can give IV iron instead. White coat HTN - noted normal for her. Depression--she reports depression and anxiety related to the recent of her .She is undergoing counseling now with some improvement in her symptoms. HPI: CASE HISTORY: Reverse Chronological Order 01/15/2022 - Hgb improved to 10.1 12/27/2021 - Tripped over a ceramic black cat and broke her right hip 09/2021 - Symptoms improved with diclofenac but hemoglobin remains low 12/28/2020 - Evaluated by Dr. Altman for anemia - labs showed hemoglobin 9, MCV 79, normal WBC and platelets, normal MPA, , low RPI, elevated haptoglobin and ESR suggesting anemia of chronic inflammation; saw rheumatology (Dr. Sarah) and is now on diclofenac 10/2020 - Hgb: 8.8 g/dL with MCV 78. Ferritin was elevated at 188, iron and TIBC were low. Stool negative for occult blood. Oral iron without any improvement. 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 Updated Visit, February 08, 2024: Rain returns for follow up. Labs done 02/01/24 showed hgb 11.2, with normal folate, b12, and iron studies. She is now going to counseling r her mental health issues. Iron tablets upset her stomach and cause black stools. Updated Visit, August 03, 2023: Rain returns today for a follow up. She is not using any insulin. Hgb is 11.2 today. She is attending PT for arthritis, which is now affecting her neck. She has not received any mental health treatment, but her family does check up on her. Updated Visit, February 02, 2023: Rain returns for follow up. She's been doing well other than depression and anxiety since her 's . She has family support and has discussed it with her PCP with plans to talk to him about it again. Otherwise doing well. Arthritis is under control. No fatigue. No bleeding. Feels well overall. Updated Visit, July 16, 2022: in January, Had her hip fixed last year too. Also Hgb improved to 10.7 Has gained weight and is more active. Just got back from [place] - hurt her foot and had laryngitis. Now recovered although left foot still hurts However, Feels much better overall. Updated Visit, January 15, 2022: Transition of Care Rain Lopez presents to transition her care for anemia of chronic disease. recently fractured her hip while decorating for Halloween She has recovered very nicely Hgb has improved on iron supplementation a little bit. Prior Visit with Dr. Altman: October 15, 2021: Rain comes back for follow-up. Her , Jose, is sick from COPD. She has also been dealing with recent deaths in acquaintances and is overwhelmed. Overall, her arthritis is controlled with diclofenac. She takes this every 3 days and trying to cut this down. No symptoms endorsed today. PAST MEDICAL SURGICAL FAMILY AND SOCIAL HISTORY: She has a history of -Type 2 diabetes mellitus -Hypertension -Hyperlipidemia -Gastroesophageal reflux -? Reactive arthritis versus polymyalgia rheumatica versus other autoimmune disease -Anemia of chronic inflammation Prior surgeries include cholecystectomy and screening colonoscopy. Family history significant for hip dysplasia in her daughter and bilateral hip arthritis in her son, who needed replacements in his 40s. No other autoimmune or hematological condition in the family. S (more content not included)... [facility]09-12-2024 Evaluation note* Diagnosis Onset Date Resolution Status Admit Date Dyspepsia acute November 8:20am SHREE (generalized anxiety disorder) a cute December 10, 2023 8:20am Strain of lumbar paraspinal muscle a cute December 10, 2023 8:20am Cervical spondylosis acute Nov 8:43am SHREE (generalized anxiety disorder) a cute December 24, 2023 8:43am Hypercholesterolemia acute Nov 8:43am Hypertension acute December 232023 8:43am Major depression acute Novemb2023 8:43am Type 2 diabetes mellitus wit h hyperglycemia acute December 24, 2023 8:43am [facility] Work Phone: 1(234) 478-544005-08-2024 Telephone encounter Note* Telephone Encounter - Alejandro Candelario RN - 08/05/2023 8:46 AM EDT VM left with stable labs/ no needs at this time. Appointment let for January, as previously scheduled. Alejandro Candelario RN [facility]05-08-2024 Miscellaneous Notes* Telephone Encounter - Alejandro Candelario RN - 08/05/2023 8:46 AM EDT VM left with stable labs/ no needs at this time. Appointment let for January, as previously scheduled. Alejandro Candelario RN * Telephone Encounter - Solange Moralez - 08/03/2023 10:47 AM EDT Please call Rain with her lab results from today 08-03-23. documented in this encounterF[facility]05-06-2024 Telephone encounter Note * Telephone Encounter - Pb Solange Ernst - 08/03/2023 10:47 AM EDT Please call Rain with her lab results from today 08-03-23. [facility]05-06-2024 Instructions* Patient Instructions* Nerissa Moran - 08/03/2023 10:38 AM EDT Triage to call remaining lab results Repeat labs in 6 months RTC 1 week after documented in this encounterFulton [facility]05-06-2024 History of Present illness Narrative* Yash Ayala MD - 08/03/2023 10:15 AM EDT Images from the original note were not included. NAME: Rain Lopez CLINIC NO.: [id number] DATE OF SERVICE: August 03, 2023 (Lucy) Some elements in this clinic note that are critical to medical decision making have been carefully reviewed and included from a prior clinic note dated: February 02, 2023 (Paula) Additional Clinicians involved in Rain Lopez's care: Glen Perez (PCP), Hira Sarah (rheum) DIAGNOSIS: Anemia of chronic inflammation ASSESSMENT: 82 year old with microcytic anemia, likely from chronic inflammation Findings remain consistent with anemia of chronic inflammation (normal ferritin, elevated CRP, history) that is secondary to some sort of inflammatory arthritis. Her anemia has resolved today and we will continue to monitor her labs again in 6 months. White coat HTN - noted normal for her. Depression--she reports depression and anxiety related to the recent of her . Emotional support given. Offered referral for counseling, but she declined. She will discuss with PCP at next visit. May benefit from medication PLAN: Triage to call remaining lab results Repeat labs in 6 months RTC 1 week after HPI: CASE HISTORY: Reverse Chronological Order 01/15/2022 - Hgb improved to 10.1 12/27/2021 - Tripped over a ceramic black cat and broke her right hip 09/2021 - Symptoms improved with diclofenac but hemoglobin remains low 12/28/2020 - Evaluated by Dr. Altman for anemia - labs showed hemoglobin 9, MCV 79, normal WBC and platelets, normal MPA, , low RPI, elevated haptoglobin and ESR suggesting anemia of chronic inflammation; saw rheumatology (Dr. Sarah) and is now on diclofenac 10/2020 - Hgb: 8.8 g/dL with MCV 78. Ferritin was elevated at 188, iron and TIBC were low. Stool negative for occult blood. Oral iron without any improvement. CRP elevated and anti-SMILEY antibodies arepositive (homogeneous; 1:80) 03/2020 - Experienced flulike symptoms; this was followed 4 to 6 weeks later with severe joint painand swelling in hands, ankles, knees and lower back, and associated difficulty elevating left shoulder; resolution of symptoms with diclofenac with reemergence of symptoms without diclofenac 12/20/2019 - EGD and Colonoscopy: Normal 2016 - Patient developed mild anemia approximately 11 g/dL without a change in appetite or weight loss. Updated Visit, August 03, 2023: Rain returns today for a follow up. She is not using any insulin. Hgb is 11.2 today. She is attending PT for arthritis, which is now affecting her neck. She has not received any mental health treatment, but her family does check up on her. Updated Visit, February 02, 2023: Rain returns for follow up. She's been doing well other than depression and anxiety since her 's . She has family support and has discussed it with her PCP with plans to talk to him about it again. Otherwise doing well. Arthritis is under control. No fatigue. No bleeding. Feels well overall. Updated Visit, July 16, 2022: in January, Had her hip fixed last year too. Also Hgb improved to 10.7 Has gained weight and is more active. Just got back from [place] - hurt her foot and had laryngitis. Now recovered although left foot still hurts However, Feels much better overall. Updated Visit, January 15, 2022: Transition of Care Rain Lopez presents to transition her care for anemia of chronic disease. recently fractured her hip while decorating for Halloween She has recovered very nicely Hgb has improved on iron supplementation a little bit. Prior Visit with Dr. Altman: October 15, 2021: Rain comes back for follow-up. Her , Jose, is sick from COPD. She has also been dealing with recent deaths in acquaintances and is overwhelmed. Overall, her arthritis is controlled with diclofenac. She takes this every 3 days and trying to cut this down. No symptoms endorsed today. PAST MEDICAL SURGICAL FAMILY AND SOCIAL HISTORY: She has a history of -Type 2 diabetes mellitus -Hypertension -Hyperlipidemia -Gastroesophageal reflux -? Reactive arthritis versus polymyalgia rheumatica versus other autoimmune disease -Anemia of chronic inflammation Prior surgeries include cholecystectomy and screening colonoscopy. Family history significant for hip dysplasia in her daughter and bilateral hip arthritis in her son, who needed replacements in his 40s. No other autoimmune or hematological condition in the family. She denies any toxic habits. She lives with her , Jose in [place], [place]. REVIEW OF SYSTEMS Per HPI and otherwise negative by full review of organ systems. ECOG PERFORMANCE STATUS: 0 PHYSICAL EXAMINATION: Vitals: BP 183/81 Pulse 68 Temp (Src) 97.6 (Temporal) Resp 16 Wt 139 lb 1.8 oz (63.1kg) SpO2 98% Body surface area is 1.66 meters squared. Exam limited to gross visualization where appropriate. Gen.: This is an age-appropriate patient in no acute distress. Head: Appears atraumatic with no visible lesions. Eyes: Pupils equally round and reactive to light, extraocular muscles are intact. Neck: Supple. Respiratory: Appears to be respiring comfortably. Neurologic: Nonfocal to gross visualization. Alert and oriented 3. Psychiatric: No evidence of inappropriate anxiety or depression. Skin: Visible areas of skin without rash, lesions, wounds or petechiae. ALLERGIES: ALLERGIES Allergen Reactions Bactrim [Sulfametho* Unknown MEDICATIONS: oxyCODONE IR (ROXICODONE) 5 mg immediate release tablet amLODIPine (NORVASC) 5 mg tablet atorvastatin (LIPITOR) 10 mg tablet diclofenac, EC, (VOLTAREN) 75 mg EC tablet Take 75 mg by mouth once daily. Takes it every other day. metFORMIN (GLUCOPHAGE) 1,000 mg tablet FERREX 150 150 mg iron capsule TAKE 1 CAPSULE BY MOUTH EVERY OTHER DAY metoprolol succinate ER (TOPROL XL) 100 mg Valsartan-hydroCHLOROthiazide 160-25 mg per tablet cyanocobalamin (VITAMIN B-12) 100 mcg tab Take 100 mcg by mouth once daily. CHRIS ASPIRIN ORAL Take 81 mg by mouth once daily. LABORATORY VALUES: WBC (k/uL) Date Value 08/03/2023 7.39 RBC (m/uL) Date Value 08/03/2023 4.05 Hemoglobin (g/dL) Date Value 08/03/2023 11.2 (L) Hematocrit (%) Date Value 08/03/2023 35.0 (L) MCV (fL) Date Value 08/03/2023 86.4 MCH (pg) Date Value 08/03/2023 27.7 MCHC (g/dL) Date Value 08/03/2023 32.0 RDW-CV (%) Date Value 08/03/2023 14.9 Platelet Count (k/uL) Date Value 08/03/2023 241 MPV (fL) Date Value 08/03/2023 9.3 Glucose (mg/dL) Date Value 08/03/2023 122 (H) BUN (mg/dL) Date Value 08/03/2023 13 Creatinine (mg/dL) Date Value 08/03/2023 0.73 Sodium (mmol/L) Date Value 08/03/2023 141 Potassium (mmol/L) Date Value 08/03/2023 4.3 Chloride (mmol/L) Date Value 08/03/2023 104 CO2 (mmol/L) Date Value 08/03/2023 24 Protein, Total (g/dL) Date Value 08/03/2023 7.0 Albumin (g/dL) Date Value 08/03/2023 4.5 Calcium, Total (mg/dL) Date Value 08/03/2023 9.3 Alkaline Phosphatase (U/L) Date Value 08/03/2023 103 Bilirubin, Total (mg/dL) Date Value 08/03/2023 0.3 AST (U/L) Date Value 08/03/2023 12 (L) ALT (U/L) Date Value 08/03/2023 10 DIAGNOSIS: (D63.8) Anemia in other chronic diseases classified elsewhere (primary encounter diagnosis) Plan: COMPLETE BLOOD COUNT AND DIFFERENTIAL, COMPREHENSIVE METABOLIC PANEL, IRON AND TIBC, FERRITIN, VITAMIN B12, FOLATE, SERUM (E11.65) Type 2 diabetes mellitus with hyperglycemia, without long-term current use of insulin (HCC) Plan: COMPLETE BLOOD COUNT AND DIFFERENTIAL, COMPREHENSIVE METABOLIC PANEL, IRON AND TIBC, FERRITIN, VITAMIN B12, FOLATE, SERUM (M19.90) Inflammatory arthritis Plan: COMPLETE BLOOD COUNT AND DIFFERENTIAL, COMPREHENSIVE METABOLIC PANEL, IRON AND TIBC, FERRITIN, VITAMIN B12, FOLATE, SERUM (F32.9) Reactive depression Plan: COMPLETE BLOOD COUNT AND DIFFERENTIAL, COMPREHENSIVE METABOLIC PANEL, IRON AND TIBC, FERRITIN, VITAMIN B12, FOLATE, SERUM PAST MEDICAL HISTORY Diagnosis Date ALT (SGPT) level raised Bilateral impacted cerumen Essential hypertension SHREE (generalized anxiety disorder) GERD (gastroesophageal reflux disease) 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) Hyponatremia Iron deficiency anemia Lumbar spondylolysis Myalgia Type 2 diabetes mellitus (HCC) PAST SURGICAL HISTORY Procedure Laterality Date COLONOSCOPY EGD PAST SURGICAL HISTORY OF Right Hip fracture REMOVAL GALLBLADDER Social History Tobacco Use Smoking status: Never Smokeless tobacco: Never Vaping Use Vaping Use: Never used Substance Use Topics Alcohol use: Never Drug use: Never FAMILY HISTORY Problem Relation Age of Onset Stroke Mother other (CVA) Mother Heart disease Father I spent a total of 30 minutes on the date of the service which included preparing to see the patient, [id number] patient care, completing clinical documentation, performing a medically appropriate examination, counseling and educating the patient/family/caregiver, ordering medications, tests, or p rocedures, independently interpreting results (not separately reported), communicating results to the patient/family/caregiver, and care coordination (not separately reported). Yash Ayala MD, CPE [facility]ology [facility] On[facility] Services Provided at: [place], [place] Scribe Attestation: This note was scribed by Nerissa Moran on August 03, 2023 under the direction and supervision of Dr. Yash Ayala. I attest that all of the information documented is correct to the best of my knowledge. Provider Attestation: I, Yash Ayala MD, attest that all information documented by the above scribe is correct, and was supervised by me and under my direction. CC: Glen Perez, DO [address] [facility] [place] [facility] [id number] Hira Sarah, [facility] documented [facility] Nurse Note* Jessica Flores MA - 08/03/2023 10:14 AM EDT Patient has Neck pain that she is seeing physical therapy today. Jessica Aguirre MA [facility]05-06-[facility] Nurse Note* Jessica Guerrero MA - 08/03/2023 10:14 AM EDT Patient has Neck pain that she is seeing physical therapy today. Jessica Aguirre MA documented in this encounterF[facility]01-15-[facility]24 Evaluation note* Encounter Date Diagnosis Assessment Notes Treatment Notes Treatment Clinical Notes Mar, Strain of neck muscle, subsequent encounter (ICD-10 - S16.1XXD) ROM exercises, heat/ice and Tylenol. Diclofenac as needed. Mar, Tendinitis of left rotator cuff (ICD-10 - M75.82) ROM exercises, heat/ice and Tylenol. Diclofenac as needed. Lidocaine as needed. Since full ROM and intermittent pain, don't feel therapy or XR imaging necessary. Notify office w/ increased pain Mar, Primary hypertension (ICD-10 - I10) This patient is instructed to consume a healthy, low-fat, low-salt diet. They are also encouraged to continue exercise to achieve/maintain a normal BMI. Patient is instructed on home BP measurements: - rest for 5 minutes w/o talking.- positioned w/ feet on floor and arm supported.- average best 2/3 readings w/ goal < 135/85.- update office w/ home readings in 2 weeks. [facility] Other 12-18-2023 Evaluation note* Encounter Date Diagnosis Assessment Notes Treatment Notes Treatment Clinical Notes Feb, Strain of neck muscle, subsequent encounter (ICD-10 - S16.1XXD) ROM exercises, NSAIDs and Lidocaine. Heat as needed No improvement: PT Feb, Primary hypertension (ICD-10 - I10) This patient is instructed to consume a healthy, low-fat, low-salt diet. They are also encouraged to continue exercise to achieve/maintain a normal BMI. No change in treatment Feb, Type 2 diabetes mellitus with hyperglycemia, without long-term current use of insulin (ICD-10 - E11.65) This patient is following a comprehensive diabetic treatment plan. They are checking their feet daily for calluses and nonhealing ulcers. They are being seen for yearly dilated eye examinations. Goals: SBP less than 130, LDL less than 100, FBS less than 140, A1C less than 7%. They are checking their BS daily, will which are reviewed at the office visit. Continue regular routine monitoring of A1C,] Microalbumin, Dilated eye exam and Foot exam Feb, Bilateral impacted cerumen (ICD-10 - H61.23) Cleared w/ home irrigation No further treatment necessary, TM intact and transclucent [facility] Other 12-11-2023 Evaluation note* Encounter Date Diagnosis Assessment Notes Treatment Notes Treatment Clinical Notes Feb, Cervicalgia (ICD-10 - M54.2) ROM exercises, heat/ice and Tylenol. DIclofenac as needed. XR cervical spine PT? Feb, Cervical spondylosis (ICD-10 - M47.812) ROM exercises, heat/ice and Tylenol. No radicular pain, N/T or weaknes. Conservative treatment PT for HEP Feb, Bilateral impacted cerumen (ICD-10 - H61.23) Debrox daily No s/s external otitis Avoid wearing ear plugs. Feb, Primary hypertension (ICD-10 - I10) This patient is instructed to consume a healthy, low-fat, low-salt diet. They are also encouraged to continue exercise to achieve/maintain a normal BMI. Patient is instructed on home BP measurements: - rest for 5 minutes w/o talking- positioned w/ feet on floor and arm supported- average best 2/3 readings w/ goal < 135/85 _update on home readings Feb, Other chronic pain (ICD-10 - G89.29) [facility] Other 12-05-2023 Evaluation note* Encounter Date Diagnosis Assessment Notes Treatment Notes Treatment Clinical Notes Feb, Pernicious anemia (ICD-10 - D51.0) [facility] Other 11-14-2023 Evaluation note* Encounter Date Diagnosis Assessment Notes Treatment Notes Treatment Clinical Notes Jan, Type 2 diabetes mellitus with hyperglycemia, without long-term current use of insulin (ICD-10 - E11.65) [facility] Other 11-13-2023 Evaluation note* Encounter Date Diagnosis Assessment Notes Treatment Notes Treatment Clinical Notes Jan, Primary hypertension (ICD-10 - I10) This patient is instructed to consume a healthy, low-fat, low-salt diet. They are also encouraged to continue exercise to achieve/maintain a normal BMI. Patient is instructed on home BP measurements: - rest for 5 minutes w/o talking- positioned w/ feet on floor and arm supported- average best 2/3 readings w/ goal < 135/85 _update office this week Jan, SHREE (generalized anxiety disorder) (ICD-10 - F41.1) Discussed treatment but she declines. Healthy diet, exercise and keeping active. Proper sleep routine Jan, Type 2 diabetes mellitus with hyperglycemia, without long-term current use of insulin (ICD-10 - E11.65) This patient is following a comprehensive diabetic treatment plan. They are checking their feet daily for calluses and nonhealing ulcers. They are being seen for yearly dilated eye examinations. Goals: SBP less than 130, LDL less than 100, FBS less than 140, A1C less than 7%. They are checking their BS daily, will which are reviewed at the office visit. Continue regular routine monitoring of A1C,] Microalbumin, Dilated eye exam and Foot exam Jan, Chronic tension-type headache, not intractable (ICD-10 - G44.229) Reassure, use Diclofenac if sustained and interfering w/ ADL. Monitor BS and BP as possible triggers Monitor diet, sleep and stress as also triggers. No treatment changes recommended Jan, Chronic urticaria (ICD-10 - L50.8) Symptoms tolerable at this time HOld antihistamines for now. Zyrtec as needed, moisturizing soaps, topical steroids as needed Jan, Generally unsteady (ICD-10 - R26.81) Difficult to determine etiology Not spinning or lightheaded. Likely age related changes in circulation but instructed to monitor BP, BS during episodes. [facility] Other [id number] Miscellaneous Notes* Telephone Encounter - Eliza Glass RN - 02/03/2023 1:15 PM EST Patient notified and verbalized understanding she will return for follow up as scheduled in July 2023. Venkata Glass RN * Telephone Encounter - Dipti Mitchell PA-C - 02/03/2023 12:29 PM EST Please call patient with normal iron, b12 and folate labs. Dipti Mitchell PA-C documented in this encounterF[facility]11-06-2023 History of Present illness Narrative* Dipti Mitchell PA-C - 02/02/2023 10:00 AM EST Images from the original note were not included. HEMATOLOGY FOLLOW UP February 02, 2023 (Paula) (Elements copied from Dr. Ayala's note dated July 26, 2022, have been reviewed and updated where appropriate, and all reflect current assessment and medical decision making during today's encounter, February 02, 2023) PCP and other physicians involved in patient's care: Glen Perez (PCP), Hira Sarah (rheum) DIAGNOSIS: Anemia of chronic inflammation ASSESSMENT: 82 year old with microcytic anemia, likely from chronic inflammation Findings remain consistent with anemia of chronic inflammation (normal ferritin, elevated CRP, history) that is secondary to some sort of inflammatory arthritis. Her anemia has resolved today and we will continue to monitor her labs again in 6 months. White coat HTN - noted normal for her. Depression--she reports depression and anxiety related to the recent of her . Emotional support given. Offered referral for counseling, but she declined. She will discuss with PCP at next visit. May benefit from medication HPI: HEMATOLOGICAL HISTORY: Patient developed mild anemia approximately 11 g/dL since 2016 without a change in appetite or weight loss. EGD and colonoscopy on 12-20-2019 was normal. March 2020, experienced flulike symptoms; this was followed 4 to 6 weeks later with severe joint pain and swelling in hands, ankles, knees and lower back, and associated difficulty elevating left shoulder; resolution of symptoms with diclofenac with reemergence of symptoms without diclofenac Hemoglobin in October 2020 was 8.8 g/dL with MCV 78. Ferritin was elevated at 188, iron and TIBC were low. Stool negative for occult blood. Oral iron without any improvement. CRP elevated and anti-ANAantibodies are positive (homogeneous; 1:80) December 28, 2020 evaluated by me for anemia - labs showed hemoglobin 9, MCV 79, normal WBC and platelets, normal MPA, , low RPI, elevated haptoglobin and ESR suggesting anemia of chronic inflammation;saw rheumatology (Dr. Sarah) and is now on diclofenac September 2021, symptoms improved with diclofenac but hemoglobin remains low 12/27/2021 tripped over a ceramic black cat and broke her right hip. 01/15/2022 - hgb improved to 10.1 Updated Visit, February 02, 2023: Rain returns for follow up. She's been doing well other than depression and anxiety since her 's . She has family support and has discussed it with her PCP with plans to talk to him about it again. Otherwise doing well. Arthritis is under control. No fatigue. No bleeding. Feels well overall. Updated Visit, July 16, 2022: in January, Had her hip fixed last year too. Also Hgb improved to 10.7 Has gained weight and is more active. Just got back from [place] [employer] - hurt her foot and had laryngitis. Now recovered although left foot still hurts However, Feels much better overall. Updated Visit, January 15, 2022: Transition of care Rain Lopez presents to transition her care for anemia of chronic disease. recently fractured her hip while decorating for Halloween She has recovered very nicely Hgb has improved on iron supplementation a little bit. Prior visit with Dr. Altman October 15, 2021 Rain comes back for follow-up. Her , Jose, is sick from COPD. She has also been dealing with recent deaths in acquaintances and is overwhelmed. Overall, her arthritis is controlled with diclofenac. She takes this every 3 days and trying to cut this down. No symptoms endorsed today. ROS is negative except that mentioned in HPI PAST MEDICAL SURGICAL FAMILY AND SOCIAL HISTORY: She has a history of -Type 2 diabetes mellitus -Hypertension -Hyperlipidemia -Gastroesophageal reflux -? Reactive arthritis versus polymyalgia rheumatica versus other autoimmune disease -Anemia of chronic inflammation Prior surgeries include cholecystectomy and screening colonoscopy. Family history significant for hip dysplasia in her daughter and bilateral hip arthritis in her son, who needed replacements in his 40s. No other autoimmune or hematological condition in the family. She denies any toxic habits. She lives with her , Jose in [place], [place]. MEDICATIONS AND ALLERGIES: Reviewed PHYSICAL EXAM BP 168/82 Pulse 65 Temp 36.4 C (97.6 F) (Temporal) Resp 16 Ht 157.5 cm (5' 2.01 ) Wt 65.5kg (144 lb 6.4 oz) SpO2 99% BMI 26.40 kg/m General: Alert and oriented, no distress, pleasant and cooperative. Heart: Regular, normal S1 and S2, no murmurs, rubs, or gallops Lungs: Clear to auscultation bilaterally Abdomen: Benign Extremities: Feet/ankles without edema, posterior tibial pulses full and symmetrical LABORATORY, IMAGING AND PATHOLOGY WBC (k/uL) Date Value 02/02/2023 6.02 RBC (m/uL) Date Value 02/02/2023 4.22 Hemoglobin (g/dL) Date Value 02/02/2023 11.5 Hematocrit (%) Date Value 02/02/2023 36.0 MCV (fL) Date Value 02/02/2023 85.3 MCH (pg) Date Value 02/02/2023 27.3 MCHC (g/dL) Date Value 02/02/2023 31.9 RDW-CV (%) Date Value 02/02/2023 14.9 Platelet Count (k/uL) Date Value 02/02/2023 242 MPV (fL) Date Value 02/02/2023 9.0 Glucose (mg/dL) Date Value 07/16/2022 127 (H) BUN (mg/dL) Date Value 07/16/2022 12 Creatinine (mg/dL) Date Value 07/16/2022 0.72 Sodium (mmol/L) Date Value 07/16/2022 135 (L) Potassium (mmol/L) Date Value 07/16/2022 4.3 Chloride (mmol/L) Date Value 07/16/2022 99 CO2 (mmol/L) Date Value 07/16/2022 25 Protein, Total (g/dL) Date Value 07/16/2022 7.1 Albumin (g/dL) Date Value 07/16/2022 4.5 Calcium, Total (mg/dL) Date Value 07/16/2022 9.6 Alkaline Phosphatase (U/L) Date Value 07/16/2022 115 Bilirubin, Total (mg/dL) Date Value 07/16/2022 0.3 AST (U/L) Date Value 07/16/2022 16 ALT (U/L) Date Value 07/16/2022 13 Dipti Mitchell PA-C CC: Dr. Glen Sarah, [facility] documented in this encounterF[facility]10-27-2023 Evaluation note* Encounter Date Diagnosis Assessment Notes Treatment Notes Treatment Clinical Notes Dec, Anemia, pernicious (ICD-10 - D51.0) [facility] [employer] Other 10-09-2023 Evaluation note* Encounter Date Diagnosis Assessment Notes Treatment Notes Treatment Clinical Notes Dec, Primary hypertension (ICD-10 - I10) [facility] [employer] Other 09-19-2023 Evaluation note* Encounter Date Diagnosis Assessment Notes Treatment Notes Treatment Clinical Notes Nov, Pernicious anemia (ICD-10 - D51.0) [facility] [employer] Other 08-16-2023 Evaluation note* Encounter Date Diagnosis Assessment Notes Treatment Notes Treatment Clinical Notes Oct, Pernicious anemia (ICD-10 - D51.0) [facility] Other 06-21-2023 Evaluation note* Encounter Date Diagnosis Assessment Notes Treatment Notes Treatment Clinical Notes Aug, Medicare annual well ness visit, subsequent (ICD-10 - Z00.00) Personalized health advice was given to the beneficiary including a written plan for screenings discussed and provided. Advanced care planning reviewed and/or information given as requested. Additional counseling was provided here today in regards to, [ ]. The above visit was performed by [ ], under direct supervision of [ ]. Document reviewed and amended by provider signed below. Aug, SHREE (generalized anx iety disorder) (ICD-10 - F41.1) Healthy diet, exercise and keep active Aug, PSVT (paroxysmal supraventricular tachycardia) (ICD-10 - I47.1) Avoid stimulants, push fluids. Aug, Type 2 diabetes linda itus with hyperglycemia, without long-term current use of insulin (ICD-10 - E11.65) This patient is following a comprehensive diabetic treatment plan. They are checking their feet daily for calluses and nonhealing ulcers. They are being seen for yearly dilated eye examinations. Goals: SBP less than 130, LDL less than 100, FBS less than 140, AC and A1C less than 7%. They are checking their BS daily, will which are reviewed at the office visit. Continue regular routine monitoring of A1C,] Microalbumin, Dilated eye exam and Foot exam Aug, Hypercholesterolemia (ICD-10 - E78.00) Instructed on diet and exercise with continued statin therapy.Discussed the beneficial effects of lowering cholesterol in reducing the risk for cerebrovascular and cardiovascular disease. Aug, Primary hypertension (ICD-10 - I10) This patient is instructed to consume a healthy, low-fat, low-salt diet. They are also encouraged to continue exercise to achieve/maintain a normal BMI. Aug, Sebaceous cyst of ea r (ICD-10 - L72.3) Warm compresses, begin antibiotics. Call office w/ increased pain Aug, Menopause (ICD-10 - Z78.0) Calcium and Vitamin D supplements. Exercise daily. DEclines DEXA Aug, Screening mammograph y declined (ICD-10 - Z53.20) Aug, High risk medication use (ICD-10 - Z79.899) [facility] Other 06-05-2023 Evaluation note* Encounter Date Diagnosis Assessment Notes Treatment Notes Treatment Clinical Notes Aug, Closed fracture of neck of right humerus with routine healing, subsequent encounter (ICD-10 - S42.211D) Rain returns with right three-part proximal humerus fracture. At this juncture we have discussed the findings and diagnosis as well as personally reviewed appropriate imaging and performed interpretation of related testing and examination with the patient in office today. I will get her started in physical therapy today. Continue calcium and vitamin D supplementation. Okay to advance weightbearing to comfort. Follow-up in 6 weeks for repeat x-rays and hopefully final check The patient has been involved in our cooperative treatment plan and agrees to move forward with treatment at this time. Radiographs reviewed with patient today. Discussed with patient she is progressing well from injury. Patient instructed on gentle motion and strength exercise. We will provide an order for formal physical therapy. Discussed with patient she can slowly progress activity as tolerated. [facility] Other 06-05-2023 Evaluation note* Encounter Date Diagnosis Assessment Notes Treatment Notes Treatment Clinical Notes Aug, Pernicious anemia (ICD-10 - D51.0) [facility] Other 05-15-2023 Evaluation note* Encounter Date Diagnosis Assessment Notes Treatment Notes Treatment Clinical Notes July, Closed fracture of neck of right humerus with routine healing, subsequent encounter (ICD-10 - S42.211D) Rain returns with right three-part proximal humerus fracture. At this juncture we have discussed the findings and diagnosis as well as personally reviewed appropriate imaging and performed interpretation of related testing and examination with the patient in office today. The patient and her family ended up going with nonoperative care. At this time we will continue pendulum motions. I will see her back in about 3 weeks for repeat x-rays and we will start physical therapy for motion. Continue calcium and vitamin D supplementation. The patient has been involved in our cooperative treatment plan and agrees to move forward with treatment at this time. Rain returns 4 weeks status post right humeral head and neck fracture. Updated radiographs obtained, reviewed, and discussed in detail with patient. Patient has healed however, not in an ideal position. Informed that it is okay to leave as is but advised there will be some functional deficit. I advised her to begin to work on gentle active elbow and wrist motion, and gentle passive pendulum shoulder motions tolerated. We will begin to increase activites and start formal physical therapy at next visit. She is to follow up in 3 weeks time and we will obtain new X-Rays at that time. Patient voices understanding and states no further questions at this time. July, Closed fracture of head of right humerus with routine healing, subsequent encounter (ICD-10 - S42.291D) [facility] Other 05-03-2023 Evaluation note* Encounter Date Diagnosis Assessment Notes Treatment Notes Treatment Clinical Notes July, Hypertension (ICD-10 - I10) This patient is instructed to consume a healthy, low-fat, low-salt diet. They are also encouraged to continue exercise to achieve/maintain a normal BMI. July, Closed fracture of neck of right humerus with routine healing (ICD-10 - S42.211D) Continue immobilization in a sling for 3-4 wks Not instructed on any ROM exercises. Instructed to move wrists, squeeze hand/fingers and elevate to avoid swelling Diclofenac as needed for pain July, Pernicious anemia (ICD-10 - D51.0) [facility] Other 04-24-2023 Evaluation note* Encounter Date Diagnosis Assessment Notes Treatment Notes Treatment Clinical Notes Jun, Closed fracture of neck of right humerus, initial encounter (ICD-10 - S42.211A) Rain presents with right three-part proximal humerus fracture. At this juncture we have discussed the findings and diagnosis as well as personally reviewed appropriate imaging and performed interpretation of related testing and examination with the patient in office today. Prior medical notes from the [place] ED and history have been reviewed. Due to the displaced nature of this fracture I would recommend operative intervention. We discussed ORIF versus reverse shoulder arthroplasty. At this point I want to get a CT scan with [facility] protocol for the right shoulder to further evaluate this fracture. We will plan for operative intervention tomorrow based on the CT findings. I will plan to see her back in 3 weeks after surgery as follow-up The patient has been involved in our cooperative treatment plan and agrees to move forward with treatment at this time. Jun, Closed fracture of head of right humerus, initial encounter (ICD-10 - S42.291A) Xrays were reviewed with patient in detail. We will proceed with CT scan of the right shoulder. We discussed a shoulder replacement surgery vs a ORIF surgery. Based on CT results we will plan on surgery for or next Jun, Other See orders for this visit as documented in the electronic medical record. [facility] Other 04-23-2023 Evaluation note* Encounter Date Diagnosis Assessment Notes Treatment Notes Treatment Clinical Notes Jun, Closed fracture of head of right humerus with routine healing, subsequent encounter (ICD-10 - S42.291D) [facility] Other 04-22-2023 NotePROCEDURE: XR HUMERUS RT MIN 2 V COMPARISON: None. HISTORY: Falls FINDINGS: BONES:Acute right humeral head and neck fracture with displacement of the greater tuberosity 5 mm. SOFT TISSUES:Negative. No visible soft tissue swelling. EFFUSION:Low position of the humeral head likely represents hemarthrosis OTHER: Negative. IMPRESSION: Acute humeral head and neck fracture with hemarthrosis Electronically authenticated by: SARAH CLINTON Date: 2022-07-19 14:21[facility]03-28-2023 Evaluation note* Encounter Date Diagnosis Assessment Notes Treatment Notes Treatment Clinical Notes May, Type 2 diabetes mellitus with hyperglycemia, without long-term current use of insulin (ICD-10 - E11.65) This patient is following a comprehensive diabetic treatment plan. They are checking their feet daily for calluses and nonhealing ulcers. They are being seen for yearly dilated eye examinations. Goals: SBP less than 130, LDL less than 100, FBS less than 140, AC and A1C less than 7%. They are checking their BS daily, will which are reviewed at the office visit. Increases risk of skin infections May, SHREE (generalized anxiety disorder) (ICD-10 - F41.1) Healthy diet, exercise and keep active May, Chronic actinic otitis externa of both ears (ICD-10 - H60.8X3) Keep dry, Cortisporin Otic at HS. Cortisone crm to outside ear as needed for itching May, Seasonal allergic rhinitis due to pollen (ICD-10 - J30.1) Continud Claritin Begin Flonase NS [facility] Other 03-13-2023 Evaluation note* Encounter Date Diagnosis Assessment Notes Treatment Notes Treatment Clinical Notes May, Acute bronchitis due to other specified organisms (ICD-10 - J20.8) Instructed to use Robitussin or Mucinex for cough, saline or Flonase NS for congestion, Tylenol for pain and fever. May, Type 2 diabetes mellitus with hyperglycemia, without long-term current use of insulin (ICD-10 - E11.65) Acute infection may elevate BS temporarily [facility] Other 02-21-2023 Evaluation note* Encounter Date Diagnosis Assessment Notes Treatment Notes Treatment Clinical Notes Apr, Pernicious anemia (ICD-10 - D51.0) [facility] Other 01-17-2023 Evaluation note* Encounter Date Diagnosis Assessment Notes Treatment Notes Treatment Clinical Notes Mar, Hypertension (ICD-10 - I10) [facility] Other 01-17-2023 Evaluation note* Encounter Date Diagnosis Assessment Notes Treatment Notes Treatment Clinical Notes Mar, Hypertension (ICD-10 - I10) This patient is instructed to consume a healthy, low-fat, low-salt diet. They are also encouraged to continue exercise to achieve/maintain a normal BMI. Mar, Type 2 diabetes linda itus with hyperglycemia, without long-term current use of insulin (ICD-10 - E11.65) This patient is following a comprehensive diabetic treatment plan. They are checking their feet daily for calluses and nonhealing ulcers. They are being seen for yearly dilated eye examinations. Goals: SBP less than 130, LDL less than 100, FBS less than 140, AC and A1C less than 7%. They are checking their BS daily, will which are reviewed at the office visit. Mar, Hypercholesterolemia (ICD-10 - E78.00) Diet and exercise with continued statin therapy. Mar, PSVT (paroxysmal supraventricular tachycardia) (ICD-10 - I47.1) Avoid stimulants, hydrate and exercise. Continue Metoprolol Mar, SHREE (generalized anx iety disorder) (ICD-10 - F41.1) Healthy diet and exercise. 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 Diclofenac for severe pain. Mar, Pernicious anemia (I CD-10 - D51.0) [facility] Other 12-09-2022 Evaluation note* Encounter Date Diagnosis Assessment Notes Treatment Notes Treatment Clinical Notes Feb, Closed fracture of neck of right femur with routine healing, subsequent encounter (ICD-10 - S72.001D) Rain returns shy of 3 months s/p right femoral neck CRPP. At this juncture we have discussed the findings and diagnosis as well as personally reviewed appropriate imaging and performed interpretation of related testing and examination with the patient in office today. Prior medical notes and history have been reviewed. She has completed physical therapy at this time. Continue calcium and vitamin D supplementation. Recommend DEXA scan in future. Activity as tolerated. Follow-up with any issues The patient has been involved in our cooperative treatment plan and agrees to move forward with treatment at this time. Imaging reviewed with patient today. Patient is progressing well from surgery. We discussed the importance of continuing motion and strength exercise. Activity as tolerated. Follow up with PCP to discuss Dexa scan. We discussed continuing with current medication as prescribed. Feb, Other specified postprocedural states (ICD-10 - Z98.890) [facility] Other 10-28-2022 Evaluation note* Encounter Date Diagnosis Assessment Notes Treatment Notes Treatment Clinical Notes Dec, Closed fracture of neck of right femur with routine healing, subsequent encounter (ICD-10 - S72.001D) Rain presents s/p right femoral neck CRPP. At this juncture we have discussed the findings and diagnosis as well as personally reviewed appropriate imaging and performed interpretation of related testing and examination with the patient in office today. Prior medical notes and history have been reviewed. At this time I would recommend continued physical therapy. Continue calcium and vitamin D supplementation. Recommend DEXA scan in future. Continue use of assistive devices as needed. We will plan for follow-up with repeat x-rays in 6 weeks. The patient has been involved in our cooperative treatment plan and agrees to move forward with treatment at this time. Patient is progressing well. Continue physical therapy exercises. Instructed patient to call with any questions or concerns. Discussed with patient if she is having left knee pain at her follow up appointment we will obtain and xray. Discussed with patient to use tyenol and NSAIDs as need for pain and swelling Dec, Other specified postprocedural states (ICD-10 - Z98.890) Dec, Other See orders for this visit as documented in the electronic medical record. [facility] Other 10-19-2022 Instructions* Patient Instructions* Yash Ayala MD - 01/15/2022 10:28 AM EDT RTC in 6 months Labs same day to include anemia workup with iron, b12, folate documented in this encounterF[facility]10-19-[facility] History of Present illness Narrative* Yash Ayala MD - 01/15/2022 10:00 AM EDT Images from the original note were not included. HEMATOLOGY FOLLOW UP January 15, 2022 (Lucy) Elements in this clinic note that are critical to medical decision making have been carefully reviewed and included from my prior clinic note dated: October 15, 2021 (Anupama) & July 16, 2021 (Anupama) PCP and other physicians involved in patient's care: Glen Perez (PCP), Hira Sarah (rheum) DIAGNOSIS: Anemia of chronic inflammation ASSESSMENT: 81 year old with microcytic anemia, likely from chronic inflammation Findings remain consistent with anemia of chronic inflammation (normal ferritin, elevated CRP, history) that is secondary to some sort of inflammatory arthritides. Given that patient is asymptomatic and actually feel really good, it is reasonable to hold off on del invasive for now. PLAN: RTC in 6 months Labs same day to include anemia workup with iron, b12, folate HEMATOLOGICAL HISTORY: Patient developed mild anemia approximately 11 g/dL since 2016 without a change in appetite or weight loss. EGD and colonoscopy on 12-20-2019 was normal. March 2020, experienced flulike symptoms; this was followed 4 to 6 weeks later with severe joint pain and swelling in hands, ankles, knees and lower back, and associated difficulty elevating left shoulder; resolution of symptoms with diclofenac with reemergence of symptoms without diclofenac Hemoglobin in October 2020 was 8.8 g/dL with MCV 78. Ferritin was elevated at 188, iron and TIBC were low. Stool negative for occult blood. Oral iron without any improvement. CRP elevated and anti-ANAantibodies are positive (homogeneous; 1:80) December 28, 2020 evaluated by me for anemia - labs showed hemoglobin 9, MCV 79, normal WBC and platelets, normal MPA, , low RPI, elevated haptoglobin and ESR suggesting anemia of chronic inflammation;saw rheumatology (Dr. Sarah) and is now on diclofenac September 2021, symptoms improved with diclofenac but hemoglobin remains low 12/27/2021 tripped over a ceramic black cat and broke her right hip. 01/15/2022 - hgb improved to 10.1 INTERVAL HISTORY: Updated Visit, January 15, 2022: Transition of care Rain Lopez presents to transition her care for anemia of chronic disease. recently fractured her hip while decorating for Halloween She has recovered very nicely Hgb has improved on iron supplementation a little bit. Prior visit with Dr. Altman October 15, 2021 Rain comes back for follow-up. Her , Jose, is sick from COPD. She has also been dealing with recent deaths in acquaintances and is overwhelmed. Overall, her arthritis is controlled with diclofenac. She takes this every 3 days and trying to cut this down. No symptoms endorsed today. ROS is negative except that mentioned in HPI PAST MEDICAL SURGICAL FAMILY AND SOCIAL HISTORY: She has a history of -Type 2 diabetes mellitus -Hypertension -Hyperlipidemia -Gastroesophageal reflux -? Reactive arthritis versus polymyalgia rheumatica versus other autoimmune disease -Anemia of chronic inflammation Prior surgeries include cholecystectomy and screening colonoscopy. Family history significant for hip dysplasia in her daughter and bilateral hip arthritis in her son, who needed replacements in his 40s. No other autoimmune or hematological condition in the family. She denies any toxic habits. She lives with her , Jose in [place], [place]. MEDICATIONS AND ALLERGIES: Reviewed PHYSICAL EXAM BP 168/82 Pulse 68 Temp 36.7 C (98 F) (Temporal) Resp 16 Ht 157.5 cm (5' 2.01 ) Wt 60.5 kg (133 lb 6.4 oz) SpO2 98% BMI 24.39 kg/m Exam limited to gross visualization where appropriate due to COVID-19. Gen.: This is an age-appropriate patient in no acute distress. Using a walker but hardly needs it. Head: Appears atraumatic with no visible lesions. Eyes: Pupils equally round and reactive to light, extraocular muscles are intact. Neck: Supple. Mouth: Masked. Respiratory: Appears to be respiring comfortably. Neurologic: Nonfocal to gross visualization. Alert and oriented 3. Psychiatric: No evidence of inappropriate anxiety or depression. Skin: Visible areas of skin without rash, lesions, wounds or petechiae. LABORATORY, IMAGING AND PATHOLOGY WBC (k/uL) Date Value 01/15/2022 8.41 RBC (m/uL) Date Value 01/15/2022 3.83 (L) Hemoglobin (g/dL) Date Value 01/15/2022 10.1 (L) Hematocrit (%) Date Value 01/15/2022 31.6 (L) MCV (fL) Date Value 01/15/2022 82.5 MCH (pg) Date Value 01/15/2022 26.4 MCHC (g/dL) Date Value 01/15/2022 32.0 RDW-CV (%) Date Value 01/15/2022 15.9 (H) Platelet Count (k/uL) Date Value 01/15/2022 290 MPV (fL) Date Value 01/15/2022 8.4 (L) Glucose (mg/dL) Date Value 01/15/2022 114 (H) BUN (mg/dL) Date Value 01/15/2022 13 Creatinine (mg/dL) Date Value 01/15/2022 0.64 Sodium (mmol/L) Date Value 01/15/2022 134 (L) Potassium (mmol/L) Date Value 01/15/2022 4.4 Chloride (mmol/L) Date Value 01/15/2022 97 CO2 (mmol/L) Date Value 01/15/2022 27 Protein, Total (g/dL) Date Value 01/15/2022 6.8 Albumin (g/dL) Date Value 01/15/2022 4.3 Calcium, Total (mg/dL) Date Value 01/15/2022 9.3 Alkaline Phosphatase (U/L) Date Value 01/15/2022 130 (H) Bilirubin, Total (mg/dL) Date Value 01/15/2022 0.4 AST (U/L) Date Value 01/15/2022 9 (L) ALT (U/L) Date Value 01/15/2022 5 (L) I spent a total of 25 minutes on the date of the service which included preparing to see the patient, [id number] patient care, completing clinical documentation, obtaining and/or reviewing separately obtained history, performing a medically appropriate examination, counseling and educating the pat ient/family/caregiver, ordering medications, tests, or procedures and independently interpreting results (not separately reported). Yash Ayala MD, CPE Hematology and Oncology Services Provided at: [place], [place] CC: Glen Sarah, [facility] documented in this encounterFulton [facility]10-10-2022 Miscellaneous Notes* Telephone Encounter - Elham Ferrera - 01/06/2022 2:38 PM EDT Labs pending per last note. Please sign if needed. Elham Ferrera documented in this encounterFulton [facility] Center09-30-2022 Discharge summary Author Jesus Brewer [facility] December 27, 2021 2:46pm Note Date/Time December 27, 2021 2:40pm [facility] [address] [place], [place] [id number] Discharge Summary Signed Patient: Rain Lopez MR#: [id number] : 1940 Acct:[id number] Age/Sex: 81 / F Adm Date: 2 Loc: 4N Room: 7E6649-[address]: Jesus Brewer MD Copies to: DO Jesus Hahn MD~ Providers Date of Discharge: 12/27/21 Discharging Provider: Jesus Brewer Primary Care Provider: Glen Perez Consults: 12/26/21 21:42 Consult to Orthopedic Surgery Routine 12/27/21 12:34 Consult to Occupational Therapy Routine Consult to Physical Therapy Routine Discharge Diagnosis (1) Right femoral fracture: (2) Diabetes mellitus, type 2: (3) Hypertension: (4) High cholesterol: Final Diagnosis Final Discharge Diagnosis: As above Summary Hospital Course Hospital course: Ms. Lopez is a 81-year-old female with PMH of hypertension, zmz-mlmxjqi-vsjhrlvkrvlxkqlrf mellitus, hyperlipidemia who presented to the emergency department after mechanical fall. Patient fell and landed on her right side including her right hindu, shoulder and hip. Patient was seen and evaluated at [facility] emergency department and x-rays noted right femoral fracture. Case was discussed with orthopedics and patient was transferred to [facility] for further management. Patient underwent closed reduction and percutaneous pinning of the right femoral neck fracture without complication. She was seen and assessed by physical and Occupational Therapy after the procedure and was ambulating well. Patient preferred home with outpatient PT/OT, and this was cleared by orthopedics and PT/OT prior to discharge. Patient will follow up with orthopedics team and continue calcium/vitamin D supplementation along with aspirin 81 mg twice daily for DVT prophylaxis. She was discharged in stable condition. 35 minutes spent coordinating the discharge of this patient Time Spent with Patient Time spent providing/coordinating discharge services (# min): 35 Surgeries and Procedures Operation Date: 12/27/21 12:00 Actual Procedures p OR Hip Pinning(Right) - Lul Webster, Diagnostic Studies Completed and Pending Studies Pending studies at discharge: 12/27/21 13:20 XR hip RT min 2V(w/wo pelvis)* Routine Labs on day of discharge: 12/27/21 11:06: POC Glucose 178, POC Glucose Comment Glu2: cleaned meter 12/27/21 08:23: POC Glucose 187, POC Glucose Comment Glu2: cleaned meter 12/27/21 05:50: Blood Type Recheck O Positive 12/27/21 04:32: PHA Creatinine Clear 45.10, Sodium 131 L, Potassium 4.4, Chloride 97, Carbon Dioxide 27.0, Anion Gap 11.4, BUN 14, Creatinine 0.72, Est GFR ( Amer) > 60, Est GFR (Non-Af Amer) > 60, Glucose 124 H, Calcium 9.2 12/27/21 04:32: PT 12.1, INR 1.1, APTT 30.0 12/27/21 04:32: Corrected WBC 6.6, Uncorrected WBC Count 6.6, RBC 3.77, Hgb 10.1L, Hct 30.3 L, MCV 80.3, MCH 26.7, MCHC 33.3, RDW 17.2 H, Plt Count 220, MPV 7.5, Neut % (Auto) 66.9, Lymph % (Auto) 16.7, Phillips % (Auto) 9.5, Eos % (Auto) 6.2, Baso % (Auto) 0.7, Neut # (Auto) 4.4, Lymph # (Auto) 1.1, Phillips # (Auto) 0.6, Eos # (Auto) 0.4, Baso # (Auto) 0.0, Nucleated RBC % (auto) 0.1 12/27/21 04:32: Blood Type O Positive, Antibody Screen Negative 12/26/21 22:13: POC Glucose 159 Exam Physical Exam Vital Signs: Temp Pulse Resp BP Pulse Ox O2 Del Method O2 Flow Rate 98.4 F 72 16 130/64 95 Room Air 8 12/27/21 13:03 12/27/21 13:03 12/27/21 13:03 12/27/21 13:03 12/27/21 13:03 12/27/21 12:38 12/27/21 12:28 Narrative: Constitutional: Pleasant, elderly frail WF, resting in bed comfortably HEENT: Moist mucous membranes, neck supple. Mild swelling on the right hindu. Cardiovascular: RRR, no M/R/G, normal S1 and S2, no JVD Respiratory: Lungs clear to auscultation bilaterally, no wheezes, rales or rhonchi GI: Soft, NTND, normoactive bowel sounds : Deferred Neuro: AAO x3, no focal deficits. CN II-XII grossly intact, Extremities: No clubbing, cyanosis or edema. Strength 5/5 throughout, other than right lower extremity which is limited secondary to pain. Psych: Patient calm, cooperative and conversant Discharge Plan Discharge Plan Patient Disposition: Home Instructions: Femur Fracture (DC) Prescriptions: New acetaminophen 500 mg Tablet 1,000 mg PO Q8H PRN (Reason: Fever Or Pain) Qty: 0 0RF oxycodone 5 mg Tablet 5 mg PO Q8H PRN (Reason: severe pain (scale score 7-10)) 5 Days Qty: 15 0RF calcium carbonate-vitamin D3 [Oyster Shell Calcium-Vit D3] 500 mg-5 mcg (200 unit) Tablet 1 tab PO TID.WITH.MEALS 30 Days Qty: 90 3RF Continued atorvastatin 10 mg tablet 10 mg PO DAILY metoprolol succinate 100 mg tablet extended release 24 hr 100 mg PO BID amlodipine 5 mg tablet 5 mg PO DAILY metformin 1,000 mg tablet 1,000 mg PO BID valsartan 160 mg tablet 160 mg PO BID Changed aspirin 81 mg Capsule 81 mg PO BID 30 Days Qty: 60 0RF Other Ambulatory Orders: DME Home Medical Equipment (Routine) Timeframe: 20211227 Location: Determined by Patient Ordered By: Lul Webster PT/OT/SP OutPatient Referral (Routine) Timeframe: 20211227 Location: Determined by Patient Ordered By: Jesus Brewer Follow Up: Glen Perez DO [Primary Care Provider] - Lul Webster DO [Active Staff] - (call Thursday for a follow up appointment, office was closed.) Documented By: Jesus Brewer MD 2 1438 Signed By: <Electronically signed by Jesus Brewer MD> 12/27/21 1446 [facility] Work Phone: [phone] 306-873409-30-2022 History general Narrative - Reported* Type Description Date Surgical History closed reduction a p ercutaneous pinning right femoral neck fracture 12/27/2021 [facility] Other 09-30-2022 Consult note Author Lul Webster [facility] December 27, 2021 9:32am Note Date/Time December 27, 2021 9:32am [facility] [address] [place], [place] [id number] Orthopedic Consult Note Signed Patient: Rain Lopez MR#: [id number] : 1940 Acct:[id number] Age/Sex: 81 / F Adm Date: 2 Loc: 4N Room: [address] [place] [address] Type: ADM IN Attending Dr: Jesus Brewer MD Copies to: DO Jesus Hahn MD Justin A Kelley, DO~ History of Present Illness HPI Consult date: 12/27/2021 Requesting provider: Jesus Brewer MD Consult reason: fracture History of present illness: Rain is a relatively healthy 81-year-old female presenting to [facility] as a transfer from [facility] with a right femoral neck fracture. She is admitted to the hospitalist service with orthopedic surgery on consult for fracture management. She tells me that she was walking outside her house whenever she tripped and fell over a hollowing decoration onto the right hip. She is actually able to get up and ambulate on this afterwards but continued to have right hip pain. Her daughter went to see her later that afternoon and theyended up going to the emergency department to be evaluated[facility] to [facility] for further care. She does endorse right groin pain worse with weightbearing or motion. No prior hip issues. No issues otherwise. No loss consciousness. Denies any numbness or tingling in extremity. PMFSH Vaccinated for COVID-19?: Yes Medical History (Updated 12/26/21 @ 22:45 by Jesus Brewer MD) Anemia Anxiety Arthritis Diabetes mellitus, type 2 High cholesterol Hypertension Palpitation Surgical History (Updated 12/26/21 @ 21:44 by Gifty Doyle RN) History of cholecystectomy Social History Smoking Status: Never smoker Substance Use Type: None Allergies & Medications Medications and Allergies Allergies No Known Allergies Allergy (Verified 12/26/21 21:45) Home Medications amlodipine 5 mg tablet 5 mg PO DAILY 12/26/21 [History Confirmed 12/26/21] aspirin 81 mg capsule 81 mg PO DAILY 12/26/21 [History Confirmed 12/26/21] atorvastatin 10 mg tablet 10 mg PO DAILY 12/26/21 [History Confirmed 12/26/21] metformin 1,000 mg tablet 1,000 mg PO BID 12/26/21 [History Confirmed 12/26/21] metoprolol succinate 100 mg tablet,extended release 24 hr 100 mg PO BID 12/26/21[History Confirmed 12/26/21] valsartan 160 mg tablet 160 mg PO BID 12/26/21 [History Confirmed 12/26/21] Exam Physical Exam Vital Signs: Temp Pulse Resp BP Pulse Ox O2 Del Method 98.0 F 66 16 140/61 97 Room Air 12/27/21 08:00 12/27/21 08:00 12/27/21 08:00 12/27/21 08:00 12/27/21 08:00 12/27/21 08:00 Narrative: Patient seen evaluated on regular nursing floor. She is lying in supine position hospital bed. She is accompanied by her daughter at bedside. She is alert and oriented without confusion. She is quite pleasant conversation. She is in no acute distress. Right lower extremity evaluated. Upon inspection there are no abnormalities. She has no significant tenderness palpation. Logroll and heel strike are positive with groin pain. No knee pain. Right lower extremity is neurovasculartact with a warm well-perfused foot. She is able to wiggle the toes and move the ankle up and down without difficulty. Results Lab Results Result Diagrams: 12/27/21 04:32 12/27/21 04:32 Labs: Laboratory Results - Last 48 hrs. 12/27/21 08:23: POC Glucose 187, POC Glucose Comment Glu2: cleaned meter 12/27/21 05:50: Blood Type Recheck O Positive 12/27/21 04:32: PHA Creatinine Clear 45.10, Sodium 131 L, Potassium 4.4, Chloride 97, Carbon Dioxide 27.0, Anion Gap 11.4, BUN 14, Creatinine 0.72, Est GFR ( Amer) > 60, Est GFR (Non-Af Amer) > 60, Glucose 124 H, Calcium 9.2 12/27/21 04:32: PT 12.1, INR 1.1, APTT 30.0 12/27/21 04:32: Corrected WBC 6.6, Uncorrected WBC Count 6.6, RBC 3.77, Hgb 10.1L, Hct 30.3 L, MCV 80.3, MCH 26.7, MCHC 33.3, RDW 17.2 H, Plt Count 220, MPV 7.5, Neut % (Auto) 66.9, Lymph % (Auto) 16.7, Phillips % (Auto) 9.5, Eos % (Auto) 6.2, Baso % (Auto) 0.7, Neut # (Auto) 4.4, Lymph # (Auto) 1.1, Phillips # (Auto) 0.6, Eos # (Auto) 0.4, Baso # (Auto) 0.0, Nucleated RBC % (auto) 0.1 12/27/21 04:32: Blood Type O Positive, Antibody Screen Negative 12/26/21 22:13: POC Glucose 159 H & H 12/27/21 Range/Units 04:32 Hgb 10.1 L (11.8-15.4) g/dL Hct 30.3 L (34.0-46.4) % Coagulation 12/27/21 Range/Units 04:32 INR 1.1 All other labs are normal. Imaging & Diagnostic Results Imaging/Diagnostics: X-rays of the pelvis and right hip are reviewed. They show a Garden 1 type femoral neck fracture which is relatively nondisplaced. Otherwise there are some degenerative changes noted. Osteopenia is present. Assessment/Plan (1) Right femoral fracture: Code(s): S72.91XA - Unspecified fracture of right femur, initial encounter for closed fracture (2) Diabetes mellitus, type 2: Code(s): E11.9 - Type 2 diabetes mellitus without complications (3) Hypertension: Code(s): I10 - Essential (primary) hypertension (4) High cholesterol: Code(s): E78.00 - Pure hypercholesterolemia, unspecified Plan Rain presents with Garden 1 femoral neck fracture. At this juncture we have discussed the findings and diagnosis as well as personally reviewed appropriate imaging and performed interpretation of related testing and examination with thepatient in office today. Prior medical notes from the hospitalist service and history have been reviewed. At this time I would recommend close reduction percutaneous pinning.she is agreeable to this. At this juncture we have discussed the findings and diagnosis as well as reviewed appropriate imaging and performed interpretation of testing. Surgical intervention is recommended. Prior medical notes and history have been reviewed.Surgical versus non-operative management have been discussed in detail and non-operative management was given as an option. The risks of surgical intervention were given. Pre- operative optimization will be done prior to surgical procedure to limit jessa-operative risks. I have discussed the planned procedure, how and who performs the procedure, and the personnel involved. Cardiovascular, pulmonary, and other life threatening episodes can occur during surgery althoughthere is a low risk of these happening. Surgical risks including bleeding, neurovascular injury, wound closure problems and infection were discussed. Jessa-operative risks including infection, bleeding, wound healing problems, and need for further surgery were discussed. It was discussed that there is a possibilityof blood transfusion with any surgical procedure and the risks involved in receiving a blood transfusion. Possibility of, and need for, future bracing or DME use, physical or occupational therapy, mental therapy, rehabilitation, pain management and need for secondary procedures was discussed. I have warned against smoking and the use of tobacco products due to the risks associated withthem, in particular, poor healing. I have advised against the press tender long goods use of narcotic pain medication. I have advised to follow all post-operative instructions in order to obtain the best outcome. Informed consent has been verbally affirmed and signed as indicated. Postoperatively we will plan for PT/OT evaluations and weightbearing as tolerated while using a walker. If she does well I am okay with her being discharged home as she was walking on this before hand. I do recommend calcium and vitamin D supplementation as this represents a osteoporotic fragility fracture. Aspirin 81 mg twice daily as DVT prophylaxis for 5 weeks postoperatively. Plan for OR today The patient has been involved in our cooperative treatment plan and agrees to move forward with treatment at this time. Documented By: Lul Webster DO 12/27/21927 Signed By: <Electronically signed by Lul Webster DO> 12/27/21931 [facility] Work Phone: 1(728) 724-624609-30-2022 History and physical note Author Jesus Brewer [facility] December 26, 2021 10:45pm Note Date/Time December 26, 2021 10:12pm [facility] [address] [place] [address] Hospitalist H&P Signed Patient: Rain Lopez MR#: [id number] : 1940 Acct:[id number] Age/Sex: 81 / F Adm Date: 2 Loc: 4N Room: [address] [place] [address] Type: ADM IN Attending Dr: Jesus Brewer MD Copies to: DO Jesus Hahn MD~ HPI DATE OF EXAMINATION: 12/26/21 CHIEF COMPLAINT: Right femur fracture HISTORY OF PRESENT ILLNESS: Ms. Lopez is a 81-year-old female with PMH of hypertension, dgs-hkoemyc-fiwmrhhmniiavlsmd mellitus, hyperlipidemia who presents to the emergency department aftera fall that occurred earlier today. Patient reports that she was in her normal state of health, and was working to rearrange an outdoor lawn ornament when she walked and got her foot stuck in it and fell down on her right side. Patient noted that she yelled for help and eventually a bystander came by and lifted herand brought her inside her home. She attempted to ambulate on the right leg, but was not able to bear much weight with the use of a cane that she had around her house. Her family came to assess how she was doing and prompted her to comeinto the emergency department for further evaluation. She does note that she hit her entire right side on the ground when she fell. This did include her right hindu, right shoulder as well as her right hip. She denied any prodromalsymptoms prior to the fall including dizziness, lightheadedness, shortness of breath or chest pain. She denied any loss of consciousness after falling and hitting her head. Patient is maintained on aspirin 81 mg daily, but no other blood thinners. Patient denies smoking or EtOH use In the emergency department at [facility], x-ray was obtained and was noteworthy for a nondisplaced minimally impacted subcapital femoral fracture on the right side. She was noted to have mild OA of the bilateral hip joints. CT of the head did not demonstrate acute fracture or intracranial abnormality. Case was discussed between ED attending and Dr. Webster of orthopedics here at [facility], and she was recommended for transfer for further inpatient managementand likely orthopedic surgery here. Review of Systems Review of Systems Review of systems: 10 point ROS reviewed and is negative except for that which is noted above in HPI PMFSH Vaccinated for COVID-19?: Yes Medical History (Updated 12/26/21 @ 22:45 by Jesus Brewer MD) Anemia Anxiety Arthritis Diabetes mellitus, type 2 High cholesterol Hypertension Palpitation Surgical History (Updated 12/26/21 @ 21:44 by Gifty Doyle RN) History of cholecystectomy Social History Smoking Status: Never smoker Substance Use Type: None Meds Medications and Allergies Allergies No Known Allergies Allergy (Verified 12/26/21 21:45) Home Medications amlodipine 5 mg tablet 5 mg PO DAILY 12/26/21 [History Confirmed 12/26/21] aspirin 81 mg capsule 81 mg PO DAILY 12/26/21 [History Confirmed 12/26/21] atorvastatin 10 mg tablet 10 mg PO DAILY 12/26/21 [History Confirmed 12/26/21] metformin 1,000 mg tablet 1,000 mg PO BID 12/26/21 [History Confirmed 12/26/21] metoprolol succinate 100 mg tablet,extended release 24 hr 100 mg PO BID 12/26/21[History Confirmed 12/26/21] valsartan 160 mg tablet 160 mg PO BID 12/26/21 [History Confirmed 12/26/21] Exam Physical Exam Vital Signs: Temp Pulse BP Pulse Ox O2 Del Method 98.1 F 74 161/79 H 98 Room Air 12/26/21 21:53 12/26/21 21:53 12/26/21 21:53 12/26/21 21:53 12/26/21 21:53 Narrative: Constitutional: Pleasant, elderly frail WF, resting in bed comfortably HEENT: Moist mucous membranes, neck supple. Mild swelling on the right hindu. Cardiovascular: RRR, no M/R/G, normal S1 and S2, no JVD Respiratory: Lungs clear to auscultation bilaterally, no wheezes, rales or rhonchi GI: Soft, NTND, normoactive bowel sounds : Deferred Neuro: AAO x3, no focal deficits. CN II-XII grossly intact, Extremities: No clubbing, cyanosis or edema. Strength 5/5 throughout, other than right lower extremity which is limited secondary to pain. Psych: Patient calm, cooperative and conversant A&P - Hospitalist Assessment/Plan (1) Right femoral fracture: (2) Diabetes mellitus, type 2: (3) Hypertension: (4) High cholesterol: Plan Right Femoral Fracture Mechanical Fall Patient presents with mechanical ground-level fall resulting in right femoral fracture. Dr. Webster is aware of patient case and approved transfer for likely surgical intervention. -Ortho consult -N.p.o. after midnight in anticipation of surgical intervention -Pain control with Tylenol, oxycodone and morphine, continue supportive care otherwise -Start calcium and vitamin D supplementation Perioperative Risk Assessment RCRI score is 0. Patient is able to tolerate >4 METS of physical activity.?This gives patient a very low risk of cardiac , nonfatal cardiac arrest, or nonfatal MD perioperatively. Patient also has no high risk cardiac conditions, such as: unstable angina or recent MD, Decompensated heart failure, Symptomatic bradycardia, High-grade AV block, SVT, Symptomatic or new-onset VT, Severe valvular disease, Severe aortic stenosis, or Symptomatic mitral stenosis Plan: -Obtain baseline EKG -Monitor on tele given hx of palpitations -No need for further cardiorespiratory work-up prior to proceeding with surgicalintervention Other chronic medical conditions noted below, continue home regimens unless otherwise specified: Hyperlipidemia Hypertension Type 2 diabetes mellitus-hold metformin while inpatient, start corrective scale insulin CODE STATUS: Full code Documented By: Jesus Brewer MD [id number] Signed By: <Electronically signed by Jesus Brewer MD> 12/26/21 2242 [facility] Work Phone: [phone] 145-557207-20-2022 Miscellaneous Notes* Telephone Encounter - Sridhar Altman MD - 10/16/2021 8:53 AM EDT Spoke with the patient regarding the lab results. Ferritin is low at 26. Recommended restarting oral iron once daily. She will get in touch with Dr. Sanchez to discuss scopes and also meet her PCP, today to provide him with updates. Sridhar Altman MD documented in this encounterF[facility] History of Present illness Narrative* Sridhar Altman MD - 10/15/2021 2:01 PM EDT HEMATOLOGY FOLLOW UP Elements in this clinic note that are critical to medical decision making have been carefully reviewed and included from my prior clinic note dated: July 16, 2021 October 15, 2021 PCP and other physicians involved in patient's care: Glen Perez (PCP), Hira Sarah (rheum) DIAGNOSIS: Anemia of chronic inflammation HEMATOLOGICAL HISTORY: Patient developed mild anemia approximately 11 g/dL since 2016 without a change in appetite or weight loss. EGD and colonoscopy on was normal. March 2020, experienced flulike symptoms; this was followed 4 to 6 weeks later with severe joint pain and swelling in hands, ankles, knees and lower back, and associated difficulty elevating left shoulder; resolution of symptoms with diclofenac with reemergence of symptoms without diclofenac Hemoglobin in October 2020 was 8.8 g/dL with MCV 78. Ferritin was elevated at 188, iron and TIBC were low. Stool negative for occult blood. Oral iron without any improvement. CRP elevated and anti-ANAantibodies are positive (homogeneous; 1:80) December 28, 2020 evaluated by me for anemia labs showed hemoglobin 9, MCV 79, normal WBC and platelets, normal MPA, , low RPI, elevated haptoglobin and ESR suggesting anemia of chronic inflammation; saw rheumatology (Dr. Sarah) and is now on diclofenac September 2021, symptoms improved with diclofenac but hemoglobin remains low INTERVAL HISTORY: Rain comes back for follow-up. Her , Jose, is sick from COPD. She has also been dealing with recent deaths in acquaintances and is overwhelmed. Overall, her arthritis is controlled with diclofenac. She takes this every 3 days and trying to cut this down. No symptoms endorsed today. ROS is negative except that mentioned in HPI PAST MEDICAL SURGICAL FAMILY AND SOCIAL HISTORY: She has a history of -Type 2 diabetes mellitus -Hypertension -Hyperlipidemia -Gastroesophageal reflux -? Reactive arthritis versus polymyalgia rheumatica versus other autoimmune disease -Anemia of chronic inflammation Prior surgeries include cholecystectomy and screening colonoscopy. Family history significant for hip dysplasia in her daughter and bilateral hip arthritis in her son, who needed replacements in his 40s. No other autoimmune or hematological condition in the family. She denies any toxic habits. She lives with her , Jose in [place], [place]. MEDICATIONS AND ALLERGIES: Reviewed PHYSICAL EXAM BP 150/72 Pulse 68 Temp 36.1 C (97 F) (Temporal) Resp 16 Ht 157.5 cm (5' 2.01 ) Wt 60 kg (132 lb 3.2 oz) SpO2 98% BMI 24.17 kg/m Head atraumatic, no pallor, icterus or lymphadenopathy, lungs clear to auscultation, heart sounds regular, abdomen soft without distension or organomegaly, neuro grossly non- focal, skin without rash, extremities without swelling, MSK exam without any arthritis or tenderness LABORATORY, IMAGING AND PATHOLOGY CBC and CMP reviewed ASSESSMENT AND RECOMMENDATIONS 80 female with microcytic anemia, likely from chronic inflammation My main differential remains anemia of chronic inflammation (normal ferritin, elevated CRP, history) that is secondary to some sort of inflammatory arthritides. She is not following with rheumatologyand her arthritis is well controlled with diclofenac. Hemoglobin remains stable at 9.9 g/dL. Despite improvement in her overall performance status and symptoms, hemoglobin has not normalized. I suspect an additional pathology to explain this finding. I have discussed the pros and cons of doing a bone marrow biopsy with the patient. Given that patient is asymptomatic, it is reasonable to hold off a bone marrow biopsy for now. I will recheck labs in 3 months at follow up. Patient will reach out should she have any new symptoms. Sridhar Altman MD I spent a total of 20 minutes on the date of the service which included preparing to see the patient, [id number] patient care, completing clinical documentation, obtaining and/or reviewing separately obtained history, performing a medically appropriate examination, counseling and educating the pat ient/family/caregiver, ordering medications, tests, or procedures and independently interpreting results (not separately reported). CC: Glen Sarah, [facility] documented in this encounterFulton [facility]07-13-2022 Miscellaneous Notes* Telephone Encounter - Jessica Guerrero MA - 10/09/2021 10:57 AM EDT Patient has an appt on 10/15/21. Would you like labs, if so place orders. Jessica Guerrero MA documented in this encounterFulton [facility]04-19-2022 History of Present illness Narrative* Sridhar Altman MD - 07/16/2021 1:52 PM EDT HEMATOLOGY FOLLOW UP Elements in this clinic note that are critical to medical decision making have been carefully reviewed and included from my prior clinic note dated: April 23, 2021 July 16, 2021 PCP and other physicians involved in patient's care: Glen Perez (PCP), Hira Sarah (rheum) DIAGNOSIS: Anemia of chronic inflammation HEMATOLOGICAL HISTORY: Patient developed mild anemia approximately 11 g/dL since 2017 without a change in appetite or weight loss. EGD and colonoscopy on was normal. March 2020, experience flulike symptoms; this was followed 4 to 6 weeks later with severe joint pain and swelling in hands, ankles, knees and lower back, and associated difficulty elevating left shoulder; resolution of symptoms with diclofenac with reemergence of symptoms without diclofenac Hemoglobin in October 2020 was 8.8 g/dL with MCV 78. Ferritin was elevated at 188, iron and TIBC were low. Stool negative for occult blood. Oral iron without any improvement. CRP elevated and anti-ANAantibodies are positive (homogeneous; 1:80) December 28, 2020 evaluated by me for anemia labs showed hemoglobin 9, MCV 79, normal WBC and platelets, normal MPA, , low RPI, elevated haptoglobin and ESR suggesting anemia of chronic inflammation; saw rheumatology (Dr. Sarah) and is now on diclofenac INTERVAL HISTORY: Rain comes back for follow-up. She is here with her , Jose. Overall feels good. She is staying active around the house and outside. No major issues. She tried to wean diclofenac to every other day but had a flareup in the left ankle causing her to use crutches for 3 days. Now she is on diclofenac every day with good effect. She also endorses some morning stiffness in her hands which resolves with time. ROS is negative except that mentioned in HPI PAST MEDICAL SURGICAL FAMILY AND SOCIAL HISTORY: She has a history of -Type 2 diabetes mellitus -Hypertension -Hyperlipidemia -Gastroesophageal reflux -? Reactive arthritis versus polymyalgia rheumatica versus other autoimmune disease -Anemia of chronic inflammation Prior surgeries include cholecystectomy and screening colonoscopy. Family history significant for hip dysplasia in her daughter and bilateral hip arthritis in her son, who needed replacements in his 40s. No other autoimmune or hematological condition in the family. She denies any toxic habits. She lives with her , Jose in [place], [place]. MEDICATIONS AND ALLERGIES: Reviewed PHYSICAL EXAM BP 160/90 Pulse 76 Temp 36.4 C (97.6 F) (Temporal) Resp 16 Ht 157.5 cm (5' 2.01 ) Wt 56.4kg (124 lb 6.4 oz) SpO2 98% BMI 22.75 kg/m Head atraumatic, no pallor, icterus or lymphadenopathy, lungs clear to auscultation, heart sounds regular, abdomen soft without distension or organomegaly, neuro grossly non-focal, skin without rash, extremities without swelling, MSK exam without any arthritis or tenderness LABORATORY, IMAGING AND PATHOLOGY CBC and CMP reviewed ASSESSMENT AND RECOMMENDATIONS 80 female with microcytic anemia, likely from chronic inflammation My main differential remains anemia of chronic inflammation (normal ferritin, elevated CRP, history) that is secondary to some sort of inflammatory arthritides. She is not following with rheumatologyand her arthritis is well controlled with diclofenac. Hemoglobin remains stable at 10 g/dL. Despite improvement in her overall performance status and symptoms, hemoglobin has not normalized. I have discussed the pros and cons of doing a bone marrow biopsy with the patient. Given that patient is asymptomatic, it is reasonable to hold off a bone marrow biopsy for now. Patient will reach out should she have any new symptoms. Follow-up in 3 months with repeat labs. Sridhar Altman MD I spent a total of 25 minutes on the date of the service which included preparing to see the patient, [id number] patient care, completing clinical documentation, obtaining and/or reviewing separately obtained history, performing a medically appropriate examination, counseling and educating the pat ient/family/caregiver, ordering medications, tests, or procedures and independently interpreting results (not separately reported). CC: Glen Iniguez [facility], [facility] documented in this encounterFult[facility]09-22-2020 Note [id number]:127[facility] Chief complaint+Reason for visit Narrative* Chief Complaint 4 month follow up/ R eferral for ear B12 Reason for Visit Anemia, pernicious Cervical spondylosis Hypercholesterolemia Hypertension Plantar fasciitis of left foot Type 2 diabetes mellitus with hyperglycemia [facility] Work Phone: Chief complaint+Reason for visit Narrative* Chief Complaint 4 month follow up/ R eferral for ear B12 referral to PT or rheumatology Reason for Visit Cervical spondylosis Hypercholesterolemia Hypertension Plantar fasciitis of left foot Type 2 diabetes mellitus with hyperglycemia Hypertension Neck pain Type 2 diabetes mellitus with hyperglycemia [facility] Work Phone: Chisw complaint+Reason for visit Narrative* Chief Complaint 4 month follow up/ R eferral for ear B12 referral to PT or rheumatology B12 Reason for Visit Cervical spondylosis Hypercholesterolemia Hypertension Plantar fasciitis of left foot Type 2 diabetes mellitus with hyperglycemia Hypertension Neck pain Type 2 diabetes mellitus with hyperglycemia [facility] Work Phone: chief complaint+Reason for visit Narrative* Chief Complaint B12 referral to PT or rheumatology B12 Medicare Wellness Reason for Visit Hypertension Neck pain Type 2 diabetes mellitus with hyperglycemia Cervical spondylosis Hypercholesterolemia Hypertension Type 2 diabetes mellitus with hyperglycemia Medicare annual wellness visit, subsequent [facility] Work Phone: chief complaint+Reason for visit Narrative* Chief Complaint B12 referral to PT or rheumatology B12 Medicare Wellness b12 shot Reason for Visit Hypertension Neck pain Type 2 diabetes mellitus with hyperglycemia Cervical spondylosis Hypercholesterolemia Hypertension Screening mammogram for breast cancer Type 2 diabetes mellitus with hyperglycemia Medicare annual wellness visit, subsequent [facility] Work Phone: Evaluation note* 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, chronic or unspecified documented [facility] encounter [facility]* Diagnosis Microcytic anemia- Primary Iron deficiency anemia, unspecified Inflammatory arthritis Unspecified inflammatory polyarthropathy [facility] Microcytic anemia- Primary Iron deficiency anemia, unspecified [facility]* Diagnosis Anemia in other chronic diseases classified elsewhere- Primary [facility]* Diagnosis Onset Date Resolution Status Diabetes mellitus, type 2 ac [place] High cholesterol acute Hypertension acute Right femoral fracture acute [facility] Work Phone: Evaluation note* Diagnosis Anemia in other chronic diseases classified elsewhere- Primary [facility]* Diagnosis Anemia in other chronic diseases classified elsewhere- Primary Microcytic anemia Iron deficiency anemia, unspecified documented in this encounter [facility] CenterEvaluation noteNo InformationNort Color [employer] Other Evaluation noteNo assessment information available [facility] Work Phone: Evaluation note* Diagnosis Anemia in other chronic diseases classified elsewhere- Primary White coat syndrome with diagnosis of hypertension Inflammatory arthritis Unspecified inflammatory polyarthropathy Reactive depression Dysthymic disorder [facility]* Diagnosis Onset Date Resolution Status Anemia, pernicious acute Cervical spondylosis acute Hypercholesterolemia acute Hypertension acute Plantar fasciitis of left foot acute Type 2 diabetes mellitus with hyperglycemia acute [facility] Work Phone: Evaluation note* Diagnosis Onset Date Resolution Status Cervical spondylosis acute Hypercholesterolemia acute Hypertension acute Plantar fasciitis of left foot acute Type 2 diabetes mellitus with hyperglycemia acute Hypertension acute Neck pain acute Type 2 diabetes mellitus with hyperglycemia acute [facility] Work Phone: Evaluation note* Diagnosis Anemia in other chronic diseases classified elsewhere- Primary Type 2 diabetes mellitus with hyperglycemia, without long-term current use of insulin (HCC) Inflammatory arthritis Unspecified inflammatory polyarthropathy Reactive depression Dysthymic disorder [facility]* Diagnosis Onset Date Resolution Status Hypertension acute Neck pain acute Type 2 diabetes mellitus with hyperglycemia acute Cervical spondylosis acute Hypercholesterolemia acute Hypertension acute Type 2 diabetes mellitus with hyperglycemia acute Medicare annual wellness visit, subsequent noneactive [facility] Work Phone: Evaluation note* Diagnosis Onset Date Resolution Status Hypertension acute Neck pain acute Type 2 diabetes mellitus with hyperglycemia acute Cervical spondylosis acute Hypercholesterolemia acute Hypertension acute Screening mammogram for breast cancer acute Type 2 diabetes mellitus with hyperglycemia acute Medicare annual wellness visit, subsequent noneactive [facility] Work Phone: Evaluation note* Diagnosis Onset Date Resolution Status Cervical spondylosis acute Hypercholesterolemia acute Hypertension acute Screening mammogram for breast cancer acute Type 2 diabetes mellitus with hyperglycemia acute Medicare annual wellness visit, subsequent noneactive [facility] Work Phone: Evaluation note* Diagnosis Onset Date Resolution Status Cervical spondylosis acute Hypercholesterolemia acute Hypertension acute Screening mammogram for breast cancer acute Type 2 diabetes mellitus with hyperglycemia acute Medicare annual wellness visit, subsequent noneactive SHREE (generalized anxiety disorder) acute [facility] Work Phone: Evaluation note* Diagnosis Onset Date Resolution Status Dyspepsia acute SHREE (generalized anxiety disorder) acute Strain of lumbar paraspinal muscle acute Cervical spondylosis acute Hypercholesterolemia acute Hypertension acute Type 2 diabetes mellitus with hyperglycemia acute [facility] Work Phone: Evaluation note* Diagnosis Onset Date Resolution Status Dyspepsia acute SHREE (generalized anxiety disorder) acute Strain of lumbar paraspinal muscle acute Cervical spondylosis acute SHREE (generalized anxiety disorder) acute Hypercholesterolemia acute Hypertension acute Major depression acute Type 2 diabetes mellitus with hyperglycemia acute [facility] Work Phone: Evaluation note* Diagnosis Anemia in other chronic diseases classified elsewhere- Primary White coat syndrome with diagnosis of hypertension [facility] Diagnosis Anemia in other chronic diseases classified elsewhere- Primary White coat syndrome with diagnosis of hypertension documented in this encounter [facility] general Narrative - Reported* Type Description Date Medical History Osteoarthritis Medical History high blood pressure Medical History high cholesterol Medical History diabetes mallitus Medical History allergies Surgical History closed reduction a p ercutaneous pinning right femoral neck fracture 12/27/2021 Surgical History gall bladder [facility] Other History general Narrative - Reported* Type Description Date Medical History allergies Medical History Osteoarthritis Medical History Hypertension Medical History Hypercholesterolemia Medical History Diabetes mellitus Medical History Pernicious anemia Surgical History closed reduction a p ercutaneous pinning right femoral neck fracture 12/27/2021 Surgical History gall bladder Hospitalization History see surgical history [facility] Other Hispxaj general Narrative - Reported* Type Description Date Medical History allergies Medical History Osteoarthritis Medical History Hypertension Medical History Hypercholesterolemia Medical History Diabetes mellitus Medical History Pernicious anemia Medical History Humeral head fracture 06/2022 Surgical History closed reduction a p ercutaneous pinning right femoral neck fracture 12/27/2021 Surgical History gall bladder Hospitalization History see surgical history [facility] Other Reason for referral (narrative)No reason for referral [facility]: Summary Purpose Family History Relationship Condition Age at Onset Recorded Date/T kadeem Not Specified Cerebrovascular accident (CVA) Unknown father Myocardial infarction Unknown brother Heart disease Unknown Relationship Condition Age at Onset Recorded Date/T kadeem Not Specified Cerebrovascular accident (CVA) Unknown Unknown father Myocardial infarction Unknown brother Heart disease Unknown Relationship Condition Age at Onset Recorded Date/T kadeem mother Cerebrovascular accident (CVA) Unknown Unknown father Myocardial infarction Unknown brother Heart disease Unknown Advance Directives Advance Directive Response Recorded Date/ Time Advance Directives No November 6:48pm Advance Directive Response Recorded Date/ Time Advance Directives No November 5:48pm Chief Complaint and Reason for Visit Chief Complaint Right femur fracture Reason for Visit Diabetes mellitus, t ype 2 High cholesterol Hypertension Right femoral fracture Chief Complaint Right femur fracture S72.001D Reason for Visit Diabetes mellitus, t ype 2 High cholesterol Hypertension Right femoral fracture Chief Complaint S42.211A S42.291A Right Humerus Fracture Chief Complaint S42.211A S42.291A Right Humerus Fracture s42.211 s42.291 Chief Complaint S42.211A S42.291A Right Humerus Fracture Right Humerus Fracture s42.211 s42.291 S42.211D Chief Complaint B12 Medicare Wellness b12 shot B12 Shot Reason for Visit Cervical spondylosis Hypercholesterolemia Hypertension Screening mammogram for breast cancer Type 2 diabetes mellitus with hyperglycemia Medicare annual wellness visit, subsequent Chief Complaint Medicare Wellness b12 shot B12 Shot B12 Shot Reason for Visit Cervical spondylosis Hypercholesterolemia Hypertension Screening mammogram for breast cancer Type 2 diabetes mellitus with hyperglycemia Medicare annual wellness visit, subsequent Chief Complaint Medicare Wellness b12 shot B12 Shot B12 Shot pulled muscle Reason for Visit Cervical spondylosis Hypercholesterolemia Hypertension Screening mammogram for breast cancer Type 2 diabetes mellitus with hyperglycemia Medicare annual wellness visit, subsequent SHREE (generalized anxiety disorder) Chief Complaint b12 shot B12 Shot B12 Shot pulled muscle 3 month f/u Reason for Visit Dyspepsia SHREE (generalized anxiety disorder) Strain of lumbar paraspinal muscle Cervical spondylosis Hypercholesterolemia Hypertension Type 2 diabetes mellitus with hyperglycemia Chief Complaint B12 Shot B12 Shot pulled muscle 3 month f/u B12 Shot Reason for Visit Dyspepsia SHREE (generalized anxiety disorder) Strain of lumbar paraspinal muscle Cervical spondylosis SHREE (generalized anxiety disorder) Hypercholesterolemia Hypertension Major depression Type 2 diabetes mellitus with hyperglycemia Chief Complaint Admit Date B12 Shot December 07, 2023 11:12am pulled muscle December 10, 2023 8:20am 3 month f/u December 24, 2023 8:43am B12 Shot January 12, 2024 8 :25am B12 shot February 15, 2024 3:04pm Reason for Visit Admit Date Dyspepsia December 10, 2023 8:20am SHREE (generalized anxiety disorder) [facility] 2023 8:20am [facility]asp[facility]23 8:20am Cervical spondylosis December 23 8:43am SHREE (generalized anxiety disorder) [facility] 2023 8:43am Hypercholesterolemia December 23 8:43am Hypertension December 24, 2023 8:43am Major depression December 24, 2023 8:43am Type 2 diabetes mellitus with hyperglyce [facility] December 24, 2023 8:43am Chief Complaint Admit Date B12 Shot January 12, 2024 8 :25am B12 shot February 15, 2024 3:04pm b12 shot March 21, 2024 8:44am 3 month f/u March 25, 2024 8:19am Diarrhea March 31, 2024 9: 57am Reason for Visit Admit Date Anemia March 25, 2024 8:19am Cervical spondylosis March 25, 2024 8:19am Hypercholesterolemia March 25, 2024 8:19am Hypertension March 25, 2024 8:19am Major depression March 25, 2024 8:19am Pernicious anemia March 25, 2024 8:19am Type 2 diabetes mellitus with hyperglyce [facility] March 25, 2024 8:19am Chief Complaint Admit Date B12 shot February 15, 2024 3:04pm b12 shot March 21, 2024 8:44am 3 month f/u March 25, 2024 8:19am Diarrhea March 31, 2024 9: 57am CC Adult Risk Stratification March 10:39am b12 shot April 22, 2024 9 :52am Reason for Visit Admit Date Anemia March 25, 2024 8:19am Cervical spondylosis March 25, 2024 8:19am Hypercholesterolemia March 25, 2024 8:19am Hypertension March 25, 2024 8:19am Major depression March 25, 2024 8:19am Pernicious anemia March 25, 2024 8:19am Type 2 diabetes mellitus with hyperglyce [facility] March 25, 2024 8:19am Abdominal pain March 31, 2024 9: 57am Adverse effect of metformin March 31, 2024 9:57am Change in bowel habits March 31, 2024 9:57am Chief Complaint Admit Date B12 shot February 15, 2024 3:04pm b12 shot March 21, 2024 8:44am 3 month f/u March 25, 2024 8:19am Diarrhea March 31, 2024 9: 57am CC Adult Risk Stratification March 10:39am b12 shot April 22, 2024 9 :52am urinary problems May 09, 2024 3:33pm Chief Complaint Admit Date b12 shot March 21, 2024 8:44am 3 month f/u March 25, 2024 8:19am Diarrhea March 31, 2024 9: 57am CC Adult Risk Stratification March 10:39am b12 shot April 22, 2024 9 :52am urinary problems May 09, 2024 3:33pm B12 Shot May 27, 2024 11:37am Reason for Visit Admit Date Anemia March 25, 2024 8:19am Cervical spondylosis March 25, 2024 8:19am Hypercholesterolemia March 25, 2024 8:19am Hypertension March 25, 2024 8:19am Major depression March 25, 2024 8:19am Pernicious anemia March 25, 2024 8:19am Type 2 diabetes mellitus with hyperglyce shelton March 25, 2024 8:19am Adverse effect of metformin March 31, 2024 9:57am Abdominal pain March 31, 2024 9: 57am Change in bowel habits March 31, 2024 9:57am Adverse effect of metformin April 3:33pm SHREE (generalized anxiety disorder) u [email or web address] 3:33pm Hypertension May 09, 2024 3:33pm Major depression May 09, 2024 3:33pm Recent change in frequency of bowel move ments May 09, 2024 3:33pm Type 2 diabetes mellitus with hyperglyce shelton May 09, 2024 3:33pm Chief Complaint Admit Date Diarrhea March 31, 2024 9: 57am CC Adult Risk Stratification March 10:39am b12 shot April 22, 2024 9 :52am urinary problems May 09, 2024 3:33pm B12 Shot May 27, 2024 11:37am 3 month f/u-HIGH RISK June 28, 2024 8: 20am Reason for Visit Admit Date Adverse effect of metformin March 31, 2024 9:57am Abdominal pain March 31, 2024 9: 57am Change in bowel habits March 31, 2024 9:57am Adverse effect of metformin April 3:33pm SHREE (generalized anxiety disorder) Febru kami 2024 3:33pm Hypertension May 09, 2024 3:33pm Major depression May 09, 2024 3:33pm Recent change in frequency of bowel move ments May 09, 2024 3:33pm Type 2 diabetes mellitus with hyperglyce shelton May 09, 2024 3:33pm Anemia June 28, 2024 8:20 am Cervical spondylosis June 28, 2024 8:2 0am Hypercholesterolemia June 28, 2024 8:2 0am Hypertension June 28, 2024 8:20 am Major depression June 28, 2024 8:20 am Pernicious anemia June 28, 2024 8:20 am Type 2 diabetes mellitus with hyperglyce shelton June 28, 2024 8:20am Chief Complaint Admit Date urinary problems May 09, 2024 3:33pm B12 Shot May 27, 2024 11:37am 3 month f/u-HIGH RISK June 28, 2024 8: 20am diarrhea-HIGH RISK July 27, 2024 2:0 2pm Reason for Visit Admit Date Adverse effect of metformin April 3:33pm SHREE (generalized anxiety disorder) Febru [email or web address] 3:33pm Hypertension May 09, 2024 3:33pm Major depression May 09, 2024 3:33pm Recent change in frequency of bowel move ments May 09, 2024 3:33pm Type 2 diabetes mellitus with hyperglyce shelton May 09, 2024 3:33pm Anemia June 28, 2024 8:20 am Cervical spondylosis June 28, 2024 8:2 0am Hypercholesterolemia June 28, 2024 8:2 0am Hypertension June 28, 2024 8:20 am Major depression June 28, 2024 8:20 am Pernicious anemia June 28, 2024 8:20 am Type 2 diabetes mellitus with hyperglyce shelton June 28, 2024 8:20am Anemia July 27, 2024 2:0 2pm Hypertension July 27, 2024 2:0 2pm Major depression July 27, 2024 2:0 2pm Pernicious anemia July 27, 2024 2:0 2pm Type 2 diabetes mellitus with hyperglyce shelton July 27, 2024 2:02pm Chief Complaint Admit Date urinary problems May 09, 2024 3:33pm B12 Shot May 27, 2024 11:37am 3 month f/u-HIGH RISK June 28, 2024 8: 20am diarrhea-HIGH RISK July 27, 2024 2:0 2pm B12 shot July 29, 2024 8:47am Reason for Visit Admit Date Adverse effect of metformin April 3:33pm SHREE (generalized anxiety disorder) Febru [email or web address] 3:33pm Hypertension May 09, 2024 3:33pm Major depression May 09, 2024 3:33pm Recent change in frequency of bowel move ments May 09, 2024 3:33pm Type 2 diabetes mellitus with hyperglyce shelton May 09, 2024 3:33pm Anemia June 28, 2024 8:20 am Cervical spondylosis June 28, 2024 8:2 0am Hypercholesterolemia June 28, 2024 8:2 0am Hypertension June 28, 2024 8:20 am Major depression June 28, 2024 8:20 am Pernicious anemia June 28, 2024 8:20 am Type 2 diabetes mellitus with hyperglyce shelton June 28, 2024 8:20am Anemia July 27, 2024 2:0 2pm SHREE (generalized anxiety disorder) July 27, 2024 2:02pm Hypertension July 27, 2024 2:0 2pm Major depression July 27, 2024 2:0 2pm Pernicious anemia July 27, 2024 2:0 2pm Type 2 diabetes mellitus with hyperglyce shelton July 27, 2024 2:02pm Chief Complaint Admit Date 3 month f/u-HIGH RISK June 28, 2024 8: 20am diarrhea-HIGH RISK July 27, 2024 2:0 2pm B12 shot July 29, 2024 8:47am B12 shot September 06, 2024 8:25 am Reason for Visit Admit Date Anemia June 28, 2024 8:20 am Cervical spondylosis June 28, 2024 8:2 0am Hypercholesterolemia June 28, 2024 8:2 0am Hypertension June 28, 2024 8:20 am Major depression June 28, 2024 8:20 am Pernicious anemia June 28, 2024 8:20 am Type 2 diabetes mellitus with hyperglyce shelton June 28, 2024 8:20am Anemia July 27, 2024 2:0 2pm SHREE (generalized anxiety disorder) July 27, 2024 2:02pm Hypertension July 27, 2024 2:0 2pm Major depression July 27, 2024 2:0 2pm Pernicious anemia July 27, 2024 2:0 2pm Type 2 diabetes mellitus with hyperglyce shelton July 27, 2024 2:02pm Chief Complaint Admit Date diarrhea-HIGH RISK July 27, 2024 2:0 2pm B12 shot July 29, 2024 8:47am B12 shot September 06, 2024 8:25 am [facility]-HIGH RISK October 17, 2024 8 :20am Reason for Visit Admit Date Anemia July 27, 2024 2:0 2pm SHREE (generalized anxiety disorder) July 27, 2024 2:02pm Hypertension July 27, 2024 2:0 2pm Major depression July 27, 2024 2:0 2pm Pernicious anemia July 27, 2024 2:0 2pm Type 2 diabetes mellitus with hyperglyce shelton July 27, 2024 2:02pm Anemia October 17, 2024 8:20 am Cervical spondylosis October 17, 2024 8:2 0am SHREE (generalized anxiety disorder) October 17, 2024 8:20am Hypercholesterolemia October 17, 2024 8:2 0am Hypertension October 17, 2024 8:20 am Major depression October 17, 2024 8:20 am MCI (mild cognitive impairment) September 8:20am Pernicious anemia October 17, 2024 8:20 am Screening mammogram for breast cancer 2024 8:20am Type 2 diabetes mellitus with hyperglyce shelton October 17, 2024 8:20am Medicare annual wellness visit, subseque nt October 17, 2024 8:20am Additional Source Comments INFORMATION SOURCE (unrecogn ized section and content) DATE CREATED AUTHOR 08/03/2020 [facility] DATE CREATED AUTHOR AUTHOR'S ORGANIZ ATION 07/24/2021 [facility] DATE CREATED AUTHOR AUTHOR'S ORGANIZ ATION 07/22/2022 [facility] DATE CREATED AUTHOR AUTHOR'S ORGANIZ ATION 09/22/2022 [facility] DATE CREATED AUTHOR AUTHOR'S ORGANIZ ATION 10/03/2023 [facility] DATE CREATED AUTHOR AUTHOR'S ORGANIZ ATION 08/15/2024 [facility] Source Comments (unrecognize d section and content) In the event this informatio n is protected by the Federal Confidentiality of Alcohol and Drug Abuse Patient Records regulations: The Federal rules restrict any use of the information to criminally investigate or prosecute any alcohol or drug abuse patient.[facility] the event this information is protected by the Federal Confidentiality of Alcohol and Drug Abuse Patient Records regulations: The Federal rules restrict any use of the information to criminally investigate or prosecute any alcohol or drug abuse patient.[facility] Center[facility] the event this information is protected by the Federal Confidentiality of Alcohol and Drug Abuse Patient Records regulations: The Federal rules restrict any use of the information to criminally investigate or prosecute any alcohol or drug abuse patient.[facility] Center[facility] the event this information is protected by the Federal Confidentiality of Alcohol and Drug Abuse Patient Records regulations: The Federal rules restrict any use of the information to criminally investigate or prosecute any alcohol or drug abuse patient.[facility] Center[facility] the event this information is protected by the Federal Confidentiality of Alcohol and Drug Abuse Patient Records regulations: The Federal rules restrict any use of the information to criminally investigate or prosecute any alcohol or drug abuse patient.[facility] Center[facility] the event this information is protected by the Federal Confidentiality of Alcohol and Drug Abuse Patient Records regulations: The Federal rules restrict any use of the information to criminally investigate or prosecute any alcohol or drug abuse patient.[facility] Center[facility] the event this information is protected by the Federal Confidentiality of Alcohol and Drug Abuse Patient Records regulations: The Federal rules restrict any use of the information to criminally investigate or prosecute any alcohol or drug abuse patient.[facility] Center[facility] the event this information is protected by the Federal Confidentiality of Alcohol and Drug Abuse Patient Records regulations: The Federal rules restrict any use of the information to criminally investigate or prosecute any alcohol or drug abuse patient.[facility] Center[facility] the event this information is protected by the Federal Confidentiality of Alcohol and Drug Abuse Patient Records regulations: The Federal rules restrict any use of the information to criminally investigate or prosecute any alcohol or drug abuse patient.[facility] Center[facility] the event this information is protected by the Federal Confidentiality of Alcohol and Drug Abuse Patient Records regulations: The Federal rules restrict any use of the information to criminally investigate or prosecute any alcohol or drug abuse patient.[facility] Center[facility] the event this information is protected by the Federal Confidentiality of Alcohol and Drug Abuse Patient Records regulations: The Federal rules restrict any use of the information to criminally investigate or prosecute any alcohol or drug abuse patient.[facility] Center[facility] the event this information is protected by the Federal Confidentiality of Alcohol and Drug Abuse Patient Records regulations: The Federal rules restrict any use of the information to criminally investigate or prosecute any alcohol or drug abuse patient.[facility] Center[facility] the event this information is protected by the Federal Confidentiality of Alcohol and Drug Abuse Patient Records regulations: The Federal rules restrict any use of the information to criminally investigate or prosecute any alcohol or drug abuse patient.[facility] CenterIn the event this information is protected by the Federal Confidentiality of Alcohol and Drug Abuse Patient Records regulations: The Federal rules restrict any use of the information to criminally investigate or prosecute any alcohol or drug abuse patient.[facility] Reason for Visit (unrecogniz ed section and content) Reason Comments Anemia Inflammatory Arthritis Reason Comments Lab Orders Reason Comments Anemia 3 month follow up Reason Comments Results Reason Comments Anemia Follow up Reason Comments Anemia Reason Comments Future Appointment Results Care Teams (unrecognized sec tion and content) Team Status: Active Member Role Status Dates Glen Perez DO Primary Care Provider Active Team Status: Inactive Member Role Status Dates Glen Perez DO Primary Care Provide r, Attending Provider Active Start: February 15, 2024 End: February 15, 2024 Team Status: Inactive Member Role Status Dates Glen Perez DO Primary Care Provide r, Attending Provider Active Start: March 21, 2024 End: March 21, 2024 Team Status: Inactive Member Role Status Dates Glen Perez DO Primary Care Provide r, Attending Provider Active Start: March 25, 2024 End: March 25, 2024 Team Status: Inactive Member Role Status Dates Glen Perez DO Primary Care Provide r, Attending Provider Active Start: March 31, 2024 End: March 31, 2024 Team Status: Active Member Role Status Dates Glen Perez , DO Primary Care Provide r, Attending Provider Active Start: April 05, 2024 Team Status: Inactive Member Role Status Dates Glen Perez DO Primary Care Provide r, Attending Provider Active Start: April 22, 2024 End: April 22, 2024 Team Status: Inactive Member Role Status Dates Glen Perez , DO Primary Care Provide r, Attending Provider Active Start: May 09, 2024 End: May 09, 2024 Team Status: Active Member Role Status Dates Glen Perez , Primary Care Provider Active Start: February 01, 2024 Yash Ayala MD Attending Provider Active Start: February 01, 2024 Team Status: Inactive Member Role Status Dates Glen Perez , DO Primary Care Provider Active Lul Webster , DO Attending Provider Active Team Status: Active Member Role Status Dates Glen Perez , DO Primary Care Provider Active Lul Webster , DO Attending Provider Active Network Security Administrator Relationship Specialty Start Date End Date Ana Lgen Herbert, DO [address] [facility] PCP - General Internal Medicine 12/24/20 Network Security Administrator Relationship Specialty Start Date End Date Glen Perez, DO [address] [place] [address] PCP - General Internal Medicine 12/24/20 Network Security Administrator Relationship Specialty Start Date End Date Glen Perez, DO [address] [place] [place] [place] [address] PCP - General Internal Medicine 12/24/20 Network Security Administrator Relationship Specialty Start Date End Date Glen Perez Herbert, DO [address] [place] [place] [address] PCP - General Internal Medicine 12/24/20 Team Status: Inactive Member Role Status Dates Glen Perez , Primary Care Provider Active Jesus Brewer MD Admit Provider, Attending P rovisoto Active Lul Webster , DO Other Provider Active Network Security Administrator Relationship Specialty Start Date End Date Glen Perez, DO [address] [place] [address] PCP - General Internal Medicine 12/24/20 Network Security Administrator Relationship Specialty Start Date End Date Glen Perez DO [address] [place] [address] PCP - General Internal Medicine 12/24/20 Network Security Administrator Relationship Specialty Start Date End Date Glen Perez DO [address] [place] [address] PCP - General Internal Medicine 12/24/20 Network Security Administrator Relationship Specialty Start Date End Date Glen Perez DO [address] [place] [address] PCP - General Internal Medicine 12/24/20 Team Status: Inactive Member Role Status Dates Glen Perez DO Primary Care Provide r, Attending Provider Active Start: June 09, 2023 End: June 09, 2023 Team Status: Inactive Member Role Status Dates Glen Perez DO Primary Care Provide r, Attending Provider Active Start: July 13, 2023 End: July 13, 2023 Team Status: Inactive Member Role Status Dates Glen Perez DO Primary Care Provide r, Attending Provider Active Start: July 28, 2023 End: July 28, 2023 Network Security Administrator Relationship Specialty Start Date End Date Glen Perez DO [address] [place] [address] PCP - General Internal Medicine 12/24/20 Network Security Administrator Relationship Specialty Start Date End Date Glen Perez DO [address] [place] [address] PCP - General Internal Medicine 12/24/20 Team Status: Active Member Role Status Dates Glen Perez DO Primary Care Provider Active Start: August 03, 2023 Dipti Mitchell PA-C Attending Provider Active Start: August 03, 2023 Team Status: Inactive Member Role Status Dates Glen Perez DO Primary Care Provide r, Attending Provider Active Start: August 25, 2023 End: August 25, 2023 Team Status: Inactive Member Role Status Dates Glen Perez DO Primary Care Provide r, Attending Provider Active Start: September 21, 2023 End: September 21, 2023 Team Status: Inactive Member Role Status Dates Glen Perez DO Primary Care Provide r, Attending Provider Active Start: September 30, 2023 End: September 30, 2023 Team Status: Inactive Member Role Status Dates Glen Perez DO Primary Care Provide r, Attending Provider Active Start: November 06, 2023 End: November 06, 2023 Team Status: Inactive Member Role Status Dates Glen Perez DO Primary Care Provide r, Attending Provider Active Start: December 07, 2023 End: December 07, 2023 Team Status: Inactive Member Role Status Beau Perez DO Primary Care Provide r, Attending Provider Active Start: December 10, 2023 End: December 10, 2023 Team Status: Inactive Member Role Status Beau Perez DO Primary Care Provide r, Attending Provider Active Start: December 24, 2023 End: December 24, 2023 Team Status: Inactive Member Role Status Beau Perez DO Primary Care Provide r, Attending Provider Active Start: January 12, 2024 End: January 12, 2024 Network Security Administrator Relationship Specialty Start Date End Date Glen Perez DO [address] [place] [address] PCP - General Internal Medicine 12/24/20 Team Status: Inactive Member Role Status Beau Perez DO Primary Care Provide r, Attending Provider Active Start: May 27, 2024 End: May 27, 2024 Team Status: Inactive Member Role Status Beau Perez DO Primary Care Provide r, Attending Provider Active Start: June 28, 2024 End: June 28, 2024 Team Status: Inactive Member Role Status Beau Perez DO Primary Care Provide r, Attending Provider Active Start: July 27, 2024 End: July 27, 2024 Team Status: Inactive Member Role Status Beau Perez DO Primary Care Provide r, Attending Provider Active Start: July 29, 2024 End: July 29, 2024 Network Security Administrator Relationship Specialty Start Date End Date Glen Perez DO [address] [facility] [place] [address] PCP - General Internal Medicine 12/24/20 Network Security Administrator Relationship Specialty Start Date End Date Glen Perez DO [address] [facility] [place] [address] PCP - General Internal Medicine 12/24/20 Team Status: Active Member Role Status Dates Glen Perez DO Primary Care Provider Active Start: August 12, 2024 Dipti Mitchell PA-C Attending Provider Active Start: August 12, 2024 Team Status: Inactive Member Role Status Dates Glen Perez DO Primary Care Provide r, Attending Provider Active Start: September 06, 2024 End: September 06, 2024 Team Status: Inactive Member Role Status Dates Glen Perez DO Primary Care Provider Active Start: July 27, 2024 End: July 27, 2024 Glen Perez DO Attending Provider Active Sta rt: July 27, 2024 End: July 27, 2024 Team Status: Inactive Member Role Status Dates Glen Perez DO Primary Care Provider Active Start: July 29, 2024 End: July 29, 2024 Glen Perez , Attending Provider Active Sta rt: July 29, 2024 End: July 29, 2024 Team Status: Inactive Member Role Status Dates Glen Perez DO Primary Care Provider Active Start: September 06, 2024 End: September 06, 2024 Glen Perez , Attending Provider Active Sta rt: September 06, 2024 End: September 06, 2024 Team Status: Inactive Member Role Status Dates Glen Perez DO Primary Care Provider Active Start: October 17, 2024 End: October 17, 2024 Glen Perez , DO Attending Provider Active Sta rt: October 17, 2024 End: October 17, 2024 Goals (unrecognized section and content) Goals may be documented in a n alternate section FOR RECORDS PERTAINING TO PATIENTS WHO ARE OR HAVE BEEN ENROLLED IN A CHEMICAL DEPENDENCY/SUBSTANCEABUSE PROGRAM, SOME INFORMATION MAY BE OMITTED. This clinical summary was aggregated from multiple sources. Caution should be exercised in using it in the provision of clinical care. This summary normalizes information from multiple sources, and as a consequence, information in this document may materially change the coding, format and clinical context of patient data. In addition, data may be omitted in some cases. CLINICAL DECISIONS SHOULD BE BASED ON THE PRIMARY CLINICAL RECORDS. [facility] [employer] [facility]. provides no warranty or guarantee of the accuracy or completeness of information in this document.
[2024-10-20 07:27] LABS: Hematocrit 36.0 % (36.0-48.0); Hemoglobin 12.0 g/dL (12.0-16.0); Immature Granulocytes Abs Auto 0.03 10^3/uL (0.00-0.03); Immature Granulocytes Pct Auto 0.5 % (0.0-0.5); Lymphocytes Absolute Auto 1.3 10^3/uL (1.2-3.8); Mean Corpuscular HGB Conc 33.3 g/dL (29.9-35.2); Mean Corpuscular Hemoglobin 28.1 pg (26.7-34.0); Mean Corpuscular Volume 84.3 fL (81.0-99.0); Platelet Count 243 10^3/uL (150-450); Red Blood Count 4.27 10^6/uL (4.20-5.40); White Blood Count 6.3 10^3/uL (4.0-11.0)
[2024-10-20 08:44] LABS: Microalbum Creatinine Ratio Ur 29.8 mg/g (0.0-29.9)
[2024-10-20 08:53] LABS: Alanine Aminotransferase 44 U/L (14-59); Albumin Globulin Ratio 1.2; Albumin Level 4.0 g/dL (3.4-5.0); Alkaline Phosphatase 120 U/L (46-116); Anion Gap 11.4; Aspartate Amino Transferase 27 U/L (15-37); Blood Urea Nitrogen 14.0 mg/dL (7.0-18.0); Calcium 9.3 mg/dL (8.5-10.1); Carbon Dioxide 30.9 mmol/L (21.0-32.0); Chloride 98 mmol/L (98-107); Cholesterol 138 mg/dL (<=200); Estimated GFR (African America >60 (>=60 mL/min/1.73m^2); Estimated GFR (Non-African Ame >60 (>=60 mL/min/1.73m^2); Globulin 3.4 g/dL; Glucose 146 mg/dL (74-106); HDL Cholesterol 78 mg/dL (40-60); Potassium 4.3 mmol/L (3.5-5.1); Sodium 136 mmol/L (136-145); Thyroid Stimulating Hormone 3.199 uIU/mL (0.358-3.740); Total Protein 7.4 g/dL (6.4-8.2); Triglycerides 64 mg/dL (<=150); VLDL CHOLESTEROL 12.8 mg/dL
[2024-10-20 10:09] LABS: Folate 26.20 ng/mL (8.60-58.90)
[2024-10-21 07:07] LABS: Vitamin B12 >2000 pg/mL (232-1245)
== END 2024-10-20 06:52 | disposition home or self-care (01) ==
LOC: LAB 06:53
PROVIDERS: PCP Internal Medicine; Visit Provider Internal Medicine
DX: G31.84 Mild cognitive impairment of uncertain or unknown etiology (principal); D63.8 Anemia in other chronic diseases classified elsewhere; E11.65 Type 2 diabetes mellitus with hyperglycemia; I10 Essential (primary) hypertension; E78.00 Pure hypercholesterolemia, unspecified; R53.83 Other fatigue
CPT/HCPCS: 36415; 80053; 80061; 82043; 82570; 82607; 82746; 83036; 84443; 85025

== ENCOUNTER 2024-10-26 13:25 | Outpatient (OUT) | payer MEDICARE, SELFPAY ==
--- NOTE | 2024-10-26 13:28 | MR_ITS ---
The [address] [address] Patient Name: DARLENE MCLAUGHLIN MRN: [id number] date: 1940 Sex: F Assigned Patient Location: MRI Current Patient Location: MRI Accession/Order Number: [id number] Exam Date: 10/26/2024 14:39 Report Date: 10/26/2024 14:40 At the request of: FIDEL PEREZ DO Procedure: MR head/brain wo con EXAMINATION: MRI OF THE BRAIN WITHOUT CONTRAST CLINICAL HISTORY: Mild cognitive impairment COMPARISON: None TECHNIQUE: Multiecho, multiplanar imaging of the brain was performed without enhancement. FINDINGS: No evidence of restriction diffusion is an diffusion-weighted imaging. No evidence of blood products are seen on T2 Star imaging. Cortical atrophy with moderate chronic microvascular ischemic changes. This appears to extend into the ju and cerebellum. Midbrain and medulla appear unremarkable. Intraorbital contents appear unremarkable. No significant paranasal sinus disease. MR/MR head/brain wo con IMPRESSION: NO ACUTE FINDINGS. 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 Impression dictated by: Scooter Villatoro Jr., D.O. 10/26/2024 2:40 PM Dictation Location: [place] [address] Electronically authenticated by: [id number] Y Date: 10/26/2024 14:40
== END 2024-10-26 13:26 | disposition home or self-care (01) ==
LOC: MRI 13:26
PROVIDERS: PCP Internal Medicine; Visit Provider Internal Medicine
DX: G31.84 Mild cognitive impairment of uncertain or unknown etiology (principal)
CPT/HCPCS: 70551